=== PATIENT | female | born 1970 | race Caucasian/White ===

== ENCOUNTER 2018-05-30 11:51 | Day surgery (SDC) | payer MEDICARE, MEDICAID, SELFPAY ==
[2018-05-30] VITALS (10 sets, daily range): BP systolic 133–196; BP diastolic 76–101; PULSE 61–88; RESP 16–20; TEMP 36.6–37.6; O2SAT 93–100; BMI 38.8
--- NOTE | 2018-05-30 12:21 | EKG12_ITS ---
Test Reason : PRE-OP Blood Pressure : / mmHG Vent. Rate : 062 BPM Atrial Rate : 062 BPM P-R Int : 160 ms QRS Dur : 080 ms QT Int : 428 ms P-R-T Axes : 018 052 051 degrees QTc Int : 434 ms Normal sinus rhythm Normal ECG When compared with ECG of 16-APR-2015 19:19, No significant change was found Confirmed by OTIS ISLAS, ROHIT ([id number]), editor greeting card RUBEN DUPONT ([id number]) on 06/03/2018 2:27:43 PM Referred By: Rosina Quinn Confirmed By:ROHIT BERG MD
[2018-05-30 12:37] LABS: Hematocrit 36.6 % (37-47); Mean Corp Hgb Conc 32.8 g/gl (32-36); Mean Corpuscular Hgb 28.9 pg (27.0-32.0); Mean Corpuscular Volume 88.2 fL (81-99); Mean Platelet Vol. 9.8 fl (6.2-12.0); Platelet Count 238 K/mm3 (150-450); RBC Distribution Width CV 12.9 % (11.6-14.6); RBC Distribution Width SD 41.7 fl (35.1-43.9); Red Blood Count 4.15 M/mm3 (4.2-5.4); White Blood Count 6.2 K/mm3 (4.4-11.0)
[2018-05-30 12:39] LABS: Scan Indicated on CBC? Y/N NO
--- NOTE | 2018-05-30 12:39 | PCM.HP.BLA ---
History and Physical Date of Admission: 05/30/18 Lucita Baumann a 47 year old female presents with chronic right upper quadrant abdominal pain and epigastric abdominal pain, occasionally sharp, sometimes a severe ache. She states that it sometimes radiates to the back. Also complains of abdominal bloating. Complains of diaphoresis with above. RUQ US 03/23/18: Impression: hepatic steatosis HIDA scan done at [place] 03/31/18: HIDA scan was normal. No evidence of gallbladder filling problem or ejection problem. EF 99.7% Mother and sister had gallbladder disease. EGD 05/03/18 - mild chronic gastritis, h pylori negative, reflux with esophagitis She wishes to undergo laparoscopic cholecystectomy, possible cholangiograms ? ? PAST?MEDICAL?HISTORY ? Benign heart murmur 09/01/2012 ? Benign neoplasm of pituitary gland and craniopharyngeal duct (pouch) (HCC) Dr. Duke following ? Degeneration of intervertebral disc, site unspecified ?Drs. Wilburn ? Depressive disorder, not elsewhere classified ? ? DM (diabetes mellitus) (HCC) ?Dr. Duke ? H/O blood clots all superficial ? Heartburn ? ? High blood pressure ? ? Hypothyroidism ? ? GAGANDEEP (obstructive sleep apnea) ? ? Other and unspecified hyperlipidemia Dr. Duke following ? Schizoaffective disorder ? ? Seizures (HCC) 2013 medication related ? Spinal stenosis, unspecified region other than cervical Dr.s Wilburn ? Unspecified epilepsy without mention of intractable epilepsy ? ? Viral warts, unspecified ? ? ? PAST?SURGICAL?HISTORY ? ANKLE LEFT OP SURGERY ? 06/19/2011 8 screws and metal plate removed left ankle ? ARTHRO SHLDR DST CLAVICLECTMY ? 04/10/2014 Right shoulder arthroscopic rotator cuff repair with debridement ? COLONOSCOP W/ OR W/O BRSH SPEC ? 09/05/13 ? EGD W/O OR W/BRUSH/WASH ? 09/05/13 ? EMBOLIZATION UTERINE FIBROID ? [id number] 1 removed each time ? LEG DVT LEONEL UNL J3-5 ? 1982 5 superficial blot clots in left leg ? PAST SURGICAL HISTORY OF ? -05-25 bilateral breast reduction ? SHLDR ARTHROSCOP,PART ACROMIOPLAS ? 01/31/2013 Right shoulder ? TONSILLECTOMY HX ? 1992 ? VAGINAL HYSTERECTOMY ? 01/05/2013 Hysterectomy, vaginal for dysmenorrhea ? ? FAMILY?HISTORY ? Arthritis Mother ? ? Arthritis Maternal Grandfather ? ? Arthritis Sister ? ? Arthritis Sister ? ? Hypertension Sister ? ? Diabetes Sister ? ? Heart Sister ? mothers family history ? ? CURRENT?MEDICATIONS ondansetron orally disintegrating (ZOFRAN ODT) 4 mg disintegrating tablet Take 1 tablet by mouth every 6 hours as needed for Nausea/Vomiting. Disp: 20 tablet Rfl: 0 carBAMazepine XR (TEGRETOL XR) 200 mg 12 hr tablet Take 400mg in am, and 600mg in pm Disp: Rfl: Cholecalciferol, Vitamin D3, 2,000 unit cap Take 1 capsule by mouth once daily. Disp: Rfl: sucralfate (CARAFATE) 1 gram tablet Take 1 tablet by mouth before meals and at bedtime. As directed--may dissolve in 1 to 2 teaspoons of water and take 30 minutes before meals and bedtime Disp: 56 tablet Rfl: 1 tiZANidine (ZANAFLEX) 4 mg tablet Take 1 tablet by mouth every 8 hours as needed. Disp: 90 tablet Rfl: 1 traMADol (ULTRAM) 50 mg tablet Take 1 tablet by mouth every 6 hours as needed for Pain for up to 7 days. Disp: 28 tablet Rfl: 0 baclofen (LIORESAL) 10 mg tablet Take 1 tablet by mouth twice daily. Disp: 60 tablet Rfl: 2 omeprazole (PRILOSEC) 20 mg capsule TAKE 1 CAPSULE BY MOUTH TWICE A DAY Disp: 56 capsule Rfl: 5 lisinopril (ZESTRIL,PRINIVIL) 30 mg tablet TAKE 1 TABLET BY MOUTH DAILY Disp: 28 tablet Rfl: 5 ibuprofen (MOTRIN) 800 mg tablet Take 1 tablet by mouth every 8 hours as needed for Pain. FOR PAIN. Disp: 90 tablet Rfl: 1 amLODIPine (NORVASC) 5 mg tablet Take 1 tablet by mouth once daily. Disp: 30 tablet Rfl: 5 QUEtiapine (SEROQUEL) 400 mg tablet Take 1 tablet by mouth daily at bedtime. with 100 mg pill Disp: Rfl: QUEtiapine (SEROQUEL) 100 mg tablet Take 1 tablet by mouth daily at bedtime. with 400 mg dose Disp: Rfl: pravastatin (PRAVACHOL) 20 mg tablet Take 1 tablet by mouth daily at bedtime. Disp: 90 tablet Rfl: 3 clotrimazole-betamethasone (LOTRISONE) cream Apply 1 application to affected area twice daily. apply for 1-2 weeks, then discontinue Disp: 15 g Rfl: 2 busPIRone HCl 30 mg tablet Take 1 tablet by mouth twice daily. Disp: Rfl: DULoxetine (CYMBALTA) 60 mg capsule Take 2 capsules by mouth once daily. In AM Disp: Rfl: temazepam (RESTORIL) 30 mg cap Take 1 capsule by mouth daily at bedtime. Disp: Rfl: ? ? SOCIAL HISTORY: Patient is single. She quit smoking 4 years ago and reports her alcohol use as very rarely. ? ROS GI: The patient states that her appetite has been good. She does get hungry. There has been nausea, some vomiting (dry heaves). She denies dysphagia and denies odynophagia. There has been indigestion with heartburn. There has partially been regurgitation. Bowel habits have been irregular. There has been diarrhea. There has not been constipation. The patient denies rectal bleeding. There has not been melena. Daily abdominal pain that is located in the right upper quadrant. SOFTWARE TEST DEVELOPER: Negative for abnormal vaginal bleeding, abnormal vaginal discharge. LMP: Hyst. MUSCULOSKELETAL: Positive for joint pain, back pain or muscle pain. Sees pain management as needed. PSYCH: Positive for depression: sleep disturbance, anxiety, severe psychosocial stressors and hallucinations. Sees psychiatrist bi-monthly. All other reviewed and negative other than HPI. ? ? PHYSICAL EXAMINATION: General Appearance: Well appearing, alert, in no acute distress, well-hydrated, well nourished. Skin: Skin color, texture, turgor normal, no suspicious rashes or lesions. Head: Normocephalic, no masses, lesions or abnormalities. Eyes: Anicteric sclera. Wearing glasses Oropharynx: Lips, mucosa, and tongue normal, teeth and gums normal, oropharynx normal. Neck: Supple, no adenopathy; thyroid symmetric, normal size. Lungs: lungs clear to auscultation. No wheezing, rhonchi, rales. Heart: regular Abdomen: Abdomen soft, non-tender. Bowel sounds normal. No masses, organomegaly. Extremities: No deformities, edema, skin discoloration, clubbing or cyanosis. ? ? Impression: RUQ and epigastric pain with normal US and HIDA ? ? Plan: I have discussed above with the patient. Despite all the negative studies, I have offered gallbladder surgery. I have explained to her that this also may not alleviate her symptoms. I have explained the procedure to the patient. I have counseled the patient as to the risks of the surgery, including but not limited to: infection, bleeding, injury to any bowel/bladder, injury to any intraabdominal organs, intraabdominal bleeding/abscess, incisional trocar hernias, wound infections, injury to the common bile duct, injury to the biliary tree, bile leak, complications of anesthesia, etc. - she understands. She wishes to proceed. I have answered all her questions and she has no further questions.
[2018-05-30 12:58] LABS: Thyroid Stim Hormone (TSH) 0.89 uIU/mL (0.358-3.74)
--- NOTE | 2018-05-30 13:30 | GALL_PTH ---
PATIENT: VIKKI LESLIE [place] [facility] [id number] AGE/SX: 47/F ROOM: RE05/30/[address]: Dr. Rosina Quinn MD : 1970 BED: DIS: 05/30/2018 SPEC #: [id number] RECD: 05/30/18 15:33 STATUS: DAINA RELeo #: [id number] GABRIELA: 05/30/18 13:[address]: Rosina Quinn DEPT: SURGICAL PATHOLOGY RECD BY: Costa Vázquez ENTERED: 05/31/18 11:51 SP TYPE: RAGHU PERALES DR: Dr. Jenny Son MD Tissues: Gallbladder, NOS Procedures: Surgery Specimen Level III HEADER OPERATION: Laparoscopic cholecystectomy with intraoperative cholangiogram PRE-OP DIAGNOSIS: Right upper quadrant abdominal pain TISSUE SUBMITTED: Gallbladder and contents MICROSCOPIC DIAGNOSIS Gallbladder: Chronic cholecystitis. No stones are identified in the container or in the gallbladder. SJ:melissa 06/01/18 MICROSCOPIC DESCRIPTION Slides are reviewed. GROSS DESCRIPTION Received is one container labeled with the patient's name and designated gallbladder and contents. The specimen consists of a gallbladder measuring 8 cm in length and up to 3 cm in diameter. The external surface is pink-moreno, smooth and glistening for the most part. Focally it is granular, hemorrhagic and contains cautery artifact. The gallbladder contains green-yellow mucoid bile and a small amount of sludge material. No stones are identified in the gallbladder or in the container. The mucosa is bile-stained and without any mass lesions. The gallbladder wall measures up to 0.3 cm in thickness. Head Of Measurement & Insights sections from the gallbladder and the cystic duct are submitted in one cassette. / SPIKE:melissa 05/31/18 TC:3 CPT: 45034
--- NOTE | 2018-05-30 13:43 | PCM.IMDPSTOP ---
Immediate Post-Op Note Date of Procedure: 05/30/18 Primary Surgeon/Physician: Rosina Quinn guest experience captain: Madai Hansen Pre-Operative Diagnosis: right upper quadrant abdominal pain Post-Operative Diagnosis: same as above Surgery/Procedure Performed:: laparoscopic cholecystectomy with cholangiograms Description of Surgical Findings:: chronic cholecystitis, adherent omental to free surface of gallbladder, edematous around triagnle of calot Estimated Blood Loss: < 5 ml Specimen's removed: gallbladder and contents Type of Anesthesia:: General ASA Class: ASA2 Mod Systematic Disease - Admit VTE Documentation VTE Present on Admission: Yes VTE Mechan Device Prophylaxis: SCD's
[2018-05-30] MEDS: Cefazolin 2 GM in 0.9% Normal Saline 100 ML IV (13:47)
--- NOTE | 2018-05-30 14:03 | RAD_ITS ---
CLINICAL HISTORY: Female, 47 years old. Pain PROCEDURE: CHOLANGIOGRAM - intraoperative FLUOROSCOPY TIME (if supplied): (0/3.8) minutes/seconds TECHNIQUE: (Single spot view) FINDINGS: Spot view demonstrates surgical instrumentation. There is contrasts in the common bile duct and entering into the duodenum. RAD/Cholangiogram/ O R,Initial IMPRESSION: Intraoperative fluoroscopy. Electronically Signed: Chung Robert MD at 17:07 EST , Service support ,
[2018-05-30] MEDS: Bupiv/Epi 0.5% Mpf 30 ML Vial (14:36)
--- NOTE | 2018-05-30 14:38 | PCM.OPRPT ---
Report of Operation Date of Procedure: 05/30/18 Pre-Operative Diagnosis: right upper quadrant abdominal pain Post-Operative Diagnosis: same as above Surgery/Procedure Performed:: laparoscopic cholecystectomy with cholangiograms Description of Surgical Findings:: chronic cholecystitis, adherent omental to free surface of gallbladder, edematous around triangle of Calot room designer: Madai Hansen Type of Anesthesia:: General Anesthesiologist: Med Hernández Specimen's removed: gallbladder and contents Estimated Blood Loss (mL): < 5 ml Fluids Replaced: 900 ml RL Description of Procedure: After informed consent was given, the patient was brought to the Operating Room and placed in the supine position. Appropriate time out protocol was followed. The patient was then placed under general endotracheal anesthesia. The abdomen was then prepped with a sterile surgical skin preparation and sterile surgical drapes were placed. An area above the umbilicus was grasped with penetrating clamps and the skin and subcutaneous tissues were infiltrated with 0.25% marcaine. A skin incision was then made with a 15 blade scalpel. The anterior abdominal wall was elevated and a Veress needle was carefully inserted into the intraabdominal cavity. It was checked to be in the proper position with a normal saline drop test. A CO2 pneumoperitoneum was then created. Once this was achieved, then the Veress needle was removed and an 11mm trocar was placed in its stead. A 10mm laparoscope was then inserted into the trocar and careful attention was directed to the intraabdominal contents. There was no evidence of injury to any intraabdominal organs from insertion of the Veress needle or the trocar. Under direct visualization, a 5mm subxiphoid trocar and two lateral 5mm right subcostal trocars were placed. The skin and subcutaneous tissues at these sites were infiltrated with 0.5% marcaine prior to placement of these trocars. Attention was then directed to the right upper quadrant of the abdomen. There were omental adhesions to the free surface of the gallbladder. These were taken down by blunt dissection. Any hemorrhage was controlled with electrocautery. Graspers were placed in the lateral trocars to grasp the distal aspect of the gallbladder and direct it cephalad and to grasp the gallbladder at Olmedo?s pouch and direct it laterally. Dissection then began on the proximal gallbladder continuing down to the area of the triangle of Calot to bluntly dissect out the cystic duct. Of note, there was tissue edema noted in this area. The distal trocar caused a rent in the gallbladder with some spillage of bile. This was then aspirated out with the suction/table cut off saw operator device and the area lavaged with normal saline and all fluid suctioned out. The neck of the gallbladder was identified and blunt dissection continued to dissect out a segment of the cystic duct. A clip was then placed on the neck of the gallbladder. A small ductotomy was then made. A Ranfac catheter was brought in through a separate skin incision and placed into the cystic duct. An intraoperative cholangiogram was performed under fluoroscopy. The xray revealed no lesions in the common bile duct and good flow into the duodenum. The Ranfac catheter was then removed and two clips were placed proximal to the ductotomy and the cystic duct was then transected. The cystic artery was visualized and bluntly isolated and then two clips were placed proximally and one clip distally and then it was transected between the proximal and distal clips. The gallbladder was then from the liver bed using electrocautery and thus able to be brought out of the umbilical port after being placed in an Endobag. It was then forwarded to pathology for analysis. The liver bed was carefully examined. There was no evidence of bile leakage or bleeding. Randy was applied for added hemostasis. The cystic duct stump and cystic artery stump had their clips intact and there was no evidence of bile leakage or bleeding. The remainder of the abdomen was grossly normal. The CO2 was released and all trocars removed intact. The periumbilical fascia was approximated with a uadoeb-or-gicas 0 vicryl suture. All skin incision were closed with 4-0 monocryl in a subdermal fashion. Cavilol and Steristrips were used to reinforce the skin closure. Sterile dressings were applied to all wounds. The patient was extubated and brought to the Recovery Room in stable condition. - Complications none noted - Admit VTE Documentation VTE Present on Admission: Yes VTE Mechan Device Prophylaxis: SCD's
--- NOTE | 2018-05-30 14:42 | DCINST_ITS ---
Discharge Diet: No Restrictions - avoid carbonated beverages for a few days, drink plenty of fluids Discharge Activity: Return to Normal Activity, May not drive while taking narcotic pain medications. Lifting Restrictions: no lifting greater than 20 pounds for 2 weeks Call your doctor if your incision/area has: Continuous Slow Oozing, Foul Smelling Discharge Call your doctor if you observe: Fever of 101 or Higher Additional Dressing/Incision Instructions:: Leave dressings in place. May get wet in shower. Do not soak - no tub baths/swimming Allergies/Adverse Reactions: Allergies hydrocodone bitartrate [From Vicodin] Allergy (Mild, Verified 05/30/18 12:20) Itching codeine Adverse Reaction (Intermediate, Verified 05/30/18 12:20) VOMITS prochlorperazine edisylate [From Compazine] Adverse Reaction (Intermediate, Verified 05/30/18 12:20) ANXIETY prochlorperazine maleate [From Compazine] Adverse Reaction (Intermediate, Verified 05/30/18 12:20) ANXIETY benzonatate [From Tessalon Perles] Adverse Reaction (Verified 05/30/18 12:20) Other Medications to take at Discharge Buspirone HCl [Buspar] 30 mg PO BID 08/29/13 Duloxetine Hcl [Cymbalta] 60 mg PO BID 08/29/13 Lisinopril [Zestril] 10 mg PO DAILY 08/29/13 Omeprazole [Prilosec] 40 mg PO BID 08/29/13 Pravastatin [Pravachol] 20 mg PO QHS 08/29/13 Quetiapine Fumarate [Seroquel] 500 mg PO QHS 08/29/13 Temazepam [Restoril] 30 mg PO QHS PRN 08/29/13 Carbamazepine [Tegretol] 400 mg PO DAILY 05/26/18 Carbamazepine [Tegretol] 600 mg PO QHS 05/26/18 Tizanidine HCl [Zanaflex] 4 mg PO TID PRN 05/26/18 Orders to be completed after discharge: 12 Lead EKG [[facility]] Time Frame: 05/30/18, Location: None Selected Primary Care Physician: Jenny Son MD [Primary Care Provider] - Test Results: Test results from this visit will be discussed in further detail at your follow- up appointment, if applicable. Please Follow Up With: Rosina Quinn MD - call When: to be seen in 7-10 days, please call for date and time, thank you
[2018-05-30] MEDS: oxyCODONE 5 MG Tablet PO (16:40)
--- OUTSIDE RECORDS SUMMARY | 2018-09-01 02:02 | XMS RPT_ITS | Summary of Care ---
:1970 Author Organization [facility] Address [address] [place] [address] Care Team Providers Name Role Phone Unavailable Primary Care Provider Unavailable Encounter Details Date Type Department Care Team Description 03/31/2018 Hospital Encounter [facility] [address] [place] [id number] Social History Tobacco Use Types Packs/Day Years Used Date Never Assessed Sex Assigned at Date Recorded Not on file as of this encounter Plan of Treatment Not on fileas of this encounter
--- OUTSIDE RECORDS SUMMARY | 2018-09-01 02:03 | XMS RPT_ITS ---
:1970 Author Organization OHIP Care Team Providers Name Role Phone Dr. Melania Roach Admitting Unavailable Dr. Melania Roach Attending Unavailable Liz Nascimento MD Admitting Unavailable Liz Nascimento MD Attending Unavailable BOGDAN POE Attending Unavailable BOGDAN POE Referring Unavailable Rosina Quinn Attending Unavailable Rosina Quinn Referring Unavailable Liz Nascimento Primary Care Unavailable Benji Boone Attending Unavailable Rosina Quinn Referring Unavailable CAMDEN BOYCE Admitting Unavailable CAMDEN BOYCE Attending Unavailable CAMDEN BOYCE Admitting Unavailable CAMDEN BOYCE Attending Unavailable CAMDEN BOYCE Admitting Unavailable CAMDEN BOYCE Attending Unavailable CAMDEN BOYCE Admitting Unavailable CAMDEN BOYCE Attending Unavailable ROSINA QUINN Admitting Unavailable ROSINA QUINN Attending Unavailable MIMA COTTO ([facility]) Referring Unavailable RAYNE LUDWIG ([facility]) Attending Unavailable LIZ NASCIMENTO Referring Unavailable RAYNE LUDWIG (FLOOR SUPERVISOR) Referring Unavailable RAYNE LUDWIG (FLOOR SUPERVISOR) Referring Unavailable RAYNE LUDWIG ([facility]) Referring Unavailable IDRIS DOTSON ([facility]) Referring Unavailable TALAMPAS, LIZ D Attending Unavailable TALAMPAS, LIZ D Referring Unavailable CAMDEN BOYCE Attending Unavailable CAMDEN BOYCE Referring Unavailable TALAMPAS, LIZ D Referring Unavailable RAYNE LUDWIG (FLOOR SUPERVISOR) Attending Unavailable HORTENCIA DIALOL (FLOOR SUPERVISOR) Attending Unavailable MIMA COTTO (FLOOR SUPERVISOR) Attending Unavailable TALAMPAS, LIZ D Referring Unavailable TALAMPAS, LIZ D Referring Unavailable COTTOMIMA SALVADOR (FLOOR SUPERVISOR) Attending Unavailable TALAMPAS, LIZ D Attending Unavailable TALAMPAS, LIZ D Referring Unavailable THORPEBHAVIN (PRIVACY ATTORNEY) Attending Unavailable TALAMPAS, LIZ D Referring Unavailable THORPEBHAVIN (PRIVACY ATTORNEY) Referring Unavailable QUINN, ROSINA DUKEE Attending Unavailable QUINN, ROSINA KATERYNA Referring Unavailable QUINN, ROSINA KATERYNA Attending Unavailable TALAMPAS, LIZ D Referring Unavailable PROBLEMS PROBLEMS DATE TYPE CONDITION / CODE ATTENDING STATUS SOURCE 05/30/2018 Unknown Z09 - Encounter for Rosina Quinn Active [place] follow-up Community examination after Hospital completed treatment Repository for conditions other than malignant neoplasm / Z09(ICD-10) 06/22/2018 Unknown I10 - Essential [place], [place] Active [place] (primary) Community hypertension / Hospital I10(ICD-10) Repository 04/22/2018 Active Right upper quadrant ROSINA QUINN Active [facility] pain / [facility] Other R10.11(ICD-10) [place] Repository 04/22/2018 Active Change in bowel ROSINA QUINN Active [facility] habit / [facility] Other R19.4(ICD-10) [place] Repository 04/22/2018 Active Epigastric pain / QUINNROSINA Active [facility] R10.13(ICD-10) [facility] Other [place] Repository 04/22/2018 Active Nausea / ROSINA QUINN Active [facility] R11.0(ICD-10) [facility] Other [place] Repository 04/26/2018 Active Spondylosis without CAMDEN BOYCE Active [facility] myelopathy or Clinic Other radiculopathy, [place] cervical region / Repository M47.812(ICD-10) 12/28/2017 Active Other cervical disc MIMA COTTO Active [place] displacement, (FLOOR SUPERVISOR) Clinic Main unspecified cervical [place] region / Repository M50.20(ICD-10) 12/28/2017 Active Radiculopathy, MIMA COTTO Active [facility] cervical region / (FLOOR SUPERVISOR) Clinic Main M54.12(ICD-10) [place] Repository 12/28/2017 Active Other cervical disc MIMA COTTO Active [facility] degeneration, (FLOOR SUPERVISOR) Clinic Main unspecified cervical [place] region / Repository M50.30(ICD-10) 06/15/2017 Active Sacrococcygeal MIMA COTTO Active [facility] disorders, not (FLOOR SUPERVISOR) Clinic Main elsewhere classified [place] / M53.3(ICD-10) Repository 06/15/2017 Active Other chronic pain / COTTOBELKYSN Ch[place] Active [facility] G89.29(ICD-10) (FLOOR SUPERVISOR) Clinic Main [place] Repository 10/17/2013 Active Myalgia, other site BELKYS COTTON [place] Active [facility] / M79.18(ICD-10) (FLOOR SUPERVISOR) Clinic Main [place] Repository 07/08/2010 Active Metabolic syndrome / NA Active [facility] E88.81(ICD-10) Clinic Main [place] Repository 01/06/2018 Active Unspecified BOYCECAMDEN Active [facility] inflammatory [facility] Other spondylopathy, [place] cervical region / Repository M46.92(ICD-10) 11/02/2017 Working Contusion of lower NA Active [facility] Diagnosis back and pelvis, [place] initial encounter / Repository S30.0XXA(ICD-10) 11/01/2017 Admitting Strain of muscle, NA Active [facility] Diagnosis fascia and tendon of [place] lower back, initial Repository encounter / S39.012A(ICD-10) 11/01/2017 Admitting Contusion of lower NA Active [facility] Diagnosis back and pelvis, [place] initial encounter / Repository S30.0XXA(ICD-10) 11/01/2017 Admitting Unspecified fall, NA Active [facility] Diagnosis initial encounter / [place] W19.XXXA(ICD-10) Repository 09/14/2017 Active Vitamin D NA Active [facility] deficiency, Clinic Main unspecified / [place] E55.9(ICD-10) Repository 10/08/2017 Active Other specified NA Active [facility] abnormal findings of Clinic Main blood chemistry / [place] R79.89(ICD-10) Repository 09/07/2017 Active Other abnormal NA Active [facility] glucose / Clinic Main R73.09(ICD-10) [place] Repository 09/07/2017 Active Other watermaster NA Active [facility] (current) drug Clinic Main therapy / [place] Z79.899(ICD-10) Repository 08/19/2017 Active Unknown / NA Active [facility] UNK(Unknown) Clinic Main [place] Repository 08/19/2017 Active Encounter for NA Active [facility] screening mammogram Clinic Main for malignant [place] neoplasm of breast / Repository Z12.31(ICD-10) 08/10/2017 Active Other fatigue / NA Active [facility] R53.83(ICD-10) Clinic Main [place] Repository 08/10/2017 Active Diarrhea, NA Active [facility] unspecified / Clinic Main R19.7(ICD-10) [place] Repository 08/10/2017 Active Hypothyroidism, NA Active [facility] unspecified / Clinic Main E03.9(ICD-10) [place] Repository 08/10/2017 Active Generalized NA Active [facility] hyperhidrosis / Clinic Main R61(ICD-10) [place] Repository 07/28/2017 Admitting Low back pain / [place], Active [facility] [employer] [facility] Diagnosis M54.5(ICD-10) [place] E [place] Repository 07/16/2017 Chronic Essential (primary) NA [facility] hypertension / [place] I10(ICD-10) Repository 10/17/2013 Active Cervicalgia / NA Active [facility] M54.2(ICD-10) [facility] Main [place] Repository PROCEDURES PROCEDURES No Procedure Records FoundRESULTS RESULTS PROGRESS Observed: 06/13/2018 Status: COMPLETED Source: [place] 9:34 AM [facility] REPOSITORY HNO ID: [id number] Author: Rosina Quinn Service: (none) Author Type: Physician Type: Progress Notes Filed: 06/15/2018 7:06 PM Note Text: Vikki is s/p laparoscopic cholecystectomy 04/30/18 for right upper quadrant abdominal pain. She still notes right lower quadrant abdominal pain and fecal urgency with loose stools. I have recommended fiber supplementation. Pathology reveals chronic cholecystitis Examination: abdomen is soft and benign Wounds are well healed, no evidence of infection Impression: s/p laparoscopic cholecystectomy Plan: follow up as per needed. Patient to return to her primary physician for medical care. CNOV Observed: 06/13/2018 Status: COMPLETED Source: [place] 9:20 AM [facility] REPOSITORY Office Visit (GENSWS) PASTORVIKKI ([id number]) 1970 F [facility] Date Time Provider Department 06/13/18 9:20 AM ROSINA QUINN During your visit today, we recorded the following information about you: Temperature 97.4 degrees Rosina Quinn MD 06/15/2018 7:06 PM Signed Vikki is s/p laparoscopic cholecystectomy 04/30/18 for right upper quadrant abdominal pain. She still notes right lower quadrant abdominal pain and fecal urgency with loose stools. I have recommended fiber supplementation. Pathology reveals chronic cholecystitis Examination: abdomen is soft and benign Wounds are well healed, no evidence of infection Impression: s/p laparoscopic cholecystectomy Plan: follow up as per needed. Patient to return to her primary physician for medical care. Referring Provider: LIZ NASCIMENTO [[id number]] Allergies As of Date: 06/13/2018 Noted Allergy Reaction CODEINE 03/07/2010 8 - GI Upset COMPAZINE (PROCHLORPERAZINE EDISY*03/07/2010 DARVOCET A500 (PROPOXYPHENE N-SHERRY*03/07/2010 8 - GI Upset TESSALON (BENZONATATE) 04/16/2015 14 - Other: See Comments Comments: Heart palpitations VICODIN (HYDROCODONE-ACETAMINOPHE*03/07/2010 4 - Hives Comments: Also LORTAB Date Reviewed: 06/13/2018 Reviewed by: Christine Sanchez Ma - Fully Assessed Reason for Visit: Post Op [174] Primary Visit Diagnosis:Status post laparoscopic cholecystectomy [Z90.49] Prescriptions as of 06/13/2018 Sig: BUSPIRONE 30 MG TABLET Take 1 tablet by mouth twice * CARBAMAZEPINE ER 200 MG TABLE* Take 400mg in am, and 600mg i* CHOLECALCIFEROL (VITAMIN D3) * Take 1 capsule by mouth once * CLOTRIMAZOLE-BETAMETHASONE 1 * Apply 1 application to affect* DULOXETINE 60 MG CAPSULE,EARL* Take 2 capsules by mouth once* IBUPROFEN 800 MG TABLET Take 1 tablet by mouth every * LISINOPRIL 30 MG TABLET TAKE 1 TABLET BY MOUTH DAILY OMEPRAZOLE 20 MG CAPSULE,EARL* TAKE 1 CAPSULE BY MOUTH TWICE* PRAVASTATIN 20 MG TABLET Take 1 tablet by mouth daily * QUETIAPINE 100 MG TABLET Take 1 tablet by mouth daily * QUETIAPINE 400 MG TABLET Take 1 tablet by mouth daily * SUCRALFATE 1 GRAM TABLET Take 1 tablet by mouth before* TEMAZEPAM 30 MG CAPSULE Take 1 capsule by mouth daily* TIZANIDINE 4 MG TABLET Take 1 tablet by mouth every * AMLODIPINE 5 MG TABLET Take 1 tablet by mouth once d* BACLOFEN 10 MG TABLET Take 1 tablet by mouth twice * TRAMADOL 50 MG TABLET Take 1 tablet by mouth every * Problem List As Of Date 06/13/2018 Noted Resolved 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, 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] INVALID FOR* Dysmetabolic syndrome [E88.81] INVALID FOR* Depression [F32.9] INVALID FOR* Hypertrophy of breast [N62] INVALID FOR* Benign heart murmur INVALID FOR* Abnormal uterine bleeding [N93.9] INVALID FOR* Chronic RLQ pain [R10.31, G89.29] INVALID FOR* Dysmenorrhea [N94.6] INVALID FOR* Other affections of shoulder region, not elsewh*INVALID FOR* Rotator cuff tear [M75.100] INVALID FOR*02/28/2013 SHEFALI (iron deficiency anemia) [D50.9] INVALID FOR* Myofascial pain [M79.18] INVALID FOR* Neck pain [M54.2] INVALID FOR* Cervical disc displacement [M50.20] INVALID FOR* Pain in joint, shoulder region [M25.519] INVALID FOR* Cervical radiculitis [M54.12] INVALID FOR* Sacroiliac joint pain [M53.3] INVALID FOR* Buttock pain [M79.18] INVALID FOR*01/15/2015 Right buttock pain [M79.18] INVALID FOR* Headache [R51] INVALID FOR* Lower back pain [M54.5] INVALID FOR*09/10/2015 Chronic pain [G89.29] INVALID FOR*11/14/2015 Right-sided low back pain without sciatica [M54*INVALID FOR*11/14/2015 Hypothyroidism [E03.9] Non morbid obesity due to excess calories [E66.*INVALID FOR* Cervical arthritis (HCC) [M47.812] INVALID FOR* Chronic bilateral low back pain without sciatic*INVALID FOR* DDD (degenerative disc disease), cervical [M50.*INVALID FOR* SI (sacroiliac) joint dysfunction [M53.3] INVALID FOR* Schizoaffective disorder (HCC) [F25.9] INVALID FOR* Chronic SI joint pain [M53.3, G89.29] INVALID FOR* Vitamin D deficiency [E55.9] INVALID FOR* RUQ pain [R10.11] INVALID FOR* More... Altered bowel habits [R19.4] INVALID FOR* More... Epigastric pain [R10.13] INVALID FOR* More... Nausea [R11.0] INVALID FOR* More... Encounter Status:Closed by MD ROSINA QUINN on 06/15/18 FAT, FECAL QUAL Collected: 06/11/2018 Status: F Source: [place] 6:00 [facility] REPOSITORY TYPE CODE TESTS RESULT OUT OF REFERENCE UNITS RANGE LAB FFATNE Normal FAT, FECAL Normal NEUTRAL LAB FFATSP Normal FAT, FECAL Normal SPLIT Result Comment: (NOTE) INTERPRETIVE INFORMATION: Fecal Fat Qualitative Neutral fats include the monoglycerides, diglycerides, and triglycerides while split fats are the free fatty acids that are liberated from them. Impaired synthesis or secretion of pancreatic enzymes or bile may cause an increase in neutral fats while an increase in split fats suggests impaired absorption of nutrients. Performed by [facility], [address] [place] [address] [id number] [email or web address], Lang Herrera MD, Lab. Director Performed By: #### FFATQL #### [facility] [address] [place] [address] [phone] PANC ELASTASE, FECAL Collected: 06/11/2018 Status: F Source: [place] 6:00 PM [facility] REPOSITORY TYPE CODE TESTS RESULT OUT OF RANGE REFERENCE UNITS LAB PANCF1 >=201 ug/g Panc >500 Elastase, Fecal Result Comment: (NOTE) REFERENCE INTERVAL: Pancreatic Elastase, Fecal by MARIA ESTHER Greater than 200 ug/g ........ Normal 100-200 ug/g ................. Moderate to mild pancreatic insufficiency Less than 100 ug/g ........... Severe exocrine pancreatic insufficiency Reference range does not apply for infants less than one month old. Performed by [facility], [address] [place] [address] [email or web address], Lang Herrera MD, Lab. Director Performed By: #### PANCEF #### [facility] [address] [place] [address] [phone] LEAD ELECTROCARDIOGRAM Observed: 06/03/2018 Status: F Source: [place] 2:28 PM [facility] REPOSITORY [facility] Cardiovascular Services [address] [place] [address] 12 Lead EKG 05/30/18 1222 MR#: [id number] Acct: [id number] Name: VIKKI BAUMANN Rep #: [id number] : 1970 47 From: Benji Boone MD Attending Dr: Rosina Quinn MD Status: DEP SDC Ordering Dr: Ritesh Monroe MD Date: 05/30/18 Location: [facility] Sex: F C Admitted: Test Reason : PRE-OP Blood Pressure : / mmHG Vent. Rate : 062 BPM Atrial Rate : 062 BPM P-R Int : 160 ms QRS Dur : 080 ms QT Int : 428 ms P-R-T Axes : 018 052 051 degrees QTc Int : 434 ms Normal sinus rhythm Normal ECG When compared with ECG of 16-APR-2015 19:19, No significant change was found Confirmed by BENJI BOONE MD ([id number]), graphics editor RUBEN FRASER ([id number]) on 06/03/2018 2:27:43 PM Referred By: Rosina Quinn Confirmed By:BENJI BOONE MD 06/03/18 1427 Date Benji Boone MD CC: Ritesh Monroe MD; Rosina Quinn MD; Liz Nascimento MD Signed DISCHARGE INSTRUCTION Observed: 06/01/2018 Status: F Source: [place] 7:26 AM [facility] REPOSITORY [facility] Medical Records Department [address] [place] [address] Instructions for Home/Discharge Instructions 05/30/18 1440 MR#: [id number] Acct: [id number] Name: VIKKI BAUMANN Rep #: [id number] : 1970 47 From: Rosina Quinn MD PCP: Liz Nascimento MD Status: DEP [facility] Discharge Diet: No Restrictions - avoid carbonated beverages for a few days, drink plenty of fluids Discharge Activity: Return to Normal Activity, May not drive while taking narcotic pain medications. Lifting Restrictions: no lifting greater than 20 pounds for 2 weeks Call your doctor if your incision/area has: Continuous Slow Oozing, Foul Smelling Discharge Call your doctor if you observe: Fever of 101 or Higher Additional Dressing/Incision Instructions:: Leave dressings in place. May get wet in shower. Do not soak - no tub baths/swimming Allergies/Adverse Reactions: Allergies hydrocodone bitartrate [From Vicodin] Allergy (Mild, Verified 05/30/18 12:20) Itching codeine Adverse Reaction (Intermediate, Verified 05/30/18 12:20) VOMITS prochlorperazine edisylate [From Compazine] Adverse Reaction (Intermediate, Verified 05/30/18 12:20) ANXIETY prochlorperazine maleate [From Compazine] Adverse Reaction (Intermediate, Verified 05/30/18 12:20) ANXIETY benzonatate [From Tessalon Perles] Adverse Reaction (Verified 05/30/18 12:20) Other Medications to take at Discharge Buspirone HCl [Buspar] 30 mg PO BID 08/29/13 Duloxetine Hcl [Cymbalta] 60 mg PO BID 08/29/13 Lisinopril [Zestril] 10 mg PO DAILY 08/29/13 Omeprazole [Prilosec] 40 mg PO BID 08/29/13 Pravastatin [Pravachol] 20 mg PO QHS 08/29/13 Quetiapine Fumarate [Seroquel] 500 mg PO QHS 08/29/13 Temazepam [Restoril] 30 mg PO QHS PRN 08/29/13 Carbamazepine [Tegretol] 400 mg PO DAILY 05/26/18 Carbamazepine [Tegretol] 600 mg PO QHS 05/26/18 Tizanidine HCl [Zanaflex] 4 mg PO TID PRN 05/26/18 Orders to be completed after discharge: 12 Lead EKG [[facility]] Time Frame: 05/30/18, Location: None Selected Primary Care Physician: Liz Nascimento MD [Primary Care Provider] - Test Results: Test results from this visit will be discussed in further detail at your follow-up appointment, if applicable. Please Follow Up With: Rosina Quinn MD - call When: to be seen in 7-10 days, please call for date and time, thank you 06/01/18 0726 <Electronically signed by Rosina Quinn MD> Date Rosina Quinn MD CC: Liz Nascimento MD OPERATIVE REPORT Observed: 06/01/2018 Status: F Source: [place] 7:24 AM [facility] REPOSITORY [facility] Medical Records Department [address] [place] [address] Operative Report 05/30/18 1438 MR#: [id number] Acct: [id number] Name: VIKKI BAUMANN Rep #: [id number] : 1970 47 From: Rosina Quinn MD PCP: Liz Nascimento MD Status: [facility] Location: [facility] Report of Operation Date of Procedure: 05/30/18 Pre-Operative Diagnosis: right upper quadrant abdominal pain Post-Operative Diagnosis: same as above Surgery/Procedure Performed:: laparoscopic cholecystectomy with cholangiograms Description of Surgical Findings:: chronic cholecystitis, adherent omental to free surface of gallbladder, edematous around triangle of Calot body presser: Madai Hansen Type of Anesthesia:: General Anesthesiologist: Med Hernández Specimen's removed: gallbladder and contents Estimated Blood Loss (mL): < 5 ml Fluids Replaced: 900 ml RL Description of Procedure: After informed consent was given, the patient was brought to the Operating Room and placed in the supine position. Appropriate time out protocol was followed. The patient was then placed under general endotracheal anesthesia. The abdomen was then prepped with a sterile surgical skin preparation and sterile surgical drapes were placed. An area above the umbilicus was grasped with penetrating clamps and the skin and subcutaneous tissues were infiltrated with 0.25% marcaine. A skin incision was then made with a 15 blade scalpel. The anterior abdominal wall was elevated and a Veress needle was carefully inserted into the intraabdominal cavity. It was checked to be in the proper position with a normal saline drop test. A CO2 pneumoperitoneum was then created. Once this was achieved, then the Veress needle was removed and an 11mm trocar was placed in its stead. A 10mm laparoscope was then inserted into the trocar and careful attention was directed to the intraabdominal contents. There was no evidence of injury to any intraabdominal organs from insertion of the Veress needle or the trocar. Under direct visualization, a 5mm subxiphoid trocar and two lateral 5mm right subcostal trocars were placed. The skin and subcutaneous tissues at these sites were infiltrated with 0.5% marcaine prior to placement of these trocars. Attention was then directed to the right upper quadrant of the abdomen. There were omental adhesions to the free surface of the gallbladder. These were taken down by blunt dissection. Any hemorrhage was controlled with electrocautery. Graspers were placed in the lateral trocars to grasp the distal aspect of the gallbladder and direct it cephalad and to grasp the gallbladder at Olmedo s pouch and direct it laterally. Dissection then began on the proximal gallbladder continuing down to the area of the triangle of Calot to bluntly dissect out the cystic duct. Of note, there was tissue edema noted in this area. The distal trocar caused a rent in the gallbladder with some spillage of bile. This was then aspirated out with the suction/new car get ready mechanic device and the area lavaged with normal saline and all fluid suctioned out. The neck of the gallbladder was identified and blunt dissection continued to dissect out a segment of the cystic duct. A clip was then placed on the neck of the gallbladder. A small ductotomy was then made. A Ranfac catheter was brought in through a separate skin incision and placed into the cystic duct. An intraoperative cholangiogram was performed under fluoroscopy. The xray revealed no lesions in the common bile duct and good flow into the duodenum. The Ranfac catheter was then removed and two clips were placed proximal to the ductotomy and the cystic duct was then transected. The cystic artery was visualized and bluntly isolated and then two clips were placed proximally and one clip distally and then it was transected between the proximal and distal clips. The gallbladder was then from the liver bed using electrocautery and thus able to be brought out of the umbilical port after being placed in an Endobag. It was then forwarded to pathology for analysis. The liver bed was carefully examined. There was no evidence of bile leakage or bleeding. Randy was applied for added hemostasis. The cystic duct stump and cystic artery stump had their clips intact and there was no evidence of bile leakage or bleeding. The remainder of the abdomen was grossly normal. The CO2 was released and all trocars removed intact. The periumbilical fascia was approximated with a [id number]-et-[id number] 0 vicryl suture. All skin incision were closed with 4-0 monocryl in a subdermal fashion. Cavilol and Steristrips were used to reinforce the skin closure. Sterile dressings were applied to all wounds. The patient was extubated and brought to the Recovery Room in stable condition. - Complications none noted - Admit VTE Documentation VTE Present on Admission: Yes VTE Mechan Device Prophylaxis: SCD's 06/01/18 0724 <Electronically signed by Rosina Quinn MD> Date Rosina Quinn MD CC: Rosina Quinn MD; Liz Nascimento MD Signed HISTORY AND PHYSICAL Observed: 05/30/2018 Status: F Source: [place] EXAM 1:38 PM [facility] REPOSITORY [facility] Medical Records Department [address] [place] [address] History and Physical 05/30/18 1239 MR#: [id number] Acct: [id number] Name: VIKKI BAUMANN Rep #: [id number] : 1970 47 From: Rosina Quinn MD PCP: Liz Nascimento MD Status: REG [facility] Y Location: [place] [address] History and Physical Date of Admission: 05/30/18 Vikki Baumann a 47 year old female presents with chronic right upper quadrant abdominal pain and epigastric abdominal pain, occasionally sharp, sometimes a severe ache. She states that it sometimes radiates to the back. Also complains of abdominal bloating. Complains of diaphoresis with above. RUQ US 03/23/18: Impression: hepatic steatosis HIDA scan done at [facility] 03/31/18: HIDA scan was normal. No evidence of gallbladder filling problem or ejection problem. EF 99.7% Mother and sister had gallbladder disease. EGD 05/03/18 - mild chronic gastritis, h pylori negative, reflux with esophagitis She wishes to undergo laparoscopic cholecystectomy, possible cholangiograms PAST MEDICAL HISTORY Benign heart murmur 09/01/2012 Benign neoplasm of pituitary gland and craniopharyngeal duct (pouch) ([facility]) Dr. Duke following Degeneration of intervertebral disc, site unspecified Drs. Wilburn Depressive disorder, not elsewhere classified DM (diabetes mellitus) ([facility]) Dr. Duke H/O blood clots all superficial Heartburn High blood pressure Hypothyroidism GAGANDEEP (obstructive sleep apnea) Other and unspecified hyperlipidemia Dr. Duke following Schizoaffective disorder Seizures ([facility]) 2012 medication related Spinal stenosis, unspecified region other than cervical Dr.s Wilburn Unspecified epilepsy without mention of intractable epilepsy Viral warts, unspecified PAST SURGICAL HISTORY ANKLE LEFT OP SURGERY 06/19/2011 8 screws and metal plate removed left ankle ARTHRO SHLDR DST CLAVICLECTMY 04/10/2014 Right shoulder arthroscopic rotator cuff repair with debridement COLONOSCOP W/ OR W/O BRSH SPEC 09/05/13 EGD W/O OR W/BRUSH/WASH 09/05/13 EMBOLIZATION UTERINE FIBROID 1986- 1988 1 removed each time LEG DVT LEONEL UNL J3-5 1982 5 superficial blot clots in left leg PAST SURGICAL HISTORY OF 7--12 bilateral breast reduction SHLDR ARTHROSCOP,PART ACROMIOPLAS 01/31/2013 Right shoulder TONSILLECTOMY HX 1993 VAGINAL HYSTERECTOMY 01/05/2013 Hysterectomy, vaginal for dysmenorrhea FAMILY HISTORY Arthritis Mother Arthritis Maternal Grandfather Arthritis Sister Arthritis Sister Hypertension Sister Diabetes Sister Heart Sister mothers family history CURRENT MEDICATIONS ondansetron orally disintegrating (ZOFRAN ODT) 4 mg disintegrating tablet Take 1 tablet by mouth every 6 hours as needed for Nausea/Vomiting. Disp: 20 tablet Rfl: 0 carBAMazepine XR (TEGRETOL XR) 200 mg 12 hr tablet Take 400mg in am, and 600mg in pm Disp: Rfl: Cholecalciferol, Vitamin D3, 2,000 unit cap Take 1 capsule by mouth once daily. Disp: Rfl: sucralfate (CARAFATE) 1 gram tablet Take 1 tablet by mouth before meals and at bedtime. As directed--may dissolve in 1 to 2 teaspoons of water and take 30 minutes before meals and bedtime Disp: 56 tablet Rfl: 1 tiZANidine (ZANAFLEX) 4 mg tablet Take 1 tablet by mouth every 8 hours as needed. Disp: 90 tablet Rfl: 1 traMADol (ULTRAM) 50 mg tablet Take 1 tablet by mouth every 6 hours as needed for Pain for up to 7 days. Disp: 28 tablet Rfl: 0 baclofen (LIORESAL) 10 mg tablet Take 1 tablet by mouth twice daily. Disp: 60 tablet Rfl: 2 omeprazole (PRILOSEC) 20 mg capsule TAKE 1 CAPSULE BY MOUTH TWICE A DAY Disp: 56 capsule Rfl: 5 lisinopril (ZESTRIL,PRINIVIL) 30 mg tablet TAKE 1 TABLET BY MOUTH DAILY Disp: 28 tablet Rfl: 5 ibuprofen (MOTRIN) 800 mg tablet Take 1 tablet by mouth every 8 hours as needed for Pain. FOR PAIN. Disp: 90 tablet Rfl: 1 amLODIPine (NORVASC) 5 mg tablet Take 1 tablet by mouth once daily. Disp: 30 tablet Rfl: 5 QUEtiapine (SEROQUEL) 400 mg tablet Take 1 tablet by mouth daily at bedtime. with 100 mg pill Disp: Rfl: QUEtiapine (SEROQUEL) 100 mg tablet Take 1 tablet by mouth daily at bedtime. with 400 mg dose Disp: Rfl: pravastatin (PRAVACHOL) 20 mg tablet Take 1 tablet by mouth daily at bedtime. Disp: 90 tablet Rfl: 3 clotrimazole-betamethasone (LOTRISONE) cream Apply 1 application to affected area twice daily. apply for 1-2 weeks, then discontinue Disp: 15 g Rfl: 2 busPIRone HCl 30 mg tablet Take 1 tablet by mouth twice daily. Disp: Rfl: DULoxetine (CYMBALTA) 60 mg capsule Take 2 capsules by mouth once daily. In AM Disp: Rfl: temazepam (RESTORIL) 30 mg cap Take 1 capsule by mouth daily at bedtime. Disp: Rfl: SOCIAL HISTORY: Patient is single. She quit smoking 4 years ago and reports her alcohol use as very rarely. ROS GI: The patient states that her appetite has been good. She does get hungry. There has been nausea, some vomiting (dry heaves). She denies dysphagia and denies odynophagia. There has been indigestion with heartburn. There has partially been regurgitation. Bowel habits have been irregular. There has been diarrhea. There has not been constipation. The patient denies rectal bleeding. There has not been melena. Daily abdominal pain that is located in the right upper quadrant. 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 LMP: Hyst. MUSCULOSKELETAL: Positive for joint pain, back pain or muscle pain. Sees pain management as needed. PSYCH: Positive for depression: sleep disturbance, anxiety, severe psychosocial stressors and hallucinations. Sees psychiatrist bi-monthly. All other reviewed and negative other than HPI. PHYSICAL EXAMINATION: General Appearance: Well appearing, alert, in no acute distress, well-hydrated, well nourished. Skin: Skin color, texture, turgor normal, no suspicious rashes or lesions. Head: Normocephalic, no masses, lesions or abnormalities. Eyes: Anicteric sclera. Wearing glasses Oropharynx: Lips, mucosa, and tongue normal, teeth and gums normal, oropharynx normal. Neck: Supple, no adenopathy; thyroid symmetric, normal size. Lungs: lungs clear to auscultation. No wheezing, rhonchi, rales. Heart: regular Abdomen: Abdomen soft, non-tender. Bowel sounds normal. No masses, organomegaly. Extremities: No deformities, edema, skin discoloration, clubbing or cyanosis. Impression: RUQ and epigastric pain with normal US and HIDA Plan: I have discussed above with the patient. Despite all the negative studies, I have offered gallbladder surgery. I have explained to her that this also may not alleviate her symptoms. I have explained the procedure to the patient. I have counseled the patient as to the risks of the surgery, including but not limited to: infection, bleeding, injury to any bowel/bladder, injury to any intraabdominal organs, intraabdominal bleeding/abscess, incisional trocar hernias, wound infections, injury to the common bile duct, injury to the biliary tree, bile leak, complications of anesthesia, etc. - she understands. She wishes to proceed. I have answered all her questions and she has no further questions. 05/30/18 [id number] <Electronically signed by Rosina Quinn MD> Date Rosina Quinn MD [facility] Signature: Date (if applicable) CC: Rosina Quinn MD; Liz Nascimento MD Signed GALLBLADDER Observed: 05/30/2018 Status: F Source: [place] 1:30 PM [facility] REPOSITORY Patient: VIKKI BAUMANN : 1970 (47/F) Acct Num: [id number] Phys: Kai ISLAS,Rosina Unit Num: [id number] Loc: [facility] [place] Specimen: [id number] Received: 05/30/181532 Spec Type: GALLBLADDE TISSUES 1 TISSUES: Gallbladder, NOS GROSS DESCRIPTION Received is one container labeled with the patient's name and designated gallbladder and contents. The specimen consists of a gallbladder measuring 8 cm in length and up to 3 cm in diameter. The external surface is pink-moreno, smooth and glistening for the most part. Focally it is granular, hemorrhagic and contains cautery artifact. The gallbladder contains green- yellow mucoid bile and a small amount of sludge material. No stones are identified in the gallbladder or in the container. The mucosa is bile-stained and without any mass lesions. The gallbladder wall measures up to 0.3 cm in thickness. Signals Collector/Analyst sections from the gallbladder and the cystic duct are submitted in one cassette. / SPIKE:melissa 05/31/18 TC:3 CPT: 15782 HEADER OPERATION: Laparoscopic cholecystectomy with intraoperative cholangiogram PRE-OP DIAGNOSIS: Right upper quadrant abdominal pain TISSUE SUBMITTED: Gallbladder and contents MICROSCOPIC DESCRIPTION Slides are reviewed. MICROSCOPIC DIAGNOSIS Gallbladder: Chronic cholecystitis. No stones are identified in the container or in the gallbladder. SPIKE:melissa 06/01/18 Signed Corbin Cerrato MD 06/01/18 <signature on file> Performed By: #### PGALL #### [facility] [address] [place], [address] CBC-COMPLETE BLOOD CNT Collected: 05/30/2018 Status: F Source: [place] NO DIFF 12:25 PM [facility] REPOSITORY Order Comment: Reason for Laboratory Test PREOP TYPE CODE TESTS RESULT OUT OF RANGE REFERENCE UNITS LAB L100.1000 4.4-11.0 K/mm3 Normal WBC 6.2 LAB L100.1200 4.2-5.4 M/mm3 Low RBC 4.15 LAB L100.1300 12.0-15.0 g/dl Normal HGB 12.0 LAB L100.1400 37-47 % Low HCT 36.6 LAB L100.1500 81-99 fL Normal MCV 88.2 LAB L100.1600 27.0-32.0 pg Normal MCH 28.9 LAB L100.1700 32-36 g/gl Normal MCHC 32.8 LAB L100.1810 11.6-14.6 % Normal RDW CV 12.9 LAB L100.1820 35.1-43.9 fl Normal RDW SD 41.7 LAB L100.1900 150-450 K/mm3 Normal PLT 238 LAB L100.2000 6.2-12.0 fl Normal MPV 9.8 Performed By: #### L100.0500 #### [facility] [address] [place], [place], [address] THYROID STIM HORMONE Collected: 05/30/2018 Status: F Source: [place] (TSH) 12:25 PM [facility] REPOSITORY Order Comment: Reason for Laboratory Test PREOP TYPE CODE TESTS RESULT OUT OF RANGE REFERENCE UNITS LAB L501.9520 0.358-3.74 uIU/mL Normal TSH 0.89 Performed By: #### L501.9520 #### [facility] [address] [place], [place], [address] CHOLANGIOGRAM/ O Observed: 05/30/2018 Status: F Source: [place] R,INITIAL 3:50 AM [facility] REPOSITORY [facility] Imaging Services [address] [place] [address] Cholangiogram/ O R,Initial MR#: [id number] Acct: [id number] Name: VIKKI BAUMANN Rep #: [id number] : 1970 F 47 From: Chung Robert MD PCP: Liz Nascimento MD Status: [facility] Study: Cholangiogram/ O R,Initial Date of Exam: 05/30/18 Exam# [id number] Ordering Dr: Rosina Quinn MD CLINICAL HISTORY: Female, 47 years old. Pain PROCEDURE: CHOLANGIOGRAM - intraoperative FLUOROSCOPY TIME (if supplied): (0/3.8) minutes/seconds TECHNIQUE: (Single spot view) FINDINGS: Spot view demonstrates surgical instrumentation. There is contrasts in the common bile duct and entering into the duodenum. RAD/Cholangiogram/ O R,Initial IMPRESSION: Intraoperative fluoroscopy. Electronically Signed: Chung Robert MD at 17:07 EST , Service support , CC: Rosina Quinn MD; Liz Nascimento MD Director Check: Signed PROGRESS Observed: 05/12/2018 Status: COMPLETED Source: [place] 5:04 PM [facility] [place] REPOSITORY O ID: [id number] Author: Rosina Quinn Service: (none) Author Type: Physician Type: Progress Notes Filed: 05/14/2018 3:35 PM Note Text: Vikki Baumann a 47 year old female presents with chronic right upper quadrant abdominal pain and epigastric abdominal pain, occasionally sharp, sometimes a severe ache. She states that it sometimes radiates to the back. Also complains of abdominal bloating. Complains of diaphoresis with above. RUQ US 03/23/18: Impression: hepatic steatosis HIDA scan done at [facility] 03/31/18: HIDA scan was normal. No evidence of gallbladder filling problem or ejection problem. EF 99.7% Mother and sister had gallbladder disease. EGD 05/03/18 - mild chronic gastritis, h pylori negative, reflux with esophagitis PAST MEDICAL HISTORY - Benign heart murmur 09/01/2012 - Benign neoplasm of pituitary gland and craniopharyngeal duct (pouch) (HCC) Dr. Leilani following - Degeneration of intervertebral disc, site unspecified Drs. Wilburn - Depressive disorder, not elsewhere classified - DM (diabetes mellitus) ([facility]) Dr. Duke - H/O blood clots all superficial - Heartburn - High blood pressure - Hypothyroidism - GAGANDEEP (obstructive sleep apnea) - Other and unspecified hyperlipidemia Dr. Duke following - Schizoaffective disorder - Seizures ([facility]) 2012 medication related - Spinal stenosis, unspecified region other than cervical Dr.s Wilburn - Unspecified epilepsy without mention of intractable epilepsy - Viral warts, unspecified PAST SURGICAL HISTORY - ANKLE LEFT OP SURGERY 06/19/2011 8 screws and metal plate removed left ankle - ARTHRO SHLDR DST CLAVICLECTMY 04/10/2014 Right shoulder arthroscopic rotator cuff repair with debridement - COLONOSCOP W/ OR W/O BRSH SPEC 09/05/13 - EGD W/O OR W/BRUSH/WASH 09/05/13 - EMBOLIZATION UTERINE FIBROID [id number] 1 removed each time - LEG DVT LEONEL UNL J3-5 1982 5 superficial blot clots in left leg - PAST SURGICAL HISTORY OF -- bilateral breast reduction - SHLDR ARTHROSCOP,PART ACROMIOPLAS 01/31/2013 Right shoulder - TONSILLECTOMY HX 1992 - VAGINAL HYSTERECTOMY 01/05/2013 Hysterectomy, vaginal for dysmenorrhea FAMILY HISTORY - Arthritis Mother - Arthritis Maternal Grandfather - Arthritis Sister - Arthritis Sister - Hypertension Sister - Diabetes Sister - Heart Sister mothers family history CURRENT MEDICATIONS ondansetron orally disintegrating (ZOFRAN ODT) 4 mg disintegrating tablet Take 1 tablet by mouth every 6 hours as needed for Nausea/Vomiting. Disp: 20 tablet Rfl: 0 carBAMazepine XR (TEGRETOL XR) 200 mg 12 hr tablet Take 400mg in am, and 600mg in pm Disp: Rfl: Cholecalciferol, Vitamin D3, 2,000 unit cap Take 1 capsule by mouth once daily. Disp: Rfl: sucralfate (CARAFATE) 1 gram tablet Take 1 tablet by mouth before meals and at bedtime. As directed--may dissolve in 1 to 2 teaspoons of water and take 30 minutes before meals and bedtime Disp: 56 tablet Rfl: 1 tiZANidine (ZANAFLEX) 4 mg tablet Take 1 tablet by mouth every 8 hours as needed. Disp: 90 tablet Rfl: 1 traMADol (ULTRAM) 50 mg tablet Take 1 tablet by mouth every 6 hours as needed for Pain for up to 7 days. Disp: 28 tablet Rfl: 0 baclofen (LIORESAL) 10 mg tablet Take 1 tablet by mouth twice daily. Disp: 60 tablet Rfl: 2 omeprazole (PRILOSEC) 20 mg capsule TAKE 1 CAPSULE BY MOUTH TWICE A DAY Disp: 56 capsule Rfl: 5 lisinopril (ZESTRIL,PRINIVIL) 30 mg tablet TAKE 1 TABLET BY MOUTH DAILY Disp: 28 tablet Rfl: 5 ibuprofen (MOTRIN) 800 mg tablet Take 1 tablet by mouth every 8 hours as needed for Pain. FOR PAIN. Disp: 90 tablet Rfl: 1 amLODIPine (NORVASC) 5 mg tablet Take 1 tablet by mouth once daily. Disp: 30 tablet Rfl: 5 QUEtiapine (SEROQUEL) 400 mg tablet Take 1 tablet by mouth daily at bedtime. with 100 mg pill Disp: Rfl: QUEtiapine (SEROQUEL) 100 mg tablet Take 1 tablet by mouth daily at bedtime. with 400 mg dose Disp: Rfl: pravastatin (PRAVACHOL) 20 mg tablet Take 1 tablet by mouth daily at bedtime. Disp: 90 tablet Rfl: 3 clotrimazole-betamethasone (LOTRISONE) cream Apply 1 application to affected area twice daily. apply for 1-2 weeks, then discontinue Disp: 15 g Rfl: 2 busPIRone HCl 30 mg tablet Take 1 tablet by mouth twice daily. Disp: Rfl: DULoxetine (CYMBALTA) 60 mg capsule Take 2 capsules by mouth once daily. In AM Disp: Rfl: temazepam (RESTORIL) 30 mg cap Take 1 capsule by mouth daily at bedtime. Disp: Rfl: SOCIAL HISTORY: Patient is single. She quit smoking 4 years ago and reports her alcohol use as very rarely. ROS GI: The patient states that her appetite has been good. She does get hungry. There has been nausea, some vomiting (dry heaves). She denies dysphagia and denies odynophagia. There has been indigestion with heartburn. There has partially been regurgitation. Bowel habits have been irregular. There has been diarrhea. There has not been constipation. The patient denies rectal bleeding. There has not been melena. Daily abdominal pain that is located in the right upper quadrant. 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 LMP: Hyst. MUSCULOSKELETAL: Positive for joint pain, back pain or muscle pain. Sees pain management as needed. PSYCH: Positive for depression: sleep disturbance, anxiety, severe psychosocial stressors and hallucinations. Sees psychiatrist bi-monthly. All other reviewed and negative other than HPI. PHYSICAL EXAMINATION: General Appearance: Well appearing, alert, in no acute distress, well-hydrated, well nourished. Skin: Skin color, texture, turgor normal, no suspicious rashes or lesions. Head: Normocephalic, no masses, lesions or abnormalities. Eyes: Anicteric sclera. Wearing glasses Oropharynx: Lips, mucosa, and tongue normal, teeth and gums normal, oropharynx normal. Neck: Supple, no adenopathy; thyroid symmetric, normal size. Lungs: lungs clear to auscultation. No wheezing, rhonchi, rales. Heart: regular Abdomen: Abdomen soft, non-tender. Bowel sounds normal. No masses, organomegaly. Extremities: No deformities, edema, skin discoloration, clubbing or cyanosis. Impression: RUQ and epigastric pain with normal US and HIDA Plan: I have discussed above with the patient. Despite all the negative studies, I have offered gallbladder surgery. I have explained to her that this also may not alleviate her symptoms. I have explained the procedure to the patient. I have counseled the patient as to the risks of the surgery, including but not limited to: infection, bleeding, injury to any bowel/bladder, injury to any intraabdominal organs, intraabdominal bleeding/abscess, incisional trocar hernias, wound infections, injury to the common bile duct, injury to the biliary tree, bile leak, complications of anesthesia, etc. - she understands. She will think about her options. Follow up as per needed. Patient to return to her PCP for medical care. CNOV Observed: 05/12/2018 Status: COMPLETED Source: [place] 1:30 PM [facility] REPOSITORY Office Visit (GENSWS) VIKKI BAUMANN ([id number]) 1970 F CHT Date Time Provider Department 05/12/18 1:30 PM ROSINA QUINN During your visit today, we recorded the following information about you: Rosina Quinn MD 05/14/2018 3:35 PM Signed Vikki Baumann a 47 year old female presents with chronic right upper quadrant abdominal pain and epigastric abdominal pain, occasionally sharp, sometimes a severe ache. She states that it sometimes radiates to the back. Also complains of abdominal bloating. Complains of diaphoresis with above. RUQ US 03/23/18: Impression: hepatic steatosis HIDA scan done at [facility] 03/31/18: HIDA scan was normal. No evidence of gallbladder filling problem or ejection problem. EF 99.7% Mother and sister had gallbladder disease. EGD 05/03/18 - mild chronic gastritis, h pylori negative, reflux with esophagitis PAST MEDICAL HISTORY - Benign heart murmur 09/01/2012 - Benign neoplasm of pituitary gland and craniopharyngeal duct (pouch) ([facility]) Dr. Leilani ventura - Degeneration of intervertebral disc, site unspecified Drs. Wilburn - Depressive disorder, not elsewhere classified - DM (diabetes mellitus) ([facility]) Dr. Duke - H/O blood clots all superficial - Heartburn - High blood pressure - Hypothyroidism - GAGANDEEP (obstructive sleep apnea) - Other and unspecified hyperlipidemia Dr. Leilani ventura - Schizoaffective disorder - Seizures ([facility]) 2012 medication related - Spinal stenosis, unspecified region other than cervical Dr.s Wilburn - Unspecified epilepsy without mention of intractable epilepsy - Viral warts, unspecified PAST SURGICAL HISTORY - ANKLE LEFT OP SURGERY 06/19/2011 8 screws and metal plate removed left ankle - ARTHRO SHLDR DST CLAVICLECTMY 04/10/2014 Right shoulder arthroscopic rotator cuff repair with debridement - COLONOSCOP W/ OR W/O BRSH SPEC 09/05/13 - EGD W/O OR W/BRUSH/WASH 09/05/13 - EMBOLIZATION UTERINE FIBROID [id number] 1 removed each time - LEG DVT LEONEL UNL J3-5 1982 5 superficial blot clots in left leg - PAST SURGICAL HISTORY OF 7-05-25 bilateral breast reduction - SHLDR ARTHROSCOP,PART ACROMIOPLAS 01/31/2013 Right shoulder - TONSILLECTOMY HX 1992 - VAGINAL HYSTERECTOMY 01/05/2013 Hysterectomy, vaginal for dysmenorrhea FAMILY HISTORY - Arthritis Mother - Arthritis Maternal Grandfather - Arthritis Sister - Arthritis Sister - Hypertension Sister - Diabetes Sister - Heart Sister mothers family history CURRENT MEDICATIONS ondansetron orally disintegrating (ZOFRAN ODT) 4 mg disintegrating tablet Take 1 tablet by mouth every 6 hours as needed for Nausea/Vomiting. Disp: 20 tablet Rfl: 0 carBAMazepine XR (TEGRETOL XR) 200 mg 12 hr tablet Take 400mg in am, and 600mg in pm Disp: Rfl: Cholecalciferol, Vitamin D3, 2,000 unit cap Take 1 capsule by mouth once daily. Disp: Rfl: sucralfate (CARAFATE) 1 gram tablet Take 1 tablet by mouth before meals and at bedtime. As directed--may dissolve in 1 to 2 teaspoons of water and take 30 minutes before meals and bedtime Disp: 56 tablet Rfl: 1 tiZANidine (ZANAFLEX) 4 mg tablet Take 1 tablet by mouth every 8 hours as needed. Disp: 90 tablet Rfl: 1 traMADol (ULTRAM) 50 mg tablet Take 1 tablet by mouth every 6 hours as needed for Pain for up to 7 days. Disp: 28 tablet Rfl: 0 baclofen (LIORESAL) 10 mg tablet Take 1 tablet by mouth twice daily. Disp: 60 tablet Rfl: 2 omeprazole (PRILOSEC) 20 mg capsule TAKE 1 CAPSULE BY MOUTH TWICE A DAY Disp: 56 capsule Rfl: 5 lisinopril (ZESTRIL,PRINIVIL) 30 mg tablet TAKE 1 TABLET BY MOUTH DAILY Disp: 28 tablet Rfl: 5 ibuprofen (MOTRIN) 800 mg tablet Take 1 tablet by mouth every 8 hours as needed for Pain. FOR PAIN. Disp: 90 tablet Rfl: 1 amLODIPine (NORVASC) 5 mg tablet Take 1 tablet by mouth once daily. Disp: 30 tablet Rfl: 5 QUEtiapine (SEROQUEL) 400 mg tablet Take 1 tablet by mouth daily at bedtime. with 100 mg pill Disp: Rfl: QUEtiapine (SEROQUEL) 100 mg tablet Take 1 tablet by mouth daily at bedtime. with 400 mg dose Disp: Rfl: pravastatin (PRAVACHOL) 20 mg tablet Take 1 tablet by mouth daily at bedtime. Disp: 90 tablet Rfl: 3 clotrimazole-betamethasone (LOTRISONE) cream Apply 1 application to affected area twice daily. apply for 1-2 weeks, then discontinue Disp: 15 g Rfl: 2 busPIRone HCl 30 mg tablet Take 1 tablet by mouth twice daily. Disp: Rfl: DULoxetine (CYMBALTA) 60 mg capsule Take 2 capsules by mouth once daily. In AM Disp: Rfl: temazepam (RESTORIL) 30 mg cap Take 1 capsule by mouth daily at bedtime. Disp: Rfl: SOCIAL HISTORY: Patient is single. She quit smoking 4 years ago and reports her alcohol use as very rarely. ROS GI: The patient states that her appetite has been good. She does get hungry. There has been nausea, some vomiting (dry heaves). She denies dysphagia and denies odynophagia. There has been indigestion with heartburn. There has partially been regurgitation. Bowel habits have been irregular. There has been diarrhea. There has not been constipation. The patient denies rectal bleeding. There has not been melena. Daily abdominal pain that is located in the right upper quadrant. 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 LMP: Hyst. MUSCULOSKELETAL: Positive for joint pain, back pain or muscle pain. Sees pain management as needed. PSYCH: Positive for depression: sleep disturbance, anxiety, severe psychosocial stressors and hallucinations. Sees psychiatrist bi-monthly. All other reviewed and negative other than HPI. PHYSICAL EXAMINATION: General Appearance: Well appearing, alert, in no acute distress, well-hydrated, well nourished. Skin: Skin color, texture, turgor normal, no suspicious rashes or lesions. Head: Normocephalic, no masses, lesions or abnormalities. Eyes: Anicteric sclera. Wearing glasses Oropharynx: Lips, mucosa, and tongue normal, teeth and gums normal, oropharynx normal. Neck: Supple, no adenopathy; thyroid symmetric, normal size. Lungs: lungs clear to auscultation. No wheezing, rhonchi, rales. Heart: regular Abdomen: Abdomen soft, non-tender. Bowel sounds normal. No masses, organomegaly. Extremities: No deformities, edema, skin discoloration, clubbing or cyanosis. Impression: RUQ and epigastric pain with normal US and HIDA Plan: I have discussed above with the patient. Despite all the negative studies, I have offered gallbladder surgery. I have explained to her that this also may not alleviate her symptoms. I have explained the procedure to the patient. I have counseled the patient as to the risks of the surgery, including but not limited to: infection, bleeding, injury to any bowel/bladder, injury to any intraabdominal organs, intraabdominal bleeding/abscess, incisional trocar hernias, wound infections, injury to the common bile duct, injury to the biliary tree, bile leak, complications of anesthesia, etc. - she understands. She will think about her options. Follow up as per needed. Patient to return to her PCP for medical care. Referring Provider: ROSINA QUINN [[id number]] Allergies As of Date: 05/12/2018 Noted Allergy Reaction CODEINE 03/07/2010 8 - GI Upset COMPAZINE (PROCHLORPERAZINE EDISY*03/07/2010 DARVOCET A500 (PROPOXYPHENE N-SHERRY*03/07/2010 8 - GI Upset TESSALON (BENZONATATE) 04/16/2015 14 - Other: See Comments Comments: Heart palpitations VICODIN (HYDROCODONE-ACETAMINOPHE*03/07/2010 4 - Hives Comments: Also LORTAB Date Reviewed: 05/12/2018 Reviewed by: Hazel You RN - Fully Assessed Reason for Visit: Post Op [174] Cmt: endoscopy Primary Visit Diagnosis:Epigastric pain [R10.13] Prescriptions as of 05/12/2018 Sig: IBUPROFEN 800 MG TABLET Take 1 tablet by mouth every * TIZANIDINE 4 MG TABLET Take 1 tablet by mouth every * CARBAMAZEPINE ER 200 MG TABLE* Take 400mg in am, and 600mg i* CHOLECALCIFEROL (VITAMIN D3) * Take 1 capsule by mouth once * SUCRALFATE 1 GRAM TABLET Take 1 tablet by mouth before* OMEPRAZOLE 20 MG CAPSULE,EARL* TAKE 1 CAPSULE BY MOUTH TWICE* LISINOPRIL 30 MG TABLET TAKE 1 TABLET BY MOUTH DAILY AMLODIPINE 5 MG TABLET Take 1 tablet by mouth once d* QUETIAPINE 400 MG TABLET Take 1 tablet by mouth daily * QUETIAPINE 100 MG TABLET Take 1 tablet by mouth daily * PRAVASTATIN 20 MG TABLET Take 1 tablet by mouth daily * CLOTRIMAZOLE-BETAMETHASONE 1 * Apply 1 application to affect* BUSPIRONE 30 MG TABLET Take 1 tablet by mouth twice * DULOXETINE 60 MG CAPSULE,EARL* Take 2 capsules by mouth once* TEMAZEPAM 30 MG CAPSULE Take 1 capsule by mouth daily* TRAMADOL 50 MG TABLET Take 1 tablet by mouth every * BACLOFEN 10 MG TABLET Take 1 tablet by mouth twice * Problem List As Of Date 05/12/2018 Noted Resolved 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, 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] INVALID FOR* Dysmetabolic syndrome [E88.81] INVALID FOR* Depression [F32.9] INVALID FOR* Hypertrophy of breast [N62] INVALID FOR* Benign heart murmur INVALID FOR* Abnormal uterine bleeding [N93.9] INVALID FOR* Chronic RLQ pain [R10.31, G89.29] INVALID FOR* Dysmenorrhea [N94.6] INVALID FOR* Other affections of shoulder region, not elsewh*INVALID FOR* Rotator cuff tear [M75.100] INVALID FOR*02/28/2013 SHEFALI (iron deficiency anemia) [D50.9] INVALID FOR* Myofascial pain [M79.18] INVALID FOR* Neck pain [M54.2] INVALID FOR* Cervical disc displacement [M50.20] INVALID FOR* Pain in joint, shoulder region [M25.519] INVALID FOR* Cervical radiculitis [M54.12] INVALID FOR* Sacroiliac joint pain [M53.3] INVALID FOR* Buttock pain [M79.18] INVALID FOR*01/15/2015 Right buttock pain [M79.18] INVALID FOR* Headache [R51] INVALID FOR* Lower back pain [M54.5] INVALID FOR*09/10/2015 Chronic pain [G89.29] INVALID FOR*11/14/2015 Right-sided low back pain without sciatica [M54*INVALID FOR*11/14/2015 Hypothyroidism [E03.9] Non morbid obesity due to excess calories [E66.*INVALID FOR* Cervical arthritis (HCC) [M47.812] INVALID FOR* Chronic bilateral low back pain without sciatic*INVALID FOR* DDD (degenerative disc disease), cervical [M50.*INVALID FOR* SI (sacroiliac) joint dysfunction [M53.3] INVALID FOR* Schizoaffective disorder (HCC) [F25.9] INVALID FOR* Chronic SI joint pain [M53.3, G89.29] INVALID FOR* Vitamin D deficiency [E55.9] INVALID FOR* RUQ pain [R10.11] INVALID FOR* More... Altered bowel habits [R19.4] INVALID FOR* More... Epigastric pain [R10.13] INVALID FOR* More... Nausea [R11.0] INVALID FOR* More... Encounter Status:Closed by MD ROSINA QUINN on 05/14/18 OPERATIVE NO Observed: 05/04/2018 Status: COMPLETED Source: [place] 12:00 AM [facility] REPOSITORY HNO ID: [id number] Author: Rosina Quinn Service: (none) Author Type: Physician Type: Operative Report Filed: 05/06/2018 7:30 AM Note Text: [facility] - Operative Report - VIKKI Ruff : 1970 AGE: 47. SEX: F PATIENT TYPE: A HOSP SVC: [facility] LOCATION: [facility] ATTENDING PHYSICIAN: Rosina Quinn MD CSN NUMBER: [id number] DATE OF SURGERY/PROCEDURE: 05/03/2018 INCISION/PROCEDURE START TIME: 11:41 AM INCISION CLOSE/PROCEDURE END TIME: 11:57 AM PREOPERATIVE DIAGNOSIS: Right upper quadrant abdominal pain, epigastric abdominal pain, and nausea. POSTOPERATIVE DIAGNOSIS: Right upper quadrant abdominal pain, epigastric abdominal pain, nausea, and gastric fundic polyps. SURGEON: Rosina Quinn MD PROMOTIONAL MARKETING AGENT: No Additional Staff SURGERY/PROCEDURE: Esophagogastroduodenoscopy with biopsy. ANESTHESIA: MAC. LOCATION: [facility]. SPECIMEN: Mucosal biopsies of second portion of duodenum, mucosal biopsy of the antrum of stomach for H pylori and histology, mucosal biopsy of GE junction, and gastric fundic polyp. ESTIMATED BLOOD LOSS: Less than 5 mL. INDICATIONS: Vikki Baumann is a 47-year-old white female, who presents with complaints of right upper quadrant abdominal pain, epigastric abdominal pain, and nausea. She therefore presents for evaluation with upper endoscopy. She has been counseled of the risks of procedure including, but not limited to, infection, bleeding, perforation, GI tract requiring emergency surgery, inability to complete the procedure, complications, anesthesia, etc. The patient understands and agrees to proceed. DESCRIPTION OF PROCEDURE: After informed consent was given, the patient was brought to the endoscopy suite. Appropriate time-out protocol was done in the preprocedure area as well as in the endoscopy suite. The patient was then given IV sedation by the anesthesia provider. The posterior pharynx was sprayed with local anesthetic. A bite block was then placed. The patient was then placed in left lateral decubitus position. The endoscope was lubricated, carefully inserted into the patient's mouth and advanced down the esophagus. This was then advanced down the stomach past the pylorus into the duodenal bulb and then into the second portion of the duodenum. No ulcers, masses, or lesions were seen in the duodenum. Mucosal biopsies of the second portion of the duodenum were taken using cold grasper forceps because of complaint of the epigastric abdominal pain and diarrhea. The endoscope was retracted back into the stomach. Retroflex view into the fundus of the body and stomach revealed small hiatal hernia. The patient also was noted to have multiple gastric fundic polyps. The cold grasper forceps were used to take mucosal biopsies of the antrum of the stomach for H pylori and histology. The endoscope was retracted back into the esophagus and the GE junction appeared slightly irregular. Mucosal biopsies were taken on the GE junction. The remainder of the esophagus appeared normal. The endoscope was removed intact. The patient tolerated procedure well. ESTIMATED BLOOD LOSS: Less than 5 mL. COMPLICATIONS: None. DRAINS: None. Rosina Quinn MD [id number] NURSING PROG Observed: 05/03/2018 Status: COMPLETED Source: [place] 12:45 PM [facility] REPOSITORY HNO ID: [id number] Author: Mary PaniaguaRnDale Summers RN Service: (none) Author Type: Registered Nurse Type: Nursing Progress Note Filed: 05/04/2018 9:32 AM Note Text: Pt states she is feeling fine no questions and problems voiced. Pt states she will call for an appt today or Wednesday for a follow-up BRIEF OP NOT Observed: 05/03/2018 Status: COMPLETED Source: [place] 11:58 AM [facility] REPOSITORY HNO ID: [id number] Author: Rosina Quinn Service: (none) Author Type: Physician Type: Brief Op Note Filed: 05/03/2018 12:01 PM Note Text: BRIEF OPERATIVE NOTE SURGERY DATE: 05/03/2018 Incision/Procedure Start Time: 11:41 Incision Close/Procedure End Time: 11:57 Surgeon(s)/Proceduralist(s) and Hydrometer Calibrator(s): Kai Procedures: Esophagogastroduodenoscopy possible biopsies Anesthesia: MAC Findings: gastric fundal polyps, slightly irregular GE junction Estimated Blood Loss: minimal mls Specimens: mucosal biopsy of second portion of duodenum, mucosal biopsy of antrum of stomach, mucosal biopsy of GE junction, biopsy of gastric fundic polyp Complications: None Preop Diagnosis: right upper quadrant abdominal pain, epigastric abdominal pain, nausea Postop Diagnosis: gastroesophageal reflux, gastric fundic polyps SIGNATURE: Rosina Quinn MD PATIENT NAME: Vikki Baumann DATE: May 03, 2018 TIME: 11:58 AM PAGER/CONTACT #: ANES POST Observed: 05/03/2018 Status: COMPLETED Source: [place] 11:36 AM [facility] REPOSITORY HNO ID: [id number] Author: Romeo Gonzalez Service: (none) Author Type: Physician Type: Anesthesia PostOp Filed: 05/03/2018 12:24 PM Note Text: POST ANESTHESIA EVALUATION NOTE SERVICE DATE: 05/03/2018 SERVICE TIME: 1222 : 1970 Vitals: 05/03/18 1040 Temp: 36.1 ?C (97 ?F) 05/03/18 1040 BP: 147/64 05/03/18 1040 Pulse: 63 05/03/18 1040 Resp: 16 05/03/18 1040 SpO2: 97% Validated Vital Signs: Yes POST ANES STATUS: No apparent anesthetic complications. The patient is appropriately hydrated with stable respiratory and cardiovascular status. Patient has safe and adequate airway control. The patient has appropriate pain relief and no significant post operative nausea or vomiting. The patient has achieved baseline mental status. Intra-Operative Events: No Significant Anesthesia Events Further assessment by Anesthesia Service: None Other Remarks: SIGNATURE: Romeo Gonzalez MD PATIENT NAME: Vikki Baumann DATE: May 03, 2018 TIME: 12:23 PM PAGER/CONTACT #:none ANES PREOP Observed: 05/03/2018 Status: COMPLETED Source: [place] 11:28 AM [facility] REPOSITORY HNO ID: [id number] Author: Romeo Gonzalez Service: (none) Author Type: Physician Type: Anesthesia PreOp Filed: 05/03/2018 11:31 AM Note Text: ANESTHESIOLOGY PREOPERATIVE ASSESSMENT SERVICE DATE: 05/03/2018 : 1970 SERVICE TIME: 1120 Surgeon(s): Rosina Quinn Procedure(s) (LRB): EGD (N/A) Estimated body mass index is 39.47 kg/m? as calculated from the following: Height as of 04/26/18: 170.2 cm (5' 7). Weight as of this encounter: 114.3 kg (252 lb). MOST RECENT HEMATOCRIT AND POTASSIUM RESULTS: Hematocrit 37.9 04/20/2018 Potassium 4.3 03/16/2018 ANES DOS/PREOP NOTE: Vitals: 05/03/18 1040 BP: 147/64 Pulse: 63 Resp: 16 Temp: 36.1 ?C (97 ?F) SpO2: 97% Weight: 114.3 kg (252 lb) Active Problem List: Not available in [facility]; refer to paper chart Past Medical/Surgical History: Not availble in [facility]; refer to paper chart Family History: Not availble in [facility]; refer to paper chart Social History: Not availble in [facility]; refer to paper chart H AND P/Review of Systems: Not available in [facility]; refer to paper chart No current facility-administered medications on file prior to encounter. Current Outpatient Prescriptions on File Prior to Encounter: carBAMazepine XR (TEGRETOL XR) 200 mg 12 hr tablet Take 400mg in am, and 600mg in pm Cholecalciferol, Vitamin D3, 2,000 unit cap Take 1 capsule by mouth once daily. sucralfate (CARAFATE) 1 gram tablet Take 1 tablet by mouth before meals and at bedtime. As directed--may dissolve in 1 to 2 teaspoons of water and take 30 minutes before meals and bedtime tiZANidine (ZANAFLEX) 4 mg tablet Take 1 tablet by mouth every 8 hours as needed. traMADol (ULTRAM) 50 mg tablet Take 1 tablet by mouth every 6 hours as needed for Pain for up to 7 days. omeprazole (PRILOSEC) 20 mg capsule TAKE 1 CAPSULE BY MOUTH TWICE A DAY lisinopril (ZESTRIL,PRINIVIL) 30 mg tablet TAKE 1 TABLET BY MOUTH DAILY amLODIPine (NORVASC) 5 mg tablet Take 1 tablet by mouth once daily. QUEtiapine (SEROQUEL) 400 mg tablet Take 1 tablet by mouth daily at bedtime. with 100 mg pill QUEtiapine (SEROQUEL) 100 mg tablet Take 1 tablet by mouth daily at bedtime. with 400 mg dose pravastatin (PRAVACHOL) 20 mg tablet Take 1 tablet by mouth daily at bedtime. clotrimazole-betamethasone (LOTRISONE) cream Apply 1 application to affected area twice daily. apply for 1-2 weeks, then discontinue busPIRone HCl 30 mg tablet Take 1 tablet by mouth twice daily. DULoxetine (CYMBALTA) 60 mg capsule Take 2 capsules by mouth once daily. In AM temazepam (RESTORIL) 30 mg cap Take 1 capsule by mouth daily at bedtime. baclofen (LIORESAL) 10 mg tablet Take 1 tablet by mouth twice daily. ibuprofen (MOTRIN) 800 mg tablet Take 1 tablet by mouth every 8 hours as needed for Pain. FOR PAIN. Current Facility-Administered Medications: lidocaine 10 mg/mL (1 %) 1-2 mg injection (XYLOCAINE) 0.1- 0.2 mL INTRADERMAL PRN Rosina Quinn lactated ringers infusion 75 mL/hr INTRAVENOUS CONTINUOUS Rosina Quinn Last Rate: 75 mL/hr at 05/03/18 1052 75 mL/hr at 05/03/18 1052 ALLERGIES Allergen Reactions - Codeine GI Upset - Compazine [Prochlor* - Darvocet A500 [Prop* GI Upset - Tessalon [Benzonata* Other: See Comments Heart palpitations - Vicodin [Hydrocodon* Hives Also LORTAB REVIEW OF SYSTEMS: REVIEW OF SYSTEMS: As stated in Active Problem List/ Past Medical History ANESTHESIOLOGY REVIEW: Airway Assessment: MP 2; Neck ROM: Full ROM without neurologic symptoms; Airway Evaluation: Short Neck Symptoms of Sleep Apnea: None Intubation History: No previous history of difficult intubation Dentition: Chipped, loose and/or missing ADDITIONAL PHYSICAL EXAM: Lungs: Patient health status unchanged since recent history and physical. See history and physical for exam findings. Cardiac: Patient health status unchanged since recent history and physical. See history and physical for exam findings. Additional Pertinent Findings: N/A ADVERSE ANESTHESIA EVENT: No history of adverse event FAMILY HIISTORY OF ANESTHESIA: No known issues BLOOD PRODUCTS: Not anticipated for this procedure OTHER MEDICAL PROBLEMS: None I have interviewed and examined the patient. I have reviewed the medical record and/or the pre-anesthesia evaluation, pertinent labs, and test results. Significant changes in the patient's condition since the History and Physical, not otherwise documented in primary service progress notes: No Anesthetic risks, benefits, alternatives, personnel and consent discussed: Yes ANES REVIEW: This contains information obtained greater than 48 hours prior to the Surgery/Procedure. See Day of Surgery Note SIGNATURE: Romeo Gonzalez MD PATIENT NAME: Vikki Baumann DATE: May 03, 2018 TIME: 11:28 AM PAGER/CONTACT #none ANES PREOP Observed: 05/03/2018 Status: COMPLETED Source: [place] 11:26 AM [facility] REPOSITORY [facility] ID: [id number] Author: Romeo Gonzalez Service: (none) Author Type: Physician Type: Anesthesia PreOp Filed: 05/03/2018 11:28 AM Note Text: ANESTHESIOLOGY PREOPERATIVE ASSESSMENT SERVICE DATE: 05/03/2018 : 1970 SERVICE TIME: 1120 Surgeon(s): Rosina Quinn Procedure(s) (LRB): EGD (N/A) Estimated body mass index is 39.47 kg/m? as calculated from the following: Height as of 04/26/18: 170.2 cm (5' 7). Weight as of this encounter: 114.3 kg (252 lb). MOST RECENT HEMATOCRIT AND POTASSIUM RESULTS: Hematocrit 37.9 04/20/2018 Potassium 4.3 03/16/2018 ANES DOS/PREOP NOTE: Vitals: 05/03/18 1040 BP: 147/64 Pulse: 63 Resp: 16 Temp: 36.1 ?C (97 ?F) SpO2: 97% Weight: 114.3 kg (252 lb) ACTIVE PROBLEM LIST Benign Neoplasm of Pituitary Gland and Craniopharyngeal Duct (Pouch) (Hcc) Dysmetabolic Syndrome Depression Hypertrophy of Breast Benign Heart Murmur Abnormal Uterine Bleeding Chronic Rlq Pain Dysmenorrhea Other Affections of Shoulder Region, Not Elsewhere Classified Shefali (Iron Deficiency Anemia) Myofascial Pain Neck Pain Cervical Disc Displacement Pain in Joint, Shoulder Region Cervical Radiculitis Sacroiliac Joint Pain Right Buttock Pain Headache Hypothyroidism Non Morbid Obesity Due to Excess Calories Cervical Arthritis Chronic Bilateral Low Back Pain Without Sciatica Ddd (Degenerative Disc Disease), Cervical Si (Sacroiliac) Joint Dysfunction Schizoaffective Disorder ([facility]) Chronic Si Joint Pain Vitamin D Deficiency Ruq Pain Altered Bowel Habits Epigastric Pain Nausea PAST MEDICAL HISTORY Diagnosis Date - Benign heart murmur 09/01/2012 - Benign neoplasm of pituitary gland and craniopharyngeal duct (pouch) ([facility]) Dr. Leilani ventura - Degeneration of intervertebral disc, site unspecified Drs. Wilburn - Depressive disorder, not elsewhere classified - DM (diabetes mellitus) ([facility]) Dr. Duke - H/O blood clots all superficial - Heartburn - High blood pressure - Hypothyroidism - GAGANDEEP (obstructive sleep apnea) - Other and unspecified hyperlipidemia Dr. Leilani ventura - Schizoaffective disorder - Seizures ([facility]) 2012 medication related - Spinal stenosis, unspecified region other than cervical Dr.s Wilburn - Unspecified epilepsy without mention of intractable epilepsy - Viral warts, unspecified PAST SURGICAL HISTORY Procedure Laterality Date - ANKLE LEFT OP SURGERY 06/19/2011 8 screws and metal plate removed left ankle - ARTHRO SHLDR DST CLAVICLECTMY 04/10/2014 Right shoulder arthroscopic rotator cuff repair with debridement - COLONOSCOP W/ OR W/O [facility] SPEC 09/05/13 Colonoscopy [facility] - EGD W/O OR W/BRUSH/WASH 09/05/13 EGD [facility] - EGD W/O OR W/BRUSH/WASH 05/03/2018 EGD - EMBOLIZATION UTERINE FIBROID [id number] 1 removed each time - LEG DVT LEONEL UNL J3-5 1982 5 superficial blot clots in left leg - PAST SURGICAL HISTORY OF 7-- bilateral breast reduction - SHLDR ARTHROSCOP,PART ACROMIOPLAS 01/31/2013 Right shoulder - TONSILLECTOMY HX 1992 - VAGINAL HYSTERECTOMY 01/05/2013 Hysterectomy, vaginal for dysmenorrhea FAMILY HISTORY Problem Relation Age of Onset - Arthritis Mother - Arthritis Maternal Grandfather - Arthritis Sister - Arthritis Sister - Hypertension Sister - Diabetes Sister - Heart Sister mothers family history Social History: Social History Substance Use Topics - Smoking status: Former Smoker Packs/day: 0.50 Years: 20.00 Types: Cigarettes Quit date: 03/15/2014 - Smokeless tobacco: Never Used Comment: 08/17/13 Pt will have an occ cigarette. - Alcohol use Yes Comment: Rarely, 1 drink every few months No current facility-administered medications on file prior to encounter. Current Outpatient Prescriptions on File Prior to Encounter: carBAMazepine XR (TEGRETOL XR) 200 mg 12 hr tablet Take 400mg in am, and 600mg in pm Cholecalciferol, Vitamin D3, 2,000 unit cap Take 1 capsule by mouth once daily. sucralfate (CARAFATE) 1 gram tablet Take 1 tablet by mouth before meals and at bedtime. As directed--may dissolve in 1 to 2 teaspoons of water and take 30 minutes before meals and bedtime tiZANidine (ZANAFLEX) 4 mg tablet Take 1 tablet by mouth every 8 hours as needed. traMADol (ULTRAM) 50 mg tablet Take 1 tablet by mouth every 6 hours as needed for Pain for up to 7 days. omeprazole (PRILOSEC) 20 mg capsule TAKE 1 CAPSULE BY MOUTH TWICE A DAY lisinopril (ZESTRIL,PRINIVIL) 30 mg tablet TAKE 1 TABLET BY MOUTH DAILY amLODIPine (NORVASC) 5 mg tablet Take 1 tablet by mouth once daily. QUEtiapine (SEROQUEL) 400 mg tablet Take 1 tablet by mouth daily at bedtime. with 100 mg pill QUEtiapine (SEROQUEL) 100 mg tablet Take 1 tablet by mouth daily at bedtime. with 400 mg dose pravastatin (PRAVACHOL) 20 mg tablet Take 1 tablet by mouth daily at bedtime. clotrimazole-betamethasone (LOTRISONE) cream Apply 1 application to affected area twice daily. apply for 1-2 weeks, then discontinue busPIRone HCl 30 mg tablet Take 1 tablet by mouth twice daily. DULoxetine (CYMBALTA) 60 mg capsule Take 2 capsules by mouth once daily. In AM temazepam (RESTORIL) 30 mg cap Take 1 capsule by mouth daily at bedtime. baclofen (LIORESAL) 10 mg tablet Take 1 tablet by mouth twice daily. ibuprofen (MOTRIN) 800 mg tablet Take 1 tablet by mouth every 8 hours as needed for Pain. FOR PAIN. Current Facility-Administered Medications: lidocaine 10 mg/mL (1 %) 1-2 mg injection (XYLOCAINE) 0.1- 0.2 mL INTRADERMAL PRN Rosina Quinn lactated ringers infusion 75 mL/hr INTRAVENOUS CONTINUOUS Rosina Quinn Last Rate: 75 mL/hr at 05/03/18 1052 75 mL/hr at 05/03/18 1052 Allergies: ALLERGIES Allergen Reactions - Codeine GI Upset - Compazine [Prochlor* - Darvocet A500 [Prop* GI Upset - Tessalon [Benzonata* Other: See Comments Heart palpitations - Vicodin [Hydrocodon* Hives Also LORTAB REVIEW OF SYSTEMS: REVIEW OF SYSTEMS: As stated in Active Problem List/ Past Medical History ANESTHESIOLOGY REVIEW: Airway Assessment: MP 2; Neck ROM: Full ROM without neurologic symptoms; Airway Evaluation: Short Neck Symptoms of Sleep Apnea: None Intubation History: No previous history of difficult intubation Dentition: Teeth intact ADDITIONAL PHYSICAL EXAM: Lungs: Patient health status unchanged since recent history and physical. See history and physical for exam findings. Cardiac: Patient health status unchanged since recent history and physical. See history and physical for exam findings. Additional Pertinent Findings: N/A ADVERSE ANESTHESIA EVENT: No history of adverse event FAMILY HIISTORY OF ANESTHESIA: No known issues BLOOD PRODUCTS: Not anticipated for this procedure OTHER MEDICAL PROBLEMS: None I have interviewed and examined the patient. I have reviewed the medical record and/or the pre-anesthesia evaluation, pertinent labs, and test results. Significant changes in the patient's condition since the History and Physical, not otherwise documented in primary service progress notes: No Anesthetic risks, benefits, alternatives, personnel and consent discussed: Yes ANES REVIEW: This contains information obtained greater than 48 hours prior to the Surgery/Procedure. See Day of Surgery Note SIGNATURE: Romeo Gonzalez MD PATIENT NAME: Vikki Baumann DATE: May 03, 2018 TIME: 11:26 AM PAGER/CONTACT #: none PT ED Observed: 05/03/2018 Status: COMPLETED Source: [place] 10:47 AM [facility] REPOSITORY HNO ID: [id number] Author: Heaven (Rn) TOMY Butts Service: Nursing Author Type: Registered Nurse Type: Patient Education Filed: 05/03/2018 10:48 AM Note Text: preop teaching one, understands EGD routine, CALM, FRIEND WAITING. SURGICAL TISSUE EXAM Observed: 05/03/2018 Status: F Source: [facility] 12:00 AM [facility] REPOSITORY Test performed at [place] [id number] NAME: VIKKI BAUMANN REQUESTING: ROSINA QUINN MD FINAL DIAGNOSIS: A) DUODENUM, SECOND PORTION, BIOPSIES - BENIGN DUODENAL MUCOSA WITH ARCHITECTURALLY NORMAL VILLI. B) GASTRIC ANTRUM, BIOPSIES - MILD CHRONIC GASTRITIS. NEGATIVE FOR ACTIVE INFLAMMATION. HELICOBACTER ORGANISMS ARE NOT IDENTIFIED. C) GASTRIC FUNDUS, BIOPSIES - FUNDIC GLAND POLYP. D) GASTROESOPHAGEAL JUNCTION, BIOPSIES - CHRONIC ACTIVE ESOPHAGITIS. GASTRIC TYPE GLANDULAR MUCOSA, NON-DIAGNOSTIC OF FRANKLIN'S EPITHELIUM. NEGATIVE FOR DYSPLASIA OR CARCINOMA. OPERATIVE PROCEDURE: Duodenum, biopsy, EGD with biopsies CLINICAL INFORMATION: RUQ pain [R10.11], altered bowel habits [R19.4], epigastric pain [R10.13], nausea [R11.0] GROSS DESCRIPTION: A) Second portion of duodenum Received in formalin labeled second portion of duodenum is an irregular moreno soft segment of tissue measuring 0.3 x 0.2 x 0.2 cm. The specimen is totally submitted in formalin in one cassette. B) Antrum Received in formalin labeled antrum of stomach are multiple moreno soft segments of tissue aggregating to 0.5 x 0.3 x 0.1 cm. The specimens are totally submitted in formalin in one cassette. C) Gastric fundus polyps Received in formalin labeled gastric fundus polyps is a moreno polyp-like structure measuring 1.2 x 0.9 x 0.8 cm. The specimen is sectioned and totally submitted in formalin in one cassette. D) GE junction biopsy Received in formalin labeled GE junction biopsy are multiple moreno-white soft segments of tissue aggregating to 0.8 x 0.3 x 0.2 cm. The specimens are totally submitted in formalin in one cassette. KVB:isha RUSSO M.D., PATHOLOGIST (Electronic signature on file) Signed out: 05/06/2018 17:08 PRINTED: 05/06/2018 Page 1 of 1 Performed By: #### SURG #### [place] [id number] NURSING PROG Observed: 05/02/2018 Status: COMPLETED Source: [place] 10:35 AM [facility] REPOSITORY HNO ID: [id number] Author: Ann PaniaguaRn) TOMY Dean Service: Nursing Author Type: Registered Nurse Type: Nursing Progress Note Filed: 05/02/2018 10:36 AM Note Text: Pre call completed, arrival time given PT ED Observed: 04/26/2018 Status: COMPLETED Source: [place] 11:36 AM [facility] REPOSITORY HNO ID: [id number] Author: Costa (Rn) TOMY Mosqueda Service: Nursing Author Type: Registered Nurse Type: Patient Education Filed: 04/26/2018 11:36 AM Note Text: POST OP LEARNING RESPONSE INSTRUCTION PROVIDED TO: Patient METHOD OF INSTRUCTION: Teach Back . Written instruction - handouts Verbal instruction PATIENT / FAMILY RESPONSE: Verbalizes understanding of: POST-PROCEDURE INSTRUCTIONS-Correct actions to take to reduce post procedure complications FOLLOW-UP PLAN: Complete - No need for follow-up Patient instructed to call with any further issues SUPPLEMENTAL MATERIAL: None REFERRAL (RECOMMENDATION): None Electronically Signed By: Costa Mosqueda RN In Department: [facility] SURGERY XR FLUOROSCOPY Observed: 04/26/2018 Status: F Source: [place] 11:21 AM [facility] REPOSITORY * * *Final Report* * * DATE OF EXAM: Apr 26 2018 11:21AM MDR [id number] - XR FLUOROSCOPY / PROCEDURE REASON: PAIN * * * * Physician Interpretation * * * * INDICATION: PAIN TECHNIQUE: Fluoroscopy with 5 views of the cervical spine Fluoroscopic Radiation Summary: Plane A, Air Kerma: 7.4 mGy Dose Area Product (DAP): 986.6 mGy*cmS2 Fluoro time: 0:25 min:sec FINDINGS/ IMPRESSION: [place] project adjacent to 2 consecutive facet joints in the upper left cervical region. Please refer to the performing LIP's report. Director Check: PSCB Transcribe Date/Time: Apr 26 2018 11:30A Dictated by : ROCHELLE MOSQUERA MD This examination was interpreted and the report reviewed and electronically signed by: ROCHELLE MOSQUERA MD on Apr 26 2018 11:30AM EST [id number] OPERATIVE NO Observed: 04/26/2018 Status: COMPLETED Source: [place] 11:18 AM [facility] REPOSITORY HNO ID: [id number] Author: Camden Boyce Service: Pain Management Author Type: Physician Type: Operative Report Filed: 04/26/2018 11:19 AM Note Text: PATIENT NAME: Vikki Baumann SERVICE DATE: 04/26/2018 PROCEDURE NOTE PREOPERATIVE DIAGNOSIS(ES) Cervical spondylosis Cervical DDD POSTOPERATIVE DIAGNOSIS(ES): Same OPERATION: Left C2,3 Facet Medial Branch Nerve Blockunder fluoroscopy. ANESTHESIA: versed 4mg, fentanyl 50mcg IV INDICATIONS: The patient presents with persistent pain. The plan is to proceed with cervical facet medial branch nerve block as a diagnostic and therapeutic approach. The risks and benefits of the procedure were discussed. Specifically, the risks of bleeding, infection, inadvertent dural puncture, spinal heaches, vasovagal reaction, epidural hematoma, partial or permanent nerve injury were covered. The potential side effects of medications used in procedures including increase in lumbar pain, headaches, facial redness or warmth (flushing), anxiety or mood swings, sleeplessness, fever, high blood sugar, brief reduction in immunity were discussed. The patient expressed understanding of potential risks and wishes to proceed with the procedure. OPERATIVE PROCEDURE: The patient was brought to the OR. The patient was positioned prone on the fluoroscopy table. Continuous hemodynamic monitoring was initiated including blood pressure, EKG, and pulse oximetry. IV sedation was administered incrementally to allow the patient to remain comfortable and conversant throughout the procedure. The area of the posterior cervical spine was prepped povidone-iodine three times and draped into a sterile field. Fluoroscopy was used to identify the location of the Left C2,3 medial branch nerves at the lateral grooves of the each vertebral levels bilaterally. Skin anesthesia was achieved using 10 cc of bupivacaine 0.25% over the injection sites. A 22 gauge, 3 1/2 spinal needle was slowly inserted at each level using AP, lateral and oblique fluoroscopic imaging. Negative aspiration for blood or CSF was confirmed. A combination of 2ml and 0.25% Bupivacaine and 10 mg of kenalog was injected. A total of 2 sites were injected in equal and divided doses. The needles were removed and bleeding was nil. A sterile dressing was applied. The patient tolerated the procedure well. The patient was taken to the recovery room in stable condition. EBL: nil Start time: 11:09 AM End time: 11:16 AM I was present the entire time and personally performed the procedure. SIGNATURE: Camden Boyce MD DATE: April 26, 2018 TIME: 11:18 AM HISTORY PHYSICAL Observed: 04/26/2018 Status: COMPLETED Source: [place] 10:55 AM [facility] OTHER CAMPUS REPOSITORY HNO ID: [id number] Author: Camden Boyce Service: Pain Management Author Type: Physician Type: HANDP Filed: 04/26/2018 10:55 AM Note Text: HISTORY AND PHYSICAL EXAMINATION PATIENT NAME: Vikki Baumann DATE of SERVICE: 04/26/2018 Vikki Baumann is here for the pain mangement procedure. The patient presents with persistent pain complaints. Vikki Baumann denies any interval changes or new pain complaints or focal neurologic deficits. PAST MEDICAL HISTORY Diagnosis Date - Benign heart murmur 09/01/2012 - Benign neoplasm of pituitary gland and craniopharyngeal duct (pouch) ([facility]) Dr. Leilani ventura - Degeneration of intervertebral disc, site unspecified Drs. Wilburn - Depressive disorder, not elsewhere classified - DM (diabetes mellitus) ([facility]) Dr. Duke - H/O blood clots all superficial - Heartburn - High blood pressure - Hypothyroidism - GAGANDEEP (obstructive sleep apnea) - Other and unspecified hyperlipidemia Dr. Leilani ventura - Schizoaffective disorder - Seizures ([facility]) 2012 medication related - Spinal stenosis, unspecified region other than cervical Dr.s Wilburn - Unspecified epilepsy without mention of intractable epilepsy - Viral warts, unspecified PAST SURGICAL HISTORY Procedure Laterality Date - ANKLE LEFT OP SURGERY 06/19/2011 8 screws and metal plate removed left ankle - ARTHRO SHLDR DST CLAVICLECTMY 04/10/2014 Right shoulder arthroscopic rotator cuff repair with debridement - COLONOSCOP W/ OR W/O [facility] SPEC 09/05/13 [facility]oscopy [facility] - EGD W/O OR W/BRUSH/WASH 09/05/13 EGD [facility] - EMBOLIZATION UTERINE FIBROID [id number] 1 removed each time - LEG DVT LEONEL UNL J3-5 1982 5 superficial blot clots in left leg - PAST SURGICAL HISTORY OF 12-24-11 bilateral breast reduction - SHLDR ARTHROSCOP,PART ACROMIOPLAS 01/31/2013 Right shoulder - TONSILLECTOMY HX 1992 - VAGINAL HYSTERECTOMY 01/05/2013 Hysterectomy, vaginal for dysmenorrhea Social History Marital status: Single Spouse name: Years of education: Number of children: 0 Occupational History Occupation Employer Comment DISABLED Social History Main Topics Smoking status: Former Smoker Packs/day: 0.50 Years: 20.00 Types: Cigarettes Quit date: 03/15/2014 Smokeless tobacco: Never Used Comment: 08/17/13 Pt will have an occ cigarette. Alcohol use: Yes Comment: Rarely, 1 drink every few months Drug use: Yes Types: Marijuana Sexual activity: Yes Partners with: Female FAMILY HISTORY Problem Relation Age of Onset - Arthritis Mother - Arthritis Maternal Grandfather - Arthritis Sister - Arthritis Sister - Hypertension Sister - Diabetes Sister - Heart Sister mothers family history ALLERGIES Allergen Reactions - Codeine GI Upset - Compazine [Prochlor* - Darvocet A500 [Prop* GI Upset - Tessalon [Benzonata* Other: See Comments Heart palpitations - Vicodin [Hydrocodon* Hives Also LORTAB Current Facility-Administered Medications: NaCl 0.9% iv infusion 30 mL/hr INTRAVENOUS CONTINUOUS Physical Exam: Performed in conjunction with observation. The patient is alert and oriented x3. The patient is in no acute distress. Neck: Supple. The range of motion is intact. Lungs: clear CVR: RRR. Extremities: no reported edema or erythema. Examination indicates no changes Impression: Cervicalgia Cervical spondylosis Plan: The informed consent has been obtained. The plan is to proceed with the procedure as planned. SIGNATURE: Camden Boyce MD DATE: April 26, 2018 TIME: 10:55 AM PT ED Observed: 04/26/2018 Status: COMPLETED Source: [place] 9:52 AM [facility] OTHER [place] REPOSITORY HNO ID: [id number] Author: Tammy (Rn) TOMY Mendoza Service: Nursing Author Type: Registered Nurse Type: Patient Education Filed: 04/26/2018 9:52 AM Note Text: PRE OP LEARNING ASSESSMENT PROCEDURE/SURGERY: cervical injection READINESS TO LEARN COGNITIVE ABILITY: Alert and oriented MOTIVATION TO LEARN: Interested FAMILY SUPPORT: Unable to assess - Family not present PATIENT LEARNS BEST BY: Verbal Instruction FACTORS AFFECTING LEARNING: None PHYSICAL LIMITATIONS AFFECTING LEARNING: None Electronically Signed By: Tammy Mendoza RN In Department: [facility] Observed: 04/22/2018 Status: COMPLETED Source: [place] 12:00 AM [facility] REPOSITORY Patient:Vikki Baumann MRN: <[id number]> Height:5' 7(1.702 m) Weight:252 lb (114.306 kg) Outpatient Medications as of 05/03/18: carBAMazepine XR (TEGRETOL XR) 200 mg 12 hr tablet Cholecalciferol, Vitamin D3, 2,000 unit cap sucralfate (CARAFATE) 1 gram tablet tiZANidine (ZANAFLEX) 4 mg tablet traMADol (ULTRAM) 50 mg tablet baclofen (LIORESAL) 10 mg tablet omeprazole (PRILOSEC) 20 mg capsule lisinopril (ZESTRIL,PRINIVIL) 30 mg tablet ibuprofen (MOTRIN) 800 mg tablet amLODIPine (NORVASC) 5 mg tablet QUEtiapine (SEROQUEL) 400 mg tablet QUEtiapine (SEROQUEL) 100 mg tablet pravastatin (PRAVACHOL) 20 mg tablet clotrimazole-betamethasone (LOTRISONE) cream busPIRone HCl 30 mg tablet DULoxetine (CYMBALTA) 60 mg capsule temazepam (RESTORIL) 30 mg cap Admission/Clinic Administered Medications as of 05/03/18: lidocaine 10 mg/mL (1 %) 1-2 mg injection (XYLOCAINE) lactated ringers infusion benzocaine 20 % Problem List: 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, D35.3] Dysmetabolic syndrome [E88.81] Depression [F32.9] Hypertrophy of breast [N62] Benign heart murmur [] Abnormal uterine bleeding [N93.9] Chronic RLQ pain [R10.31, G89.29] Dysmenorrhea [N94.6] Other affections of shoulder region, not elsewhere classified [M75.80] SHEFALI (iron deficiency anemia) [D50.9] Myofascial pain [M79.18] Neck pain [M54.2] Cervical disc displacement [M50.20] Pain in joint, shoulder region [M25.519] Cervical radiculitis [M54.12] Sacroiliac joint pain [M53.3] Right buttock pain [M79.18] Headache [R51] Hypothyroidism [E03.9] Non morbid obesity due to excess calories [E66.09] Cervical arthritis [M47.812] Chronic bilateral low back pain without sciatica [M54.5, G89.29] DDD (degenerative disc disease), cervical [M50.30] SI (sacroiliac) joint dysfunction [M53.3] Schizoaffective disorder (HCC) [F25.9] Chronic SI joint pain [M53.3, G89.29] Vitamin D deficiency [E55.9] RUQ pain [R10.11] Altered bowel habits [R19.4] Epigastric pain [R10.13] Nausea [R11.0] Allergies: Codeine Compazine [Prochlorperazine Edisylate] Darvocet A500 [Propoxyphene N-Acetaminophen] Tessalon [Benzonatate] Vicodin [Hydrocodone-Acetaminophen] Date Verified: 05/03/18 Lab Values Lab Value Units Date High Low ZANA* 37.9 % 04/20/2018 46.0 36.0 Progress Notes ([facility]): Aranza Meza Ma 04/20/2018 1:15 PM Signed Patient needs to be scheduled for an EGD MAC in [place] with Dr. Quinn. The patient needs called to have this set up and this needs routed back to me. Dx- RUQ Pain, altered bowel function, Epigastric pain, nausea. Aranza Fraser 04/22/2018 11:14 AM Signed 05-03-2018 EGD Rayne Fraser CBC Collected: 04/20/2018 Status: F Source: [place] 10:46 AM [facility] REPOSITORY TYPE CODE TESTS RESULT OUT OF REFERENCE UNITS RANGE LAB WBC 3.70-11.00 k/uL WBC 8.10 LAB RBC 3.90-5.20 m/uL RBC 4.17 LAB HGB 11.5-15.5 g/dL Hemoglobin 12.2 LAB HCT 36.0-46.0 % Hematocrit 37.9 LAB MCV 80.0-100.0 fL MCV 90.9 LAB MCH 26.0-34.0 pG MCH 29.3 LAB MCHC 30.5-36.0 g/dL MCHC 32.2 LAB RDWCV 11.5-15.0 % RDW-CV 13.7 LAB PLTCT 150-400 k/uL Platelet Count 300 LAB MPV 9.0-12.7 fL MPV 10.9 LAB ABSNUC <0.01 k/uL Absolute nRBC <0.01 Performed By: #### CBC, AMYL, HFP, LIPA #### [facility] [address], [place] [address] AMYLASE Collected: 04/20/2018 Status: F Source: [place] 10:46 AM [facility] REPOSITORY TYPE CODE TESTS RESULT OUT OF REFERENCE UNITS RANGE LAB AMYL 30-104 U/L Amylase 37 Performed By: #### CBC, AMYL, HFP, LIPA #### [facility] [address] [address] HEPATIC FUNCTN PANEL Collected: 04/20/2018 Status: F Source: [place] 10:46 AM [facility] REPOSITORY TYPE CODE TESTS RESULT OUT OF REFERENCE UNITS RANGE LAB ALB 3.9-4.9 g/dL Albumin 4.6 LAB TBIL 0.2-1.3 mg/dL Bilirubin, Total 0.2 LAB CBIL <0.2 mg/dL Bilirubin,Conjuga <0.2 naima LAB ALKP 34-123 U/L Alkaline Phosphatase 116 LAB AST 13-35 U/L AST 23 LAB ALT 7-38 U/L ALT 25 LAB TP 6.3-8.0 g/dL Protein, Total 7.3 Performed By: #### CBC, AMYL, HFP, LIPA #### [place] [id number] [address] LIPASE Collected: 04/20/2018 Status: F Source: [place] 10:46 AM [facility] REPOSITORY TYPE CODE TESTS RESULT OUT OF REFERENCE UNITS RANGE LAB LIPA 16-61 U/L Lipase 26 Performed By: #### CBC, AMYL, HFP, LIPA #### [facility] [address] [address] CNOV Observed: 04/20/2018 Status: COMPLETED Source: [place] 9:40 AM [facility] REPOSITORY Office Visit ([facility]) VIKKI BAUMANN ([id number]) 1970 F CHT Date Time Provider Department 04/20/18 9:40 AM [facility]AVIN [facility] During your visit today, we recorded the following information about you: Pulse Blood pressure Weight Height 80/minute 134/84 112.5 kg 1.702 m Bhavin Love RN RIB KNITTER.FLOOR SUPERVISOR 04/22/2018 12:25 PM Signed Vikki Chayito Baumann a 47 year old female who is a consultation requested by Dr. Nascimento for an opinion regarding RUQ pain. My final recommendations will be communicated back to the requesting physician by way of shared Medical record. The patient has not been seen previously. The patient denies a family history of colon cancer. The patient was seen by Dr. Nascimento on 03/22/18, leading to this consultation. That note has been reviewed and part as follows: Pain RUQ and epigastric area. Pain after eating. Diarrhea after eating almost every day. Worse with fatty foods but can be anything she eats. Sweats and chills but not just with bowel issues. Not with meds that has been on for years--worse in the past few months though sweats ongoing for a couple years. Gas and bloating too. Wonders about gallbladder. ? No melena. No BRBPR. Stool can be yellow. More heartburn issues lately--had not had for years since PPI was controlling symptoms. ? October 2017 CT abdomen and pelvis with normal liver; no mention of GB Component Latest Ref Rng AND Units 03/16/2018 Protein, Total 6.3 - 8.0 g/dL 6.7 Albumin 3.9 - 4.9 g/dL 4.3 Calcium 8.5 - 10.2 mg/dL 9.1 Bilirubin, Total 0.2 - 1.3 mg/dL 0.2 Alkaline Phosphatase 34 - 123 U/L 129 (H) AST 13 - 35 U/L 31 Glucose 74 - 99 mg/dL 150 (H) BUN 7 - 21 mg/dL 14 Creatinine 0.58 - 0.96 mg/dL 0.52 (L) Sodium 136 - 144 mmol/L 139 Potassium 3.7 - 5.1 mmol/L 4.3 Chloride 97 - 105 mmol/L 101 CO2 22 - 30 mmol/L 20 (L) Anion Gap 9 - 18 mmol/L 18 ALT 7 - 38 U/L 40 (H) eGFR- >60 eGFR-All Other Races . >60 Component Latest Ref Rng AND Units 03/16/2018 WBC 3.70 - 11.00 k/uL 8.47 RBC 3.90 - 5.20 m/uL 4.60 Hemoglobin 11.5 - 15.5 g/dL 13.0 Hematocrit 36.0 - 46.0 % 40.1 MCV 80.0 - 100.0 fL 87.2 MCH 26.0 - 34.0 pG 28.3 MCHC 30.5 - 36.0 g/dL 32.4 RDW-CV 11.5 - 15.0 % 15.6 (H) Platelet Count 150 - 400 k/uL 288 MPV 9.0 - 12.7 fL 11.0 Absolute nRBC <0.01 k/uL <0.01 Component Latest Ref Rng AND Units 03/16/2018 TSH 0.400 - 5.500 uU/mL 2.210 Free T4 0.9 - 1.7 ng/dL 0.7 (L) Component Latest Ref Rng AND Units 03/16/2018 Vitamin D 25 Hydroxy 31.0 - 80.0 ng/mL 20.8 (L) RUQ US 03/23/18: IMPRESSION: HEPATIC STEATOSIS. HIDA scan done at OSH: HIDA scan was normal. No evidence of gallbladder filling problem or ejection problem. EF 99.7% The patient was seen by Dr. Ramirez for upper endoscopy and colonoscopy 09/05/13. The procedure report has been reviewed and findings as follows: EGD FINDINGS: Esophagus proximal negative, mid negative, distal negative. Ileus at 40 cm. Stomach, cardia negative. Fundus, body negative. Antrum negative. Biopsy for histology and H. pylori. Pylorus was negative. Duodenal bulb negative. Second portion unremarkable. IMPRESSION: Normal upper gastrointestinal endoscopy, biopsy for histology and H. pylori. PROCEDURE #2: Colonoscopy. IMPRESSION: Colonoscopy in a fairly prepped colon to the cecum reveal proximal ascending polyp and 3 small polyps at 20 cm removed. Pathology revealed Gastritis and hyperplastic polyps. Presenting complaint: The patient presents today reporting bright yellow diarrhea as well as RUQ pain. She tells me that the pain is constant in the RUQ. Describes it as sharp. Also reporting epigastric pain - pointing mid line below the xiphoid process- It becomes more intense after eating or drinking coffee. She tells me the only thing that helps is drinking coke. Immediate relief. She tells me that she is afraid to eat because of the effect. So, she has lost weight. The patient reports that she gets nausea and experiences urgency related to eating. States sometimes even while I am eating. The coke will help with the nausea as well. The patient reports that she is experiencing heartburn in spite of the omeprazole. Taking 20mg twice a day for years. On average, having a bowel movement 4-5 times, depending on if she is eating. She tells me that her stools are usually bright yellow. The patient denies lower abdominal discomfort. We have discussed REVIEW OF SYSTEMS: GENERAL: Weight loss Last 6 Encounter Wt Readings: Date: Wt: 04/20/2018 112.5 kg (248 lb) 03/22/2018 115.9 kg (255 lb 9.6 oz) 03/21/2018 117 kg (258 lb) 12/28/2017 117.5 kg (259 lb) 11/29/2017 117.5 kg (259 lb) 11/16/2017 116.1 kg (256 lb) GI: The patient states that her appetite has been good. She does get hungry. There has been nausea, some vomiting (dry heaves). She denies dysphagia and denies odynophagia. There has been indigestion with heartburn. There has partially been regurgitation. Bowel habits have been irregular. There has been diarrhea. There has not been constipation. The patient denies rectal bleeding. There has not been melena. Daily abdominal pain that is located in the right upper quadrant. 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 LMP: Hyst. MUSCULOSKELETAL: Positive for joint pain, back pain or muscle pain. Sees pain management as needed. PSYCH: Positive for depression: sleep disturbance, anxiety, severe psychosocial stressors and hallucinations. Sees psychiatrist bi-monthly. All other reviewed and negative other than HPI. PAST MEDICAL HISTORY Diagnosis Date - Benign heart murmur 09/01/2012 - Benign neoplasm of pituitary gland and craniopharyngeal duct (pouch) ([facility]) Dr. Duke following - Degeneration of intervertebral disc, site unspecified Drs. Boyce and Abhilash - Depressive disorder, not elsewhere classified - DM (diabetes mellitus) ([facility]) Dr. Duke - H/O blood clots all superficial - Heartburn - High blood pressure - Hypothyroidism - GAGANDEEP (obstructive sleep apnea) - Other and unspecified hyperlipidemia Dr. Duke following - Schizoaffective disorder - Seizures ([facility]) 2012 medication related - Spinal stenosis, unspecified region other than cervical Dr.s Wilburn - Unspecified epilepsy without mention of intractable epilepsy - Viral warts, unspecified PAST SURGICAL HISTORY Procedure Laterality Date - ANKLE LEFT OP SURGERY 06/19/2011 8 screws and metal plate removed left ankle - ARTHRO SHLDR DST CLAVICLECTMY 04/10/2014 Right shoulder arthroscopic rotator cuff repair with debridement - COLONOSCOP W/ OR W/O [facility] SPEC 09/05/13 [facility] - EGD W/O OR W/BRUSH/WASH 09/05/13 EGD [facility] - EMBOLIZATION UTERINE FIBROID [id number] 1 removed each time - LEG DVT LEONEL UNL J3-5 1982 5 superficial blot clots in left leg - PAST SURGICAL HISTORY OF 12-24-11 bilateral breast reduction - SHLDR ARTHROSCOP,PART ACROMIOPLAS 01/31/2013 Right shoulder - TONSILLECTOMY HX 1992 - VAGINAL HYSTERECTOMY 01/05/2013 Hysterectomy, vaginal for dysmenorrhea FAMILY HISTORY Problem Relation Age of Onset - Arthritis Mother - Arthritis Maternal Grandfather - Arthritis Sister - Arthritis Sister - Hypertension Sister - Diabetes Sister - Heart Sister mothers family history Current Outpatient Prescriptions: ondansetron orally disintegrating (ZOFRAN ODT) 4 mg disintegrating tablet Take 1 tablet by mouth every 6 hours as needed for Nausea/Vomiting. Disp: 20 tablet Rfl: 0 carBAMazepine XR (TEGRETOL XR) 200 mg 12 hr tablet Take 400mg in am, and 600mg in pm Disp: Rfl: Cholecalciferol, Vitamin D3, 2,000 unit cap Take 1 capsule by mouth once daily. Disp: Rfl: sucralfate (CARAFATE) 1 gram tablet Take 1 tablet by mouth before meals and at bedtime. As directed--may dissolve in 1 to 2 teaspoons of water and take 30 minutes before meals and bedtime Disp: 56 tablet Rfl: 1 tiZANidine (ZANAFLEX) 4 mg tablet Take 1 tablet by mouth every 8 hours as needed. Disp: 90 tablet Rfl: 1 traMADol (ULTRAM) 50 mg tablet Take 1 tablet by mouth every 6 hours as needed for Pain for up to 7 days. Disp: 28 tablet Rfl: 0 baclofen (LIORESAL) 10 mg tablet Take 1 tablet by mouth twice daily. Disp: 60 tablet Rfl: 2 omeprazole (PRILOSEC) 20 mg capsule TAKE 1 CAPSULE BY MOUTH TWICE A DAY Disp: 56 capsule Rfl: 5 lisinopril (ZESTRIL,PRINIVIL) 30 mg tablet TAKE 1 TABLET BY MOUTH DAILY Disp: 28 tablet Rfl: 5 ibuprofen (MOTRIN) 800 mg tablet Take 1 tablet by mouth every 8 hours as needed for Pain. FOR PAIN. Disp: 90 tablet Rfl: 1 amLODIPine (NORVASC) 5 mg tablet Take 1 tablet by mouth once daily. Disp: 30 tablet Rfl: 5 QUEtiapine (SEROQUEL) 400 mg tablet Take 1 tablet by mouth daily at bedtime. with 100 mg pill Disp: Rfl: QUEtiapine (SEROQUEL) 100 mg tablet Take 1 tablet by mouth daily at bedtime. with 400 mg dose Disp: Rfl: pravastatin (PRAVACHOL) 20 mg tablet Take 1 tablet by mouth daily at bedtime. Disp: 90 tablet Rfl: 3 clotrimazole-betamethasone (LOTRISONE) cream Apply 1 application to affected area twice daily. apply for 1-2 weeks, then discontinue Disp: 15 g Rfl: 2 busPIRone HCl 30 mg tablet Take 1 tablet by mouth twice daily. Disp: Rfl: DULoxetine (CYMBALTA) 60 mg capsule Take 2 capsules by mouth once daily. In AM Disp: Rfl: temazepam (RESTORIL) 30 mg cap Take 1 capsule by mouth daily at bedtime. Disp: Rfl: No current facility-administered medications for this visit. SOCIAL HISTORY: Patient is single. She quit smoking 4 years ago and reports her alcohol use as very rarely. PHYSICAL EXAMINATION: General Appearance: Well appearing, alert, in no acute distress, well-hydrated, well nourished. Skin: Skin color, texture, turgor normal, no suspicious rashes or lesions. Head: Normocephalic, no masses, lesions or abnormalities. Eyes: Anicteric sclera. Oropharynx: Lips, mucosa, and tongue normal, teeth and gums normal, oropharynx normal. Neck: Supple, no adenopathy; thyroid symmetric, normal size. Lungs: lungs clear to auscultation. No wheezing, rhonchi, rales. Heart: RRR without murmur. Abdomen: Abdomen soft, non-tender. Bowel sounds normal. No masses, organomegaly. Extremities: No deformities, edema, skin discoloration, clubbing or cyanosis. Impression: RUQ and epigastric pain with normal US and HIDA 2)nausea Plan: Labs including stool study. The patient is scheduled for upper endoscopy, using MAC. Preparation for the procedure and the procedure itself have been explained in detail. The risks, benefits, anticipated outcomes and possible complications were mentioned. I also explained the procedure in understandable terms and the patient was given printed material concerning the planned procedure. The patient had the opportunity to ask questions concerning the planned procedure. The patient freely consents to the planned procedure. The patient is asked to call with any questions or concerns, or if there is a change in health status between now and the scheduled procedure. I have personally interviewed and examined this patient. I have read the information that the MA documented in this encounter. I spent 30 minutes in the visit, with more than 50% of the total tfuo-xa-trei time of the visit in counseling / coordination of care. Bhavin Love RN APRN.SHARONDA Love RN APRN.SHARONDA 04/20/2018 10:21 AM Addendum We will contact you with the results of the blood and stool samples. Please follow the instructions for upper endoscopy. This will be in [place], with Dr. Quinn. The child psychometrist to schedule your procedure. The endoscopy staff will call you the day before the procedure, to give you specifics on time. (Wednesday for a Wednesday procedure) Follow up with either myself or Dr. Quinn. Referring Provider: LIZ NASCIMENTO [[id number]] Allergies As of Date: 04/20/2018 Noted Allergy Reaction CODEINE 03/07/2010 8 - GI Upset COMPAZINE (PROCHLORPERAZINE EDISY*03/07/2010 DARVOCET A500 (PROPOXYPHENE N-SHERRY*03/07/2010 8 - GI Upset TESSALON (BENZONATATE) 04/16/2015 14 - Other: See Comments Comments: Heart palpitations VICODIN (HYDROCODONE-ACETAMINOPHE*03/07/2010 4 - Hives Comments: Also LORTAB Date Reviewed: 04/20/2018 Reviewed by: Aranza Meza Ma - Fully Assessed Reason for Visit: Abdominal Pain [1] Primary Visit Diagnosis:RUQ pain [R10.11] Other Visit Diagnoses:Altered bowel function [R19.4] Epigastric pain [R10.13] Nausea [R11.0] Order(s):AMYLASE BLD [SQAMYL] Order #: [id number] FUTURE LIPASE BLD [SQLIPA] Order #: [id number] FUTURE CBC [SQCBC] Order #: [id number] FUTURE HEPATIC FUNCTION PNL [SQHFP] Order #: [id number] FUTURE PANC ELASTASE, FECAL [SQPANCEF] Order #: [id number] FUTURE FAT, FECAL QUAL [SQFFATQL] Order #: [id number] FUTURE EGD GEN ANES [3513885] Order #: [id number] FUTURE SED RATE WESTERGREN [SQWSR] Order #: [id number] FUTURE C-REACTIVE PROTEIN (CRP) [SQCRP] Order #: [id number] FUTURE Prescriptions as of 04/20/2018 Sig: BACLOFEN 10 MG TABLET Take 10 mg by mouth once each* CARBAMAZEPINE ER 200 MG TABLE* Take 400mg in am, and 600mg i* CHOLECALCIFEROL (VITAMIN D3) * Take 1 capsule by mouth once * SUCRALFATE 1 GRAM TABLET Take 1 tablet by mouth before* TIZANIDINE 4 MG TABLET Take 1 tablet by mouth every * TRAMADOL 50 MG TABLET Take 1 tablet by mouth every * BACLOFEN 10 MG TABLET Take 1 tablet by mouth twice * OMEPRAZOLE 20 MG CAPSULE,EARL* TAKE 1 CAPSULE BY MOUTH TWICE* LISINOPRIL 30 MG TABLET TAKE 1 TABLET BY MOUTH DAILY IBUPROFEN 800 MG TABLET Take 1 tablet by mouth every * AMLODIPINE 5 MG TABLET Take 1 tablet by mouth once d* QUETIAPINE 400 MG TABLET Take 1 tablet by mouth daily * QUETIAPINE 100 MG TABLET Take 1 tablet by mouth daily * PRAVASTATIN 20 MG TABLET Take 1 tablet by mouth daily * CLOTRIMAZOLE-BETAMETHASONE 1 * Apply 1 application to affect* BUSPIRONE 30 MG TABLET Take 1 tablet by mouth twice * DULOXETINE 60 MG CAPSULE,EARL* Take 2 capsules by mouth once* TEMAZEPAM 30 MG CAPSULE Take 1 capsule by mouth daily* Problem List As Of Date 04/20/2018 Noted Resolved 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, D35.3] INVALID FOR* Dysmetabolic syndrome [E88.81] INVALID FOR* Depression [F32.9] INVALID FOR* Hypertrophy of breast [N62] INVALID FOR* Benign heart murmur INVALID FOR* Abnormal uterine bleeding [N93.9] INVALID FOR* Chronic RLQ pain [R10.31, G89.29] INVALID FOR* Dysmenorrhea [N94.6] INVALID FOR* Other affections of shoulder region, not elsewh*INVALID FOR* Rotator cuff tear [M75.100] INVALID FOR*02/28/2013 SHEFALI (iron deficiency anemia) [D50.9] INVALID FOR* Myofascial pain [M79.18] INVALID FOR* Neck pain [M54.2] INVALID FOR* Cervical disc displacement [M50.20] INVALID FOR* Pain in joint, shoulder region [M25.519] INVALID FOR* Cervical radiculitis [M54.12] INVALID FOR* Sacroiliac joint pain [M53.3] INVALID FOR* Buttock pain [M79.18] INVALID FOR*01/15/2015 Right buttock pain [M79.18] INVALID FOR* Headache [R51] INVALID FOR* Lower back pain [M54.5] INVALID FOR*09/10/2015 Chronic pain [G89.29] INVALID FOR*11/14/2015 Right-sided low back pain without sciatica [M54*INVALID FOR*11/14/2015 Hypothyroidism [E03.9] Non morbid obesity due to excess calories [E66.*INVALID FOR* Cervical arthritis (HCC) [M47.812] INVALID FOR* Chronic bilateral low back pain without sciatic*INVALID FOR* DDD (degenerative disc disease), cervical [M50.*INVALID FOR* SI (sacroiliac) joint dysfunction [M53.3] INVALID FOR* Schizoaffective disorder (HCC) [F25.9] INVALID FOR* Chronic SI joint pain [M53.3, G89.29] INVALID FOR* Vitamin D deficiency [E55.9] INVALID FOR* Other instructions from your clinician: We will contact you with the results of the blood and stool samples. Please follow the instructions for upper endoscopy. This will be in [place], with Dr. Quinn. The child psychometrist to schedule your procedure. The endoscopy staff will call you the day before the procedure, to give you specifics on time. (Wednesday for a Wednesday procedure) Follow up with either myself or Dr. Quinn. Medications Discontinued During This Encounter ondansetron orally disintegrating (Z* 20 t* 0 03/31/2018 04/20/2018 Route: ORAL Sig: Take 1 tablet by mouth every 6 hours as needed for Nausea/Vomiting. Disc: Reason for discontinue is not on file. Encounter Status:Closed by BHAVIN LOVE CNP on 04/22/18 HISTORY PHYSICAL Observed: 04/19/2018 Status: COMPLETED Source: [place] 6:34 PM [facility] REPOSITORY HNO ID: [id number] Author: Bhavin (Bev) Kate Service: (none) Author Type: Nurse Practitioner Type: HANDP Filed: 04/22/2018 12:25 PM Note Text: Vikki Baumann a 47 year old female who is a consultation requested by Dr. Nascimento for an opinion regarding RUQ pain. My final recommendations will be communicated back to the requesting physician by way of shared Medical record. The patient has not been seen previously. The patient denies a family history of colon cancer. The patient was seen by Dr. Nascimento on 03/22/18, leading to this consultation. That note has been reviewed and part as follows: Pain RUQ and epigastric area. Pain after eating. Diarrhea after eating almost every day. Worse with fatty foods but can be anything she eats. Sweats and chills but not just with bowel issues. Not with meds that has been on for years--worse in the past few months though sweats ongoing for a couple years. Gas and bloating too. Wonders about gallbladder. ? No melena. No BRBPR. Stool can be yellow. More heartburn issues lately--had not had for years since PPI was controlling symptoms. ? October 2017 CT abdomen and pelvis with normal liver; no mention of GB Component Latest Ref Rng AND Units 03/16/2018 Protein, Total 6.3 - 8.0 g/dL 6.7 Albumin 3.9 - 4.9 g/dL 4.3 Calcium 8.5 - 10.2 mg/dL 9.1 Bilirubin, Total 0.2 - 1.3 mg/dL 0.2 Alkaline Phosphatase 34 - 123 U/L 129 (H) AST 13 - 35 U/L 31 Glucose 74 - 99 mg/dL 150 (H) BUN 7 - 21 mg/dL 14 Creatinine 0.58 - 0.96 mg/dL 0.52 (L) Sodium 136 - 144 mmol/L 139 Potassium 3.7 - 5.1 mmol/L 4.3 Chloride 97 - 105 mmol/L 101 CO2 22 - 30 mmol/L 20 (L) Anion Gap 9 - 18 mmol/L 18 ALT 7 - 38 U/L 40 (H) eGFR- >60 eGFR-All Other Races . >60 Component Latest Ref Rng AND Units 03/16/2018 WBC 3.70 - 11.00 k/uL 8.47 RBC 3.90 - 5.20 m/uL 4.60 Hemoglobin 11.5 - 15.5 g/dL 13.0 Hematocrit 36.0 - 46.0 % 40.1 MCV 80.0 - 100.0 fL 87.2 MCH 26.0 - 34.0 pG 28.3 MCHC 30.5 - 36.0 g/dL 32.4 RDW-CV 11.5 - 15.0 % 15.6 (H) Platelet Count 150 - 400 k/uL 288 MPV 9.0 - 12.7 fL 11.0 Absolute nRBC <0.01 k/uL <0.01 Component Latest Ref Rng AND Units 03/16/2018 TSH 0.400 - 5.500 uU/mL 2.210 Free T4 0.9 - 1.7 ng/dL 0.7 (L) Component Latest Ref Rng AND Units 03/16/2018 Vitamin D 25 Hydroxy 31.0 - 80.0 ng/mL 20.8 (L) RUQ US 03/23/18: IMPRESSION: HEPATIC STEATOSIS. HIDA scan done at OSH: HIDA scan was normal. No evidence of gallbladder filling problem or ejection problem. EF 99.7% The patient was seen by Dr. Ramirez for upper endoscopy and colonoscopy 09/05/13. The procedure report has been reviewed and findings as follows: EGD FINDINGS: Esophagus proximal negative, mid negative, distal negative. Ileus at 40 cm. Stomach, cardia negative. Fundus, body negative. Antrum negative. Biopsy for histology and H. pylori. Pylorus was negative. Duodenal bulb negative. Second portion unremarkable. IMPRESSION: Normal upper gastrointestinal endoscopy, biopsy for histology and H. pylori. PROCEDURE #2: Colonoscopy. IMPRESSION: Colonoscopy in a fairly prepped colon to the cecum reveal proximal ascending polyp and 3 small polyps at 20 cm removed. Pathology revealed Gastritis and hyperplastic polyps. Presenting complaint: The patient presents today reporting bright yellow diarrhea as well as RUQ pain. She tells me that the pain is constant in the RUQ. Describes it as sharp. Also reporting epigastric pain - pointing mid line below the xiphoid process- It becomes more intense after eating or drinking coffee. She tells me the only thing that helps is drinking coke. Immediate relief. She tells me that she is afraid to eat because of the effect. So, she has lost weight. The patient reports that she gets nausea and experiences urgency related to eating. States sometimes even while I am eating. The coke will help with the nausea as well. The patient reports that she is experiencing heartburn in spite of the omeprazole. Taking 20mg twice a day for years. On average, having a bowel movement 4-5 times, depending on if she is eating. She tells me that her stools are usually bright yellow. The patient denies lower abdominal discomfort. We have discussed REVIEW OF SYSTEMS: GENERAL: Weight loss Last 6 Encounter Wt Readings: Date: Wt: 04/20/2018 112.5 kg (248 lb) 03/22/2018 115.9 kg (255 lb 9.6 oz) 03/21/2018 117 kg (258 lb) 12/28/2017 117.5 kg (259 lb) 11/29/2017 117.5 kg (259 lb) 11/16/2017 116.1 kg (256 lb) GI: The patient states that her appetite has been good. She does get hungry. There has been nausea, some vomiting (dry heaves). She denies dysphagia and denies odynophagia. There has been indigestion with heartburn. There has partially been regurgitation. Bowel habits have been irregular. There has been diarrhea. There has not been constipation. The patient denies rectal bleeding. There has not been melena. Daily abdominal pain that is located in the right upper quadrant. 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 LMP: Hyst. MUSCULOSKELETAL: Positive for joint pain, back pain or muscle pain. Sees pain management as needed. PSYCH: Positive for depression: sleep disturbance, anxiety, severe psychosocial stressors and hallucinations. Sees psychiatrist bi-monthly. All other reviewed and negative other than HPI. PAST MEDICAL HISTORY Diagnosis Date - Benign heart murmur 09/01/2012 - Benign neoplasm of pituitary gland and craniopharyngeal duct (pouch) ([facility]) Dr. Leilani ventura - Degeneration of intervertebral disc, site unspecified Drs. Wilburn - Depressive disorder, not elsewhere classified - DM (diabetes mellitus) ([facility]) Dr. Duke - H/O blood clots all superficial - Heartburn - High blood pressure - Hypothyroidism - GAGANDEEP (obstructive sleep apnea) - Other and unspecified hyperlipidemia Dr. Duke [facility] - Schizoaffective disorder - Seizures ([facility]) 2012 medication related - Spinal stenosis, unspecified region other than cervical Dr.s Wilburn - Unspecified epilepsy without mention of intractable epilepsy - Viral warts, unspecified PAST SURGICAL HISTORY Procedure Laterality Date - ANKLE LEFT OP SURGERY 06/19/2011 8 screws and metal plate removed left ankle - ARTHRO SHLDR DST CLAVICLECTMY 04/10/2014 Right shoulder arthroscopic rotator cuff repair with debridement - COLONOSCOP W/ OR W/O [facility] SPEC 09/05/13 Colonoscopy [facility] - EGD W/O OR W/BRUSH/WASH 09/05/13 EGD [facility] - EMBOLIZATION UTERINE FIBROID [id number] 1 removed each time - LEG DVT LEONEL UNL J3-5 1982 5 superficial blot clots in left leg - PAST SURGICAL HISTORY OF 7-- bilateral breast reduction - SHLDR ARTHROSCOP,PART ACROMIOPLAS 01/31/2013 Right shoulder - TONSILLECTOMY HX 1992 - VAGINAL HYSTERECTOMY 01/05/2013 Hysterectomy, vaginal for dysmenorrhea FAMILY HISTORY Problem Relation Age of Onset - Arthritis Mother - Arthritis Maternal Grandfather - Arthritis Sister - Arthritis Sister - Hypertension Sister - Diabetes Sister - Heart Sister mothers family history Current Outpatient Prescriptions: ondansetron orally disintegrating (ZOFRAN ODT) 4 mg disintegrating tablet Take 1 tablet by mouth every 6 hours as needed for Nausea/Vomiting. Disp: 20 tablet Rfl: 0 carBAMazepine XR (TEGRETOL XR) 200 mg 12 hr tablet Take 400mg in am, and 600mg in pm Disp: Rfl: Cholecalciferol, Vitamin D3, 2,000 unit cap Take 1 capsule by mouth once daily. Disp: Rfl: sucralfate (CARAFATE) 1 gram tablet Take 1 tablet by mouth before meals and at bedtime. As directed--may dissolve in 1 to 2 teaspoons of water and take 30 minutes before meals and bedtime Disp: 56 tablet Rfl: 1 tiZANidine (ZANAFLEX) 4 mg tablet Take 1 tablet by mouth every 8 hours as needed. Disp: 90 tablet Rfl: 1 traMADol (ULTRAM) 50 mg tablet Take 1 tablet by mouth every 6 hours as needed for Pain for up to 7 days. Disp: 28 tablet Rfl: 0 baclofen (LIORESAL) 10 mg tablet Take 1 tablet by mouth twice daily. Disp: 60 tablet Rfl: 2 omeprazole (PRILOSEC) 20 mg capsule TAKE 1 CAPSULE BY MOUTH TWICE A DAY Disp: 56 capsule Rfl: 5 lisinopril (ZESTRIL,PRINIVIL) 30 mg tablet TAKE 1 TABLET BY MOUTH DAILY Disp: 28 tablet Rfl: 5 ibuprofen (MOTRIN) 800 mg tablet Take 1 tablet by mouth every 8 hours as needed for Pain. FOR PAIN. Disp: 90 tablet Rfl: 1 amLODIPine (NORVASC) 5 mg tablet Take 1 tablet by mouth once daily. Disp: 30 tablet Rfl: 5 QUEtiapine (SEROQUEL) 400 mg tablet Take 1 tablet by mouth daily at bedtime. with 100 mg pill Disp: Rfl: QUEtiapine (SEROQUEL) 100 mg tablet Take 1 tablet by mouth daily at bedtime. with 400 mg dose Disp: Rfl: pravastatin (PRAVACHOL) 20 mg tablet Take 1 tablet by mouth daily at bedtime. Disp: 90 tablet Rfl: 3 clotrimazole-betamethasone (LOTRISONE) cream Apply 1 application to affected area twice daily. apply for 1-2 weeks, then discontinue Disp: 15 g Rfl: 2 busPIRone HCl 30 mg tablet Take 1 tablet by mouth twice daily. Disp: Rfl: DULoxetine (CYMBALTA) 60 mg capsule Take 2 capsules by mouth once daily. In AM Disp: Rfl: temazepam (RESTORIL) 30 mg cap Take 1 capsule by mouth daily at bedtime. Disp: Rfl: No current facility-administered medications for this visit. SOCIAL HISTORY: Patient is single. She quit smoking 4 years ago and reports her alcohol use as very rarely. PHYSICAL EXAMINATION: General Appearance: Well appearing, alert, in no acute distress, well-hydrated, well nourished. Skin: Skin color, texture, turgor normal, no suspicious rashes or lesions. Head: Normocephalic, no masses, lesions or abnormalities. Eyes: Anicteric sclera. Oropharynx: Lips, mucosa, and tongue normal, teeth and gums normal, oropharynx normal. Neck: Supple, no adenopathy; thyroid symmetric, normal size. Lungs: lungs clear to auscultation. No wheezing, rhonchi, rales. Heart: RRR without murmur. Abdomen: Abdomen soft, non-tender. Bowel sounds normal. No masses, organomegaly. Extremities: No deformities, edema, skin discoloration, clubbing or cyanosis. Impression: RUQ and epigastric pain with normal US and HIDA 2)nausea Plan: Labs including stool study. The patient is scheduled for upper endoscopy, using MAC. Preparation for the procedure and the procedure itself have been explained in detail. The risks, benefits, anticipated outcomes and possible complications were mentioned. I also explained the procedure in understandable terms and the patient was given printed material concerning the planned procedure. The patient had the opportunity to ask questions concerning the planned procedure. The patient freely consents to the planned procedure. The patient is asked to call with any questions or concerns, or if there is a change in health status between now and the scheduled procedure. I have personally interviewed and examined this patient. I have read the information that the MA documented in this encounter. I spent 30 minutes in the visit, with more than 50% of the total [id number] time of the visit in counseling / coordination of care. Bhavin Love RN RIB KNITTER.FLOOR SUPERVISOR HEPATOBILIARY SCAN Observed: 03/31/2018 Status: F Source: [facility] EJECTION [facility] 10:25 AM [facility] REPOSITORY Final Report Accession No: [id number] Performed: Mar 31 2018 10:25AM Examination: HEPATOBILIARY SCAN EJECTION FRAC EXAMINATION: HEPATOBILIARY SCINTIGRAPHY WITH GALLBLADDER EJECTION FRACTION HISTORY: Right upper quadrant abdominal pain (R10.11). TECHNIQUE: Following the intravenous administration of 4.9 mCi of technetium-99m mebrofenin, sequential abdominal images were obtained. In order to evaluate the contractile response of the gallbladder, 2.3 micrograms of sincalide was administered by slow intravenous infusion over 45 minutes starting approximately 65 minutes after the administration of the radiopharmaceutical. Sequential imaging was continued for 60 minutes after the start of sincalide infusion. COMPARISON: Correlation with CT of the abdomen and pelvis dated 03/28/2018. FINDINGS: There is prompt, uniform accumulation of the tracer by the liver. There is normal filling of the intrahepatic ducts, common bile duct and gallbladder, and normal excretion of the tracer into the duodenum. There is good contraction of the gallbladder. The calculated gallbladder ejection fraction is 99.7% (normal > 40%). There is no enterogastric reflux. IMPRESSION: 1. Normal contractile response of the gallbladder to sincalide infusion. 2. Normal biliary imaging study. Interpreting Physician: ANNETTE RENTERIA M.D. Trans: n/a : cc: HOSP Observed: 03/31/2018 Status: COMPLETED Source: [place] 12:00 AM CLINIC OTHER CAMPUS REPOSITORY Patient:Vikki Baumann MRN: <[id number]> Height:5' 7(1.702 m) Weight:248 lb (112.492 kg) Outpatient Medications as of 04/26/18: carBAMazepine XR (TEGRETOL XR) 200 mg 12 hr tablet Cholecalciferol, Vitamin D3, 2,000 unit cap sucralfate (CARAFATE) 1 gram tablet tiZANidine (ZANAFLEX) 4 mg tablet traMADol (ULTRAM) 50 mg tablet baclofen (LIORESAL) 10 mg tablet omeprazole (PRILOSEC) 20 mg capsule lisinopril (ZESTRIL,PRINIVIL) 30 mg tablet ibuprofen (MOTRIN) 800 mg tablet amLODIPine (NORVASC) 5 mg tablet QUEtiapine (SEROQUEL) 400 mg tablet QUEtiapine (SEROQUEL) 100 mg tablet pravastatin (PRAVACHOL) 20 mg tablet clotrimazole-betamethasone (LOTRISONE) cream busPIRone HCl 30 mg tablet DULoxetine (CYMBALTA) 60 mg capsule temazepam (RESTORIL) 30 mg cap Admission/Clinic Administered Medications as of 04/26/18: NaCl 0.9% iv infusion Problem List: 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, D35.3] Dysmetabolic syndrome [E88.81] Depression [F32.9] Hypertrophy of breast [N62] Benign heart murmur [] Abnormal uterine bleeding [N93.9] Chronic RLQ pain [R10.31, G89.29] Dysmenorrhea [N94.6] Other affections of shoulder region, not elsewhere classified [M75.80] SHEFAIL (iron deficiency anemia) [D50.9] Myofascial pain [M79.18] Neck pain [M54.2] Cervical disc displacement [M50.20] Pain in joint, shoulder region [M25.519] Cervical radiculitis [M54.12] Sacroiliac joint pain [M53.3] Right buttock pain [M79.18] Headache [R51] Hypothyroidism [E03.9] Non morbid obesity due to excess calories [E66.09] Cervical arthritis [M47.812] Chronic bilateral low back pain without sciatica [M54.5, G89.29] DDD (degenerative disc disease), cervical [M50.30] SI (sacroiliac) joint dysfunction [M53.3] Schizoaffective disorder (HCC) [F25.9] Chronic SI joint pain [M53.3, G89.29] Vitamin D deficiency [E55.9] RUQ pain [R10.11] Altered bowel habits [R19.4] Epigastric pain [R10.13] Nausea [R11.0] Allergies: Codeine Compazine [Prochlorperazine Edisylate] Darvocet A500 [Propoxyphene N-Acetaminophen] Tessalon [Benzonatate] Vicodin [Hydrocodone-Acetaminophen] Date Verified: 04/26/18 Lab Values Lab Value Units Date High Low ZANA* 37.9 % 04/20/2018 46.0 36.0 Progress Notes ([facility]): Aranza Meza Ma 04/20/2018 1:15 PM Signed Patient needs to be scheduled for an EGD MAC in [place] with Dr. Quinn. The patient needs called to have this set up and this needs routed back to me. Dx- RUQ Pain, altered bowel function, Epigastric pain, nausea. Aranza Fraser 04/22/2018 11:14 AM Signed 05-03-2018 EGD Rayne Fraser Progress Notes ([facility]): Kimber Rice RN 03/31/2018 10:48 AM Signed Patient calling to say she had HIDA scan done at [facility] in [place] and is hoping to hear results from PCP as soon as possible. She does not know how long it will take to be read by Radiologist nor if they're faxing results to PCP office. Kimber Caicedo LPN 04/01/2018 2:47 PM Signed rec'd and in POD to review. Liz Nascimento MD 04/01/2018 4:10 PM Signed HIDA scan was normal. No evidence of gallbladder filling problem or ejection problem. Option to see GI for further evaluation of causes for her persistent pain and nausea. See if symptoms still severe and wants referral and if has preference to whom I should refer (GI [facility] or [facility]) Julienne Caicedo LPN 04/01/2018 4:24 PM Signed Message left for pt to return call to a nurse. Veronica Chayito Jackson LPN 04/01/2018 4:44 PM Signed Patient notified of the same and verbalizes understanding. She continues to have pain and would like to proceed with referral. No preference on provider. Idris Dotson APRN.[employer] 04/01/2018 5:02 PM Signed Consult placed, please schedule with [facility] gastroenterology provider. Julienne Caicedo LPN 04/04/2018 2:15 PM Signed Please call pt to arrange consult. CT ABDO,PELVIS IV Observed: 03/28/2018 Status: F Source: [facility] CONTRAST ONLY 5:44 PM [facility] REPOSITORY Final Report Accession No: [id number] Performed: Mar 28 2018 5:44PM Examination: CT ABDO,PELVIS IV CONTRAST ONLY CT abdomen and pelvis IV CONTRAST ONLY CLINICAL STATEMENT: Right upper quadrant pain and diarrhea. Abdominal pain. COMPARISON: 11/02/2017. TECHNIQUE: CT examination of the abdomen and pelvis following the administration of 75 mL Isovue-370 intravenous contrast. Coronal and sagittal reformations were performed. Dose reduction techniques were achieved by using automated exposure control and/or adjustment of mA and/or kV according to patient size and/or use of iterative reconstruction technique. FINDINGS: The imaged heart is normal in size. The lung bases demonstrate very minimal atelectasis. There is diffuse hepatic steatosis and the liver notably measures 24 cm at midclavicular dimension. The spleen and pancreas are unremarkable. There are no calcified gallstones. There is no adrenal mass. There is no suspicious renal mass or obstructive uropathy. The urinary bladder is within normal limits. The uterus is absent. Cystic ovarian lesions are present bilaterally, the largest measuring 3.8 cm on the left. There is a mild to moderate colonic stool burden. There is no abnormal bowel dilatation and there is no bowel obstruction. The appendix is notably normal. There is no pneumoperitoneum or ascites. There is no abdominal aortic aneurysm. No lymphadenopathy is seen. There is no acute osseous abnormality. IMPRESSION: 1. Hepatomegaly with hepatic steatosis. 2. No bowel obstruction. Normal caliber appendix. 3. Cystic ovarian lesions, larger on the left. As indicated, pelvic ultrasound would provide better detail. Interpreting Physician: DEBBI STARKS M.D. Trans: n/a : cc: TEST,URINE Collected: 03/28/2018 Status: F Source: [facility] QUAL 4:48 PM [facility] REPOSITORY TYPE CODE TESTS RESULT OUT OF REFERENCE UNITS RANGE LAB PREGUR Negative Normal Negative Test,Urine Qual Result Comment: Rapid test procedural control acceptable. If a negative result is obtained but is suspected, hCG levels may be too low or urine may be too dilute for detection. Another specimen should be collected after 48-72 hours and tested. If waiting 48 hours is not medically advisable, the test result should be confirmed with a more sensitive quantitative serum hCG test. Performed By: #### UA, PREGUR #### Unless otherwise noted, all testing performed by [facility] [address] [place], [place] [address] CLIA: [id number] Corporate Strategy Associate: Hailey Enriquez M.D. URINALYSIS, ROUTINE Collected: 03/28/2018 Status: F Source: [facility] 4:48 PM [facility] REPOSITORY TYPE CODE TESTS RESULT OUT OF REFERENCE UNITS RANGE LAB COLOR Normal Color, Urine Yellow LAB CHAUR Normal Character Clear LAB SPGRUR 1.003-1.029 Normal Specific 1.018 [place],Urine LAB PHUR 4.5-8.0 Normal pH,Urine 6.0 LAB GLUCUR NEG;NEGATIVE mg/dL Normal Glucose,Urine Negative LAB KETUR NEG;NEGATIVE mg/dL Normal Ketone,Urine Negative LAB PROTUR < 30 mg/dL High Protein,Urine 30 LAB BLDUR NEG;NEGATIVE Normal Blood,Urine Negative LAB NITUR NEG;NEGATIVE Normal Nitrite,Urine Negative LAB BILIUR NEG;NEGATIVE Normal Bilirubin,Urine Negative LAB UROUR <2 mg/dL Normal Urobilinogen,Ur < 2.0 ine LAB LEUESTUR Negative Normal Leuk.Esterase,U Negative rine LAB WBCUR 0-5 /HPF Normal WBC,Urine 1 LAB RBCUR 0-5 /HPF Normal RBC,Urine 1 LAB SQEPI 0-40 /HPF Normal Squamous 3 Epithelial LAB BACTUR NS;RARE /HPF Normal Bacteria,Urine Rare Performed By: #### UA, PREGUR #### Unless otherwise noted, all testing performed by [facility] [address] [place], [place] [address] CLIA: [id number] Corporate Strategy Associate: Hailey Enriquez M.D. CBC WITH DIFF Collected: 03/28/2018 Status: F Source: [facility] 4:03 PM [facility] REPOSITORY TYPE CODE TESTS RESULT OUT OF RANGE REFERENCE UNITS LAB WBC 3.4-10.6 K/mcL WBC Normal 10.2 LAB RBC 3.7-5.0 M/mcL RBC Normal 4.75 LAB HGB 11.6-15.4 g/dL Normal Hemoglobin 13.6 LAB HCT 34.4-44.8 % Normal Hematocrit 40.4 LAB MCV 82.6-98.9 FL MCV Normal 85.0 LAB MCH 27.9-33.9 pg MCH Normal 28.7 LAB MCHC 33.1-35.1 g/dL MCHC Normal 33.8 LAB RDW 10.0-14.4 % High RDW 16.2 LAB PLT 162-402 K/mcL Platelet Normal Count 335 LAB MPV 7.0-10.6 FL MPV Normal 7.9 LAB NEUT# 1.2-6.9 K/mcL Normal Neutrophil # 6.2 LAB LYMPH# 1.0-3.7 K/mcL Normal Lymphocyte # 3.2 LAB MONO# 0.1-0.6 K/mcL High Monocyte # 0.7 LAB EOS# 0-0.5 K/mcL Normal Eosinophil # 0.0 LAB BASO# 0-0.2 K/mcL Basophil Normal # 0.1 LAB SEGNEU% % Normal Segmented Neut % 60.6 LAB LYMP% % Normal Lymphocyte% 31.6 LAB MO% % Monocyte Normal % 6.5 LAB EO% % Normal Eosinophil % 0.1 LAB BA% % Basophil Normal % 1.2 Performed By: #### CBCDIF, EDCTNI, LIPASE, CMET #### Unless otherwise noted, all testing performed by [place] [id number] CLIA: [id number] Corporate Strategy Associate: Hailey Enriquez M.D. ED CARDIAC TROPONIN-I Collected: 03/28/2018 Status: F Source: [facility] 4:03 PM [facility] REPOSITORY TYPE CODE TESTS RESULT OUT OF RANGE REFERENCE UNITS LAB EDCTNI < 45 ng/L Normal ED Cardiac < 15 Troponin-I Result Comment: Elevation of troponin indicates some degree of myocardial necrosis but unless there is a significant rise and/or fall (if elevated) identified, it unlikely that an acute event has taken place Samples from patients routinely receiving high dose biotin therapy (100-300 mg/day) may show falsely decreased results. Please correlate clinically. Performed By: #### CBCDIF, EDCTNI, LIPASE, CMET #### Unless otherwise noted, all testing performed by [place] [id number] CLIA: [id number] Corporate Strategy Associate: Hailey Enriquez M.D. COMPREHENSIVE METABOLIC Collected: 03/28/2018 Status: F Source: [facility] PANEL 4:03 PM [facility] REPOSITORY TYPE CODE TESTS RESULT OUT OF RANGE REFERENCE UNITS LAB GLU 70-99 mg/dL Normal Glucose 87 Result Comment: This test result might be falsely depressed or falsely elevated on samples drawn from patients taking Sulfasalazine and Sulfapyridine. Venipuncture should occur prior to taking either of these drugs. LAB BUN 8-25 mg/dL Normal BUN 11 LAB CREA 0.40-1.10 mg/dL Normal Creatinine 0.66 LAB eGFR ml/min/1.73s Normal q.m eGFR,NonAfrican-A merican >=60 Result Comment: Non- GFR Calc eGFR is an estimated Glomerular Filtration Rate based on the value of the patient's serum creatinine. In outpatients, eGFR should be used as a helpful tool in screening for CKD. In inpatients or patients with acute renal failure, eGFR represents the GFR at the moment of the draw and should be used with caution. LAB eGFRB ml/min/1.73sq.m eGFR, Normal -Peruvian >=60 Result Comment: GFR Calc LAB CALCM 8.4-10.2 mg/dL Calcium Normal 8.8 LAB NA 135-145 mmol/L Sodium Normal 137 LAB K 3.5-5.1 mmol/L Normal Potassium 4.4 Result Comment: moderate hemolysis, result may be falsely increased. LAB CL 98-108 mmol/L Normal Chloride 103 LAB CO2 21-32 mmol/L Normal CO2 23 LAB AST 0-45 U/L Normal AST (SGOT) 32 Result Comment: moderate hemolysis, result may be falsely increased. This test result might be falsely depressed or falsely elevated on samples drawn from patients taking Sulfasalazine and Sulfapyridine. Venipuncture should occur prior to taking either of these drugs. LAB ALT 14-65 U/L Normal ALT (SGPT) 36 Result Comment: This test result might be falsely depressed or falsely elevated on samples drawn from patients taking Sulfasalazine and Sulfapyridine. Venipuncture should occur prior to taking either of these drugs. LAB ALKP 40-150 U/L High Alkaline Phosphatase 155 LAB BILIT 0.3-1.2 mg/dL Normal Bilirubin,Total 0.3 LAB PROT 6.0-8.0 g/dL High Protein, Total 8.2 LAB ALB 3.2-5.2 g/dL Normal Albumin 4.0 Performed By: #### CBCDIF, EDCTNI, LIPASE, CMET #### Unless otherwise noted, all testing performed by [place] [id number] CLIA: [id number] Corporate Strategy Associate: Hailey Enriquez M.D. LIPASE Collected: 03/28/2018 Status: F Source: [facility] 4:03 PM [facility] REPOSITORY TYPE CODE TESTS RESULT OUT OF RANGE REFERENCE UNITS LAB LIPASE 73-393 U/L Normal Lipase 138 Performed By: #### CBCDIF, EDCTNI, LIPASE, CMET #### Unless otherwise noted, all testing performed by [place] [id number] CLIA: [id number] Corporate Strategy Associate: Hailey Enriquez M.D. US ABD RIGHT UPPER Observed: 03/23/2018 Status: F Source: [facility] 8:20 AM [facility] REPOSITORY * * *Final Report* * * DATE OF EXAM: Mar 23 2018 8:20AM WRU 1032 - US ABD RIGHT UPPER QUADRANT / PROCEDURE REASON: multiple diagnoses * * * * Physician Interpretation * * * * EXAMINATION: RIGHT UPPER QUADRANT ULTRASOUND CLINICAL HISTORY: Postprandial right upper quadrant pain. Diarrhea TECHNIQUE: Sonography of the right upper quadrant was performed. Images were obtained and stored in a permanent archive. MQ: [id number]_1 COMPARISON: CT 07/28/2017 RESULT: Pancreas: Normal sonographic appearance. Portions obscured: tail Liver: Echotexture: Normal, homogeneous. Echogenicity: Increased with a small area of focal sparing adjacent to the gallbladder Surface contour: Smooth Lesions: None. Biliary: No intrahepatic biliary duct dilation. CBD: 0.5 cm at the hilum. Gallbladder: Normal caliber -Contents: No cholelithiasis -Wall: Normal -Other: No pericholecystic fluid. Right Kidney: No hydronephrosis. Ascites: None. IMPRESSION: HEPATIC STEATOSIS. Director Check: PSCB Transcribe Date/Time: Mar 23 2018 5:04P Dictated by : ROCHELLE MOSQUERA MD This examination was interpreted and the report reviewed and electronically signed by: ROCHELLE MOSQUERA MD on Mar 23 2018 5:06PM EST [id number] PROGRESS Observed: 03/23/2018 Status: COMPLETED Source: [place] 8:15 AM [facility] REPOSITORY HNO ID: [id number] Author: Andreina Baker Rdms Service: (none) Author Type: (none) Type: Progress Notes Filed: 03/23/2018 8:15 AM Note Text: Radiology Service Progress Note PATIENT NAME: Vikki Baumann DATE OF SERVICE: March 23, 2018 TIME: 8:15 AM PATIENT IDENTITY VERIFICATION COMPLETED USING TWO (2) METHODS: Patient confirmed name verbally and Date of . PATIENT GENDER DATA: Female. status: : No status: NO. PATIENT RELEVANT IMPLANT DATA REVIEWED: Not Applicable RADIOLOGY DEPARTMENT: Ultrasound PERIPHERAL IV DATA: Not applicable SIGNED BY: Andreina Baker Rdms March 23, 2018 8:15 AM PROGRESS Observed: 03/22/2018 Status: COMPLETED Source: [place] 10:27 AM [facility] REPOSITORY O ID: [id number] Author: Liz Nascimento Service: (none) Author Type: Physician Type: Progress Notes Filed: 04/01/2018 4:08 PM Note Text: Patient presents with: Recheck: Follow up Imm/Inj: Flu Vaccine SUBJECTIVE: Vikki Baumann is a 47 year old year old lady here today for 6 month follow up appointment for review of medical conditions. Pain RUQ and epigastric area. Pain after eating. Diarrhea after eating almost every day. Worse with fatty foods but can be anything she eats. Sweats and chills but not just with bowel issues. Not with meds that has been on for years--worse in the past few months though sweats ongoing for a couple years. Gas and bloating too. Wonders about gallbladder. No melena. No BRBPR. Stool can be yellow. More heartburn issues lately--had not had for years since PPI was controlling symptoms. October 2017 CT abdomen and pelvis with normal liver; no mention of GB Chronic problems with sleep. Been a while since last sleep study. Trouble falling asleep. Had increased melatonin. If gets enough sleep (7 to 8 hours ideally), feels fine. Snores if lays flat on her back. Sleeps on side mostly. No witnessed apnea. Not taking amlodipine unless BP high and has headaches. Has not had for a while. Usually 120 to 130's over 70's. BP cuff was validated at nurse visit. PAST MEDICAL HISTORY Diagnosis Date - Benign heart murmur 09/01/2012 - Benign neoplasm of pituitary gland and craniopharyngeal duct (pouch) ([facility]) Dr. Leilani ventura - Degeneration of intervertebral disc, site unspecified Drs. Wilburn - Depressive disorder, not elsewhere classified - DM (diabetes mellitus) ([facility]) Dr. Duke - H/O blood clots all superficial - Heartburn - High blood pressure - Hypothyroidism - GAGANDEEP (obstructive sleep apnea) - Other and unspecified hyperlipidemia Dr. Duke following - Schizoaffective disorder - Seizures ([facility]) 2012 medication related - Spinal stenosis, unspecified region other than cervical Dr.s Wilburn - Unspecified epilepsy without mention of intractable epilepsy - Viral warts, unspecified Current Outpatient Prescriptions: carBAMazepine XR (TEGRETOL XR) 200 mg 12 hr tablet Take 200 mg by mouth. Take 400mg in am, and 600mg in pm tiZANidine (ZANAFLEX) 4 mg tablet Take 1 tablet by mouth every 8 hours as needed. traMADol (ULTRAM) 50 mg tablet Take 1 tablet by mouth every 6 hours as needed for Pain for up to 7 days. baclofen (LIORESAL) 10 mg tablet Take 1 tablet by mouth twice daily. omeprazole (PRILOSEC) 20 mg capsule TAKE 1 CAPSULE BY MOUTH TWICE A DAY lisinopril (ZESTRIL,PRINIVIL) 30 mg tablet TAKE 1 TABLET BY MOUTH DAILY cholecalciferol (VITAMIN D) 1,000 unit tab tablet Take 1 tablet by mouth once daily. amLODIPine (NORVASC) 5 mg tablet Take 1 tablet by mouth once daily. OXcarbazepine (TRILEPTAL) 300 mg tablet Takes (1) 600 mg tab in AM and (2) 600 mg tabs at bedtime QUEtiapine (SEROQUEL) 400 mg tablet Take 1 tablet by mouth daily at bedtime. with 100 mg pill QUEtiapine (SEROQUEL) 100 mg tablet Take 1 tablet by mouth daily at bedtime. with 400 mg dose pravastatin (PRAVACHOL) 20 mg tablet Take 1 tablet by mouth daily at bedtime. clotrimazole-betamethasone (LOTRISONE) cream Apply 1 application to affected area twice daily. apply for 1-2 weeks, then discontinue busPIRone HCl 30 mg tablet Take 1 tablet by mouth twice daily. DULoxetine (CYMBALTA) 60 mg capsule Take 2 capsules by mouth once daily. In AM temazepam (RESTORIL) 30 mg cap Take 1 capsule by mouth daily at bedtime. ibuprofen (MOTRIN) 800 mg tablet Take 1 tablet by mouth every 8 hours as needed for Pain. FOR PAIN. No current facility-administered medications for this visit. OBJECTIVE: BP 158/86 Pulse 76 Resp 24 Wt 115.9 kg (255 lb 9.6 oz) LMP 11/30/2012 BMI 40.03 kg/m? Patient is alert, oriented times 3, no apparent distress, affect is bright, reactive. Last 5 Encounter BP Readings: Date: BP: 03/22/2018 158/86 12/28/2017 150/72 11/16/2017 130/89 11/10/2017 136/78 09/29/2017 120/66 Last 5 Encounter Wt Readings: Date: Wt: 03/22/2018 115.9 kg (255 lb 9.6 oz) 03/21/2018 117 kg (258 lb) 12/28/2017 117.5 kg (259 lb) 11/29/2017 117.5 kg (259 lb) 11/16/2017 116.1 kg (256 lb) 03/22/18 1003 03/22/18 1056 BP: 158/86 126/78 Pulse: 76 Resp: 24 Weight: 115.9 kg (255 lb 9.6 oz) Heart: Regular rate, rhythm, no murmurs, gallops, rubs. Lungs: Clear to auscultation, bilaterally, breathing non labored. Abdomen: no RUQ tenderness at this time Ext: No cyanosis, clubbing, or edema. Component Latest Ref Rng AND Units 02/22/2017 03/11/2017 08/10/2017 09/07/2017 10/08/2017 03/16/2018 WBC 3.70 - 11.00 k/uL 11.02 (H) 8.37 8.47 RBC 3.90 - 5.20 m/uL 4.77 4.16 4.60 Hemoglobin 11.5 - 15.5 g/dL 13.6 12.0 13.0 Hematocrit 36.0 - 46.0 % 44.6 37.7 40.1 MCV 80.0 - 100.0 fL 93.5 90.6 87.2 MCH 26.0 - 34.0 pG 28.5 28.8 28.3 MCHC 30.5 - 36.0 g/dL 30.5 31.8 32.4 RDW-CV 11.5 - 15.0 % 12.8 13.2 15.6 (H) Platelet Count 150 - 400 k/uL 348 312 288 MPV 9.0 - 12.7 fL 10.5 10.3 11.0 Neut% % 59.2 59.4 Abs Neut (ANC) 1.45 - 7.50 k/uL 6.52 4.98 Lymph% % 31.6 30.6 Abs Lymph 1.00 - 4.00 k/uL 3.48 2.56 [place]% % 6.0 6.5 Abs [place] <0.87 k/uL 0.66 0.54 Eosin% % 2.7 3.1 Abs Eosin <0.46 k/uL 0.30 0.26 Baso% % 0.5 0.4 Abs Baso <0.11 k/uL 0.06 0.03 Nucleated Reds 0 /100 WBC 0.1 (H) 0.0 Absolute nRBC <0.01 k/uL 0.01 (H) <0.01 <0.01 Diff Type Auto Diff Auto Diff Protein, Total 6.3 - 8.0 g/dL 7.3 7.5 6.7 Albumin 3.9 - 4.9 g/dL 4.3 4.5 4.3 Calcium 8.5 - 10.2 mg/dL 9.0 9.7 9.1 Bilirubin, Total 0.2 - 1.3 mg/dL 0.2 0.2 0.2 Alkaline Phosphatase 34 - 123 U/L 104 108 129 (H) AST 13 - 35 U/L 27 26 31 Glucose 74 - 99 mg/dL 135 (H) 79 150 (H) BUN 7 - 21 mg/dL 15 12 14 Creatinine 0.58 - 0.96 mg/dL 0.61 0.65 0.52 (L) Sodium 136 - 144 mmol/L 140 138 139 Potassium 3.7 - 5.1 mmol/L 4.9 4.4 4.3 Chloride 97 - 105 mmol/L 100 96 (L) 101 CO2 22 - 30 mmol/L 27 26 20 (L) Anion Gap 9 - 18 mmol/L 13 16 18 ALT 7 - 38 U/L 25 32 40 (H) eGFR- >60 >60 >60 eGFR-All Other Races . >60 >60 >60 Cholesterol, Total <200 mg/dL 197 Triglyceride <150 mg/dL 300 (H) HDL Cholesterol >39 mg/dL 33 (L) LDL Cholesterol <100 mg/dL 104 (H) Non HDL Cholesterol <130 mg/dL 164 (H) Fasting Time hrs 10 VLDL Cholesterol <30 mg/dL 60 (H) TC:HDL Ratio <5.10 5.97 (H) LDL:HDL Ratio <2.54 3.15 (H) Hemoglobin A1C 4.3 - 5.6 % 6.0 (H) 6.3 (H) 7.0 (H) Estimated Average Glucose mg/dL 126 134 154 TSH 0.400 - 5.500 uU/mL 0.812 1.170 1.290 2.210 Vitamin D 25 Hydroxy 31.0 - 80.0 ng/mL 13.8 (L) 20.8 (L) Free T4 0.9 - 1.7 ng/dL 0.7 (L) ASSESSMENT AND PLAN: Encounter Diagnosis ICD-10-CM 1. Postprandial RUQ pain R10.11 US ABD RT UPPER QUADRANT 2. Vitamin D deficiency E55.9 Cholecalciferol, Vitamin D3, 2,000 unit cap VITAMIN D 25 HYDROXY 3. IFG (impaired fasting glucose) R73.01 HGB A1C COMP METABOLIC PANEL 4. Hot flashes R23.2 5. Excessive sweating R61 generalized 6. Diarrhea, unspecified type R19.7 US ABD RT UPPER QUADRANT 7. Need for vaccination Z23 INFLUENZA VACCINE QUADRIVALENT AGE 3 YRS PLUS + IM 8. Low serum T4 level R79.89 TSH BLD T4 FREE/FREE THYROX 9. Encounter for long-term current use of medication Z79.899 COMP METABOLIC PANEL CBC MAGNESIUM BLD 10. Essential hypertension I10 COMP METABOLIC PANEL CBC 11. Non morbid obesity due to excess calories E66.09 TSH BLD T4 FREE/FREE THYROX 12. Depression, unspecified depression type F32.9 TSH BLD T4 FREE/FREE THYROX Will rule out gallbladder dysfunction given typical symptoms of gallbladder issues with RUQ pain, with age over 40, obesity, etc. Referral to general surgeon or GI as indicated. Rest of labs updated as noted above. Further evaluation and treatment as indicated. BP better on recheck. Continue present management. Vitamin D better but still low. Continue present management. Above issues addressed with patient. Patient involved in shared decision making for management of medical issues. History and medications reviewed. Epic updated as needed Refills taken care of and meds adjusted as indicated after reviewed history, exam and labs. Health Maintenance reviewed. Updated record and/or ordered tests as recorded. Encouraged on efforts at healthy diet and regular exercise and adequate sleep. The majority of the visit was spent counseling and/or coordinating care for the patient. Kvjw-tl-yway time was at least 20 minutes. Liz Nascimento MD CNOV Observed: 03/22/2018 Status: COMPLETED Source: [place] 10:20 AM [facility] [place] REPOSITORY Office Visit (INTMWS) PASTORVIKKI ([id number]) 1970 F CHT Date Time Provider Department 03/22/18 10:20 AM LIZ NASCIMENTO During your visit today, we recorded the following information about you: Pulse Respiration Blood pressure Weight 76/minute 24/minute 126/78 115.9 kg Elizabeth Herzog EMERTIA 04/01/2018 4:08 PM Signed 47 year old female here for INACTIVATED INFLUENZA VACCINE. 2159-4709 Season Patient is identified by name and date of : Yes [] CONTRAINDICATIONS color enhanced section Age less than 6 months? No Allergy to eggs, chicken, chicken feathers, or chicken dander? No Allergy to thimerosal (a preservative) or formaldehyde, gelatin? No History of severe reaction to any vaccine component or a previous dose of influenza vaccination? No History of Guillain-Hammond Syndrome within 6 weeks after a previous influenza vaccine? No Patient is not moderately or severely ill? No Current temperature greater or equal to 100.4F? No History of Bone Marrow Transplant prior 6 months or solid organ transplant in the past 3 months ? No History of fainting after a prior injection or medical procedure? No- ? If patient has fainted in the past, the CDC recommends sitting or lying down for 15 minutes after the vaccination. [] VERIFICATION color enhanced section Was the answer Yes for any of the above contraindications? No contraindications present. Acceptable to proceed with vaccine. Patient/guardian agrees the above answers are true to the best of their knowledge? Yes Flu vaccine information sheet given? Yes See immunization activity in [facility] for details of immunizations adminstered today. Patient age: [age] year old For The 2115-2839 Flu Season 6-35 months old: Fluzone 0.25 ml - IM (Preservative Free) 3 years of age: Fluzone 0.5 ml - IM (Preservative Free) 3 years and older: Fluzone 0.5 ml- IM-(with Preservatives) 65+ years old: 2-49 years old Fluzone High-Dose 0.5 ml - IM (Preservative Free) FLUMIST- intranasal REMEMBER: If patient is less than 9 years of age and this is the first vaccine of Influenza to be received in any flu season, they should receive a second dose in one months time. Liz Nascimento MD 04/01/2018 4:08 PM Signed Patient presents with: Recheck: Follow up Imm/Inj: Flu Vaccine SUBJECTIVE: Vikki Baumann is a 47 year old year old lady here today for 6 month follow up appointment for review of medical conditions. Pain RUQ and epigastric area. Pain after eating. Diarrhea after eating almost every day. Worse with fatty foods but can be anything she eats. Sweats and chills but not just with bowel issues. Not with meds that has been on for years--worse in the past few months though sweats ongoing for a couple years. Gas and bloating too. Wonders about gallbladder. No melena. No BRBPR. Stool can be yellow. More heartburn issues lately--had not had for years since PPI was controlling symptoms. October 2017 CT abdomen and pelvis with normal liver; no mention of GB Chronic problems with sleep. Been a while since last sleep study. Trouble falling asleep. Had increased melatonin. If gets enough sleep (7 to 8 hours ideally), feels fine. Snores if lays flat on her back. Sleeps on side mostly. No witnessed apnea. Not taking amlodipine unless BP high and has headaches. Has not had for a while. Usually 120 to 130's over 70's. BP cuff was validated at nurse visit. PAST MEDICAL HISTORY Diagnosis Date - Benign heart murmur 09/01/2012 - Benign neoplasm of pituitary gland and craniopharyngeal duct (pouch) ([facility]) Dr. Leilani ventura - Degeneration of intervertebral disc, site unspecified Drs. Wilburn - Depressive disorder, not elsewhere classified - DM (diabetes mellitus) ([facility]) Dr. Duke - H/O blood clots all superficial - Heartburn - High blood pressure - Hypothyroidism - GAGANDEEP (obstructive sleep apnea) - Other and unspecified hyperlipidemia Dr. Leilani ventura - Schizoaffective disorder - Seizures ([facility]) 2012 medication related - Spinal stenosis, unspecified region other than cervical Dr.s Wilburn - Unspecified epilepsy without mention of intractable epilepsy - Viral warts, unspecified Current Outpatient Prescriptions: carBAMazepine XR (TEGRETOL XR) 200 mg 12 hr tablet Take 200 mg by mouth. Take 400mg in am, and 600mg in pm tiZANidine (ZANAFLEX) 4 mg tablet Take 1 tablet by mouth every 8 hours as needed. traMADol (ULTRAM) 50 mg tablet Take 1 tablet by mouth every 6 hours as needed for Pain for up to 7 days. baclofen (LIORESAL) 10 mg tablet Take 1 tablet by mouth twice daily. omeprazole (PRILOSEC) 20 mg capsule TAKE 1 CAPSULE BY MOUTH TWICE A DAY lisinopril (ZESTRIL,PRINIVIL) 30 mg tablet TAKE 1 TABLET BY MOUTH DAILY cholecalciferol (VITAMIN D) 1,000 unit tab tablet Take 1 tablet by mouth once daily. amLODIPine (NORVASC) 5 mg tablet Take 1 tablet by mouth once daily. OXcarbazepine (TRILEPTAL) 300 mg tablet Takes (1) 600 mg tab in AM and (2) 600 mg tabs at bedtime QUEtiapine (SEROQUEL) 400 mg tablet Take 1 tablet by mouth daily at bedtime. with 100 mg pill QUEtiapine (SEROQUEL) 100 mg tablet Take 1 tablet by mouth daily at bedtime. with 400 mg dose pravastatin (PRAVACHOL) 20 mg tablet Take 1 tablet by mouth daily at bedtime. clotrimazole-betamethasone (LOTRISONE) cream Apply 1 application to affected area twice daily. apply for 1-2 weeks, then discontinue busPIRone HCl 30 mg tablet Take 1 tablet by mouth twice daily. DULoxetine (CYMBALTA) 60 mg capsule Take 2 capsules by mouth once daily. In AM temazepam (RESTORIL) 30 mg cap Take 1 capsule by mouth daily at bedtime. ibuprofen (MOTRIN) 800 mg tablet Take 1 tablet by mouth every 8 hours as needed for Pain. FOR PAIN. No current facility-administered medications for this visit. OBJECTIVE: BP 158/86 Pulse 76 Resp 24 Wt 115.9 kg (255 lb 9.6 oz) LMP 11/30/2012 BMI 40.03 kg/m? Patient is alert, oriented times 3, no apparent distress, affect is bright, reactive. Last 5 Encounter BP Readings: Date: BP: 03/22/2018 158/86 12/28/2017 150/72 11/16/2017 130/89 11/10/2017 136/78 09/29/2017 120/66 Last 5 Encounter Wt Readings: Date: Wt: 03/22/2018 115.9 kg (255 lb 9.6 oz) 03/21/2018 117 kg (258 lb) 12/28/2017 117.5 kg (259 lb) 11/29/2017 117.5 kg (259 lb) 11/16/2017 116.1 kg (256 lb) 03/22/18 1003 03/22/18 1056 BP: 158/86 126/78 Pulse: 76 Resp: 24 Weight: 115.9 kg (255 lb 9.6 oz) Heart: Regular rate, rhythm, no murmurs, gallops, rubs. Lungs: Clear to auscultation, bilaterally, breathing non labored. Abdomen: no RUQ tenderness at this time Ext: No cyanosis, clubbing, or edema. Component Latest Ref Rng AND Units 02/22/2017 03/11/2017 08/10/2017 09/07/2017 10/08/2017 03/16/2018 WBC 3.70 - 11.00 k/uL 11.02 (H) 8.37 8.47 RBC 3.90 - 5.20 m/uL 4.77 4.16 4.60 Hemoglobin 11.5 - 15.5 g/dL 13.6 12.0 13.0 Hematocrit 36.0 - 46.0 % 44.6 37.7 40.1 MCV 80.0 - 100.0 fL 93.5 90.6 87.2 MCH 26.0 - 34.0 pG 28.5 28.8 28.3 MCHC 30.5 - 36.0 g/dL 30.5 31.8 32.4 RDW-CV 11.5 - 15.0 % 12.8 13.2 15.6 (H) Platelet Count 150 - 400 k/uL 348 312 288 MPV 9.0 - 12.7 fL 10.5 10.3 11.0 Neut% % 59.2 59.4 Abs Neut (ANC) 1.45 - 7.50 k/uL 6.52 4.98 Lymph% % 31.6 30.6 Abs Lymph 1.00 - 4.00 k/uL 3.48 2.56 [place]% % 6.0 6.5 Abs [place] <0.87 k/uL 0.66 0.54 Eosin% % 2.7 3.1 Abs Eosin <0.46 k/uL 0.30 0.26 Baso% % 0.5 0.4 Abs Baso <0.11 k/uL 0.06 0.03 Nucleated Reds 0 /100 WBC 0.1 (H) 0.0 Absolute nRBC <0.01 k/uL 0.01 (H) <0.01 <0.01 Diff Type Auto Diff Auto Diff Protein, Total 6.3 - 8.0 g/dL 7.3 7.5 6.7 Albumin 3.9 - 4.9 g/dL 4.3 4.5 4.3 Calcium 8.5 - 10.2 mg/dL 9.0 9.7 9.1 Bilirubin, Total 0.2 - 1.3 mg/dL 0.2 0.2 0.2 Alkaline Phosphatase 34 - 123 U/L 104 108 129 (H) AST 13 - 35 U/L 27 26 31 Glucose 74 - 99 mg/dL 135 (H) 79 150 (H) BUN 7 - 21 mg/dL 15 12 14 Creatinine 0.58 - 0.96 mg/dL 0.61 0.65 0.52 (L) Sodium 136 - 144 mmol/L 140 138 139 Potassium 3.7 - 5.1 mmol/L 4.9 4.4 4.3 Chloride 97 - 105 mmol/L 100 96 (L) 101 CO2 22 - 30 mmol/L 27 26 20 (L) Anion Gap 9 - 18 mmol/L 13 16 18 ALT 7 - 38 U/L 25 32 40 (H) eGFR- >60 >60 >60 eGFR-All Other Races . >60 >60 >60 Cholesterol, Total <200 mg/dL 197 Triglyceride <150 mg/dL 300 (H) HDL Cholesterol >39 mg/dL 33 (L) LDL Cholesterol <100 mg/dL 104 (H) Non HDL Cholesterol <130 mg/dL 164 (H) Fasting Time hrs 10 VLDL Cholesterol <30 mg/dL 60 (H) TC:HDL Ratio <5.10 5.97 (H) LDL:HDL Ratio <2.54 3.15 (H) Hemoglobin A1C 4.3 - 5.6 % 6.0 (H) 6.3 (H) 7.0 (H) Estimated Average Glucose mg/dL 126 134 154 TSH 0.400 - 5.500 uU/mL 0.812 1.170 1.290 2.210 Vitamin D 25 Hydroxy 31.0 - 80.0 ng/mL 13.8 (L) 20.8 (L) Free T4 0.9 - 1.7 ng/dL 0.7 (L) ASSESSMENT AND PLAN: Encounter Diagnosis ICD-10-CM 1. Postprandial RUQ pain R10.11 US ABD RT UPPER QUADRANT 2. Vitamin D deficiency E55.9 Cholecalciferol, Vitamin D3, 2,000 unit cap VITAMIN D 25 HYDROXY 3. IFG (impaired fasting glucose) R73.01 HGB A1C COMP METABOLIC PANEL 4. Hot flashes R23.2 5. Excessive sweating R61 generalized 6. Diarrhea, unspecified type R19.7 US ABD RT UPPER QUADRANT 7. Need for vaccination Z23 INFLUENZA VACCINE QUADRIVALENT AGE 3 YRS PLUS + IM 8. Low serum T4 level R79.89 TSH BLD T4 FREE/FREE THYROX 9. Encounter for long-term current use of medication Z79.899 COMP METABOLIC PANEL CBC MAGNESIUM BLD 10. Essential hypertension I10 COMP METABOLIC PANEL CBC 11. Non morbid obesity due to excess calories E66.09 TSH BLD T4 FREE/FREE THYROX 12. Depression, unspecified depression type F32.9 TSH BLD T4 FREE/FREE THYROX Will rule out gallbladder dysfunction given typical symptoms of gallbladder issues with RUQ pain, with age over 40, obesity, etc. Referral to general surgeon or GI as indicated. Rest of labs updated as noted above. Further evaluation and treatment as indicated. BP better on recheck. Continue present management. Vitamin D better but still low. Continue present management. Above issues addressed with patient. Patient involved in shared decision making for management of medical issues. History and medications reviewed. Epic updated as needed Refills taken care of and meds adjusted as indicated after reviewed history, exam and labs. Health Maintenance reviewed. Updated record and/or ordered tests as recorded. Encouraged on efforts at healthy diet and regular exercise and adequate sleep. The majority of the visit was spent counseling and/or coordinating care for the patient. Fwgd-mp-tohh time was at least 20 minutes. Liz Nascimento MD Referring Provider: SELF [200] Allergies As of Date: 03/22/2018 Noted Allergy Reaction CODEINE 03/07/2010 8 - GI Upset COMPAZINE (PROCHLORPERAZINE EDISY*03/07/2010 DARVOCET A500 (PROPOXYPHENE N-SHERRY*03/07/2010 8 - GI Upset TESSALON (BENZONATATE) 04/16/2015 14 - Other: See Comments Comments: Heart palpitations VICODIN (HYDROCODONE-ACETAMINOPHE*03/07/2010 4 - Hives Comments: Also LORTAB Date Reviewed: 03/22/2018 Reviewed by: Elizabeth Herzog LPN - Fully Assessed Reason for Visit: Recheck [92] Cmt: Follow up Imm/Inj [58] Cmt: Flu Vaccine Reason For Visit History Recorded Primary Visit Diagnosis:Postprandial RUQ pain [R10.11] Other Visit Diagnoses:Vitamin D deficiency [E55.9] IFG (impaired fasting glucose) [R73.01] Hot flashes [R23.2] Excessive sweating [R61] Comment:generalized Diarrhea, unspecified type [R19.7] Need for vaccination [Z23] Low serum T4 level [R79.89] Encounter for long-term current use of medication [Z79.899] Essential hypertension [I10] Non morbid obesity due to excess calories [E66.09] Depression, unspecified depression type [F32.9] Order(s):INFLUENZA VACCINE QUADRIVALENT AGE 3 YRS PLUS + IM [[id number]] Order #: [id number] carBAMazepine XR (TEGRETOL XR) 200 mg 12 hr tabletTake 400mg in am, and 600mg in pmDisp: Rfl: US ABD RT UPPER QUADRANT [[id number]] Order #: [id number] FUTURE Cholecalciferol, Vitamin D3, 2,000 unit capTake 1 capsule by mouth once daily.Disp: Rfl: HGB A1C [HSLPO3A] Order #: [id number] FUTURE COMP METABOLIC PANEL [SQCMP] Order #: [id number] FUTURE CBC [SQCBC] Order #: [id number] FUTURE MAGNESIUM BLD [SQMG1] Order #: [id number] FUTURE VITAMIN D 25 HYDROXY [SQVITD] Order #: [id number] FUTURE TSH BLD [SQTSH] Order #: [id number] FUTURE T4 FREE/FREE THYROX [SQFT4] Order #: [id number] FUTURE sucralfate (CARAFATE) 1 gram tabletTake 1 tablet by mouth before meals and at bedtime. As directed--may dissolve in 1 to 2 teaspoons of water and take 30 minutes before meals and bedtimeDisp: 56 tabletRfl: 1 Prescriptions as of 03/22/2018 Sig: CARBAMAZEPINE ER 200 MG TABLE* Take 400mg in am, and 600mg i* TIZANIDINE 4 MG TABLET Take 1 tablet by mouth every * TRAMADOL 50 MG TABLET Take 1 tablet by mouth every * BACLOFEN 10 MG TABLET Take 1 tablet by mouth twice * OMEPRAZOLE 20 MG CAPSULE,EARL* TAKE 1 CAPSULE BY MOUTH TWICE* LISINOPRIL 30 MG TABLET TAKE 1 TABLET BY MOUTH DAILY AMLODIPINE 5 MG TABLET Take 1 tablet by mouth once d* QUETIAPINE 400 MG TABLET Take 1 tablet by mouth daily * QUETIAPINE 100 MG TABLET Take 1 tablet by mouth daily * PRAVASTATIN 20 MG TABLET Take 1 tablet by mouth daily * CLOTRIMAZOLE-BETAMETHASONE 1 * Apply 1 application to affect* BUSPIRONE 30 MG TABLET Take 1 tablet by mouth twice * DULOXETINE 60 MG CAPSULE,EARL* Take 2 capsules by mouth once* TEMAZEPAM 30 MG CAPSULE Take 1 capsule by mouth daily* CHOLECALCIFEROL (VITAMIN D3) * Take 1 capsule by mouth once * SUCRALFATE 1 GRAM TABLET Take 1 tablet by mouth before* IBUPROFEN 800 MG TABLET Take 1 tablet by mouth every * Medication notes this encounter AMLODIPINE 5 MG TABLET >> Liz Nascimento MD 03/22/2018 10:51 AM >> LIZ NASCIMENTO MD WedMar 22, 2018 10:51 AM Not taking routinely. 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] INVALID FOR* Dysmetabolic syndrome [E88.81] INVALID FOR* Depression [F32.9] INVALID FOR* Hypertrophy of breast [N62] INVALID FOR* Benign heart murmur INVALID FOR* Abnormal uterine bleeding [N93.9] INVALID FOR* Chronic RLQ pain [R10.31, G89.29] INVALID FOR* Dysmenorrhea [N94.6] INVALID FOR* Other affections of shoulder region, not elsewh*INVALID FOR* Rotator cuff tear [M75.100] INVALID FOR*02/28/2013 SHEFALI (iron deficiency anemia) [D50.9] INVALID FOR* Myofascial pain [M79.18] INVALID FOR* Neck pain [M54.2] INVALID FOR* Cervical disc displacement [M50.20] INVALID FOR* Pain in joint, shoulder region [M25.519] INVALID FOR* Cervical radiculitis [M54.12] INVALID FOR* Sacroiliac joint pain [M53.3] INVALID FOR* Buttock pain [M79.18] INVALID FOR*01/15/2015 Right buttock pain [M79.18] INVALID FOR* Headache [R51] INVALID FOR* Lower back pain [M54.5] INVALID FOR*09/10/2015 Chronic pain [G89.29] INVALID FOR*11/14/2015 Right-sided low back pain without sciatica [M54*INVALID FOR*11/14/2015 Hypothyroidism [E03.9] Non morbid obesity due to excess calories [E66.*INVALID FOR* Cervical arthritis (HCC) [M47.812] INVALID FOR* Chronic bilateral low back pain without sciatic*INVALID FOR* DDD (degenerative disc disease), cervical [M50.*INVALID FOR* SI (sacroiliac) joint dysfunction [M53.3] INVALID FOR* Schizoaffective disorder (HCC) [F25.9] INVALID FOR* Chronic SI joint pain [M53.3, G89.29] INVALID FOR* Vitamin D deficiency [E55.9] INVALID FOR* Prescriptions ordered this encounter Disp Refills Start End CARBAMAZEPINE ER 200 MG TABLET,EXTEN* 03/22/2018 Class: Med Update Sig: Take 400mg in am, and 600mg in pm CHOLECALCIFEROL (VITAMIN D3) 2,000 U* 03/22/2018 Class: OTC Route: ORAL Sig: Take 1 capsule by mouth once daily. SUCRALFATE 1 GRAM TABLET 56 t* 1 03/22/2018 Class: Print RX Route: ORAL Sig: Take 1 tablet by mouth before meals and at bedtime. As directed--may dissolve in 1 to 2 teaspoons of water and take 30 minutes before meals and bedtime Medications Discontinued During This Encounter OXcarbazepine (TRILEPTAL) 300 mg tab* 09/14/2017 03/22/2018 Class: Historical Med Sig: Takes (1) 600 mg tab in AM and (2) 600 mg tabs at bedtime Disc: Discontinued by another Health Care Provider carBAMazepine XR (TEGRETOL XR) 200 m* 03/22/2018 Class: Historical Med Route: ORAL Sig: Take 200 mg by mouth. Take 400mg in am, and 600mg in pm Disc: Reason for discontinue is not on file. cholecalciferol (VITAMIN D) 1,000 un* 30 t* 11 10/19/2017 03/22/2018 Route: ORAL Sig: Take 1 tablet by mouth once daily. Disc: Reason for discontinue is not on file. Disposition: Return in about 4 months (around 07/23/2018) for 4 months follow up, With labs prior. Follow-up and Disposition History Recorded Encounter Status:Closed by LIZ NASCIMENTO MD on 04/01/18 PROGRESS Observed: 03/22/2018 Status: COMPLETED Source: [place] 10:03 AM [facility] REPOSITORY O ID: [id number] Author: Elizabeth Herzog LPN Service: (none) Author Type: (none) Type: Progress Notes Filed: 04/01/2018 4:08 PM Note Text: 47 year old female here for INACTIVATED INFLUENZA VACCINE. [id number] Season Patient is identified by name and date of : Yes [] CONTRAINDICATIONS color enhanced section Age less than 6 months? No Allergy to eggs, chicken, chicken feathers, or chicken dander? No Allergy to thimerosal (a preservative) or formaldehyde, gelatin? No History of severe reaction to any vaccine component or a previous dose of influenza vaccination? No History of Guillain-Hammond Syndrome within 6 weeks after a previous influenza vaccine? No Patient is not moderately or severely ill? No Current temperature greater or equal to 100.4F? No History of Bone Marrow Transplant prior 6 months or solid organ transplant in the past 3 months ? No History of fainting after a prior injection or medical procedure? No- ? If patient has fainted in the past, the CDC recommends sitting or lying down for 15 minutes after the vaccination. [] VERIFICATION color enhanced section Was the answer Yes for any of the above contraindications? No contraindications present. Acceptable to proceed with vaccine. Patient/guardian agrees the above answers are true to the best of their knowledge? Yes Flu vaccine information sheet given? Yes See immunization activity in [facility] for details of immunizations adminstered today. Patient age: [age] year old For The 9944-1570 Flu Season 6-35 months old: Fluzone 0.25 ml - IM (Preservative Free) 3 years of age: Fluzone 0.5 ml - IM (Preservative Free) 3 years and older: Fluzone 0.5 ml- IM-(with Preservatives) 65+ years old: 2-49 years old Fluzone High-Dose 0.5 ml - IM (Preservative Free) FLUMIST- intranasal REMEMBER: If patient is less than 9 years of age and this is the first vaccine of Influenza to be received in any flu season, they should receive a second dose in one months time. CNOV Observed: 03/21/2018 Status: COMPLETED Source: [place] 11:00 AM [facility] REPOSITORY Office Visit (PNMDNA) VIKKI BAUMANN ([id number]) 1970 F [facility] Date Time Provider Department 03/21/18 11:00 AM YADIEL MIMA Stratton (FLOOR SUPERVISOR) PNMDNA During your visit today, we recorded the following information about you: Pulse Weight Height 89/minute 117 kg 1.702 m Camden Boyce MD 03/24/2018 11:42 AM Signed SUBJECTIVE: Vikki Baumann presents to The [facility] Pain Management Department for a followup appointment for back and cervical. Since the last visit, Vikki Baumann states the pain has been worsening in cervical area. Current pain intensity is 5 on a scale of 0-10. Pain located in Back and Neck area and radiates down the anterior arm. Pain described as aching and radiating The patient Reports numbness and tingling. Symptoms interfere with physical activity. Pain is exacerbated by doing to much activity, lifting and bending. Pain is mitigated by heat, ice, weather and chiro. The patient is overall improved with the injections by 50%. The medications are partially effective. The patient states the last dose of Prescription NSAIDs Ultram/tramadol was taken x 6 weeks ago. REVIEW OF SYSTEMS: Constitutional: (-) Fever (+) Night Sweats (-) Weight Gain (-) Weight Loss (+) Fatigue Cardiovascular: (-) Chest Pain (+) Palpitations (-) Lightheadedness (+) Swelling of Ankles (-) Hx Heart Surgery Respiratory: (-) Shortness of Breath (-) Cough (-) Wheezing (-) Snoring Gastrointestinal: (-) Incontinence (+) Abdominal Pain (+) Diarrhea (-) Constipation (+) Nausea/Vomiting (+) Heart Burn Endocrine: (+) Thyroid Disorder (-) Diabetes Hematologic: (-) Prolonged Bleeding (-) Easy Bruising Genitourinary: (-) Incontinence (+) Frequency (+) Urinary Urgency Skin: (-) Rashes (+) Itching (-) Other Lesions Neurologic: (+) Headache (-) Double Vision (-) Confusion (-) Paralysis Psychiatric: (+) Depression (+) Anxiety (-) Delusions (+) Hallucinations (-) Personal History of Alcohol or Substance Abuse (+) Family History of Alcohol or Substance Abuse OBJECTIVE: Pulse 89 Ht 5' 7 (1.70m) Wt 258 lb (117.0kg) SpO2 96% LMP 11/30/2012 BMI 40.40 kg/(m2). PHYSICAL EXAMINATION: General appearance: Well appearing, in no acute distress, alert Skin: Skin color, texture, turgor normal, no rashes or lesions Neck: Tenderness to palpation over the left cervical paraspinous and left occipital muscles. Tenderness with neck flexion, extension, and rotation Cardiovascular: Regular rate Lungs: Normal respiratory rate and rhythm Abdomen: Abdomen soft and non-tender. Back: Intact range of motion with pain reproduction. Spine: Reports Tenderness on palpation: right SI Extremities: No deformities, edema, or skin discoloration. Good capillary refill. Musculoskeletal: Joint pain denies Neuro: No loss of sensation is noted. Station and Gait: Normal stance, normal gait. Motor: Exhibits full strength in all four extremities. Trigger points: left paravertebral cervical muscles, periscapular muscles and trapezius muscles. ASSESSMENT: Assessment : Patient reports that she is experiencing pain in the left side of her neck, left occipital region and left periscapular area. She reports that she is has is having headaches all the time. She is seeing her chiropractor 3 times in the past couple weeks. She reports he is made adjustments but has not offered any stretches or exercises to the occipital. He had also suggested trying dry needling or have any trigger point injection by Dr. Boyce in the occipital area She had a C6-7 cervical epidural on and reports 60% improvement Patient has right SI tenderness. She had a cold right SI RFA on 10/14/17 Patient has tried Robaxin, baclofen, and Flexeril with minimal improvements. Will trial tizanidine She take tramadol prn Encounter Diagnosis ICD-10-CM 1. Myofascial pain M79.18 2. Neck pain M54.2 3. Cervical disc displacement M50.20 4. Sacroiliac joint pain M53.3 5. Cervical radiculitis M54.12 6. DDD (degenerative disc disease), cervical M50.30 7. Chronic SI joint pain M53.3 G89.29 PDMP website checked and validated. All prescriptions have been APPROPRIATELY filled. No suspicious activity was identified. 03/21/2018 by Sandie Marquez Ma Narcotic Agreement reviewed and signed?: N/A on March 21, 2018 The pain panel was N/A PLAN: Injection history was reviewed. Medication use and compliance were reviewed. 1. TPI to left occipital today 2. Signed Prescriptions Disp Refills tiZANidine (ZANAFLEX) 4 mg tablet 90 tablet 1 Sig: Take 1 tablet by mouth every 8 hours as needed. traMADol (ULTRAM) 50 mg tablet 28 tablet 0 Sig: Take 1 tablet by mouth every 6 hours as needed for Pain for up to 7 days. JR Class: C-IV BELKYS: No 3. Interventional procedure options discussed. Consider left C2-3 Facet injection 4. Encouraged regular home exercising and stretching. She does see a chiropractor prn 5. Order placed for dry needling, PT for neck/occiptal pain 6) F/U in 3 months This note was partially generated using [employer] voice recognition system. PROCEDURE: Left GONB The potential risks and benefits were discussed in detail. The patient understands and wishes to proceed. . The patient was brought to the procedure suite. She was placed in a sitting position. tender points were identified over the left nuchal junction and lateral to GO artery. The injection sites maked and the skin was prepped using Duraprep solution. The left GONB was performed with 25G 1.5 inch needle. A total of 4 cc of 0.25% Bupivacaine with 20 mg of Kenalog was injected in equal and divided doses. The patient tolerated the procedure well. The above plan and management options were discussed at length with patient. Patient is in agreement with the above and verbalized understanding. Mima Cotto APRN, FLOOR SUPERVISOR March 21, 2018 Referring Provider: SELF [200] Allergies As of Date: 03/21/2018 Noted Allergy Reaction CODEINE 03/07/2010 8 - GI Upset COMPAZINE (PROCHLORPERAZINE EDISY*03/07/2010 DARVOCET A500 (PROPOXYPHENE N-SHERRY*03/07/2010 8 - GI Upset TESSALON (BENZONATATE) 04/16/2015 14 - Other: See Comments Comments: Heart palpitations VICODIN (HYDROCODONE-ACETAMINOPHE*03/07/2010 4 - Hives Comments: Also LORTAB Date Reviewed: 03/21/2018 Reviewed by: Sandie Marquez Ma - Fully Assessed Reason for Visit: Follow Up [171] Primary Visit Diagnosis:Myofascial pain [M79.18] Other Visit Diagnoses:Neck pain [M54.2] Cervical disc displacement [M50.20] Sacroiliac joint pain [M53.3] Cervical radiculitis [M54.12] DDD (degenerative disc disease), cervical [M50.30] Chronic SI joint pain [M53.3, G89.29] Occipital neuralgia of left side [M54.81] Cervical arthritis [M47.812] Order(s):CONSULT TO PHYSICAL THERAPY [9030] Order #: [id number]: 1 tiZANidine (ZANAFLEX) 4 mg tabletTake 1 tablet by mouth every 8 hours as needed.Disp: 90 tabletRfl: 1 traMADol (ULTRAM) 50 mg tabletTake 1 tablet by mouth every 6 hours as needed for Pain for up to 7 days.Disp: 28 tabletRfl: 0 Prescriptions as of 03/21/2018 Sig: TRAMADOL 50 MG TABLET Take 1 tablet by mouth every * X CARBAMAZEPINE ER 200 MG TABLE* Take 200 mg by mouth. Take 40* BACLOFEN 10 MG TABLET Take 1 tablet by mouth twice * OMEPRAZOLE 20 MG CAPSULE,EARL* TAKE 1 CAPSULE BY MOUTH TWICE* LISINOPRIL 30 MG TABLET TAKE 1 TABLET BY MOUTH DAILY IBUPROFEN 800 MG TABLET Take 1 tablet by mouth every * X CHOLECALCIFEROL (VITAMIN D3) * Take 1 tablet by mouth once d* AMLODIPINE 5 MG TABLET Take 1 tablet by mouth once d* QUETIAPINE 400 MG TABLET Take 1 tablet by mouth daily * QUETIAPINE 100 MG TABLET Take 1 tablet by mouth daily * PRAVASTATIN 20 MG TABLET Take 1 tablet by mouth daily * BUSPIRONE 30 MG TABLET Take 1 tablet by mouth twice * DULOXETINE 60 MG CAPSULE,EARL* Take 2 capsules by mouth once* TEMAZEPAM 30 MG CAPSULE Take 1 capsule by mouth daily* TIZANIDINE 4 MG TABLET Take 1 tablet by mouth every * X OXCARBAZEPINE 300 MG TABLET Takes (1) 600 mg tab in AM an* CLOTRIMAZOLE-BETAMETHASONE 1 * Apply 1 application to affect* Problem List As Of Date 03/21/2018 Noted Resolved 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, 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] INVALID FOR* Dysmetabolic syndrome [E88.81] INVALID FOR* Depression [F32.9] INVALID FOR* Hypertrophy of breast [N62] INVALID FOR* Benign heart murmur INVALID FOR* Abnormal uterine bleeding [N93.9] INVALID FOR* Chronic RLQ pain [R10.31, G89.29] INVALID FOR* Dysmenorrhea [N94.6] INVALID FOR* Other affections of shoulder region, not elsewh*INVALID FOR* Rotator cuff tear [M75.100] INVALID FOR*02/28/2013 SHEFALI (iron deficiency anemia) [D50.9] INVALID FOR* Myofascial pain [M79.18] INVALID FOR* Neck pain [M54.2] INVALID FOR* Cervical disc displacement [M50.20] INVALID FOR* Pain in joint, shoulder region [M25.519] INVALID FOR* Cervical radiculitis [M54.12] INVALID FOR* Sacroiliac joint pain [M53.3] INVALID FOR* Buttock pain [M79.18] INVALID FOR*01/15/2015 Right buttock pain [M79.18] INVALID FOR* Headache [R51] INVALID FOR* Lower back pain [M54.5] INVALID FOR*09/10/2015 Chronic pain [G89.29] INVALID FOR*11/14/2015 Right-sided low back pain without sciatica [M54*INVALID FOR*11/14/2015 Hypothyroidism [E03.9] Non morbid obesity due to excess calories [E66.*INVALID FOR* Cervical arthritis (HCC) [M47.812] INVALID FOR* Chronic bilateral low back pain without sciatic*INVALID FOR* DDD (degenerative disc disease), cervical [M50.*INVALID FOR* SI (sacroiliac) joint dysfunction [M53.3] INVALID FOR* Schizoaffective disorder (HCC) [F25.9] INVALID FOR* Chronic SI joint pain [M53.3, G89.29] INVALID FOR* Vitamin D deficiency [E55.9] INVALID FOR* Prescriptions ordered this encounter Disp Refills Start End TIZANIDINE 4 MG TABLET 90 t* 1 03/21/2018 04/20/2018 Route: ORAL Sig: Take 1 tablet by mouth every 8 hours as needed. TRAMADOL 50 MG TABLET 28 t* 0 03/21/2018 03/28/2018 Class: Print RX Route: ORAL Sig: Take 1 tablet by mouth every 6 hours as needed for Pain for up to 7 days. Medications Discontinued During This Encounter traMADol (ULTRAM) 50 mg tablet 28 t* 0 01/06/2018 03/21/2018 Class: Print RX Route: ORAL Sig: Take 1 tablet by mouth every 6 hours as needed for Pain for up to 7 days. Disc: Reason for discontinue is not on file. Encounter Status:Closed by MIMA COTTO on 03/24/18 PROGRESS Observed: 03/21/2018 Status: COMPLETED Source: [place] 10:44 AM [facility] [place] REPOSITORY HNO ID: [id number] Author: Camden Boyce Service: (none) Author Type: Physician Type: Progress Notes Filed: 03/24/2018 11:42 AM Note Text: SUBJECTIVE: Vikki Baumann presents to The [facility] Pain Management Department for a followup appointment for back and cervical. Since the last visit, Vikki Baumann states the pain has been worsening in cervical area. Current pain intensity is 5 on a scale of 0-10. Pain located in Back and Neck area and radiates down the anterior arm. Pain described as aching and radiating The patient Reports numbness and tingling. Symptoms interfere with physical activity. Pain is exacerbated by doing to much activity, lifting and bending. Pain is mitigated by heat, ice, weather and chiro. The patient is overall improved with the injections by 50%. The medications are partially effective. The patient states the last dose of Prescription NSAIDs Ultram/tramadol was taken x 6 weeks ago. REVIEW OF SYSTEMS: Constitutional: (-) Fever (+) Night Sweats (-) Weight Gain (-) Weight Loss (+) Fatigue Cardiovascular: (-) Chest Pain (+) Palpitations (-) Lightheadedness (+) Swelling of Ankles (-) Hx Heart Surgery Respiratory: (-) Shortness of Breath (-) Cough (-) Wheezing (-) Snoring Gastrointestinal: (-) Incontinence (+) Abdominal Pain (+) Diarrhea (-) Constipation (+) Nausea/Vomiting (+) Heart Burn Endocrine: (+) Thyroid Disorder (-) Diabetes Hematologic: (-) Prolonged Bleeding (-) Easy Bruising Genitourinary: (-) Incontinence (+) Frequency (+) Urinary Urgency Skin: (-) Rashes (+) Itching (-) Other Lesions Neurologic: (+) Headache (-) Double Vision (-) Confusion (-) Paralysis Psychiatric: (+) Depression (+) Anxiety (-) Delusions (+) Hallucinations (-) Personal History of Alcohol or Substance Abuse (+) Family History of Alcohol or Substance Abuse OBJECTIVE: Pulse 89 Ht 5' 7 (1.70m) Wt 258 lb (117.0kg) SpO2 96% LMP 11/30/2012 BMI 40.40 kg/(m2). PHYSICAL EXAMINATION: General appearance: Well appearing, in no acute distress, alert Skin: Skin color, texture, turgor normal, no rashes or lesions Neck: Tenderness to palpation over the left cervical paraspinous and left occipital muscles. Tenderness with neck flexion, extension, and rotation Cardiovascular: Regular rate Lungs: Normal respiratory rate and rhythm Abdomen: Abdomen soft and non-tender. Back: Intact range of motion with pain reproduction. Spine: Reports Tenderness on palpation: right SI Extremities: No deformities, edema, or skin discoloration. Good capillary refill. Musculoskeletal: Joint pain denies Neuro: No loss of sensation is noted. Station and Gait: Normal stance, normal gait. Motor: Exhibits full strength in all four extremities. Trigger points: left paravertebral cervical muscles, periscapular muscles and trapezius muscles. ASSESSMENT: Assessment : Patient reports that she is experiencing pain in the left side of her neck, left occipital region and left periscapular area. She reports that she is has is having headaches all the time. She is seeing her chiropractor 3 times in the past couple weeks. She reports he is made adjustments but has not offered any stretches or exercises to the occipital. He had also suggested trying dry needling or have any trigger point injection by Dr. Boyce in the occipital area She had a C6-7 cervical epidural on and reports 60% improvement Patient has right SI tenderness. She had a cold right SI RFA on 10/14/17 Patient has tried Robaxin, baclofen, and Flexeril with minimal improvements. Will trial tizanidine She take tramadol prn Encounter Diagnosis ICD-10-CM 1. Myofascial pain M79.18 2. Neck pain M54.2 3. Cervical disc displacement M50.20 4. Sacroiliac joint pain M53.3 5. Cervical radiculitis M54.12 6. DDD (degenerative disc disease), cervical M50.30 7. Chronic SI joint pain M53.3 G89.29 PDMP website checked and validated. All prescriptions have been APPROPRIATELY filled. No suspicious activity was identified. 03/21/2018 by Sandie Marquez Ma Narcotic Agreement reviewed and signed?: N/A on March 21, 2018 The pain panel was N/A PLAN: Injection history was reviewed. Medication use and compliance were reviewed. 1. TPI to left occipital today 2. Signed Prescriptions Disp Refills tiZANidine (ZANAFLEX) 4 mg tablet 90 tablet 1 Sig: Take 1 tablet by mouth every 8 hours as needed. traMADol (ULTRAM) 50 mg tablet 28 tablet 0 Sig: Take 1 tablet by mouth every 6 hours as needed for Pain for up to 7 days. JR Class: C-IV BELKYS: No 3. Interventional procedure options discussed. Consider left C2-3 Facet injection 4. Encouraged regular home exercising and stretching. She does see a chiropractor prn 5. Order placed for dry needling, PT for neck/occiptal pain 6) F/U in 3 months This note was partially generated using Yotpo voice recognition system. PROCEDURE: Left GONB The potential risks and benefits were discussed in detail. The patient understands and wishes to proceed. . The patient was brought to the procedure suite. She was placed in a sitting position. tender points were identified over the left nuchal junction and lateral to GO artery. The injection sites maked and the skin was prepped using Duraprep solution. The left GONB was performed with 25G 1.5 inch needle. A total of 4 cc of 0.25% Bupivacaine with 20 mg of Kenalog was injected in equal and divided doses. The patient tolerated the procedure well. The above plan and management options were discussed at length with patient. Patient is in agreement with the above and verbalized understanding. Mima Cotto APRN, SHARONDA March 21, 2018 CBC Collected: 03/16/2018 Status: F Source: [place] 8:40 AM [facility] [place] REPOSITORY TYPE CODE TESTS RESULT OUT OF REFERENCE UNITS RANGE LAB WBC 3.70-11.00 k/uL WBC 8.47 LAB RBC 3.90-5.20 m/uL RBC 4.60 LAB HGB 11.5-15.5 g/dL Hemoglobin 13.0 LAB HCT 36.0-46.0 % Hematocrit 40.1 LAB MCV 80.0-100.0 fL MCV 87.2 LAB MCH 26.0-34.0 pG MCH 28.3 LAB MCHC 30.5-36.0 g/dL MCHC 32.4 LAB RDWCV 11.5-15.0 % RDW-CV High 15.6 LAB PLTCT 150-400 k/uL Platelet Count 288 LAB MPV 9.0-12.7 fL MPV 11.0 LAB ABSNUC <0.01 k/uL Absolute nRBC <0.01 Performed By: #### CBC, CMP, TSH, FT4, HBA1C, VITD #### [facility] [address] [place], [place] [address] COMP METABOLIC PANEL Collected: 03/16/2018 Status: F Source: [place] 8:40 AM [facility] REPOSITORY TYPE CODE TESTS RESULT OUT OF REFERENCE UNITS RANGE LAB TP 6.3-8.0 g/dL Protein, Total 6.7 LAB ALB 3.9-4.9 g/dL Albumin 4.3 LAB CA 8.5-10.2 mg/dL Calcium, Total 9.1 LAB TBIL 0.2-1.3 mg/dL Bilirubin, Total 0.2 LAB ALKP 34-123 U/L Alkaline High Phosphatase 129 LAB AST 13-35 U/L AST 31 LAB GLU 74-99 mg/dL Glucose High 150 Result Comment: The [place] Diabetes Association (ADA) provides guidance for cutoff values for fasting glucose and random glucose. The ADA defines fasting as no caloric intake for at least 8 hours. Fas ting plasma glucose results between 100 to 125 mg/dL indicate increased risk for diabetes (prediabetes). Fasting plasma glucose results greater than or equal to 126 mg/dL meet the criteria for diagnosis of diabetes. In the absence of unequivocal hyperglycemia, results should be confirmed by repeat testing. In a patient with classic symptoms of hyperglycemia or hyperglycemic crisis, random plasma glucose results greater than or equal to 200 mg/dL meet the criteria for diagnosis of diabetes. Reference: Standards of Medical Care in Diabetes 2016, [place] Diabetes Association. Diabetes Care. 2016.39(Suppl 1). LAB BUN 7-21 mg/dL BUN 14 LAB CRET 0.58-0.96 mg/dL Low Creatinine 0.52 LAB NA 136-144 mmol/L Sodium 139 LAB K 3.7-5.1 mmol/L Potassium 4.3 LAB CL 97-105 mmol/L Chloride 101 LAB CO2 22-30 mmol/L Low CO2 20 LAB AGAP 9-18 mmol/L Anion Gap 18 LAB ALT 7-38 U/L ALT High 40 LAB GFRAA eGFR- Amer. >60 LAB GFRNAA . eGFR-All Other Races >60 Result Comment: eGFR (Estimated GFR) Units of measure: mL/min/1.73 meters squared eGFR is derived from the reexpressed MDRD Study equation using the following parameters: serum creatinine, age, gender and race. The creatinine assay has been calibrated to be traceable to IDMS. An eGFR <60 mL/min/1.73m2 for >3 months is consistent with chronic kidney disease. Refer to KDOQI guidelines for clinical interpretation. In patients with unstable renal function, e.g. those with acute kidney injury, the eGFR may not accurately reflect actual GFR. Performed By: #### CBC, CMP, TSH, FT4, HBA1C, VITD #### [facility] [address] [place], [place] [address] TSH Collected: 03/16/2018 Status: F Source: [place] 8:40 AM [facility] REPOSITORY TYPE CODE TESTS RESULT OUT OF RANGE REFERENCE UNITS LAB TSH 0.400-5.500 uU/mL TSH 2.210 Result Comment: If the patient is , TSH reference range varies by gestational period: First Trimester 0.100-2.500 uU/mL Second Trimester 0.200-3.000 uU/mL Third Trimester 0.300-3.000 uU/mL References: 1. Posey L, Sary M, Reynold EK, et al. Management of Thyroid Dysfunction during and : An Endocrine Society Clinical Practice Guideline. J Clin Endocrinol Metab, 2012:97:1334-6928. 2. Tray ARDON. Overview of thyroid disease in . UpToDate. 2016. Accessed on November 29, 2015. Performed By: #### CBC, CMP, TSH, FT4, HBA1C, VITD #### [facility] [address] [place], [place] [id number] FREE T4 Collected: 03/16/2018 Status: F Source: [place] 8:40 AM [facility] REPOSITORY TYPE CODE TESTS RESULT OUT OF RANGE REFERENCE UNITS LAB FT4 0.9-1.7 ng/dL Low Free T4 0.7 Performed By: #### CBC, CMP, TSH, FT4, HBA1C, VITD #### [facility] [address], [place] [address] HEMOGLOBIN A1C Collected: 03/16/2018 Status: F Source: [place] 8:40 AM [facility] REPOSITORY TYPE CODE TESTS RESULT OUT OF REFERENCE UNITS RANGE LAB HGBA1C 4.3-5.6 % High Hemoglobin A1c 7.0 LAB HBA0 mg/dL Est. Average Glucose 154 Result Comment: eAG: (Estimated average glucose) is a calculated value from HgbA1c and is customer response representative of the average blood glucose level in the last 2-3 month period. Performed By: #### CBC, CMP, TSH, FT4, HBA1C, VITD #### [facility] [address] [place] [address] VITAMIN D 25 HYDROXY Collected: 03/16/2018 Status: F Source: [place] 8:40 [facility] REPOSITORY TYPE CODE TESTS RESULT OUT OF REFERENCE UNITS RANGE LAB VITD 31.0-80.0 ng/mL Low Vitamin D 25 20.8 Hydroxy Result Comment: Classification of 25 [place] Vitamin D status: Insufficiency/Moderate Deficiency: < or = 30 ng/mL Sufficiency/Optimal Levels: 31 to 80 ng/mL Toxicity: > 100 ng/mL Test performed by chemiluminescent immunoassay. Performed By: #### CBC, CMP, TSH, FT4, HBA1C, VITD #### [facility] [place], [place] [address] PT ED Observed: 01/06/2018 Status: COMPLETED Source: [place] 11:50 AM [facility] REPOSITORY HNO ID: [id number] Author: Lucien (Rn) TOMY Martel Service: (none) Author Type: Registered Nurse Type: Patient Education Filed: 01/06/2018 11:50 AM Note Text: POST OP LEARNING RESPONSE INSTRUCTION PROVIDED TO: Patient METHOD OF INSTRUCTION: Teach Back . PATIENT / FAMILY RESPONSE: Verbalizes understanding of: POST-OPERATIVE INSTRUCTIONS-Correct actions to take to reduce postoperative complications FOLLOW-UP PLAN: Patient instructed to call with any further issues SUPPLEMENTAL MATERIAL: None REFERRAL (RECOMMENDATION): None Electronically Signed By: Lucien Martel RN In Department: [facility] SURGERY XR FLUOROSCOPY Observed: 01/06/2018 Status: F Source: [place] 11:45 AM [facility] REPOSITORY * * *Final Report* * * DATE OF EXAM: Jan 06 2018 11:45AM [facility] [id number] - XR FLUOROSCOPY / PROCEDURE REASON: C6-C7 JOSE ANTONIO FOR PAIN * * * * Physician Interpretation * * * * Study: Pain management. XR FLUOROSCOPY HISTORY: Indication: C6-C7 JOSE ANTONIO FOR PAIN PAIN TECHNIQUE: Fluoroscopic Radiation Summary: Plane A, Air Kerma: 0.4 mGy Dose Area Product (DAP): 54.8 mGy*cmS2 Fluoro time: 0:11 min:sec Images obtained: 1 Spot film images under fluoroscopic guidance. Images were stored in a permanent archive. Comparison: NONE. RESULT: Findings: Films underpenetrated at the level the needle appears to be present at the C6-C7 level projecting over the posterior aspect of the spinal canal. See procedural note in Epic for further discussion. IMPRESSION: As discussed above Director Check: ALYSON Transcribe Date/Time: Jan 06 2018 4:55P Dictated by : KERRY YOUNG DO This examination was interpreted and the report reviewed and electronically signed by: KERRY YOUNG DO on Jan 06 2018 4:56PM EST [id number] OPERATIVE NO Observed: 01/06/2018 Status: COMPLETED Source: [place] 11:41 AM [facility] REPOSITORY HNO ID: [id number] Author: Camden Boyce Service: Pain Management Author Type: Physician Type: Operative Report Filed: 01/06/2018 11:42 AM Note Text: PATIENT NAME: Vikki Baumann SERVICE DATE: 01/06/2018 PROCEDURE NOTE PREOPERATIVE DIAGNOSIS(ES) Cervical DDD Cervical spondylosis Cervical disc displacement Cervical radiculopathy POSTOPERATIVE DIAGNOSIS(ES): SAME OPERATION: C6-7 interlaminar cervical epidural steroid injection under fluoroscopy. ANESTHESIA: Versed 4 mg IV INDICATIONS: The patient presents for cervical epidural steroid injection. Since the last visit, the patient denies any new pain complaints and denies any focal neurologic deficits. The plan is to proceed with cervical intralaminar epidural steroid injection. The risks and benefits of the procedure were discussed. Specifically, the risks of bleeding, infection, inadvertent dural puncture, spinal heaches, vasovagal reaction, epidural hematoma, partial or permanent nerve injury were covered. The potential side effects of medications used in procedures including increase in pain, headaches, facial redness or warmth (flushing), anxiety or mood swings, sleeplessness, fever, high blood sugar, brief reduction in immunity were discussed. The patient expressed understanding of potential risks and wishes to proceed with the procedure. OPERATIVE PROCEDURE: The patient was brought to the operating room. The patient was placed in a sitting position with routine noninvasive hemodynamic monitors were placed. The patient was started on nasal canula oxygen. The posterior cervical area was prepped in sterile fashion. Upon Lateral projection under fluoroscopy, C6-7 level was identified. Entry point was marked and anesthetized with 0.5% Lidocaine. This was followed by insertion of an 18-gauge epidural Tuohy needle, which was inserted and advanced using a loss of resistance technique. Once the epidural space was encountered, aspiration was performed which was negative for blood or CSF. This was followed by injection of Omnipaque 300, a total of 0.25 cc, which revealed a spread along the posterior epidural space. There was no evidence of intravascular or intrathecal flow. This was then followed by a total injection of 3 mL of 0.5% Xylocaine with 40 mg of Depomerol. The patient tolerated the procedure well. The needle was removed intact. Dry dressing was placed over the injection site. The patient was taken to the recovery room in stable condition. EBL: nil Start time: 11:35 AM End time: 11:41 AM I was present the entire time and personally performed the procedure. SIGNATURE: Camden Boyce MD DATE: January 06, 2018 TIME: 11:41 AM HISTORY PHYSICAL Observed: 01/06/2018 Status: COMPLETED Source: [place] 11:26 AM [facility] OTHER CAMPUS REPOSITORY [facility] ID: [id number] Author: Camden Boyce Service: Pain Management Author Type: Physician Type: HANDP Filed: 01/06/2018 11:28 AM Note Text: HISTORY AND PHYSICAL EXAMINATION PATIENT NAME: Vikki Baumann DATE of SERVICE: 01/06/2018 Vikki Baumann is here for the pain mangement procedure. The patient presents with persistent pain complaints. Vikki Baumann denies any interval changes or new pain complaints or focal neurologic deficits. PAST MEDICAL HISTORY Diagnosis Date - Benign heart murmur 09/01/2012 - Benign neoplasm of pituitary gland and craniopharyngeal duct (pouch) ([facility]) Dr. Leilani ventura - Degeneration of intervertebral disc, site unspecified Drs. Wilburn - Depressive disorder, not elsewhere classified - DM (diabetes mellitus) ([facility]) Dr. Duke - H/O blood clots all superficial - Heartburn - High blood pressure - Hypothyroidism - GAGANDEEP (obstructive sleep apnea) - Other and unspecified hyperlipidemia Dr. Leilani ventura - Schizoaffective disorder - Seizures ([facility]) 2012 medication related - Spinal stenosis, unspecified region other than cervical Dr.s Wilburn - Unspecified epilepsy without mention of intractable epilepsy - Viral warts, unspecified PAST SURGICAL HISTORY Procedure Laterality Date - ANKLE LEFT OP SURGERY 06/19/2011 8 screws and metal plate removed left ankle - ARTHRO SHLDR DST CLAVICLECTMY 04/10/2014 Right shoulder arthroscopic rotator cuff repair with debridement [facility] - EGD W/O OR W/BRUSH/WASH 09/05/13 EGD [facility] - EMBOLIZATION UTERINE FIBROID [id number] 1 removed each time - LEG DVT LEONEL UNL J3-5 1982 5 superficial blot clots in left leg - PAST SURGICAL HISTORY OF 12-24-11 bilateral breast reduction - SHLDR ARTHROSCOP,PART ACROMIOPLAS 01/31/2013 Right shoulder - TONSILLECTOMY HX 1992 - VAGINAL HYSTERECTOMY 01/05/2013 Hysterectomy, vaginal for dysmenorrhea Social History Marital status: Single Spouse name: Years of education: Number of children: 0 Occupational History Occupation Employer Comment DISABLED Social History Main Topics Smoking status: Former Smoker Packs/day: 0.50 Years: 20.00 Types: Cigarettes Quit date: 03/15/2014 Smokeless tobacco: Never Used Comment: 08/17/13 Pt will have an occ cigarette. Alcohol use: Yes Comment: Rarely, 1 drink every few months Drug use: No Sexual activity: Yes Partners with: Female FAMILY HISTORY Problem Relation Age of Onset - Arthritis Mother - Arthritis Maternal Grandfather - Arthritis Sister - Arthritis Sister - Hypertension Sister - Diabetes Sister - Heart Sister mothers family history ALLERGIES Allergen Reactions - Codeine GI Upset - Compazine [Prochlor* - Darvocet A500 [Prop* GI Upset - Tessalon [Benzonata* Other: See Comments Heart palpitations - Vicodin [Hydrocodon* Hives Also LORTAB Current Facility-Administered Medications: NaCl 0.9% iv infusion 30 mL/hr INTRAVENOUS CONTINUOUS Physical Exam: Performed in conjunction with observation. The patient is alert and oriented x3. The patient is in no acute distress. Neck: Supple. The range of motion is intact. Lungs: clear CVR: RRR. Extremities: no reported edema or erythema. Examination indicates no changes Impression: Cervical DDD Cervicalgia Plan: The informed consent has been obtained. The plan is to proceed with the procedure as planned. SIGNATURE: Camden Boyce MD DATE: January 06, 2018 TIME: 11:28 AM PT ED Observed: 01/06/2018 Status: COMPLETED Source: [place] 10:55 AM [facility] REPOSITORY HNO ID: [id number] Author: Arabella Guillaume) TOMY Lozano Service: (none) Author Type: Registered Nurse Type: Patient Education Filed: 01/06/2018 10:56 AM Note Text: PROCEDURE/SURGERY: cervical pain block READINESS TO LEARN COGNITIVE ABILITY: Alert and oriented MOTIVATION TO LEARN: Interested FAMILY SUPPORT: Unable to assess - Family not present PATIENT LEARNS BEST BY: Verbal Instruction FACTORS AFFECTING LEARNING: None PHYSICAL LIMITATIONS AFFECTING LEARNING: None Electronically Signed By: Arabella Lozano RN In Department: [facility] SURGERY NURSING PROG Observed: 01/06/2018 Status: COMPLETED Source: [place] 10:54 AM [facility] REPOSITORY HNO ID: [id number] Author: Arabella Guillaume) TOMY Lozano Service: (none) Author Type: Registered Nurse Type: Nursing Progress Note Filed: 01/06/2018 10:55 AM Note Text: @ 1012 Pt received to ASCU, ambulatory AND steady. Pt pleasant AND cooperative with care. @ 1050 Ready for procedure - friend @ bedside. HOSP Observed: 12/28/2017 Status: COMPLETED Source: [place] 12:00 AM [facility] REPOSITORY Patient:Vikki Baumann MRN: <[id number]> Height:5' 7(1.702 m) Weight:259 lb (117.482 kg) Outpatient Medications as of 01/06/18: traMADol (ULTRAM) 50 mg tablet cholecalciferol (VITAMIN D) 1,000 unit tab tablet amLODIPine (NORVASC) 5 mg tablet methocarbamol (ROBAXIN-750) 750 mg tablet OXcarbazepine (TRILEPTAL) 300 mg tablet QUEtiapine (SEROQUEL) 400 mg tablet QUEtiapine (SEROQUEL) 100 mg tablet pravastatin (PRAVACHOL) 20 mg tablet Lisinopril 30 mg tablet omeprazole (PRILOSEC) 20 mg capsule clotrimazole-betamethasone (LOTRISONE) cream busPIRone HCl 30 mg tablet DULoxetine (CYMBALTA) 60 mg capsule temazepam (RESTORIL) 30 mg cap Admission/Clinic Administered Medications as of 01/06/18: NaCl 0.9% iv infusion Problem List: 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, D35.3] Dysmetabolic syndrome [E88.81] Depression [F32.9] Hypertrophy of breast [N62] Benign heart murmur [] Abnormal uterine bleeding [N93.9] Chronic RLQ pain [R10.31, G89.29] Dysmenorrhea [N94.6] Other affections of shoulder region, not elsewhere classified [M75.80] SHEFALI (iron deficiency anemia) [D50.9] Myofascial pain [M79.1] Neck pain [M54.2] Cervical disc displacement [M50.20] Pain in joint, shoulder region [M25.519] Cervical radiculitis [M54.12] Sacroiliac joint pain [M53.3] Right buttock pain [M79.1] Headache [R51] Hypothyroidism [E03.9] Non morbid obesity due to excess calories [E66.09] Cervical arthritis (HCC) [M46.92] Chronic bilateral low back pain without sciatica [M54.5, G89.29] DDD (degenerative disc disease), cervical [M50.30] SI (sacroiliac) joint dysfunction [M53.3] Schizoaffective disorder (HCC) [F25.9] Chronic SI joint pain [M53.3, G89.29] Vitamin D deficiency [E55.9] Allergies: Codeine Compazine [Prochlorperazine Edisylate] Darvocet A500 [Propoxyphene N-Acetaminophen] Tessalon [Benzonatate] Vicodin [Hydrocodone-Acetaminophen] Date Verified: 01/06/18 Lab Values No results within the last 30 days for the following basenames: K,HCT Progress Notes ([facility]): Rajni Chowdary RN 12/27/2017 11:29 AM Signed Patient would like to schedule an appointment for a neck injection Please advise. Patient is requesting a return call from our office. Rajni Davalos 12/27/2017 4:17 PM Signed Patient scheduled for 01/06/18 Progress Notes ([facility]): Liz Nascimento MD 12/10/2017 12:07 AM Signed See my reply PROGRESS Observed: 11/29/2017 Status: COMPLETED Source: [place] 1:25 PM [facility] [place] REPOSITORY HNO ID: [id number] Author: Mima Cotto Service: (none) Author Type: Nurse Practitioner Type: Progress Notes Filed: 11/29/2017 2:36 PM Note Text: SUBJECTIVE: Vikki Baumann presents to [facility] Pain Management Department for a followup appointment for medication refills. Since the last visit, Vikki Baumann states the pain has been getting worse. Current pain intensity is 8 on a scale of 0-10. Pain located in Back, Right leg and Neck area and radiates down the posterior leg. Pain described as aching and sharp The patient Reports weakness, tingling, morning stiffness, leg pain and leg weakness. Symptoms interfere with physical activity. Pain is exacerbated by sitting, standing, forward flexion, lifting, getting up from sitting and walking. Pain is mitigated by medications. REVIEW OF SYSTEMS: Constitutional: (-) Fever (-) Night Sweats (-) Weight Gain (-) Weight Loss (-) Fatigue Cardiovascular: (-) Chest Pain (-) Palpitations (-) Lightheadedness (-) Swelling of Ankles (-) Hx Heart Surgery Respiratory: (-) Shortness of Breath (-) Cough (-) Wheezing (-) Snoring Gastrointestinal: (-) Incontinence (-) Abdominal Pain (-) Diarrhea (-) Constipation (-) Nausea/Vomiting (+) Heart Burn Endocrine: (-) Thyroid Disorder (-) Diabetes Hematologic: (-) Prolonged Bleeding (-) Easy Bruising Genitourinary: (-) Incontinence (-) Frequency (-) Urinary Urgency Skin: (-) Rashes (-) Itching (-) Other Lesions Neurologic: (+) Headache (-) Double Vision (-) Confusion (-) Paralysis Psychiatric: (+) Depression (+) Anxiety (-) Delusions (-) Hallucinations (-) Personal History of Alcohol or Substance Abuse (-) Family History of Alcohol or Substance Abuse OBJECTIVE: Pulse 93 Wt 259 lb (117.5kg) SpO2 98% LMP 11/30/2012 PHYSICAL EXAMINATION: General appearance: Well appearing, in no acute distress, alert Skin: Skin color, texture, turgor normal, no rashes or lesions Neck: Tenderness to palpation over the cervical paraspinous muscles. No pain with neck flexion, extension, or lateral flexion Cardiovascular: Regular rate Lungs: Normal respiratory rate and rhythm Abdomen: Abdomen soft and non-tender. Back: Intact range of motion with pain reproduction. Spine: Reports Tenderness on palpation: Lumbar/Pelvic Extremities: No deformities or edema, large right gluteal hematoma with skin discoloration. Good capillary refill. Musculoskeletal: Bilateral upper and lower extremity strength is normal and symmetric. No atrophy or tone abnormalities are noted. Neuro: No loss of sensation is noted. Station and Gait: Normal stance, normal gait. Motor: Exhibits full strength in all four extremities. Trigger points: none. ASSESSMENT: Assessment : Pt had a fall 11/02. She was changing a light and standing on a stool. When she fell her right buttocks hit the concert porch. She developed a large hematoma. She went to the ED and had xray and CT scan to confirm. She was given a rx for tramadol 50 mg #24 pills. Pain has continued, her PCP office provided another rx for tramadol #24 pills. Today she present with chronic lower back and neck pain and slow healing hematoma on the right buttocks. She has pain that radiates down the right LE. She is experiencing loss of sensation on the surface of her buttock and feels pressure. She did get a donut to use when sitting. Her PCP declined any further rx for tramadol and recommends she discuss with pain management. Discussed with Dr. Boyce and will provide a rx for tramadol 50 mg #28 pills for the continuation of acute pain. Due to the fall she cancelled her appt for cervical injection. Will hold off for another few weeks. Pt will call when she is ready to schedule Encounter Diagnosis ICD-10-CM 1. Cervical arthritis (HCC) M46.92 2. Cervical disc displacement M50.20 3. Cervical radiculitis M54.12 4. DDD (degenerative disc disease), cervical M50.30 5. Myofascial pain M79.1 6. Chronic SI joint pain M53.3 G89.29 OARRS website checked and validated. All prescriptions have been APPROPRIATELY filled. No suspicious activity was identified.- 11/29/2017 by Nesha Sanchez MA Narcotic Agreement reviewed and signed?: N/A on November 29, 2017 The pain panel was N/A PLAN: 1) Refill Tramadol 50 mg #28 pills for acute gluteal pain from hematoma 2) Continue robaxin 750 mg TID. No refills needed 3) Pt will call when ready to schedule cervical epidural injection 4) Continue to do exercises and stretches. 5) RTC 2 months The above plan and management options were discussed at length with patient. Patient is in agreement with the above and verbalized understanding. Mima Cotto APRN, CNP November 29, 2017 CNOV Observed: 11/29/2017 Status: COMPLETED Source: [place] 1:00 PM [facility] REPOSITORY Office Visit (PNMDNA) VIKKI BAUMANN ([id number]) 1970 F [facility] Date Time Provider Department 11/29/17 1:00 PM MIMA COTTO (FLOOR SUPERVISOR) PNMDNA During your visit today, we recorded the following information about you: Pulse Weight 93/minute 117.5 kg Mima Cotto APRN.SHARONDA 11/29/2017 2:36 PM Signed SUBJECTIVE: Vikki Baumann presents to [facility] Pain Management Department for a followup appointment for medication refills. Since the last visit, Vikki Baumann states the pain has been getting worse. Current pain intensity is 8 on a scale of 0-10. Pain located in Back, Right leg and Neck area and radiates down the posterior leg. Pain described as aching and sharp The patient Reports weakness, tingling, morning stiffness, leg pain and leg weakness. Symptoms interfere with physical activity. Pain is exacerbated by sitting, standing, forward flexion, lifting, getting up from sitting and walking. Pain is mitigated by medications. REVIEW OF SYSTEMS: Constitutional: (-) Fever (-) Night Sweats (-) Weight Gain (-) Weight Loss (-) Fatigue Cardiovascular: (-) Chest Pain (-) Palpitations (-) Lightheadedness (-) Swelling of Ankles (-) Hx Heart Surgery Respiratory: (-) Shortness of Breath (-) Cough (-) Wheezing (-) Snoring Gastrointestinal: (-) Incontinence (-) Abdominal Pain (-) Diarrhea (-) Constipation (-) Nausea/Vomiting (+) Heart Burn Endocrine: (-) Thyroid Disorder (-) Diabetes Hematologic: (-) Prolonged Bleeding (-) Easy Bruising Genitourinary: (-) Incontinence (-) Frequency (-) Urinary Urgency Skin: (-) Rashes (-) Itching (-) Other Lesions Neurologic: (+) Headache (-) Double Vision (-) Confusion (-) Paralysis Psychiatric: (+) Depression (+) Anxiety (-) Delusions (-) Hallucinations (-) Personal History of Alcohol or Substance Abuse (-) Family History of Alcohol or Substance Abuse OBJECTIVE: Pulse 93 Wt 259 lb (117.5kg) SpO2 98% LMP 11/30/2012 PHYSICAL EXAMINATION: General appearance: Well appearing, in no acute distress, alert Skin: Skin color, texture, turgor normal, no rashes or lesions Neck: Tenderness to palpation over the cervical paraspinous muscles. No pain with neck flexion, extension, or lateral flexion Cardiovascular: Regular rate Lungs: Normal respiratory rate and rhythm Abdomen: Abdomen soft and non-tender. Back: Intact range of motion with pain reproduction. Spine: Reports Tenderness on palpation: Lumbar/Pelvic Extremities: No deformities or edema, large right gluteal hematoma with skin discoloration. Good capillary refill. Musculoskeletal: Bilateral upper and lower extremity strength is normal and symmetric. No atrophy or tone abnormalities are noted. Neuro: No loss of sensation is noted. Station and Gait: Normal stance, normal gait. Motor: Exhibits full strength in all four extremities. Trigger points: none. ASSESSMENT: Assessment : Pt had a fall 11/02. She was changing a light and standing on a stool. When she fell her right buttocks hit the concert porch. She developed a large hematoma. She went to the ED and had xray and CT scan to confirm. She was given a rx for tramadol 50 mg #24 pills. Pain has continued, her PCP office provided another rx for tramadol #24 pills. Today she present with chronic lower back and neck pain and slow healing hematoma on the right buttocks. She has pain that radiates down the right LE. She is experiencing loss of sensation on the surface of her buttock and feels pressure. She did get a donut to use when sitting. Her PCP declined any further rx for tramadol and recommends she discuss with pain management. Discussed with Dr. Boyce and will provide a rx for tramadol 50 mg #28 pills for the continuation of acute pain. Due to the fall she cancelled her appt for cervical injection. Will hold off for another few weeks. Pt will call when she is ready to schedule Encounter Diagnosis ICD-10-CM 1. Cervical arthritis (HCC) M46.92 2. Cervical disc displacement M50.20 3. Cervical radiculitis M54.12 4. DDD (degenerative disc disease), cervical M50.30 5. Myofascial pain M79.1 6. Chronic SI joint pain M53.3 G89.29 OARRS website checked and validated. All prescriptions have been APPROPRIATELY filled. No suspicious activity was identified.- 11/29/2017 by Nesha Sanchez MA Narcotic Agreement reviewed and signed?: N/A on November 29, 2017 The pain panel was N/A PLAN: 1) Refill Tramadol 50 mg #28 pills for acute gluteal pain from hematoma 2) Continue robaxin 750 mg TID. No refills needed 3) Pt will call when ready to schedule cervical epidural injection 4) Continue to do exercises and stretches. 5) RTC 2 months The above plan and management options were discussed at length with patient. Patient is in agreement with the above and verbalized understanding. Mima Cotto APRN, FLOOR SUPERVISOR November 29, 2017 Referring Provider: LIZ NASCIMENTO [[id number]] Allergies As of Date: 11/29/2017 Noted Allergy Reaction CODEINE 03/07/2010 8 - GI Upset COMPAZINE (PROCHLORPERAZINE EDISY*03/07/2010 DARVOCET A500 (PROPOXYPHENE N-SHERRY*03/07/2010 8 - GI Upset TESSALON (BENZONATATE) 04/16/2015 14 - Other: See Comments Comments: Heart palpitations VICODIN (HYDROCODONE-ACETAMINOPHE*03/07/2010 4 - Hives Comments: Also LORTAB Date Reviewed: 11/29/2017 Reviewed by: Nesha Sanchez MA - Fully Assessed Reason for Visit: Established Patient [175] Follow Up [171] Primary Visit Diagnosis:Cervical arthritis (HCC) [M46.92] Other Visit Diagnoses:Cervical disc displacement [M50.20] Cervical radiculitis [M54.12] DDD (degenerative disc disease), cervical [M50.30] Myofascial pain [M79.1] Chronic SI joint pain [M53.3, G89.29] Order(s):traMADol (ULTRAM) 50 mg tabletTake 1 tablet by mouth every 6 hours as needed for Pain for up to 7 days.Disp: 28 tabletRfl: 0 Prescriptions as of 11/29/2017 Sig: CHOLECALCIFEROL (VITAMIN D3) * Take 1 tablet by mouth once d* AMLODIPINE 5 MG TABLET Take 1 tablet by mouth once d* METHOCARBAMOL 750 MG TABLET Take 1 tablet by mouth three * OXCARBAZEPINE 300 MG TABLET Takes (1) 600 mg tab in AM an* QUETIAPINE 400 MG TABLET Take 1 tablet by mouth daily * QUETIAPINE 100 MG TABLET Take 1 tablet by mouth daily * PRAVASTATIN 20 MG TABLET Take 1 tablet by mouth daily * LISINOPRIL 30 MG TABLET Take 1 tablet by mouth once d* OMEPRAZOLE 20 MG CAPSULE,EARL* Take 1 capsule by mouth twice* CLOTRIMAZOLE-BETAMETHASONE 1 * Apply 1 application to affect* BUSPIRONE 30 MG TABLET Take 1 tablet by mouth twice * DULOXETINE 60 MG CAPSULE,EARL* Take 2 capsules by mouth once* TEMAZEPAM 30 MG CAPSULE Take 1 capsule by mouth daily* TRAMADOL 50 MG TABLET Take 1 tablet by mouth every * Problem List As Of Date 11/29/2017 Noted Resolved 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, 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] INVALID FOR* Dysmetabolic syndrome [E88.81] INVALID FOR* Depression [F32.9] INVALID FOR* Hypertrophy of breast [N62] INVALID FOR* Benign heart murmur INVALID FOR* Abnormal uterine bleeding [N93.9] INVALID FOR* Chronic RLQ pain [R10.31, G89.29] INVALID FOR* Dysmenorrhea [N94.6] INVALID FOR* Other affections of shoulder region, not elsewh*INVALID FOR* Rotator cuff tear [M75.100] INVALID FOR*02/28/2013 SHEFALI (iron deficiency anemia) [D50.9] INVALID FOR* Myofascial pain [M79.1] INVALID FOR* Neck pain [M54.2] INVALID FOR* Cervical disc displacement [M50.20] INVALID FOR* Pain in joint, shoulder region [M25.519] INVALID FOR* Cervical radiculitis [M54.12] INVALID FOR* Sacroiliac joint pain [M53.3] INVALID FOR* Buttock pain [M79.1] INVALID FOR*01/15/2015 Right buttock pain [M79.1] INVALID FOR* Headache [R51] INVALID FOR* Lower back pain [M54.5] INVALID FOR*09/10/2015 Chronic pain [G89.29] INVALID FOR*11/14/2015 Right-sided low back pain without sciatica [M54*INVALID FOR*11/14/2015 Hypothyroidism [E03.9] Non morbid obesity due to excess calories [E66.*INVALID FOR* Cervical arthritis (HCC) [M46.92] INVALID FOR* Chronic bilateral low back pain without sciatic*INVALID FOR* DDD (degenerative disc disease), cervical [M50.*INVALID FOR* SI (sacroiliac) joint dysfunction [M53.3] INVALID FOR* Schizoaffective disorder (HCC) [F25.9] INVALID FOR* Chronic SI joint pain [M53.3, G89.29] INVALID FOR* Vitamin D deficiency [E55.9] INVALID FOR* Prescriptions ordered this encounter Disp Refills Start End TRAMADOL 50 MG TABLET 28 t* 0 11/29/2017 12/06/2017 Class: Print RX Route: ORAL Sig: Take 1 tablet by mouth every 6 hours as needed for Pain for up to 7 days. Medications Discontinued During This Encounter traMADol (ULTRAM) 50 mg tablet 24 t* 0 11/17/2017 11/29/2017 Class: Print RX Route: ORAL Sig: Take 1 tablet by mouth every 6 hours as needed for Pain for up to 7 days. Disc: Reason for discontinue is not on file. Encounter Status:Closed by MIMA COTTO on 11/29/17 PROGRESS Observed: 11/16/2017 Status: COMPLETED Source: [place] 3:43 PM [facility] [place] REPOSITORY HNO ID: [id number] Author: Hortencia Ruiz) Older Service: (none) Author Type: Nurse Practitioner Type: Progress Notes Filed: 11/17/2017 8:43 AM Note Text: CC: Patient presents with: Hematoma follow up: pain is getting worse-edema and hematoma haven't gone down HPI Vikki Baumann is a 47 year old female who presents today for hematoma pain that is not improving. Patient fell 11/01 and sustained hematoma to buttock. CT in ER showed it had not gone into the muscle. She then had follow-up with PRIVACY ATTORNEY on 11/10 due to continued pain and swelling. She was advised that hematoma is self limiting and to follow-up in 2-3 weeks if no improvement. Today patient states bruising and swelling around area improving but hematoma itself is staying the same. Rating pain 8.5/10 and complains of tightness like her skin is tearing in her right buttocks. Numbness is getting worse in her 2nd and 3rd toes. Patient states it is painful when she walks and she is having difficulty with bowel movements and sitting on the toilet. Bowel movements regular just uncomfortable to sit. Denies any swelling, warmth or redness in the right leg. Patient taking 2-3 Ibuprofen per day, Tramadol and using ice with little relief. REVIEW OF SYSTEMS General: no fevers, no chills and no recurrent infections Respiratory: no shortness of breath Cardiovascular: no chest pain and no chest pressure PAST MEDICAL HISTORY Diagnosis Date - Benign heart murmur 09/01/2012 - Benign neoplasm of pituitary gland and craniopharyngeal duct (pouch) ([facility]) Dr. Duke following - Degeneration of intervertebral disc, site unspecified Drs. Boyce and Abhilash - Depressive disorder, not elsewhere classified - DM (diabetes mellitus) ([facility]) Dr. Duke - H/O blood clots all superficial - Heartburn - High blood pressure - Hypothyroidism - GAGANDEEP (obstructive sleep apnea) - Other and unspecified hyperlipidemia Dr. Duke following - Schizoaffective disorder - Seizures (HCC) 2012 medication related - Spinal stenosis, unspecified region other than cervical Dr.s Wilburn - Unspecified epilepsy without mention of intractable epilepsy - Viral warts, unspecified PAST SURGICAL HISTORY Procedure Laterality Date - ANKLE LEFT OP SURGERY 06/19/2011 8 screws and metal plate removed left ankle - ARTHRO SHLDR DST CLAVICLECTMY 04/10/2014 Right shoulder arthroscopic rotator cuff repair with debridement - COLONOSCOP W/ OR W/O [facility] SPEC 09/05/13 Colonoscopy [facility] - EGD W/O OR W/BRUSH/WASH 09/05/13 EGD [facility] - EMBOLIZATION UTERINE FIBROID [id number] 1 removed each time - LEG DVT LEONEL UNL J3-5 1982 5 superficial blot clots in left leg - PAST SURGICAL HISTORY OF 12-24-11 bilateral breast reduction - SHLDR ARTHROSCOP,PART ACROMIOPLAS 01/31/2013 Right shoulder - TONSILLECTOMY HX 1992 - VAGINAL HYSTERECTOMY 01/05/2013 Hysterectomy, vaginal for dysmenorrhea ALLERGIES Codeine; Compazine [Prochlorperazine Edisylate]; Darvocet A500 [Propoxyphene N-Acetaminophen]; Tessalon [Benzonatate]; Vicodin [Hydrocodone-Acetaminophen] MEDICATIONS traMADol (ULTRAM) 50 mg tablet Take 1 tablet by mouth every 6 hours as needed for Pain for up to 7 days. cholecalciferol (VITAMIN D) 1,000 unit tab tablet Take 1 tablet by mouth once daily. amLODIPine (NORVASC) 5 mg tablet Take 1 tablet by mouth once daily. methocarbamol (ROBAXIN-750) 750 mg tablet Take 1 tablet by mouth three times daily. OXcarbazepine (TRILEPTAL) 300 mg tablet Takes (1) 600 mg tab in AM and (2) 600 mg tabs at bedtime QUEtiapine (SEROQUEL) 400 mg tablet Take 1 tablet by mouth daily at bedtime. with 100 mg pill QUEtiapine (SEROQUEL) 100 mg tablet Take 1 tablet by mouth daily at bedtime. with 400 mg dose pravastatin (PRAVACHOL) 20 mg tablet Take 1 tablet by mouth daily at bedtime. Lisinopril 30 mg tablet Take 1 tablet by mouth once daily. omeprazole (PRILOSEC) 20 mg capsule Take 1 capsule by mouth twice daily. clotrimazole-betamethasone (LOTRISONE) cream Apply 1 application to affected area twice daily. apply for 1-2 weeks, then discontinue busPIRone HCl 30 mg tablet Take 1 tablet by mouth twice daily. DULoxetine (CYMBALTA) 60 mg capsule Take 2 capsules by mouth once daily. In AM temazepam (RESTORIL) 30 mg cap Take 1 capsule by mouth daily at bedtime. FAMILY HISTORY Problem Relation Age of Onset - Arthritis Mother - Arthritis Maternal Grandfather - Arthritis Sister - Arthritis Sister - Hypertension Sister - Diabetes Sister - Heart Sister mothers family history Social History Substance Use Topics - Smoking status: Former Smoker Packs/day: 0.50 Years: 20.00 Types: Cigarettes Quit date: 03/15/2014 - Smokeless tobacco: Never Used Comment: 08/17/13 Pt will have an occ cigarette. - Alcohol use Yes Comment: Rarely, 1 drink every few months PHYSICAL EXAM BP 130/89 Pulse 89 Temp 36.1 ?C (96.9 ?F) (Temporal Artery) Resp 16 Wt 116.1 kg (256 lb) LMP 11/30/2012 SpO2 98% BMI 39.21 kg/m? General Appearance: well appearing, in no acute distress, alert Skin: Skin color, texture, turgor normal for age. Light pink bruising noted that radiates from sacrum down to right hip. Right buttocks firm, raised hematoma without discoloration or texture changes. Skin warm and with normal color. Lungs: Lungs clear to auscultation. No wheezing, rhonchi, rales Heart: RRR without murmur, gallop, or rubs. No ectopy Right Lower Extremity: No deformities, edema, skin discoloration. Musculoskeletal: Right leg: Strength 5/5, Pedal pulses +2. No Swelling. Sensation intact. ASSESSMENT/PLAN: 1. Traumatic hematoma of buttock, subsequent encounter - ICD9: V58.89, 922.32, ICD10: S30.0XXD -Bruising and swelling around hematoma improving, hematoma remains the same size per patient. No alarm symptoms or exam findings. - Reassurance given and advised patient that hematoma can take a long time to heal, especially one this size. Patient feels that this needs further evaluation and upset that it has not improved. - CONSULT TO GENERAL SURGERY per patient request, appointment scheduled - For pain: Alternate heat and ice to site, Ibuprofen 800 mg three times a day consistently, TRAMADOL 50 MG TABLET refilled for one more week - Follow up as needed if pain worsens. Prescription instructions reviewed with patient as applicable. Potential red flag symptoms discussed with the patient. Reviewed appropriate action plan to take if red flag symptoms occur. Patient agreeable to treatment plan. Hortencia Diallo APRN.CNP CNOV Observed: 11/16/2017 Status: COMPLETED Source: [place] 3:00 PM [facility] REPOSITORY Office Visit (INTMWS) VIKKI BAUMANN ([id number]) 1970 F T Date Time Provider Department 11/16/17 3:00 PM HORTENCIA DIALLO (SHARONDA) INTMWS During your visit today, we recorded the following information about you: Temperature Pulse Respiration Blood pressure 96.9 degrees 89/minute 16/minute 130/89 Weight 116.1 kg Hortencia Diallo APRN.CNP 11/17/2017 8:43 AM Signed CC: Patient presents with: Hematoma follow up: pain is getting worse-edema and hematoma haven't gone down HPI Vikki Chayito Pastor is a 47 year old female who presents today for hematoma pain that is not improving. Patient fell 11/01 and sustained hematoma to buttock. CT in ER showed it had not gone into the muscle. She then had follow- up with PRIVACY ATTORNEY on 11/10 due to continued pain and swelling. She was advised that hematoma is self limiting and to follow-up in 2-3 weeks if no improvement. Today patient states bruising and swelling around area improving but hematoma itself is staying the same. Rating pain 8.5/10 and complains of tightness like her skin is tearing in her right buttocks. Numbness is getting worse in her 2nd and 3rd toes. Patient states it is painful when she walks and she is having difficulty with bowel movements and sitting on the toilet. Bowel movements regular just uncomfortable to sit. Denies any swelling, warmth or redness in the right leg. Patient taking 2-3 Ibuprofen per day, Tramadol and using ice with little relief. REVIEW OF SYSTEMS General: no fevers, no chills and no recurrent infections Respiratory: no shortness of breath Cardiovascular: no chest pain and no chest pressure PAST MEDICAL HISTORY Diagnosis Date - Benign heart murmur 09/01/2012 - Benign neoplasm of pituitary gland and craniopharyngeal duct (pouch) ([facility]) Dr. Leilani ventura - Degeneration of intervertebral disc, site unspecified Drs. Wilburn - Depressive disorder, not elsewhere classified - DM (diabetes mellitus) ([facility]) Dr. Duke - H/O blood clots all superficial - Heartburn - High blood pressure - Hypothyroidism - GAGANDEEP (obstructive sleep apnea) - Other and unspecified hyperlipidemia Dr. Leilani ventura - Schizoaffective disorder - Seizures ([facility]) 2012 medication related - Spinal stenosis, unspecified region other than cervical Dr.s Wilburn - Unspecified epilepsy without mention of intractable epilepsy - Viral warts, unspecified PAST SURGICAL HISTORY Procedure Laterality Date - ANKLE LEFT OP SURGERY 06/19/2011 8 screws and metal plate removed left ankle - ARTHRO SHLDR DST CLAVICLECTMY 04/10/2014 Right shoulder arthroscopic rotator cuff repair with debridement - COLONOSCOP W/ OR W/O [facility] SPEC 09/05/13 [facility] - EGD W/O OR W/BRUSH/WASH 09/05/13 EGD [facility] - EMBOLIZATION UTERINE FIBROID [id number] 1 removed each time - LEG DVT LEONEL UNL J3-5 1982 5 superficial blot clots in left leg - PAST SURGICAL HISTORY OF 7-12-12 bilateral breast reduction - SHLDR ARTHROSCOP,PART ACROMIOPLAS 01/31/2013 Right shoulder - TONSILLECTOMY HX 1992 - VAGINAL HYSTERECTOMY 01/05/2013 Hysterectomy, vaginal for dysmenorrhea ALLERGIES Codeine; Compazine [Prochlorperazine Edisylate]; Darvocet A500 [Propoxyphene N-Acetaminophen]; Tessalon [Benzonatate]; Vicodin [Hydrocodone-Acetaminophen] MEDICATIONS traMADol (ULTRAM) 50 mg tablet Take 1 tablet by mouth every 6 hours as needed for Pain for up to 7 days. cholecalciferol (VITAMIN D) 1,000 unit tab tablet Take 1 tablet by mouth once daily. amLODIPine (NORVASC) 5 mg tablet Take 1 tablet by mouth once daily. methocarbamol (ROBAXIN-750) 750 mg tablet Take 1 tablet by mouth three times daily. OXcarbazepine (TRILEPTAL) 300 mg tablet Takes (1) 600 mg tab in AM and (2) 600 mg tabs at bedtime QUEtiapine (SEROQUEL) 400 mg tablet Take 1 tablet by mouth daily at bedtime. with 100 mg pill QUEtiapine (SEROQUEL) 100 mg tablet Take 1 tablet by mouth daily at bedtime. with 400 mg dose pravastatin (PRAVACHOL) 20 mg tablet Take 1 tablet by mouth daily at bedtime. Lisinopril 30 mg tablet Take 1 tablet by mouth once daily. omeprazole (PRILOSEC) 20 mg capsule Take 1 capsule by mouth twice daily. clotrimazole-betamethasone (LOTRISONE) cream Apply 1 application to affected area twice daily. apply for 1-2 weeks, then discontinue busPIRone HCl 30 mg tablet Take 1 tablet by mouth twice daily. DULoxetine (CYMBALTA) 60 mg capsule Take 2 capsules by mouth once daily. In AM temazepam (RESTORIL) 30 mg cap Take 1 capsule by mouth daily at bedtime. FAMILY HISTORY Problem Relation Age of Onset - Arthritis Mother - Arthritis Maternal Grandfather - Arthritis Sister - Arthritis Sister - Hypertension Sister - Diabetes Sister - Heart Sister mothers family history Social History Substance Use Topics - Smoking status: Former Smoker Packs/day: 0.50 Years: 20.00 Types: Cigarettes Quit date: 03/15/2014 - Smokeless tobacco: Never Used Comment: 08/17/13 Pt will have an occ cigarette. - Alcohol use Yes Comment: Rarely, 1 drink every few months PHYSICAL EXAM BP 130/89 Pulse 89 Temp 36.1 ?C (96.9 ?F) (Temporal Artery) Resp 16 Wt 116.1 kg (256 lb) LMP 11/30/2012 SpO2 98% BMI 39.21 kg/m? General Appearance: well appearing, in no acute distress, alert Skin: Skin color, texture, turgor normal for age. Light pink bruising noted that radiates from sacrum down to right hip. Right buttocks firm, raised hematoma without discoloration or texture changes. Skin warm and with normal color. Lungs: Lungs clear to auscultation. No wheezing, rhonchi, rales Heart: RRR without murmur, gallop, or rubs. No ectopy Right Lower Extremity: No deformities, edema, skin discoloration. Musculoskeletal: Right leg: Strength 5/5, Pedal pulses +2. No Swelling. Sensation intact. ASSESSMENT/PLAN: 1. Traumatic hematoma of buttock, subsequent encounter - ICD9: V58.89, 922.32, ICD10: S30.0XXD -Bruising and swelling around hematoma improving, hematoma remains the same size per patient. No alarm symptoms or exam findings. - Reassurance given and advised patient that hematoma can take a long time to heal, especially one this size. Patient feels that this needs further evaluation and upset that it has not improved. - CONSULT TO GENERAL SURGERY per patient request, appointment scheduled - For pain: Alternate heat and ice to site, Ibuprofen 800 mg three times a day consistently, TRAMADOL 50 MG TABLET refilled for one more week - Follow up as needed if pain worsens. Prescription instructions reviewed with patient as applicable. Potential red flag symptoms discussed with the patient. Reviewed appropriate action plan to take if red flag symptoms occur. Patient agreeable to treatment plan. Hortencia Diallo, ABI.FLOOR SUPERVISOR Referring Provider: SELF [[id number]] Allergies As of Date: 11/16/2017 Noted Allergy Reaction CODEINE 03/07/2010 8 - GI Upset COMPAZINE (PROCHLORPERAZINE EDISY*03/07/2010 DARVOCET A500 (PROPOXYPHENE N-SHERRY*03/07/2010 8 - GI Upset TESSALON (BENZONATATE) 04/16/2015 14 - Other: See Comments Comments: Heart palpitations VICODIN (HYDROCODONE-ACETAMINOPHE*03/07/2010 4 - Hives Comments: Also LORTAB Date Reviewed: 11/16/2017 Reviewed by: Edith Mary Washcoat Wiper - Fully Assessed Reason for Visit: Hematoma follow up [Other] Cmt: pain is getting worse-edema and hematoma haven't gone down Primary Visit Diagnosis:Traumatic hematoma of buttock, subsequent encounter [S30.0XXD] Order(s):CONSULT TO GENERAL SURGERY [9011] Order #: [id number]: 1 traMADol (ULTRAM) 50 mg tabletTake 1 tablet by mouth every 6 hours as needed for Pain for up to 7 days.Disp: 24 tabletRfl: 0 Prescriptions as of 11/16/2017 Sig: TRAMADOL 50 MG TABLET Take 1 tablet by mouth every * CHOLECALCIFEROL (VITAMIN D3) * Take 1 tablet by mouth once d* AMLODIPINE 5 MG TABLET Take 1 tablet by mouth once d* METHOCARBAMOL 750 MG TABLET Take 1 tablet by mouth three * OXCARBAZEPINE 300 MG TABLET Takes (1) 600 mg tab in AM an* QUETIAPINE 400 MG TABLET Take 1 tablet by mouth daily * QUETIAPINE 100 MG TABLET Take 1 tablet by mouth daily * PRAVASTATIN 20 MG TABLET Take 1 tablet by mouth daily * LISINOPRIL 30 MG TABLET Take 1 tablet by mouth once d* OMEPRAZOLE 20 MG CAPSULE,EARL* Take 1 capsule by mouth twice* CLOTRIMAZOLE-BETAMETHASONE 1 * Apply 1 application to affect* BUSPIRONE 30 MG TABLET Take 1 tablet by mouth twice * DULOXETINE 60 MG CAPSULE,EARL* Take 2 capsules by mouth once* TEMAZEPAM 30 MG CAPSULE Take 1 capsule by mouth daily* Problem List As Of Date 11/16/2017 Noted Resolved 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, 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] INVALID FOR* Dysmetabolic syndrome [E88.81] INVALID FOR* Depression [F32.9] INVALID FOR* Hypertrophy of breast [N62] INVALID FOR* Benign heart murmur INVALID FOR* Abnormal uterine bleeding [N93.9] INVALID FOR* Chronic RLQ pain [R10.31, G89.29] INVALID FOR* Dysmenorrhea [N94.6] INVALID FOR* Other affections of shoulder region, not elsewh*INVALID FOR* Rotator cuff tear [M75.100] INVALID FOR*02/28/2013 SHEFALI (iron deficiency anemia) [D50.9] INVALID FOR* Myofascial pain [M79.1] INVALID FOR* Neck pain [M54.2] INVALID FOR* Cervical disc displacement [M50.20] INVALID FOR* Pain in joint, shoulder region [M25.519] INVALID FOR* Cervical radiculitis [M54.12] INVALID FOR* Sacroiliac joint pain [M53.3] INVALID FOR* Buttock pain [M79.1] INVALID FOR*01/15/2015 Right buttock pain [M79.1] INVALID FOR* Headache [R51] INVALID FOR* Lower back pain [M54.5] INVALID FOR*09/10/2015 Chronic pain [G89.29] INVALID FOR*11/14/2015 Right-sided low back pain without sciatica [M54*INVALID FOR*11/14/2015 Hypothyroidism [E03.9] Non morbid obesity due to excess calories [E66.*INVALID FOR* Cervical arthritis (HCC) [M46.92] INVALID FOR* Chronic bilateral low back pain without sciatic*INVALID FOR* DDD (degenerative disc disease), cervical [M50.*INVALID FOR* SI (sacroiliac) joint dysfunction [M53.3] INVALID FOR* Schizoaffective disorder (HCC) [F25.9] INVALID FOR* Chronic SI joint pain [M53.3, G89.29] INVALID FOR* Vitamin D deficiency [E55.9] INVALID FOR* Prescriptions ordered this encounter Disp Refills Start End TRAMADOL 50 MG TABLET 24 t* 0 11/17/2017 11/24/2017 Class: Print RX Route: ORAL Sig: Take 1 tablet by mouth every 6 hours as needed for Pain for up to 7 days. Medications Discontinued During This Encounter traMADol (ULTRAM) 50 mg tablet 24 t* 0 11/10/2017 11/16/2017 Class: Print RX Route: ORAL Sig: Take 1 tablet by mouth every 6 hours as needed for Pain for up to 7 days. Disc: Reason for discontinue is not on file. Encounter Status:Closed by HORTENCIA DIALLO CNP on 11/17/17 PROGRESS Observed: 11/10/2017 Status: COMPLETED Source: [place] 3:48 PM [facility] [place] REPOSITORY O ID: [id number] Author: Rayne Ludwig Service: (none) Author Type: Nurse Practitioner Type: Progress Notes Filed: 11/10/2017 4:06 PM Note Text: CC: Patient presents with: Recheck: R buttocks swollen and painful from fall HPI Vikki Baumann is a 47 year old female who presents today for follow up of right buttock pain and swelling after a fall. Patient reports having fallen ~ 1 week ago off a stepstool onto the edge of her concrete porch then landed on the ground. Patient was evaluated at [facility] on 11/02/17. CT was completed showing no fracture of the lumbar spin or pelvic bone, large hematoma of the subcutaneous soft tissue overlying the right gluteus felice muscle without extension into the muscle itself. Patient was discharged home and received prescription for Ultram from pain management doctor. Patient presents today with continued pain rated 7/10 up to 10/10 at times. Ambulation and climbing stairs aggravates pain. She notes some moderate swelling to the right buttock and is unable to sit upright, she favors the left side. Associated symptoms include tingling sensation to the right buttock with limited awareness to light touch. She is concerned today because as a child she injured her left knee where she developed a hematoma and 5 small clots that had to be surgically removed. REVIEW OF SYSTEMS General: no fevers, no chills, no night sweats, no recurrent infections, no change in appetite, no change in energy and no significant changes in weight Musculoskeletal: see HPI Skin: Positive for bruising and swelling as above Neurologic: No headache, weakness, numbness, neck stiffness, tremor, vertigo, dizziness, memory loss, syncope. PAST MEDICAL HISTORY Diagnosis Date - Benign heart murmur 09/01/2012 - Benign neoplasm of pituitary gland and craniopharyngeal duct (pouch) ([facility]) Dr. Duke following - Degeneration of intervertebral disc, site unspecified Drs. Wilburn - Depressive disorder, not elsewhere classified - DM (diabetes mellitus) ([facility]) Dr. Duke - H/O blood clots all superficial - Heartburn - High blood pressure - Hypothyroidism - GAGANDEEP (obstructive sleep apnea) - Other and unspecified hyperlipidemia Dr. Leilani ventura - Schizoaffective disorder - Seizures ([facility]) 2012 medication related - Spinal stenosis, unspecified region other than cervical Dr.s Wilburn - Unspecified epilepsy without mention of intractable epilepsy - Viral warts, unspecified PAST SURGICAL HISTORY Procedure Laterality Date - ANKLE LEFT OP SURGERY 06/19/2011 8 screws and metal plate removed left ankle - ARTHRO SHLDR DST CLAVICLECTMY 04/10/2014 Right shoulder arthroscopic rotator cuff repair with debridement - COLONOSCOP W/ OR W/O [facility] SPEC 09/05/13 [facility] - EGD W/O OR W/BRUSH/WASH 09/05/13 EGD [facility] - EMBOLIZATION UTERINE FIBROID [id number] 1 removed each time - LEG DVT LEONEL UNL J3-5 1982 5 superficial blot clots in left leg - PAST SURGICAL HISTORY OF 12-24-11 bilateral breast reduction - SHLDR ARTHROSCOP,PART ACROMIOPLAS 01/31/2013 Right shoulder - TONSILLECTOMY HX 1993 - VAGINAL HYSTERECTOMY 01/05/2013 Hysterectomy, vaginal for dysmenorrhea ALLERGIES Codeine; Compazine [Prochlorperazine Edisylate]; Darvocet A500 [Propoxyphene N-Acetaminophen]; Tessalon [Benzonatate]; Vicodin [Hydrocodone-Acetaminophen] MEDICATIONS traMADol (ULTRAM) 50 mg tablet Take 1 tablet by mouth every 6 hours as needed for Pain for up to 7 days. cholecalciferol (VITAMIN D) 1,000 unit tab tablet Take 1 tablet by mouth once daily. amLODIPine (NORVASC) 5 mg tablet Take 1 tablet by mouth once daily. methocarbamol (ROBAXIN-750) 750 mg tablet Take 1 tablet by mouth three times daily. OXcarbazepine (TRILEPTAL) 300 mg tablet Takes (1) 600 mg tab in AM and (2) 600 mg tabs at bedtime QUEtiapine (SEROQUEL) 400 mg tablet Take 1 tablet by mouth daily at bedtime. with 100 mg pill QUEtiapine (SEROQUEL) 100 mg tablet Take 1 tablet by mouth daily at bedtime. with 400 mg dose pravastatin (PRAVACHOL) 20 mg tablet Take 1 tablet by mouth daily at bedtime. Lisinopril 30 mg tablet Take 1 tablet by mouth once daily. omeprazole (PRILOSEC) 20 mg capsule Take 1 capsule by mouth twice daily. clotrimazole-betamethasone (LOTRISONE) cream Apply 1 application to affected area twice daily. apply for 1-2 weeks, then discontinue busPIRone HCl 30 mg tablet Take 1 tablet by mouth twice daily. DULoxetine (CYMBALTA) 60 mg capsule Take 2 capsules by mouth once daily. In AM temazepam (RESTORIL) 30 mg cap Take 1 capsule by mouth daily at bedtime. FAMILY HISTORY Problem Relation Age of Onset - Arthritis Mother - Arthritis Maternal Grandfather - Arthritis Sister - Arthritis Sister - Hypertension Sister - Diabetes Sister - Heart Sister mothers family history Social History Substance Use Topics - Smoking status: Former Smoker Packs/day: 0.50 Years: 20.00 Types: Cigarettes Quit date: 03/15/2014 - Smokeless tobacco: Never Used Comment: 08/17/13 Pt will have an occ cigarette. - Alcohol use Yes Comment: Rarely, 1 drink every few months PHYSICAL EXAM BP 136/78 Pulse 90 Temp 37 ?C (98.6 ?F) (Temporal Artery) Resp 16 Wt 117.5 kg (259 lb) LMP 11/30/2012 SpO2 98% BMI 39.67 kg/m? General Appearance: well appearing, in no acute distress, alert Skin: Large amount of ecchymosis extending across the right ilium down the lateral aspect of the right hip extending down to the posterior lateral thigh. Centralized swelling noted over the right gluteus, area is soft with mild to moderate tenderness Right lower Extremity: No deformities, edema, skin discoloration except as noted above, clubbing or cyanosis. Good capillary refill. DTAP,TDAP,TD(1 - Tdap) due on 1989 MAMMOGRAM due on 08/19/2018 DIABETES SCREEN due on 09/07/2020 LIPID SCREEN due on 09/07/2022 INFLUENZA Completed ASSESSMENT/PLAN: 1. Hematoma - ICD9: 924.9, ICD10: T14.8XXA (primary diagnosis) - No acute or concerning exam findings - Discussed typical self-limiting nature of a hematoma and when to seek medical attention - SEAT CUSHION - Recommend rest, ice and anti-inflammatories - Follow up in 2-3 weeks if no improvement, sooner if new or worsening symptoms- would consider surgical consult for possible hematoma evacuation 2. Coccyalgia - ICD9: 724.79, ICD10: M53.3 - TRAMADOL 50 MG TABLET - SEAT CUSHION Rayne Ludwig APRN.FLOOR SUPERVISOR Prescription instructions reviewed with patient as applicable. Potential red flag symptoms discussed with the patient. Reviewed appropriate action plan to take if red flag symptoms occur. Patient agreeable to treatment plan. CNOV Observed: 11/10/2017 Status: COMPLETED Source: [place] 3:00 PM [facility] REPOSITORY Office Visit (INTMWS) VIKKI BAUMANN ([id number]) 1970 F CHT Date Time Provider Department 11/10/17 3:00 PM RAYNE LUDWIG (FLOOR SUPERVISOR) INTMWS During your visit today, we recorded the following information about you: Temperature Pulse Respiration Blood pressure 98.6 degrees 90/minute 16/minute 136/78 Weight 117.5 kg Rayne Ludwig APRN.CNP 11/10/2017 4:06 PM Signed CC: Patient presents with: Recheck: R buttocks swollen and painful from fall HPI Vikki Baumann is a 47 year old female who presents today for follow up of right buttock pain and swelling after a fall. Patient reports having fallen ~ 1 week ago off a stepstool onto the edge of her concrete porch then landed on the ground. Patient was evaluated at [facility] on 11/02/17. CT was completed showing no fracture of the lumbar spin or pelvic bone, large hematoma of the subcutaneous soft tissue overlying the right gluteus felice muscle without extension into the muscle itself. Patient was discharged home and received prescription for Ultram from pain management doctor. Patient presents today with continued pain rated 7/10 up to 10/10 at times. Ambulation and climbing stairs aggravates pain. She notes some moderate swelling to the right buttock and is unable to sit upright, she favors the left side. Associated symptoms include tingling sensation to the right buttock with limited awareness to light touch. She is concerned today because as a child she injured her left knee where she developed a hematoma and 5 small clots that had to be surgically removed. REVIEW OF SYSTEMS General: no fevers, no chills, no night sweats, no recurrent infections, no change in appetite, no change in energy and no significant changes in weight Musculoskeletal: see HPI Skin: Positive for bruising and swelling as above Neurologic: No headache, weakness, numbness, neck stiffness, tremor, vertigo, dizziness, memory loss, syncope. PAST MEDICAL HISTORY Diagnosis Date - Benign heart murmur 09/01/2012 - Benign neoplasm of pituitary gland and craniopharyngeal duct (pouch) ([facility]) Dr. Duke following - Degeneration of intervertebral disc, site unspecified Drs. Boyce and Abhilash - Depressive disorder, not elsewhere classified - DM (diabetes mellitus) ([facility]) Dr. Duke - H/O blood clots all superficial - Heartburn - High blood pressure - Hypothyroidism - GAGANDEEP (obstructive sleep apnea) - Other and unspecified hyperlipidemia Dr. Leilani ventura - Schizoaffective disorder - Seizures (HCC) 2012 medication related - Spinal stenosis, unspecified region other than cervical Dr.s Wilburn - Unspecified epilepsy without mention of intractable epilepsy - Viral warts, unspecified PAST SURGICAL HISTORY Procedure Laterality Date - ANKLE LEFT OP SURGERY 06/19/2011 8 screws and metal plate removed left ankle - ARTHRO SHLDR DST CLAVICLECTMY 04/10/2014 Right shoulder arthroscopic rotator cuff repair with debridement - [facility] - EGD W/O OR W/BRUSH/WASH 09/05/13 EGD [facility] - EMBOLIZATION UTERINE FIBROID [id number] 1 removed each time - LEG DVT LEONEL UNL J3-5 1982 5 superficial blot clots in left leg - PAST SURGICAL HISTORY OF 12-24-11 bilateral breast reduction - SHLDR ARTHROSCOP,PART ACROMIOPLAS 01/31/2013 Right shoulder - TONSILLECTOMY HX 1992 - VAGINAL HYSTERECTOMY 01/05/2013 Hysterectomy, vaginal for dysmenorrhea ALLERGIES Codeine; Compazine [Prochlorperazine Edisylate]; Darvocet A500 [Propoxyphene N-Acetaminophen]; Tessalon [Benzonatate]; Vicodin [Hydrocodone-Acetaminophen] MEDICATIONS traMADol (ULTRAM) 50 mg tablet Take 1 tablet by mouth every 6 hours as needed for Pain for up to 7 days. cholecalciferol (VITAMIN D) 1,000 unit tab tablet Take 1 tablet by mouth once daily. amLODIPine (NORVASC) 5 mg tablet Take 1 tablet by mouth once daily. methocarbamol (ROBAXIN-750) 750 mg tablet Take 1 tablet by mouth three times daily. OXcarbazepine (TRILEPTAL) 300 mg tablet Takes (1) 600 mg tab in AM and (2) 600 mg tabs at bedtime QUEtiapine (SEROQUEL) 400 mg tablet Take 1 tablet by mouth daily at bedtime. with 100 mg pill QUEtiapine (SEROQUEL) 100 mg tablet Take 1 tablet by mouth daily at bedtime. with 400 mg dose pravastatin (PRAVACHOL) 20 mg tablet Take 1 tablet by mouth daily at bedtime. Lisinopril 30 mg tablet Take 1 tablet by mouth once daily. omeprazole (PRILOSEC) 20 mg capsule Take 1 capsule by mouth twice daily. clotrimazole-betamethasone (LOTRISONE) cream Apply 1 application to affected area twice daily. apply for 1-2 weeks, then discontinue busPIRone HCl 30 mg tablet Take 1 tablet by mouth twice daily. DULoxetine (CYMBALTA) 60 mg capsule Take 2 capsules by mouth once daily. In AM temazepam (RESTORIL) 30 mg cap Take 1 capsule by mouth daily at bedtime. FAMILY HISTORY Problem Relation Age of Onset - Arthritis Mother - Arthritis Maternal Grandfather - Arthritis Sister - Arthritis Sister - Hypertension Sister - Diabetes Sister - Heart Sister mothers family history Social History Substance Use Topics - Smoking status: Former Smoker Packs/day: 0.50 Years: 20.00 Types: Cigarettes Quit date: 03/15/2014 - Smokeless tobacco: Never Used Comment: 08/17/13 Pt will have an occ cigarette. - Alcohol use Yes Comment: Rarely, 1 drink every few months PHYSICAL EXAM BP 136/78 Pulse 90 Temp 37 ?C (98.6 ?F) (Temporal Artery) Resp 16 Wt 117.5 kg (259 lb) LMP 11/30/2012 SpO2 98% BMI 39.67 kg/m? General Appearance: well appearing, in no acute distress, alert Skin: Large amount of ecchymosis extending across the right ilium down the lateral aspect of the right hip extending down to the posterior lateral thigh. Centralized swelling noted over the right gluteus, area is soft with mild to moderate tenderness Right lower Extremity: No deformities, edema, skin discoloration except as noted above, clubbing or cyanosis. Good capillary refill. DTAP,TDAP,TD(1 - Tdap) due on 1989 MAMMOGRAM due on 08/19/2018 DIABETES SCREEN due on 09/07/2020 LIPID SCREEN due on 09/07/2022 INFLUENZA Completed ASSESSMENT/PLAN: 1. Hematoma - ICD9: 924.9, ICD10: T14.8XXA (primary diagnosis) - No acute or concerning exam findings - Discussed typical self-limiting nature of a hematoma and when to seek medical attention - SEAT CUSHION - Recommend rest, ice and anti-inflammatories - Follow up in 2-3 weeks if no improvement, sooner if new or worsening symptoms- would consider surgical consult for possible hematoma evacuation 2. Coccyalgia - ICD9: 724.79, ICD10: M53.3 - TRAMADOL 50 MG TABLET - SEAT CUSHION Rayne Ludwig APRN.CNP Prescription instructions reviewed with patient as applicable. Potential red flag symptoms discussed with the patient. Reviewed appropriate action plan to take if red flag symptoms occur. Patient agreeable to treatment plan. Referring Provider: SELF [[id number]] Allergies As of Date: 11/10/2017 Noted Allergy Reaction CODEINE 03/07/2010 8 - GI Upset COMPAZINE (PROCHLORPERAZINE EDISY*03/07/2010 DARVOCET A500 (PROPOXYPHENE N-SHERRY*03/07/2010 8 - GI Upset TESSALON (BENZONATATE) 04/16/2015 14 - Other: See Comments Comments: Heart palpitations VICODIN (HYDROCODONE-ACETAMINOPHE*03/07/2010 4 - Hives Comments: Also LORTAB Date Reviewed: 11/10/2017 Reviewed by: Kailee Weiss Ma - Fully Assessed Reason for Visit: Recheck [92] Cmt: R buttocks swollen and painful from fall Primary Visit Diagnosis:Hematoma [T14.8XXA] Comment:right gluteal Other Visit Diagnosis:Coccyalgia [M53.3] Order(s):traMADol (ULTRAM) 50 mg tabletTake 1 tablet by mouth every 6 hours as needed for Pain for up to 7 days.Disp: 24 tabletRfl: 0 SEAT CUSHION [[id number]] Order #: [id number] Prescriptions as of 11/10/2017 Sig: TRAMADOL 50 MG TABLET Take 1 tablet by mouth every * CHOLECALCIFEROL (VITAMIN D3) * Take 1 tablet by mouth once d* AMLODIPINE 5 MG TABLET Take 1 tablet by mouth once d* METHOCARBAMOL 750 MG TABLET Take 1 tablet by mouth three * OXCARBAZEPINE 300 MG TABLET Takes (1) 600 mg tab in AM an* QUETIAPINE 400 MG TABLET Take 1 tablet by mouth daily * QUETIAPINE 100 MG TABLET Take 1 tablet by mouth daily * PRAVASTATIN 20 MG TABLET Take 1 tablet by mouth daily * LISINOPRIL 30 MG TABLET Take 1 tablet by mouth once d* OMEPRAZOLE 20 MG CAPSULE,EARL* Take 1 capsule by mouth twice* CLOTRIMAZOLE-BETAMETHASONE 1 * Apply 1 application to affect* BUSPIRONE 30 MG TABLET Take 1 tablet by mouth twice * DULOXETINE 60 MG CAPSULE,EARL* Take 2 capsules by mouth once* TEMAZEPAM 30 MG CAPSULE Take 1 capsule by mouth daily* Problem List As Of Date 11/10/2017 Noted Resolved 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, 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] INVALID FOR* Dysmetabolic syndrome [E88.81] INVALID FOR* Depression [F32.9] INVALID FOR* Hypertrophy of breast [N62] INVALID FOR* Benign heart murmur INVALID FOR* Abnormal uterine bleeding [N93.9] INVALID FOR* Chronic RLQ pain [R10.31, G89.29] INVALID FOR* Dysmenorrhea [N94.6] INVALID FOR* Other affections of shoulder region, not elsewh*INVALID FOR* Rotator cuff tear [M75.100] INVALID FOR*02/28/2013 SHEFALI (iron deficiency anemia) [D50.9] INVALID FOR* Myofascial pain [M79.1] INVALID FOR* Neck pain [M54.2] INVALID FOR* Cervical disc displacement [M50.20] INVALID FOR* Pain in joint, shoulder region [M25.519] INVALID FOR* Cervical radiculitis [M54.12] INVALID FOR* Sacroiliac joint pain [M53.3] INVALID FOR* Buttock pain [M79.1] INVALID FOR*01/15/2015 Right buttock pain [M79.1] INVALID FOR* Headache [R51] INVALID FOR* Lower back pain [M54.5] INVALID FOR*09/10/2015 Chronic pain [G89.29] INVALID FOR*11/14/2015 Right-sided low back pain without sciatica [M54*INVALID FOR*11/14/2015 Hypothyroidism [E03.9] Non morbid obesity due to excess calories [E66.*INVALID FOR* Cervical arthritis (HCC) [M46.92] INVALID FOR* Chronic bilateral low back pain without sciatic*INVALID FOR* DDD (degenerative disc disease), cervical [M50.*INVALID FOR* SI (sacroiliac) joint dysfunction [M53.3] INVALID FOR* Schizoaffective disorder (HCC) [F25.9] INVALID FOR* Chronic SI joint pain [M53.3, G89.29] INVALID FOR* Vitamin D deficiency [E55.9] INVALID FOR* Prescriptions ordered this encounter Disp Refills Start End TRAMADOL 50 MG TABLET 24 t* 0 11/10/2017 11/17/2017 Class: Print RX Route: ORAL Sig: Take 1 tablet by mouth every 6 hours as needed for Pain for up to 7 days. Medications Discontinued During This Encounter traMADol (ULTRAM) 50 mg tablet 24 t* 0 11/03/2017 11/10/2017 Class: Call Rx Route: ORAL Sig: Take 1 tablet by mouth every 6 hours as needed for Pain for up to 7 days. Disc: Reason for discontinue is not on file. Encounter Status:Closed by RAYNE LUDWIG CNP on 11/10/17 CT PELVIS WITHOUT Observed: 11/02/2017 Status: F Source: [employer] CONTR[facility] 3:54 PM [facility] ([place]) REPOSITORY CLINICAL HISTORY: Fell on 11/01/2017, hit backside on concrete step; pain, swelling to the right buttock. EXAMINATION: Unenhanced CT scan of the pelvis: 11/02/2017. COMPARISON: CT abdomen and pelvis 07/28/2017 from [facility]. TECHNIQUE: 5 mm axial images from midportion of L3 through proximal femora without intravenous contrast were obtained. Sagittal, coronal reconstructions were performed. Dose reduction techniques were achieved by using automated exposure control and/or adjustment of mA and/or kV according to patient size and/or use of iterative reconstruction technique. FINDINGS: Images on bone windows demonstrate there are no fractures of the visualized L4, L5, sacrum, or the pelvic bones. The hip joints are normally seated. Soft tissue window images demonstrate the visualized portion of the liver are normal. The small and large bowel loops are normal. The bladder seems normal. The uterus is not seen. The ovaries appear normal. There is no pelvic adenopathy. There is a large hematoma overlying the right gluteus felice muscle which in its widest dimension measures approximately 4.7 cm in AP, 14.5 cm in transverse dimension, and approximately 14.3 cm in craniocaudal dimension with average Hounsfield units of approximately 41. There is some induration of surrounding fat. This extends to the underlying muscles but not into the muscle. There is some mass effect on the right gluteus felice muscle. The remaining soft tissues are normal. IMPRESSION: 1. No fractures of the visualized lower lumbar spine or the pelvic bones. 2. Large hematoma in the subcutaneous soft tissues overlying the right gluteus felice muscle without extension into the muscle itself however there is some mass effect on the right gluteus felice muscle. There is some induration of surrounding fat. SR-CT PELVIS WITHOUT Observed: 11/02/2017 Status: F Source: [employer] [facility] [place] 12:00 AM [facility] REPOSITORY Images were obtained outside of [facility] [id number] XR PELVIS AP ONLY Observed: 11/01/2017 Status: F Source: [employer] 4:33 PM [facility] ([place] REPOSITORY PELVIS COMPARISON: None. CLINICAL HISTORY: Fall. FINDINGS: Single AP view of the pelvis was obtained. There is no evidence of fracture or dislocation. Joint spaces are maintained. No pathologic calcifications. No radiopaque foreign bodies. IMPRESSION: No acute abnormality in the pelvis. XR SPINE LUMBOSACRAL 5 Observed: 11/01/2017 Status: F Source: [employer] 4:33 PM [facility] [place] REPOSITORY EXAMINATION: XR SPINE LUMBOSACRAL 5 VIEWS [id number] CLINICAL HISTORY: 47-year-old female with history of pain. FINDINGS/IMPRESSION: COMPARISON: None available. No fracture or listhesis of the lumbar spine. Facet arthrosis seen most pronounced at L5-S1. No definite spondylolysis. Symmetric appearance of the SI joints. SR-XR SPINE LUMBOSACRAL Observed: 11/01/2017 Status: F Source: [employer] 5 VIEWS IMPORT 12:00 AM [facility] REPOSITORY Images were obtained outside of [facility] [id number] SR-XR PELVIS AP Observed: 11/01/2017 Status: F Source: [place] ONLY IMPORT 12:00 AM [facility] REPOSITORY Images were obtained outside of [facility] [id number] PT ED Observed: 10/14/2017 Status: COMPLETED Source: [place] 11:36 AM [facility] OTHER CAMPUS REPOSITORY HNO ID: [id number] Author: Laureen Strickland (Rn), RN Service: (none) Author Type: Registered Nurse Type: Patient Education Filed: 10/14/2017 11:37 AM Note Text: POST OP LEARNING RESPONSE INSTRUCTION PROVIDED TO: Patient METHOD OF INSTRUCTION: Written instruction - handouts Verbal instruction PATIENT / FAMILY RESPONSE: Verbalizes understanding of: POST-PROCEDURE INSTRUCTIONS-Correct actions to take to reduce post procedure complications FOLLOW-UP PLAN: Complete - No need for follow-up Patient instructed to call with any further issues SUPPLEMENTAL MATERIAL: None REFERRAL (RECOMMENDATION): None Electronically Signed By: Laureen Strickland RN In Department: [facility] SURGERY XR FLUOROSCOPY Observed: 10/14/2017 Status: F Source: [place] 11:30 AM [facility] REPOSITORY * * *Final Report* * * DATE OF EXAM: Oct 14 2017 11:30AM MDR [id number] - XR FLUOROSCOPY / PROCEDURE REASON: RIGHT SACROILIAC NERVE COOLED RFA FOR PAIN * * * * Physician Interpretation * * * * INDICATION: Pain management TECHNIQUE: 4 fluoroscopic spot images were submitted. FLUOROSCOPY TIME: 0:35 FINDINGS/ IMPRESSION: Multiple needles overlie the right sacrum. Refer to the procedure note for details regarding this procedure. Director Check: ALYSON Transcribe Date/Time: Oct 14 2017 3:51P Dictated by : DENNIS CHAIDEZ MD This examination was interpreted and the report reviewed and electronically signed by: DENNIS CHAIDEZ MD on Oct 14 2017 3:51PM EST [id number] OPERATIVE NO Observed: 10/14/2017 Status: COMPLETED Source: [place] 11:29 AM [facility] [place] [facility] REPOSITORY HNO ID: [id number] Author: Camden Boyce Service: Pain Management Author Type: Physician Type: Operative Report Filed: 10/14/2017 11:31 AM Note Text: PATIENT NAME: Vikki Baumann SERVICE DATE: 10/14/2017 PREOPERATIVE DIAGNOSIS(ES) SI joint dysfunction SI joint pain History of positive diagnostic SI joint injections POSTOPERATIVE DIAGNOSIS(ES): same OPERATION: Cooled RFA of right SI joint under fluoroscopy. ANESTHESIA: Versed 4mg, Fentanyl 100mcg IV INDICATIONS: The patient had positive diagnostic SI joint injections. The pain overall has improved by greater than 60% and the patient reports an increase in physical activity. Recommend cooled radiofrequency ablation (RFA) of right SI joint. The lesion will be made at L5-S1(inferior brach), and along the S1, and S2 levels. The risks and benefits of the procedure were discussed. Specifically, the risks of bleeding, infection, inadvertent dural puncture, spinal heaches, vasovagal reaction, epidural hematoma, partial or permanent nerve injury were covered. The potential side effects of medications used in procedures including increase in lumbar pain, headaches, facial redness or warmth (flushing), anxiety or mood swings, sleeplessness, fever, high blood sugar, brief reduction in immunity were discussed. The patient expressed understanding of potential risks and wishes to proceed with the procedure. PROCEDURE: Cooled Radiofrequency Ablation of right SI joint. DESCRIPTION OF PROCEDURE: The patient was brought to the fluoroscopy suite. IV access was obtained prior to the procedure. The patient was positioned prone on the fluoroscopy table. Continuous hemodynamic monitoring was initiated including blood pressure and pulse oximetry. IV sedation was administered incrementally to allow the patient to remain comfortable and conversant throughout the procedure. The area of the right SI joint was prepped with povidone-iodine solution and draped into a sterile field. Fluoroscopy was used to identify the location of the L5-S1 (inferior branch over the Sacral ala), S1, and S2 foramen. Skin anesthesia was achieved using 3 cc of Marcaine 0.25% over the injection sites just under the skin. A 20 gauge, 50mm (5mm active tip) RF needle was slowly inserted at each level using AP, lateral and oblique fluoroscopic imaging. The needles were placed over the (L5- S1) sacral ala, S1, and S2 foramen. At each of the foramen, 2 needles were placed over the 2' o clock, 4' o clock Positions at S1 foramen and subsequently at 3'o clock position at S2, and S3 foramen. A total of 6 needles were placed and positioned. Negative aspiration for blood or CSF was confirmed. Motor stimulation at 2Hz up to 1.5V did not cause any radicular symptoms at any level. Each level was anesthetized with 1.5 cc of lidocaine 1%. Radiofrequency lesioning was performed for 2min 30 seconds at 60 degrees at each needles. At each level, 1ml of 0.25% of marcaine with 5 mg of Kenalog was injected. The needles were removed and bleeding was nil. A sterile dressing was applied. Vikki Baumann was taken to the Post-block Recovery Area for further observation. EBL: nil Start time: 10:58 AM End time: 11:26 AM I was present the entire time and personally performed the procedure. SIGNATURE: Camden Boyce MD DATE: October 14, 2017 TIME: 11:30 AM HISTORY PHYSICAL Observed: 10/14/2017 Status: COMPLETED Source: [place] 10:49 AM [facility] OTHER CAMPUS REPOSITORY O ID: [id number] Author: Camden Boyce Service: Pain Management Author Type: Physician Type: HANDP Filed: 10/14/2017 10:49 AM Note Text: HISTORY AND PHYSICAL EXAMINATION PATIENT NAME: Vikki Baumann DATE of SERVICE: 10/14/2017 Vikki Baumann is here for the pain mangement procedure. The patient presents with persistent pain complaints. Vikki Baumann denies any interval changes or new pain complaints or focal neurologic deficits. PAST MEDICAL HISTORY Diagnosis Date - Benign heart murmur 09/01/2012 - Benign neoplasm of pituitary gland and craniopharyngeal duct (pouch) ([facility]) Dr. Leilani ventura - Degeneration of intervertebral disc, site unspecified Drs. Wilburn - Depressive disorder, not elsewhere classified - DM (diabetes mellitus) ([facility]) Dr. Duke - H/O blood clots all superficial - Heartburn - High blood pressure - Hypothyroidism - GAGANDEEP (obstructive sleep apnea) - Other and unspecified hyperlipidemia Dr. Leilani ventura - Schizoaffective disorder - Seizures ([facility]) 2012 medication related - Spinal stenosis, unspecified region other than cervical Dr.s Wilburn - Unspecified epilepsy without mention of intractable epilepsy - Viral warts, unspecified PAST SURGICAL HISTORY Procedure Laterality Date - ANKLE LEFT OP SURGERY 06/19/2011 8 screws and metal plate removed left ankle - ARTHRO SHLDR DST CLAVICLECTMY 04/10/2014 Right shoulder arthroscopic rotator cuff repair with debridement [facility] - EGD W/O OR W/BRUSH/WASH 09/05/13 EGD [facility] - EMBOLIZATION UTERINE FIBROID [id number] 1 removed each time - LEG DVT LEONEL UNL J3-5 1982 5 superficial blot clots in left leg - PAST SURGICAL HISTORY OF 12-24-11 bilateral breast reduction - SHLDR ARTHROSCOP,PART ACROMIOPLAS 01/31/2013 Right shoulder - TONSILLECTOMY HX 1992 - VAGINAL HYSTERECTOMY 01/05/2013 Hysterectomy, vaginal for dysmenorrhea Social History Marital status: Single Spouse name: Years of education: Number of children: 0 Occupational History Occupation Employer Comment DISABLED Social History Main Topics Smoking status: Former Smoker Packs/day: 0.50 Years: 20.00 Types: Cigarettes Quit date: 03/15/2014 Smokeless tobacco: Never Used Comment: 08/17/13 Pt will have an occ cigarette. Alcohol use: Yes Comment: Rarely, 1 drink every few months Drug use: No Sexual activity: Yes Partners with: Female FAMILY HISTORY Problem Relation Age of Onset - Arthritis Mother - Arthritis Maternal Grandfather - Arthritis Sister - Arthritis Sister - Hypertension Sister - Diabetes Sister - Heart Sister mothers family history ALLERGIES Allergen Reactions - Codeine GI Upset - Compazine [Prochlor* - Darvocet A500 [Prop* GI Upset - Tessalon [Benzonata* Other: See Comments Heart palpitations - Vicodin [Hydrocodon* Hives Also LORTAB Current Facility-Administered Medications: NaCl 0.9% iv infusion 30 mL/hr INTRAVENOUS CONTINUOUS Physical Exam: Performed in conjunction with observation. The patient is alert and oriented x3. The patient is in no acute distress. Neck: Supple. The range of motion is intact. Lungs: clear CVR: RRR. Extremities: no reported edema or erythema. Examination indicates no changes Impression: Chronic SI joint pain Plan: The informed consent has been obtained. The plan is to proceed with the procedure as planned. SIGNATURE: Camden Boyce MD DATE: October 14, 2017 TIME: 10:49 AM PT ED Observed: 10/14/2017 Status: COMPLETED Source: [place] 8:32 AM [facility] OTHER CAMPUS REPOSITORY HNO ID: [id number] Author: Tammy (Rn) TOMY Mendoza Service: Nursing Author Type: Registered Nurse Type: Patient Education Filed: 10/14/2017 8:32 AM Note Text: PRE OP LEARNING ASSESSMENT PROCEDURE/SURGERY: epidural radiofrequency ablation READINESS TO LEARN COGNITIVE ABILITY: Alert and oriented MOTIVATION TO LEARN: Interested FAMILY SUPPORT: Unable to assess - Family not present PATIENT LEARNS BEST BY: Verbal Instruction FACTORS AFFECTING LEARNING: None PHYSICAL LIMITATIONS AFFECTING LEARNING: None Electronically Signed By: Tammy Mendoza RN In Department: [facility] SURGERY CBC AND DIFFERENTIAL Collected: 10/08/2017 Status: F Source: [place] 11:56 AM [facility] REPOSITORY TYPE CODE TESTS RESULT OUT OF REFERENCE UNITS RANGE LAB WBC 3.70-11.00 k/uL WBC 8.37 LAB RBC 3.90-5.20 m/uL RBC 4.16 LAB HGB 11.5-15.5 g/dL Hemoglobin 12.0 LAB HCT 36.0-46.0 % Hematocrit 37.7 LAB MCV 80.0-100.0 fL MCV 90.6 LAB MCH 26.0-34.0 pG MCH 28.8 LAB MCHC 30.5-36.0 g/dL MCHC 31.8 LAB RDWCV 11.5-15.0 % RDW-CV 13.2 LAB PLTCT 150-400 k/uL Platelet Count 312 LAB MPV 9.0-12.7 fL MPV 10.3 LAB ANEUT % Neut% 59.4 LAB AANEUT 1.45-7.50 k/uL Abs Neut 4.98 LAB ALYMP % Lymph% 30.6 LAB AALYMP 1.00-4.00 k/uL Abs Lymph 2.56 LAB AMONO % [place]% 6.5 LAB AAMONO <0.87 k/uL Abs [place] 0.54 LAB AEOS % Eosin% 3.1 LAB AAEOS <0.46 k/uL Abs Eosin 0.26 LAB ABASO % Baso% 0.4 LAB AABASO <0.11 k/uL Abs Baso 0.03 LAB AUNRBC 0 /100 WBC NRBCs 0.0 LAB ABNRBC <0.01 k/uL Absolute nRBC <0.01 LAB DTYP DTYPE Auto Diff Performed By: #### CBCDIF, VITD #### [facility] [employer] [place] [id number] VITAMIN D 25 HYDROXY Collected: 10/08/2017 Status: F Source: [place] 11:56 AM [facility] REPOSITORY TYPE CODE TESTS RESULT OUT OF REFERENCE UNITS RANGE LAB VITD 31.0-80.0 ng/mL Low Vitamin D 25 13.8 Hydroxy Result Comment: Classification of 25 OH Vitamin D status: Insufficiency/Moderate Deficiency: < or = 30 ng/mL Sufficiency/Optimal Levels: 31 to 80 ng/mL Toxicity: > 100 ng/mL Test performed by chemiluminescent immunoassay. Performed By: #### CBCDIF, VITD #### [facility] [employer] [id number] CNOV Observed: 09/29/2017 Status: COMPLETED Source: [place] 9:10 AM [facility] REPOSITORY Office Visit (PNMDNA) VIKKI BAUMANN ([id number]) 1970 F CHT Date Time Provider Department 09/29/17 9:10 AM CAMDEN BOYCE During your visit today, we recorded the following information about you: Pulse Weight Height 91/minute 117.4 kg 1.721 m Mima Cotto APRN.FLOOR SUPERVISOR 09/29/2017 3:51 PM Signed [facility] NOTE DATE: September 29, 2017 Chief Complaint: chronic lower back SUBJECTIVE: Ms. Baumann presents [facility] the [facility] office for a follow up appointment regarding chronic lower back pain. She states that since the last visit symptoms have been worsening. The pain is located in the low back lumbar region and radiates down the posterior leg and down the posterior arm. The pain is described as burning, excruciating, radiating, severe and sharp and is rated as 4 on a scale of 0-10. The patient Reports tingling, morning stiffness and leg pain. Symptoms interfere with physical activity, sitting and lifting. The pain is exacerbated by sitting, standing, forward flexion, lifting and getting up from sitting. The pain is mitigated by medications, ice, Chiropractor and injections. The patient is overall improved with the injections by 60%. She is currently receiving medications through the [facility]. She is not having difficulty with her [facility] medications. The medications are partially effective. The patient states the last dose of . OTC NSAIDs was taken at September 28, 2017. REVIEW OF SYSTEMS: Constitutional: (-) Fever (-) Night Sweats (-) Weight Gain (-) Weight Loss (-) Fatigue Cardiovascular: (-) Chest Pain (-) Palpitations (-) Lightheadedness (-) Swelling of Ankles (-) Hx Heart Surgery Respiratory: (-) Shortness of Breath (-) Cough (-) Wheezing (-) Snoring Gastrointestinal: (-) Incontinence (-) Abdominal Pain (-) Diarrhea (-) Constipation (-) Nausea/Vomiting (-) Heart Burn Endocrine: (-) Thyroid Disorder (-) Diabetes Hematologic: (-) Prolonged Bleeding (-) Easy Bruising Genitourinary: (-) Incontinence (-) Frequency (-) Urinary Urgency Skin: (-) Rashes (-) Itching (-) Other Lesions Neurologic: (+) Headache (-) Double Vision (-) Confusion (-) Paralysis Psychiatric: (+) Depression (+) Anxiety (-) Delusions (+) Hallucinations (-) Personal History of Alcohol or Substance Abuse (-) Family History of Alcohol or Substance Abuse (+) Suicidal Thoughts PAST MEDICAL HISTORY Diagnosis Date - Benign heart murmur 09/01/2012 - Benign neoplasm of pituitary gland and craniopharyngeal duct (pouch) ([facility]) Dr. Leilani ventura - Degeneration of intervertebral disc, site unspecified Drs. Wilburn - Depressive disorder, not elsewhere classified - DM (diabetes mellitus) ([facility]) Dr. Duke - H/O blood clots all superficial - Heartburn - High blood pressure - Hypothyroidism - GAGANDEEP (obstructive sleep apnea) - Other and unspecified hyperlipidemia Dr. Leilani ventura - Schizoaffective disorder - Seizures ([facility]) 2012 medication related - Spinal stenosis, unspecified region other than cervical Dr.s Wilburn - Unspecified epilepsy without mention of intractable epilepsy - Viral warts, unspecified PAST SURGICAL HISTORY Procedure Laterality Date - ANKLE LEFT OP SURGERY 06/19/2011 8 screws and metal plate removed left ankle - ARTHRO SHLDR DST CLAVICLECTMY 04/10/2014 Right shoulder arthroscopic rotator cuff repair with debridement - COLONOSCOP W/ OR W/O [facility] SPEC 09/05/13 Colonoscopy [facility] - EGD W/O OR W/BRUSH/WASH 09/05/13 EGD [facility] - EMBOLIZATION UTERINE FIBROID [id number] 1 removed each time - LEG DVT LEONEL UNL J3-5 1981 5 superficial blot clots in left leg - PAST SURGICAL HISTORY OF 7--12 bilateral breast reduction - SHLDR ARTHROSCOP,PART ACROMIOPLAS 01/31/2013 Right shoulder - TONSILLECTOMY HX 1992 - VAGINAL HYSTERECTOMY 01/05/2013 Hysterectomy, vaginal for dysmenorrhea ALLERGIES Allergen Reactions - Codeine GI Upset - Compazine [Prochlor* - Darvocet A500 [Prop* GI Upset - Tessalon [Benzonata* Other: See Comments Heart palpitations - Vicodin [Hydrocodon* Hives Also LORTAB Current Outpatient Prescriptions: OXcarbazepine (TRILEPTAL) 300 mg tablet Takes (1) 600 mg tab in AM and (2) 600 mg tabs at bedtime QUEtiapine (SEROQUEL) 400 mg tablet Take 1 tablet by mouth daily at bedtime. with 100 mg pill QUEtiapine (SEROQUEL) 100 mg tablet Take 1 tablet by mouth daily at bedtime. with 400 mg dose pravastatin (PRAVACHOL) 20 mg tablet Take 1 tablet by mouth daily at bedtime. Lisinopril 30 mg tablet Take 1 tablet by mouth once daily. omeprazole (PRILOSEC) 20 mg capsule Take 1 capsule by mouth twice daily. fluocinolone (SYNALAR) 0.025 % ointment Apply 1 application to affected area as directed. BID x 4 weeks then QDAY x 4 weeks then QOD x2 weeks then prn clotrimazole-betamethasone (LOTRISONE) cream Apply 1 application to affected area twice daily. apply for 1-2 weeks, then discontinue busPIRone HCl 30 mg tablet Take 1 tablet by mouth twice daily. DULoxetine (CYMBALTA) 60 mg capsule Take 2 capsules by mouth once daily. In AM temazepam (RESTORIL) 30 mg cap Take 1 capsule by mouth daily at bedtime. methocarbamol (ROBAXIN-750) 750 mg tablet Take 1 tablet by mouth three times daily. oxyCODONE-acetaminophen (PERCOCET) 5-325 mg tablet Take 1 tablet by mouth every 4 hours as needed for Pain for up to 7 days. No current facility-administered medications for this visit. I have reviewed the nurses notes and I am aware of the family/social history. Since the last evaluation the medical history has not changed. PHYSICAL EXAMINATION: Vitals: Pulse 91 Ht 5' 7.75ANDquot; (1.72m) Wt 258 lb 14.4 oz (117.4kg) SpO2 98% LMP 11/30/2012 BMI 39.65 kg/(m2). Performed in conjunction with observation. The patient is alert and oriented x3. The patient is in no acute distress. Station and Gait: Normal stance, normal gait. Lungs: normal respiratory rate and rhythm. Cardiovascular: regular rate. Neck: Supple. The range of motion is intact. Tenderness at cervical paraspinals Back: Range of motion of the trunk was generally intact. Spine: Right SI tenderness, positive right Ivett, positive pelvic thrust, positive [place] Extremities: no reported edema or erythema. Motor: Exhibits full strength in all four extremities. ASSESSMENT: Pt reports neck pain that radiates down the left UE. She experiences tingling that intermittently travels into the finger tips, denies weakness. He experiences HAs several times a week that are at the base of the skull and occipital region She had a C6-7 ASHANTI and reports 60% improvement for ANDgt;3 weeks. She would like to repeat. Pt reports right SI tenderness that radiates posterior to the calf. She has pins and needles and tingling in the toes. Her last right SI RFA was 08-10-16 and lasted for 14 months. Pain has now returned and she would like to repeat. She has been on baclofen and would like to switch back to Robaxin 750 mg She takes percocet 5/325 mg prn to help manage her pain Encounter Diagnosis ICD-10-CM 1. Cervical disc displacement M50.20 methocarbamol (ROBAXIN- 750) 750 mg tablet EPI CERV OR THORC W/IMAGING oxyCODONE-acetaminophen (PERCOCET) 5-325 mg tablet 2. Cervical radiculitis M54.12 EPI CERV OR THORC W/IMAGING oxyCODONE-acetaminophen (PERCOCET) 5-325 mg tablet 3. Cervical arthritis (HCC) M46.92 EPI CERV OR THORC W/IMAGING 4. DDD (degenerative disc disease), cervical M50.30 EPI CERV OR THORC W/IMAGING 5. Myofascial pain M79.1 methocarbamol (ROBAXIN-750) 750 mg tablet 6. Neck pain M54.2 methocarbamol (ROBAXIN-750) 750 mg tablet 7. Sacroiliac joint pain M53.3 NRV DESTR RFA, CHEM OTHER 8. Chronic SI joint pain M53.3 NRV DESTR RFA, CHEM OTHER G89.29 OARRS website checked and validated. All prescriptions have been APPROPRIATELY filled. No suspicious activity was identified.- 09/29/2017 by Becky Elias Ma Narcotic Agreement reviewed and signed?: N/A on September 29, 2017 The pain panel was N/A PLAN: Prior available imaging studies were reviewed. Findings were discussed. Injection history was reviewed. Medication use and compliance were reviewed. 1. Continue medication management through the [facility] 2. Stop baclofen and restart Robaxin Signed Prescriptions Disp Refills methocarbamol (ROBAXIN-750) 750 mg tablet 90 tablet 2 Sig: Take 1 tablet by mouth three times daily. BELKYS: No oxyCODONE-acetaminophen (PERCOCET) 5-325 mg tablet 28 tablet 0 Sig: Take 1 tablet by mouth every 4 hours as needed for Pain for up to 7 days. JR Class: C-II BELKYS: No 3. Interventional procedure options discussed. Ordered COOL right SI RFA. Ordered repeat C6-7 interlaminar ASHANTI 4. Encouraged daily cervical and SI stretching 5) F/U in 3 months The treatment plan was discussed with the patient during the office visit and they verbalized an understanding of it. Camden Boyce MD cc: Dr. Liz Nascimento MD cc: Camden Boyce MD [address] [facility] [facility] [id number] Results of consultation to be transmitted via electronic medical record for those providers who practice within [facility] or with access to [employer] via MD Connect, or via letter. Referring Provider: CAMDEN BOYCE [[id number]] Allergies As of Date: 09/29/2017 Noted Allergy Reaction CODEINE 03/07/2010 8 - GI Upset COMPAZINE (PROCHLORPERAZINE EDISY*03/07/2010 DARVOCET A500 (PROPOXYPHENE N-SHERRY*03/07/2010 8 - GI Upset TESSALON (BENZONATATE) 04/16/2015 14 - Other: See Comments Comments: Heart palpitations VICODIN (HYDROCODONE-ACETAMINOPHE*03/07/2010 4 - Hives Comments: Also LORTAB Date Reviewed: 09/29/2017 Reviewed by: Becky Elias Ma - Fully Assessed Reason for Visit: Established Patient [175] Cmt: Follow up after procedure Primary Visit Diagnosis:Cervical disc displacement [M50.20] Other Visit Diagnoses:Cervical radiculitis [M54.12] Cervical arthritis (HCC) [M46.92] DDD (degenerative disc disease), cervical [M50.30] Myofascial pain [M79.1] Neck pain [M54.2] Sacroiliac joint pain [M53.3] Chronic SI joint pain [M53.3, G89.29] Order(s):methocarbamol (ROBAXIN-750) 750 mg tabletTake 1 tablet by mouth three times daily.Disp: 90 tabletRfl: 2 NRV DESTR RFA, CHEM OTHER [[id number]] Order #: [id number] EPI CERV OR THORC W/IMAGING [[id number]] Order #: [id number] oxyCODONE-acetaminophen (PERCOCET) 5-325 mg tabletTake 1 tablet by mouth every 4 hours as needed for Pain for up to 7 days.Disp: 28 tabletRfl: 0 Prescriptions as of 09/29/2017 Sig: OXCARBAZEPINE 300 MG TABLET Takes (1) 600 mg tab in AM an* QUETIAPINE 400 MG TABLET Take 1 tablet by mouth daily * QUETIAPINE 100 MG TABLET Take 1 tablet by mouth daily * PRAVASTATIN 20 MG TABLET Take 1 tablet by mouth daily * LISINOPRIL 30 MG TABLET Take 1 tablet by mouth once d* OMEPRAZOLE 20 MG CAPSULE,EARL* Take 1 capsule by mouth twice* FLUOCINOLONE 0.025 % TOPICAL * Apply 1 application to affect* CLOTRIMAZOLE-BETAMETHASONE 1 * Apply 1 application to affect* BUSPIRONE 30 MG TABLET Take 1 tablet by mouth twice * DULOXETINE 60 MG CAPSULE,EARL* Take 2 capsules by mouth once* TEMAZEPAM 30 MG CAPSULE Take 1 capsule by mouth daily* METHOCARBAMOL 750 MG TABLET Take 1 tablet by mouth three * OXYCODONE-ACETAMINOPHEN 5 MG-* Take 1 tablet by mouth every * Problem List As Of Date 09/29/2017 Noted Resolved 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, 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] INVALID FOR* Dysmetabolic syndrome [E88.81] INVALID FOR* Depression [F32.9] INVALID FOR* Hypertrophy of breast [N62] INVALID FOR* Benign heart murmur INVALID FOR* Abnormal uterine bleeding [N93.9] INVALID FOR* Chronic RLQ pain [R10.31, G89.29] INVALID FOR* Dysmenorrhea [N94.6] INVALID FOR* Other affections of shoulder region, not elsewh*INVALID FOR* Rotator cuff tear [M75.100] INVALID FOR*02/28/2013 SHEFALI (iron deficiency anemia) [D50.9] INVALID FOR* Myofascial pain [M79.1] INVALID FOR* Neck pain [M54.2] INVALID FOR* Cervical disc displacement [M50.20] INVALID FOR* Pain in joint, shoulder region [M25.519] INVALID FOR* Cervical radiculitis [M54.12] INVALID FOR* Sacroiliac joint pain [M53.3] INVALID FOR* Buttock pain [M79.1] INVALID FOR*01/15/2015 Right buttock pain [M79.1] INVALID FOR* Headache [R51] INVALID FOR* Lower back pain [M54.5] INVALID FOR*09/10/2015 Chronic pain [G89.29] INVALID FOR*11/14/2015 Right-sided low back pain without sciatica [M54*INVALID FOR*11/14/2015 Hypothyroidism [E03.9] Non morbid obesity due to excess calories [E66.*INVALID FOR* Cervical arthritis (HCC) [M46.92] INVALID FOR* Chronic bilateral low back pain without sciatic*INVALID FOR* DDD (degenerative disc disease), cervical [M50.*INVALID FOR* SI (sacroiliac) joint dysfunction [M53.3] INVALID FOR* Schizoaffective disorder (HCC) [F25.9] INVALID FOR* Chronic SI joint pain [M53.3, G89.29] INVALID FOR* Vitamin D deficiency [E55.9] INVALID FOR* Prescriptions ordered this encounter Disp Refills Start End METHOCARBAMOL 750 MG TABLET 90 t* 2 09/29/2017 Route: ORAL Sig: Take 1 tablet by mouth three times daily. OXYCODONE-ACETAMINOPHEN 5 MG-325 MG * 28 t* 0 09/29/2017 10/06/2017 Class: Print RX Route: ORAL Sig: Take 1 tablet by mouth every 4 hours as needed for Pain for up to 7 days. Medications Discontinued During This Encounter oxyCODONE-acetaminophen (PERCOCET) 5* 28 t* 0 08/03/2017 09/29/2017 Class: Print RX Route: ORAL Sig: Take 1 tablet by mouth every 4 hours as needed for Pain for up to 7 days. Disc: Reason for discontinue is not on file. Encounter Status:Closed by CAMDEN BOYCE MD on 09/29/17 PROGRESS Observed: 09/29/2017 Status: COMPLETED Source: [place] 8:31 AM [facility] [place] REPOSITORY HNO ID: [id number] Author: Mima Stratton (Chief Orthoptist) Yadiel Service: (none) Author Type: Nurse Practitioner Type: Progress Notes Filed: 09/29/2017 3:51 PM Note Text: [facility] NOTE DATE: September 29, 2017 Chief Complaint: chronic lower back SUBJECTIVE: Ms. Baumann presents to the [facility] office for a follow up appointment regarding chronic lower back pain. She states that since the last visit symptoms have been worsening. The pain is located in the low back lumbar region and radiates down the posterior leg and down the posterior arm. The pain is described as burning, excruciating, radiating, severe and sharp and is rated as 4 on a scale of 0-10. The patient Reports tingling, morning stiffness and leg pain. Symptoms interfere with physical activity, sitting and lifting. The pain is exacerbated by sitting, standing, forward flexion, lifting and getting up from sitting. The pain is mitigated by medications, ice, Chiropractor and injections. The patient is overall improved with the injections by 60%. She is currently receiving medications through the [facility]. She is not having difficulty with her [facility] medications. The medications are partially effective. The patient states the last dose of . OTC NSAIDs was taken at September 28, 2017. REVIEW OF SYSTEMS: Constitutional: (-) Fever (-) Night Sweats (-) Weight Gain (-) Weight Loss (-) Fatigue Cardiovascular: (-) Chest Pain (-) Palpitations (-) Lightheadedness (-) Swelling of Ankles (-) Hx Heart Surgery Respiratory: (-) Shortness of Breath (-) Cough (-) Wheezing (-) Snoring Gastrointestinal: (-) Incontinence (-) Abdominal Pain (-) Diarrhea (-) Constipation (-) Nausea/Vomiting (-) Heart Burn Endocrine: (-) Thyroid Disorder (-) Diabetes Hematologic: (-) Prolonged Bleeding (-) Easy Bruising Genitourinary: (-) Incontinence (-) Frequency (-) Urinary Urgency Skin: (-) Rashes (-) Itching (-) Other Lesions Neurologic: (+) Headache (-) Double Vision (-) Confusion (-) Paralysis Psychiatric: (+) Depression (+) Anxiety (-) Delusions (+) Hallucinations (-) Personal History of Alcohol or Substance Abuse (-) Family History of Alcohol or Substance Abuse (+) Suicidal Thoughts PAST MEDICAL HISTORY Diagnosis Date - Benign heart murmur 09/01/2012 - Benign neoplasm of pituitary gland and craniopharyngeal duct (pouch) ([facility]) Dr. Leilani ventura - Degeneration of intervertebral disc, site unspecified Drs. Wilburn - Depressive disorder, not elsewhere classified - DM (diabetes mellitus) ([facility]) Dr. Duke - H/O blood clots all superficial - Heartburn - High blood pressure - Hypothyroidism - GAGANDEEP (obstructive sleep apnea) - Other and unspecified hyperlipidemia Dr. Leilani ventura - Schizoaffective disorder - Seizures ([facility]) 2012 medication related - Spinal stenosis, unspecified region other than cervical Dr.s Wilburn - Unspecified epilepsy without mention of intractable epilepsy - Viral warts, unspecified PAST SURGICAL HISTORY Procedure Laterality Date - ANKLE LEFT OP SURGERY 06/19/2011 8 screws and metal plate removed left ankle - ARTHRO SHLDR DST CLAVICLECTMY 04/10/2014 Right shoulder arthroscopic rotator cuff repair with debridement - COLONOSCOP W/ OR W/O BRSH SPEC 09/05/13 [facility]oscopy [facility] - EGD W/O OR W/BRUSH/WASH 09/05/13 EGD [facility] - EMBOLIZATION UTERINE FIBROID [id number] 1 removed each time - LEG DVT LEONEL UNL J3-5 1981 5 superficial blot clots in left leg - PAST SURGICAL HISTORY OF 7-05-25 bilateral breast reduction - SHLDR ARTHROSCOP,PART ACROMIOPLAS 01/31/2013 Right shoulder - TONSILLECTOMY HX 1992 - VAGINAL HYSTERECTOMY 01/05/2013 Hysterectomy, vaginal for dysmenorrhea ALLERGIES Allergen Reactions - Codeine GI Upset - Compazine [Prochlor* - Darvocet A500 [Prop* GI Upset - Tessalon [Benzonata* Other: See Comments Heart palpitations - Vicodin [Hydrocodon* Hives Also LORTAB Current Outpatient Prescriptions: OXcarbazepine (TRILEPTAL) 300 mg tablet Takes (1) 600 mg tab in AM and (2) 600 mg tabs at bedtime QUEtiapine (SEROQUEL) 400 mg tablet Take 1 tablet by mouth daily at bedtime. with 100 mg pill QUEtiapine (SEROQUEL) 100 mg tablet Take 1 tablet by mouth daily at bedtime. with 400 mg dose pravastatin (PRAVACHOL) 20 mg tablet Take 1 tablet by mouth daily at bedtime. Lisinopril 30 mg tablet Take 1 tablet by mouth once daily. omeprazole (PRILOSEC) 20 mg capsule Take 1 capsule by mouth twice daily. fluocinolone (SYNALAR) 0.025 % ointment Apply 1 application to affected area as directed. BID x 4 weeks then QDAY x 4 weeks then QOD x2 weeks then prn clotrimazole-betamethasone (LOTRISONE) cream Apply 1 application to affected area twice daily. apply for 1-2 weeks, then discontinue busPIRone HCl 30 mg tablet Take 1 tablet by mouth twice daily. DULoxetine (CYMBALTA) 60 mg capsule Take 2 capsules by mouth once daily. In AM temazepam (RESTORIL) 30 mg cap Take 1 capsule by mouth daily at bedtime. methocarbamol (ROBAXIN-750) 750 mg tablet Take 1 tablet by mouth three times daily. oxyCODONE-acetaminophen (PERCOCET) 5-325 mg tablet Take 1 tablet by mouth every 4 hours as needed for Pain for up to 7 days. No current facility-administered medications for this visit. I have reviewed the nurses notes and I am aware of the family/social history. Since the last evaluation the medical history has not changed. PHYSICAL EXAMINATION: Vitals: Pulse 91 Ht 5' 7.75 (1.72m) Wt 258 lb 14.4 oz (117.4kg) SpO2 98% LMP 11/30/2012 BMI 39.65 kg/(m2). Performed in conjunction with observation. The patient is alert and oriented x3. The patient is in no acute distress. Station and Gait: Normal stance, normal gait. Lungs: normal respiratory rate and rhythm. Cardiovascular: regular rate. Neck: Supple. The range of motion is intact. Tenderness at cervical paraspinals Back: Range of motion of the trunk was generally intact. Spine: Right SI tenderness, positive right Ivett, positive pelvic thrust, positive Gaenslan Extremities: no reported edema or erythema. Motor: Exhibits full strength in all four extremities. ASSESSMENT: Pt reports neck pain that radiates down the left UE. She experiences tingling that intermittently travels into the finger tips, denies weakness. He experiences HAs several times a week that are at the base of the skull and occipital region She had a C6-7 ASHANTI and reports 60% improvement for >3 weeks. She would like to repeat. Pt reports right SI tenderness that radiates posterior to the calf. She has pins and needles and tingling in the toes. Her last right SI RFA was 08-10-16 and lasted for 14 months. Pain has now returned and she would like to repeat. She has been on baclofen and would like to switch back to Robaxin 750 mg She takes percocet 5/325 mg prn to help manage her pain Encounter Diagnosis ICD-10-CM 1. Cervical disc displacement M50.20 methocarbamol (ROBAXIN- 750) 750 mg tablet EPI CERV OR THORC W/IMAGING oxyCODONE-acetaminophen (PERCOCET) 5-325 mg tablet 2. Cervical radiculitis M54.12 EPI CERV OR THORC W/IMAGING oxyCODONE-acetaminophen (PERCOCET) 5-325 mg tablet 3. Cervical arthritis (HCC) M46.92 EPI CERV OR THORC W/IMAGING 4. DDD (degenerative disc disease), cervical M50.30 EPI CERV OR THORC W/IMAGING 5. Myofascial pain M79.1 methocarbamol (ROBAXIN-750) 750 mg tablet 6. Neck pain M54.2 methocarbamol (ROBAXIN-750) 750 mg tablet 7. Sacroiliac joint pain M53.3 NRV DESTR RFA, CHEM OTHER 8. Chronic SI joint pain M53.3 NRV DESTR RFA, CHEM OTHER G89.29 OARRS website checked and validated. All prescriptions have been APPROPRIATELY filled. No suspicious activity was identified.- 09/29/2017 by Becky Elias Ma Narcotic Agreement reviewed and signed?: N/A on September 29, 2017 The pain panel was N/A PLAN: Prior available imaging studies were reviewed. Findings were discussed. Injection history was reviewed. Medication use and compliance were reviewed. 1. [facility] 2. Stop baclofen and restart Robaxin Signed Prescriptions Disp Refills methocarbamol (ROBAXIN-750) 750 mg tablet 90 tablet 2 Sig: Take 1 tablet by mouth three times daily. BELKYS: No oxyCODONE-acetaminophen (PERCOCET) 5-325 mg tablet 28 tablet 0 Sig: Take 1 tablet by mouth every 4 hours as needed for Pain for up to 7 days. JR Class: C-II BELKYS: No 3. Interventional procedure options discussed. Ordered COOL right SI RFA. Ordered repeat C6-7 interlaminar ASHANTI 4. Encouraged daily cervical and SI stretching 5) F/U in 3 months The treatment plan was discussed with the patient during the office visit and they verbalized an understanding of it. Camden Boyce MD cc: Dr. Liz Nascimento MD cc: Camden Boyce MD [address] [place] [address]#[id number] [facility] [id number] Results of consultation to be transmitted via electronic medical record for those providers who practice within [facility] or with access to [employer] via MD Connect, or via letter. HOSP Observed: 09/29/2017 Status: COMPLETED Source: [facility] [place] 12:00 AM CLINIC OTHER CAMPUS REPOSITORY Patient:Vikki Baumann MRN: <[id number]> Height:5' 7.75(1.721 m) Weight:258 lb (117.028 kg) Outpatient Medications as of 10/14/17: oxycodone HCl/acetaminophen (PERCOCET ORAL) methocarbamol (ROBAXIN-750) 750 mg tablet OXcarbazepine (TRILEPTAL) 300 mg tablet QUEtiapine (SEROQUEL) 400 mg tablet QUEtiapine (SEROQUEL) 100 mg tablet pravastatin (PRAVACHOL) 20 mg tablet Lisinopril 30 mg tablet omeprazole (PRILOSEC) 20 mg capsule clotrimazole-betamethasone (LOTRISONE) cream busPIRone HCl 30 mg tablet DULoxetine (CYMBALTA) 60 mg capsule temazepam (RESTORIL) 30 mg cap Admission/Clinic Administered Medications as of 10/14/17: NaCl 0.9% iv infusion Problem List: 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, 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] Dysmetabolic syndrome [E88.81] Depression [F32.9] Hypertrophy of breast [N62] Benign heart murmur [] Abnormal uterine bleeding [N93.9] Chronic RLQ pain [R10.31, G89.29] Dysmenorrhea [N94.6] Other affections of shoulder region, not elsewhere classified [M75.80] SHEFALI (iron deficiency anemia) [D50.9] Myofascial pain [M79.1] Neck pain [M54.2] Cervical disc displacement [M50.20] Pain in joint, shoulder region [M25.519] Cervical radiculitis [M54.12] Sacroiliac joint pain [M53.3] Right buttock pain [M79.1] Headache [R51] Hypothyroidism [E03.9] Non morbid obesity due to excess calories [E66.09] Cervical arthritis (HCC) [M46.92] Chronic bilateral low back pain without sciatica [M54.5, G89.29] DDD (degenerative disc disease), cervical [M50.30] SI (sacroiliac) joint dysfunction [M53.3] Schizoaffective disorder (HCC) [F25.9] Chronic SI joint pain [M53.3, G89.29] Vitamin D deficiency [E55.9] Allergies: Codeine Compazine [Prochlorperazine Edisylate] Darvocet A500 [Propoxyphene N-Acetaminophen] Tessalon [Benzonatate] Vicodin [Hydrocodone-Acetaminophen] Date Verified: 10/14/17 Lab Values Lab Value Units Date High Low ZANA* 37.7 % 10/08/2017 46.0 36.0 Progress Notes ([facility]): Mima Cotto APRN.CNP 09/29/2017 3:51 PM Signed [facility] OFF[facility] NOTE DATE: September 29, 2017 Chief Complaint: chronic lower back SUBJECTIVE: Ms. Baumann presents to the [facility] ([facility]) office for a follow up appointment regarding chronic lower back pain. She states that since the last visit symptoms have been worsening. The pain is located in the low back lumbar region and radiates down the posterior leg and down the posterior arm. The pain is described as burning, excruciating, radiating, severe and sharp and is rated as 4 on a scale of 0-10. The patient Reports tingling, morning stiffness and leg pain. Symptoms interfere with physical activity, sitting and lifting. The pain is exacerbated by sitting, standing, forward flexion, lifting and getting up from sitting. The pain is mitigated by medications, ice, Chiropractor and injections. The patient is overall improved with the injections by 60%. She is currently receiving medications through the [facility]. She is not having difficulty with her [facility] medications. The medications are partially effective. The patient states the last dose of . OTC NSAIDs was taken at September 28, 2017. REVIEW OF SYSTEMS: Constitutional: (-) Fever (-) Night Sweats (-) Weight Gain (-) Weight Loss (-) Fatigue Cardiovascular: (-) Chest Pain (-) Palpitations (-) Lightheadedness (-) Swelling of Ankles (-) Hx Heart Surgery Respiratory: (-) Shortness of Breath (-) Cough (-) Wheezing (-) Snoring Gastrointestinal: (-) Incontinence (-) Abdominal Pain (-) Diarrhea (-) Constipation (-) Nausea/Vomiting (-) Heart Burn Endocrine: (-) Thyroid Disorder (-) Diabetes Hematologic: (-) Prolonged Bleeding (-) Easy Bruising Genitourinary: (-) Incontinence (-) Frequency (-) Urinary Urgency Skin: (-) Rashes (-) Itching (-) Other Lesions Neurologic: (+) Headache (-) Double Vision (-) Confusion (-) Paralysis Psychiatric: (+) Depression (+) Anxiety (-) Delusions (+) Hallucinations (-) Personal History of Alcohol or Substance Abuse (-) Family History of Alcohol or Substance Abuse (+) Suicidal Thoughts PAST MEDICAL HISTORY Diagnosis Date - Benign heart murmur 09/01/2012 - Benign neoplasm of pituitary gland and craniopharyngeal duct (pouch) ([facility]) Dr. Leilani ventura - Degeneration of intervertebral disc, site unspecified Drs. Wilburn - Depressive disorder, not elsewhere classified - DM (diabetes mellitus) ([facility]) Dr. Duke - H/O blood clots all superficial - Heartburn - High blood pressure - Hypothyroidism - GAGANDEEP (obstructive sleep apnea) - Other and unspecified hyperlipidemia Dr. Leilani ventura - Schizoaffective disorder - Seizures ([facility]) 2012 medication related - Spinal stenosis, unspecified region other than cervical Dr.s Wilburn - Unspecified epilepsy without mention of intractable epilepsy - Viral warts, unspecified PAST SURGICAL HISTORY Procedure Laterality Date - ANKLE LEFT OP SURGERY 06/19/2011 8 screws and metal plate removed left ankle - ARTHRO SHLDR DST CLAVICLECTMY 04/10/2014 Right shoulder arthroscopic rotator cuff repair with debridement - COLONOSCOP W/ OR W/O BRSH SPEC 09/05/13 [facility]oscopy [facility] - EGD W/O OR W/BRUSH/WASH 09/05/13 EGD [facility] - EMBOLIZATION UTERINE FIBROID [id number] 1 removed each time - LEG DVT LEONEL UNL J3-5 1982 5 superficial blot clots in left leg - PAST SURGICAL HISTORY OF 7--12 bilateral breast reduction - SHLDR ARTHROSCOP,PART ACROMIOPLAS 01/31/2013 Right shoulder - TONSILLECTOMY HX 1992 - VAGINAL HYSTERECTOMY 01/05/2013 Hysterectomy, vaginal for dysmenorrhea ALLERGIES Allergen Reactions - Codeine GI Upset - Compazine [Prochlor* - Darvocet A500 [Prop* GI Upset - Tessalon [Benzonata* Other: See Comments Heart palpitations - Vicodin [Hydrocodon* Hives Also LORTAB Current Outpatient Prescriptions: OXcarbazepine (TRILEPTAL) 300 mg tablet Takes (1) 600 mg tab in AM and (2) 600 mg tabs at bedtime QUEtiapine (SEROQUEL) 400 mg tablet Take 1 tablet by mouth daily at bedtime. with 100 mg pill QUEtiapine (SEROQUEL) 100 mg tablet Take 1 tablet by mouth daily at bedtime. with 400 mg dose pravastatin (PRAVACHOL) 20 mg tablet Take 1 tablet by mouth daily at bedtime. Lisinopril 30 mg tablet Take 1 tablet by mouth once daily. omeprazole (PRILOSEC) 20 mg capsule Take 1 capsule by mouth twice daily. fluocinolone (SYNALAR) 0.025 % ointment Apply 1 application to affected area as directed. BID x 4 weeks then QDAY x 4 weeks then QOD x2 weeks then prn clotrimazole-betamethasone (LOTRISONE) cream Apply 1 application to affected area twice daily. apply for 1-2 weeks, then discontinue busPIRone HCl 30 mg tablet Take 1 tablet by mouth twice daily. DULoxetine (CYMBALTA) 60 mg capsule Take 2 capsules by mouth once daily. In AM temazepam (RESTORIL) 30 mg cap Take 1 capsule by mouth daily at bedtime. methocarbamol (ROBAXIN-750) 750 mg tablet Take 1 tablet by mouth three times daily. oxyCODONE-acetaminophen (PERCOCET) 5-325 mg tablet Take 1 tablet by mouth every 4 hours as needed for Pain for up to 7 days. No current facility-administered medications for this visit. I have reviewed the nurses notes and I am aware of the family/social history. Since the last evaluation the medical history has not changed. PHYSICAL EXAMINATION: Vitals: Pulse 91 Ht 5' 7.75 (1.72m) Wt 258 lb 14.4 oz (117.4kg) SpO2 98% LMP 11/30/2012 BMI 39.65 kg/(m2). Performed in conjunction with observation. The patient is alert and oriented x3. The patient is in no acute distress. Station and Gait: Normal stance, normal gait. Lungs: normal respiratory rate and rhythm. Cardiovascular: regular rate. Neck: Supple. The range of motion is intact. Tenderness at cervical paraspinals Back: Range of motion of the trunk was generally intact. Spine: Right SI tenderness, positive right Ivett, positive pelvic thrust, positive Gaenslan Extremities: no reported edema or erythema. Motor: Exhibits full strength in all four extremities. ASSESSMENT: Pt reports neck pain that radiates down the left UE. She experiences tingling that intermittently travels into the finger tips, denies weakness. He experiences HAs several times a week that are at the base of the skull and occipital region She had a C6-7 ASHANTI and reports 60% improvement for >3 weeks. She would like to repeat. Pt reports right SI tenderness that radiates posterior to the calf. She has pins and needles and tingling in the toes. Her last right SI RFA was 08-10-16 and lasted for 14 months. Pain has now returned and she would like to repeat. She has been on baclofen and would like to switch back to Robaxin 750 mg She takes percocet 5/325 mg prn to help manage her pain Encounter Diagnosis ICD-10-CM 1. Cervical disc displacement M50.20 methocarbamol (ROBAXIN- 750) 750 mg tablet EPI CERV OR THORC W/IMAGING oxyCODONE-acetaminophen (PERCOCET) 5-325 mg tablet 2. Cervical radiculitis M54.12 EPI CERV OR THORC W/IMAGING oxyCODONE-acetaminophen (PERCOCET) 5-325 mg tablet 3. Cervical arthritis (HCC) M46.92 EPI CERV OR THORC W/IMAGING 4. DDD (degenerative disc disease), cervical M50.30 EPI CERV OR THORC W/IMAGING 5. Myofascial pain M79.1 methocarbamol (ROBAXIN-750) 750 mg tablet 6. Neck pain M54.2 methocarbamol (ROBAXIN-750) 750 mg tablet 7. Sacroiliac joint pain M53.3 NRV DESTR RFA, CHEM OTHER 8. Chronic SI joint pain M53.3 NRV DESTR RFA, CHEM OTHER G89.29 OARRS website checked and validated. All prescriptions have been APPROPRIATELY filled. No suspicious activity was identified.- 09/29/2017 by Becky Elias Ma Narcotic Agreement reviewed and signed?: N/A on September 29, 2017 The pain panel was N/A PLAN: Prior available imaging studies were reviewed. Findings were discussed. Injection history was reviewed. Medication use and compliance were reviewed. 1. Continue medication [facility] through the [facility] 2. Stop baclofen and restart Robaxin Signed Prescriptions Disp Refills methocarbamol (ROBAXIN-750) 750 mg tablet 90 tablet 2 Sig: Take 1 tablet by mouth three times daily. BELKYS: No oxyCODONE-acetaminophen (PERCOCET) 5-325 mg tablet 28 tablet 0 Sig: Take 1 tablet by mouth every 4 hours as needed for Pain for up to 7 days. JR Class: C-II BELKYS: No 3. Interventional procedure options discussed. Ordered COOL right SI RFA. Ordered repeat C6-7 interlaminar ASHANTI 4. Encouraged daily cervical and SI stretching 5) F/U in 3 months The treatment plan was discussed with the patient during the office visit and they verbalized an understanding of it. Camden Boyce MD cc: Dr. Liz Nascimento MD cc: Camden Boyce MD [address] [place] [address]#[id number] [facility] [id number] Results of consultation to be transmitted via electronic medical record for those providers who practice within [facility] or with access to [employer] via MD Connect, or via letter. Previous Version Progress Notes ([facility]): Liz Nascimento MD 09/16/2017 11:44 PM Signed Patient presents with: 6 mo f/up SUBJECTIVE: Vikki Baumann is a 47 year old year old lady here today for 6 month follow up appointment for review of medical conditions. Off Norvasc the past month after on for month after was in ER. Noted that SBP has been good without the Norvasc. DBP 80 to 90's. No symptoms of elevated BP. Noted [facility]. Gets 6 hours of takes Restoril with seroquel. PAST MEDICAL HISTORY Diagnosis Date - Benign heart murmur 09/01/2012 - Benign neoplasm of pituitary gland and craniopharyngeal duct (pouch) ([facility]) Dr. Leilani ventura - Degeneration of intervertebral disc, site unspecified Drs. Boyce and Abhilash - Depressive disorder, not elsewhere classified - DM (diabetes mellitus) ([facility]) Dr. Duke - H/O blood clots all superficial - Heartburn - High blood pressure - Hypothyroidism - GAGANDEEP (obstructive sleep apnea) - Other and unspecified hyperlipidemia Dr. Duke [facility] - Schizoaffective disorder - Seizures ([facility]) 2012 medication related - Spinal stenosis, unspecified region other than cervical Dr.s Wilburn - Unspecified epilepsy without mention of intractable epilepsy - Viral warts, unspecified Current Outpatient Prescriptions: OXcarbazepine (TRILEPTAL) 300 mg tablet Takes (1) 600 mg tab in AM and (2) 600 mg tabs at bedtime QUEtiapine (SEROQUEL) 400 mg tablet Take 1 tablet by mouth daily at bedtime. with 100 mg pill QUEtiapine (SEROQUEL) 100 mg tablet Take 1 tablet by mouth daily at bedtime. with 400 mg dose pravastatin (PRAVACHOL) 20 mg tablet Take 1 tablet by mouth daily at bedtime. Lisinopril 30 mg tablet Take 1 tablet by mouth once daily. omeprazole (PRILOSEC) 20 mg capsule Take 1 capsule by mouth twice daily. fluocinolone (SYNALAR) 0.025 % ointment Apply 1 application to affected area as directed. BID x 4 weeks then QDAY x 4 weeks then QOD x2 weeks then prn clotrimazole-betamethasone (LOTRISONE) cream Apply 1 application to affected area twice daily. apply for 1-2 weeks, then discontinue busPIRone HCl 30 mg tablet Take 1 tablet by mouth twice daily. DULoxetine (CYMBALTA) 60 mg capsule Take 2 capsules by mouth once daily. In AM temazepam (RESTORIL) 30 mg cap Take 1 capsule by mouth daily at bedtime. No current facility-administered medications for this visit. OBJECTIVE: BP 120/90 (BP Site: Left Arm, BP Position: Sitting, BP Cuff Size: Large Adult) Pulse 80 Resp 16 Wt 116.1 kg (256 lb) LMP 11/30/2012 BMI 39.21 kg/m2 Patient is alert, oriented times 3, no apparent distress, affect is bright, reactive. Last 5 Encounter BP Readings: Date: BP: 09/14/2017 120/90 08/19/2017 134/88 08/10/2017 128/74 07/15/2017 130/87 03/11/2017 126/80 Last 5 Encounter Wt Readings: Date: Wt: 09/14/2017 116.1 kg (256 lb) 08/10/2017 116.1 kg (256 lb) 06/15/2017 114.3 kg (252 lb) 03/11/2017 112.5 kg (248 lb) 02/24/2017 118.8 kg (262 lb) Heart: Regular rate, rhythm, no murmurs, gallops, rubs. Lungs: Clear to auscultation, bilaterally, breathing non labored. Ext: No cyanosis, clubbing, or edema. Component Latest Ref Rng AND Units 04/22/2016 06/30/2016 11/13/2016 02/22/2017 03/11/2017 08/10/2017 09/07/2017 WBC 3.70 - 11.00 k/uL 9.43 11.02 (H) RBC 3.90 - 5.20 m/uL 4.24 4.77 Hemoglobin 11.5 - 15.5 g/dL 12.4 13.6 Hematocrit 36.0 - 46.0 % 38.5 44.6 MCV 80.0 - 100.0 fL 90.8 93.5 MCH 26.0 - 34.0 pG 29.2 28.5 MCHC 30.5 - 36.0 g/dL 32.2 30.5 RDW-CV 11.5 - 15.0 % 14.1 12.8 Platelet Count 150 - 400 k/uL 348 348 MPV 9.0 - 12.7 fL 9.8 10.5 Neut% % 58.5 59.2 Abs Neut (ANC) 1.45 - 7.50 k/uL 5.52 6.52 Lymph% % 31.8 31.6 Abs Lymph 1.00 - 4.00 k/uL 3.00 3.48 [place]% % 6.4 6.0 Abs [place] <0.87 k/uL 0.60 0.66 Eosin% % 3.0 2.7 Abs Eosin <0.46 k/uL 0.28 0.30 Baso% % 0.3 0.5 Abs Baso <0.11 k/uL 0.03 0.06 Nucleated Reds 0 /100 WBC 0.1 (H) Absolute nRBC <0.01 k/uL 0.01 (H) Diff Type Auto Diff Auto Diff Protein, Total 6.3 - 8.0 g/dL 7.4 7.3 7.5 Albumin 3.9 - 4.9 g/dL 4.8 4.3 4.5 Calcium 8.5 - 10.2 mg/dL 9.1 9.0 9.7 Bilirubin, Total 0.2 - 1.3 mg/dL 0.3 0.2 0.2 Alkaline Phosphatase 32 - 117 U/L 115 104 108 AST 13 - 35 U/L 30 27 26 Glucose 74 - 99 mg/dL 99 135 (H) 79 BUN 7 - 21 mg/dL 11 15 12 Creatinine 0.58 - 0.96 mg/dL 0.63 0.61 0.65 Sodium 136 - 144 mmol/L 136 140 138 Potassium 3.7 - 5.1 mmol/L 4.4 4.9 4.4 Chloride 97 - 105 mmol/L 96 (L) 100 96 (L) CO2 22 - 30 mmol/L 21 (L) 27 26 Anion Gap 9 - 18 mmol/L 19 (H) 13 16 ALT 7 - 38 U/L 45 (H) 25 32 eGFR- >60 >60 >60 eGFR-All Other Races . >60 >60 >60 Triglyceride <150 mg/dL 342 (H) 300 (H) Cholesterol, Total <200 mg/dL 220 (H) 197 HDL Cholesterol >39 mg/dL 35 (L) 33 (L) VLDL Cholesterol <30 mg/dL 68 (H) 60 (H) LDL Cholesterol <100 mg/dL 117 104 (H) Fasting Time hrs 12 10 TC:HDL Ratio <5.10 6.29 (H) 5.97 (H) LDL:HDL Ratio <2.54 3.34 3.15 (H) Non HDL Cholesterol <130 mg/dL 185 (H) 164 (H) Hemoglobin A1C 4.3 - 5.6 % 6.0 (H) 6.3 (H) Estimated Average Glucose mg/dL 126 134 TSH 0.400 - 5.500 uU/mL 0.985 0.700 0.812 1.170 1.290 [facility] Specimen originated from [facility] . . . ASSESSMENT AND PLAN: Encounter Diagnosis ICD-10-CM 1. Acquired hypothyroidism E03.9 TSH BLD T4 FREE/FREE THYROX 2. Dysmetabolic syndrome E88.81 HGB A1C COMP METABOLIC PANEL 3. Chronic bilateral low back pain without sciatica M54.5 G89.29 4. Non morbid obesity due to excess calories E66.09 5. Encounter for long-term current use of medication Z79.899 HGB A1C COMP METABOLIC PANEL CBC TSH BLD T4 FREE/FREE THYROX CBC + DIFF 6. Vitamin D deficiency E55.9 VITAMIN D 25 HYDROXY 7. Abnormal CBC R79.89 CBC + DIFF 8. Depression, unspecified depression type F32.9 OXcarbazepine (TRILEPTAL) 300 mg tablet QUEtiapine (SEROQUEL) 400 mg tablet QUEtiapine (SEROQUEL) 100 mg tablet 9. Schizoaffective disorder, unspecified type (HCC) F25.9 OXcarbazepine (TRILEPTAL) 300 mg tablet QUEtiapine (SEROQUEL) 400 mg tablet QUEtiapine (SEROQUEL) 100 mg tablet Still prediabetic, not diabetic though HgA1C up to 6.3 and Lipids with higher TG still high and HDL<40. [facility] and meds being adjusted for depression and anxiety symptoms and history of shcizoaffective disorder. Tolerating very high doses of seroquel. Needs to help her maintain normal sleep pattern. Above issues addressed with patient. Patient involved in shared decision making for management of her medical issues. History and medications reviewed. Epic updated as needed Refills taken care of and meds adjusted as indicated after reviewed history, exam and labs. Health Maintenance reviewed. Updated record and/or ordered tests as recorded. Encouraged on efforts at healthy diet and regular exercise and adequate sleep. Needs to keep working on diet and exercise with lifestyle changes for effective weight loss. Weight still lower than last February though had gained some weight back. Hoping weight loss will help with chronic low back pain. Further evaluation and treatment as indicated. The majority of the visit was spent counseling and/or coordinating care for the patient. [id number]-vfvv time was at least 25 minutes. MD Liz Elias MD 09/14/2017 12:44 PM Signed If DBP stays over 90, could resume generic Norvasc at 2.5 mg daily. Just let me know. PROGRESS Observed: 09/14/2017 Status: COMPLETED Source: [place] 12:31 PM [facility] REPOSITORY HNO ID: [id number] Author: Liz Nascimento Service: (none) Author Type: Physician Type: Progress Notes Filed: 09/16/2017 11:44 PM Note Text: Patient presents with: 6 mo f/up SUBJECTIVE: Vikki Baumann is a 47 year old year old lady here today for 6 month follow up appointment for review of medical conditions. Off Norvasc the past month after on for month after was in ER. Noted that SBP has been good without the Norvasc. DBP 80 to 90's. No symptoms of elevated BP. Noted med adjustments [facility]. Gets 6 hours of takes Restoril with seroquel. PAST MEDICAL HISTORY Diagnosis Date - Benign heart murmur 09/01/2012 - Benign neoplasm of pituitary gland and craniopharyngeal duct (pouch) ([facility]) Dr. Leilani ventura - Degeneration of intervertebral disc, site unspecified Drs. Wilburn - Depressive disorder, not elsewhere classified - DM (diabetes mellitus) ([facility]) Dr. Duke - H/O blood clots all superficial - Heartburn - High blood pressure - Hypothyroidism - GAGANDEEP (obstructive sleep apnea) - Other and unspecified hyperlipidemia Dr. Leilani ventura - Schizoaffective disorder - Seizures ([facility]) 2012 medication related - Spinal stenosis, unspecified region other than cervical Dr.s Wilburn - Unspecified epilepsy without mention of intractable epilepsy - Viral warts, unspecified Current Outpatient Prescriptions: OXcarbazepine (TRILEPTAL) 300 mg tablet Takes (1) 600 mg tab in AM and (2) 600 mg tabs at bedtime QUEtiapine (SEROQUEL) 400 mg tablet Take 1 tablet by mouth daily at bedtime. with 100 mg pill QUEtiapine (SEROQUEL) 100 mg tablet Take 1 tablet by mouth daily at bedtime. with 400 mg dose pravastatin (PRAVACHOL) 20 mg tablet Take 1 tablet by mouth daily at bedtime. Lisinopril 30 mg tablet Take 1 tablet by mouth once daily. omeprazole (PRILOSEC) 20 mg capsule Take 1 capsule by mouth twice daily. fluocinolone (SYNALAR) 0.025 % ointment Apply 1 application to affected area as directed. BID x 4 weeks then QDAY x 4 weeks then QOD x2 weeks then prn clotrimazole-betamethasone (LOTRISONE) cream Apply 1 application to affected area twice daily. apply for 1-2 weeks, then discontinue busPIRone HCl 30 mg tablet Take 1 tablet by mouth twice daily. DULoxetine (CYMBALTA) 60 mg capsule Take 2 capsules by mouth once daily. In AM temazepam (RESTORIL) 30 mg cap Take 1 capsule by mouth daily at bedtime. No current facility-administered medications for this visit. OBJECTIVE: BP 120/90 (BP Site: Left Arm, BP Position: Sitting, BP Cuff Size: Large Adult) Pulse 80 Resp 16 Wt 116.1 kg (256 lb) LMP 11/30/2012 BMI 39.21 kg/m2 Patient is alert, oriented times 3, no apparent distress, affect is bright, reactive. Last 5 Encounter BP Readings: Date: BP: 09/14/2017 120/90 08/19/2017 134/88 08/10/2017 128/74 07/15/2017 130/87 03/11/2017 126/80 Last 5 Encounter Wt Readings: Date: Wt: 09/14/2017 116.1 kg (256 lb) 08/10/2017 116.1 kg (256 lb) 06/15/2017 114.3 kg (252 lb) 03/11/2017 112.5 kg (248 lb) 02/24/2017 118.8 kg (262 lb) Heart: Regular rate, rhythm, no murmurs, gallops, rubs. Lungs: Clear to auscultation, bilaterally, breathing non labored. Ext: No cyanosis, clubbing, or edema. Component Latest Ref Rng AND Units 04/22/2016 06/30/2016 11/13/2016 02/22/2017 03/11/2017 08/10/2017 09/07/2017 WBC 3.70 - 11.00 k/uL 9.43 11.02 (H) RBC 3.90 - 5.20 m/uL 4.24 4.77 Hemoglobin 11.5 - 15.5 g/dL 12.4 13.6 Hematocrit 36.0 - 46.0 % 38.5 44.6 MCV 80.0 - 100.0 fL 90.8 93.5 MCH 26.0 - 34.0 pG 29.2 28.5 MCHC 30.5 - 36.0 g/dL 32.2 30.5 RDW-CV 11.5 - 15.0 % 14.1 12.8 Platelet Count 150 - 400 k/uL 348 348 MPV 9.0 - 12.7 fL 9.8 10.5 Neut% % 58.5 59.2 Abs Neut (ANC) 1.45 - 7.50 k/uL 5.52 6.52 Lymph% % 31.8 31.6 Abs Lymph 1.00 - 4.00 k/uL 3.00 3.48 [place]% % 6.4 6.0 Abs [place] <0.87 k/uL 0.60 0.66 Eosin% % 3.0 2.7 Abs Eosin <0.46 k/uL 0.28 0.30 Baso% % 0.3 0.5 Abs Baso <0.11 k/uL 0.03 0.06 Nucleated Reds 0 /100 WBC 0.1 (H) Absolute nRBC <0.01 k/uL 0.01 (H) Diff Type Auto Diff Auto Diff Protein, Total 6.3 - 8.0 g/dL 7.4 7.3 7.5 Albumin 3.9 - 4.9 g/dL 4.8 4.3 4.5 Calcium 8.5 - 10.2 mg/dL 9.1 9.0 9.7 Bilirubin, Total 0.2 - 1.3 mg/dL 0.3 0.2 0.2 Alkaline Phosphatase 32 - 117 U/L 115 104 108 AST 13 - 35 U/L 30 27 26 Glucose 74 - 99 mg/dL 99 135 (H) 79 BUN 7 - 21 mg/dL 11 15 12 Creatinine 0.58 - 0.96 mg/dL 0.63 0.61 0.65 Sodium 136 - 144 mmol/L 136 140 138 Potassium 3.7 - 5.1 mmol/L 4.4 4.9 4.4 Chloride 97 - 105 mmol/L 96 (L) 100 96 (L) CO2 22 - 30 mmol/L 21 (L) 27 26 Anion Gap 9 - 18 mmol/L 19 (H) 13 16 ALT 7 - 38 U/L 45 (H) 25 32 eGFR- >60 >60 >60 eGFR-All Other Races . >60 >60 >60 Triglyceride <150 mg/dL 342 (H) 300 (H) Cholesterol, Total <200 mg/dL 220 (H) 197 HDL Cholesterol >39 mg/dL 35 (L) 33 (L) VLDL Cholesterol <30 mg/dL 68 (H) 60 (H) LDL Cholesterol <100 mg/dL 117 104 (H) Fasting Time hrs 12 10 TC:HDL Ratio <5.10 6.29 (H) 5.97 (H) LDL:HDL Ratio <2.54 3.34 3.15 (H) Non HDL Cholesterol <130 mg/dL 185 (H) 164 (H) Hemoglobin A1C 4.3 - 5.6 % 6.0 (H) 6.3 (H) Estimated Average Glucose mg/dL 126 134 TSH 0.400 - 5.500 uU/mL 0.985 0.700 0.812 1.170 1.290 [facility] Specimen originated from [facility] . . . ASSESSMENT AND PLAN: Encounter Diagnosis ICD-10-CM 1. Acquired hypothyroidism E03.9 TSH BLD T4 FREE/FREE THYROX 2. Dysmetabolic syndrome E88.81 HGB A1C COMP METABOLIC PANEL 3. Chronic bilateral low back pain without sciatica M54.5 G89.29 4. Non morbid obesity due to excess calories E66.09 5. Encounter for long-term current use of medication Z79.899 HGB A1C COMP METABOLIC PANEL CBC TSH BLD T4 FREE/FREE THYROX CBC + DIFF 6. Vitamin D deficiency E55.9 VITAMIN D 25 HYDROXY 7. Abnormal CBC R79.89 CBC + DIFF 8. Depression, unspecified depression type F32.9 OXcarbazepine (TRILEPTAL) 300 mg tablet QUEtiapine (SEROQUEL) 400 mg tablet QUEtiapine (SEROQUEL) 100 mg tablet 9. Schizoaffective disorder, unspecified type (HCC) F25.9 OXcarbazepine (TRILEPTAL) 300 mg tablet QUEtiapine (SEROQUEL) 400 mg tablet QUEtiapine (SEROQUEL) 100 mg tablet Still prediabetic, not diabetic though HgA1C up to 6.3 and Lipids with higher TG still high and HDL<40. Continues [facility] and meds being adjusted for depression and anxiety symptoms and history of shcizoaffective disorder. Tolerating very high doses of seroquel. Needs to help her maintain normal sleep pattern. Above issues addressed with patient. Patient involved in shared decision making for management of her medical issues. History and medications reviewed. Epic updated as needed Refills taken care of and meds adjusted as indicated after reviewed history, exam and labs. Health Maintenance reviewed. Updated record and/or ordered tests as recorded. Encouraged on efforts at healthy diet and regular exercise and adequate sleep. Needs to keep working on diet and exercise with lifestyle changes for effective weight loss. Weight still lower than last February though had gained some weight back. Hoping weight loss will help with chronic low back pain. Further evaluation and treatment as indicated. The majority of the visit was spent counseling and/or coordinating care for the patient. [id number] time was at least 25 minutes. 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 Off Norvasc the past month after on for month after was in ER. Noted that SBP has been good without the Norvasc. DBP 80 to 90's. No symptoms of elevated BP. Noted [facility]. Gets 6 hours of takes Restoril with seroquel. PAST MEDICAL HISTORY Diagnosis Date - Benign heart murmur 09/01/2012 - Benign neoplasm of pituitary gland and craniopharyngeal duct (pouch) ([facility]) Dr. Duke following - Degeneration of intervertebral disc, site unspecified Drs. Boyce and Abhilash - Depressive disorder, not elsewhere classified - DM (diabetes mellitus) ([facility]) Dr. Duke - H/O blood clots all superficial - Heartburn - High blood pressure - Hypothyroidism - GAGANDEEP (obstructive sleep apnea) - Other and unspecified hyperlipidemia Dr. Leilani ventura - Schizoaffective disorder - Seizures (HCC) 2012 medication related - Spinal stenosis, unspecified region other than cervical Dr.s Wilburn - Unspecified epilepsy without mention of intractable epilepsy - Viral warts, unspecified Current Outpatient Prescriptions: OXcarbazepine (TRILEPTAL) 300 mg tablet Takes (1) 600 mg tab in AM and (2) 600 mg tabs at bedtime QUEtiapine (SEROQUEL) 400 mg tablet Take 1 tablet by mouth daily at bedtime. with 100 mg pill QUEtiapine (SEROQUEL) 100 mg tablet Take 1 tablet by mouth daily at bedtime. with 400 mg dose pravastatin (PRAVACHOL) 20 mg tablet Take 1 tablet by mouth daily at bedtime. Lisinopril 30 mg tablet Take 1 tablet by mouth once daily. omeprazole (PRILOSEC) 20 mg capsule Take 1 capsule by mouth twice daily. fluocinolone (SYNALAR) 0.025 % ointment Apply 1 application to affected area as directed. BID x 4 weeks then QDAY x 4 weeks then QOD x2 weeks then prn clotrimazole-betamethasone (LOTRISONE) cream Apply 1 application to affected area twice daily. apply for 1-2 weeks, then discontinue busPIRone HCl 30 mg tablet Take 1 tablet by mouth twice daily. DULoxetine (CYMBALTA) 60 mg capsule Take 2 capsules by mouth once daily. In AM temazepam (RESTORIL) 30 mg cap Take 1 capsule by mouth daily at bedtime. No current facility-administered medications for this visit. OBJECTIVE: BP 120/90 (BP Site: Left Arm, BP Position: Sitting, BP Cuff Size: Large Adult) Pulse 80 Resp 16 Wt 116.1 kg (256 lb) LMP 11/30/2012 BMI 39.21 kg/m2 Patient is alert, oriented times 3, no apparent distress, affect is bright, reactive. Last 5 Encounter BP Readings: Date: BP: 09/14/2017 120/90 08/19/2017 134/88 08/10/2017 128/74 07/15/2017 130/87 03/11/2017 126/80 Last 5 Encounter Wt Readings: Date: Wt: 09/14/2017 116.1 kg (256 lb) 08/10/2017 116.1 kg (256 lb) 06/15/2017 114.3 kg (252 lb) 03/11/2017 112.5 kg (248 lb) 02/24/2017 118.8 kg (262 lb) Heart: Regular rate, rhythm, no murmurs, gallops, rubs. Lungs: Clear to auscultation, bilaterally, breathing non labored. Ext: No cyanosis, clubbing, or edema. Component Latest Ref Rng ANDamp; Units 04/22/2016 06/30/2016 11/13/2016 02/22/2017 03/11/2017 08/10/2017 09/07/2017 WBC 3.70 - 11.00 k/uL 9.43 11.02 (H) RBC 3.90 - 5.20 m/uL 4.24 4.77 Hemoglobin 11.5 - 15.5 g/dL 12.4 13.6 Hematocrit 36.0 - 46.0 % 38.5 44.6 MCV 80.0 - 100.0 fL 90.8 93.5 MCH 26.0 - 34.0 pG 29.2 28.5 MCHC 30.5 - 36.0 g/dL 32.2 30.5 RDW-CV 11.5 - 15.0 % 14.1 12.8 Platelet Count 150 - 400 k/uL 348 348 MPV 9.0 - 12.7 fL 9.8 10.5 Neut% % 58.5 59.2 Abs Neut (ANC) 1.45 - 7.50 k/uL 5.52 6.52 Lymph% % 31.8 31.6 Abs Lymph 1.00 - 4.00 k/uL 3.00 3.48 [place]% % 6.4 6.0 Abs [place] ANDlt;0.87 k/uL 0.60 0.66 Eosin% % 3.0 2.7 Abs Eosin ANDlt;0.46 k/uL 0.28 0.30 Baso% % 0.3 0.5 Abs Baso ANDlt;0.11 k/uL 0.03 0.06 Nucleated Reds 0 /100 WBC 0.1 (H) Absolute nRBC ANDlt;0.01 k/uL 0.01 (H) Diff Type Auto Diff Auto Diff Protein, Total 6.3 - 8.0 g/dL 7.4 7.3 7.5 Albumin 3.9 - 4.9 g/dL 4.8 4.3 4.5 Calcium 8.5 - 10.2 mg/dL 9.1 9.0 9.7 Bilirubin, Total 0.2 - 1.3 mg/dL 0.3 0.2 0.2 Alkaline Phosphatase 32 - 117 U/L 115 104 108 AST 13 - 35 U/L 30 27 26 Glucose 74 - 99 mg/dL 99 135 (H) 79 BUN 7 - 21 mg/dL 11 15 12 Creatinine 0.58 - 0.96 mg/dL 0.63 0.61 0.65 Sodium 136 - 144 mmol/L 136 140 138 Potassium 3.7 - 5.1 mmol/L 4.4 4.9 4.4 Chloride 97 - 105 mmol/L 96 (L) 100 96 (L) CO2 22 - 30 mmol/L 21 (L) 27 26 Anion Gap 9 - 18 mmol/L 19 (H) 13 16 ALT 7 - 38 U/L 45 (H) 25 32 eGFR- ANDgt;60 ANDgt;60 ANDgt;60 eGFR-All Other Races . ANDgt;60 ANDgt;60 ANDgt;60 Triglyceride ANDlt;150 mg/dL 342 (H) 300 (H) Cholesterol, Total ANDlt;200 mg/dL 220 (H) 197 HDL Cholesterol ANDgt;39 mg/dL 35 (L) 33 (L) VLDL Cholesterol ANDlt;30 mg/dL 68 (H) 60 (H) LDL Cholesterol ANDlt;100 mg/dL 117 104 (H) Fasting Time hrs 12 10 TC:HDL Ratio ANDlt;5.10 6.29 (H) 5.97 (H) LDL:HDL Ratio ANDlt;2.54 3.34 3.15 (H) Non HDL Cholesterol ANDlt;130 mg/dL 185 (H) 164 (H) Hemoglobin A1C 4.3 - 5.6 % 6.0 (H) 6.3 (H) Estimated Average Glucose mg/dL 126 134 TSH 0.400 - 5.500 uU/mL 0.985 0.700 0.812 1.170 1.290 [facility] Administrator Specimen originated from [facility] . . . ASSESSMENT AND PLAN: Encounter Diagnosis ICD-10-CM 1. Acquired hypothyroidism E03.9 TSH BLD T4 FREE/FREE THYROX 2. Dysmetabolic syndrome E88.81 HGB A1C COMP METABOLIC PANEL 3. Chronic bilateral low back pain without sciatica M54.5 G89.29 4. Non morbid obesity due to excess calories E66.09 5. Encounter for long-term current use of medication Z79.899 HGB A1C COMP METABOLIC PANEL CBC TSH BLD T4 FREE/FREE THYROX CBC + DIFF 6. Vitamin D deficiency E55.9 VITAMIN D 25 HYDROXY 7. Abnormal CBC R79.89 CBC + DIFF 8. Depression, unspecified depression type F32.9 OXcarbazepine (TRILEPTAL) 300 mg tablet QUEtiapine (SEROQUEL) 400 mg tablet QUEtiapine (SEROQUEL) 100 mg tablet 9. Schizoaffective disorder, unspecified type (HCC) F25.9 OXcarbazepine (TRILEPTAL) 300 mg tablet QUEtiapine (SEROQUEL) 400 mg tablet QUEtiapine (SEROQUEL) 100 mg tablet Still prediabetic, not diabetic though HgA1C up to 6.3 and Lipids with higher TG still high and HDLANDlt;40. Continues [facility] with [facility] and meds being adjusted for depression and anxiety symptoms and history of shcizoaffective disorder. Tolerating very high doses of seroquel. Needs to help her maintain normal sleep pattern. Above issues addressed with patient. Patient involved in shared decision making for management of her medical issues. History and medications reviewed. Epic updated as needed Refills taken care of and meds adjusted as indicated after reviewed history, exam and labs. Health Maintenance reviewed. Updated record and/or ordered tests as recorded. Encouraged on efforts at healthy diet and regular exercise and adequate sleep. Needs to keep working on diet and exercise with lifestyle changes for effective weight loss. Weight still lower than last February though had gained some weight back. Hoping weight loss will help with chronic low back pain. Further evaluation and treatment as indicated. The majority of the visit was spent counseling and/or coordinating care for the patient. Qxzr-wt-soxt time was at least 25 minutes. MD Liz Elias MD 09/14/2017 12:44 PM Signed If DBP stays over 90, could resume generic Norvasc at 2.5 mg daily. Just let me know. Referring Provider: LIZ NASCIMENTO [[id number]] Allergies As of Date: 09/14/2017 Noted Allergy Reaction CODEINE 03/07/2010 8 - GI Upset COMPAZINE (PROCHLORPERAZINE EDISY*03/07/2010 DARVOCET A500 (PROPOXYPHENE N-SHERRY*03/07/2010 8 - GI Upset TESSALON (BENZONATATE) 04/16/2015 14 - Other: See Comments Comments: Heart palpitations VICODIN (HYDROCODONE-ACETAMINOPHE*03/07/2010 4 - Hives Comments: Also LORTAB Date Reviewed: 09/14/2017 Reviewed by: Mary Aragon - Fully Assessed Reason for Visit: 6 mo f/up [Other] Primary Visit Diagnosis:Acquired hypothyroidism [E03.9] Other Visit Diagnoses:Dysmetabolic syndrome [E88.81] Chronic bilateral low back pain without sciatica [M54.5, G89.29] Non morbid obesity due to excess calories [E66.09] Encounter for long-term current use of medication [Z79.899] Vitamin D deficiency [E55.9] Abnormal CBC [R79.89] Depression, unspecified depression type [F32.9] Schizoaffective disorder, unspecified type (HCC) [F25.9] Order(s):QUEtiapine (SEROQUEL) 400 mg tabletTake 1 tablet by mouth daily at bedtime. with 100 mg pillDisp: Rfl: QUEtiapine (SEROQUEL) 100 mg tabletTake 1 tablet by mouth daily at bedtime. with 400 mg doseDisp: Rfl: HGB A1C [WUGDP7M] Order #: [id number] FUTURE COMP METABOLIC PANEL [SQCMP] Order #: [id number] FUTURE CBC [SQCBC] Order #: [id number] FUTURE TSH BLD [SQTSH] Order #: [id number] FUTURE T4 FREE/FREE THYROX [SQFT4] Order #: [id number] FUTURE VITAMIN D 25 HYDROXY [SQVITD] Order #: [id number] FUTURE CBC + DIFF [SQCBCDIF] Order #: [id number] FUTURE Prescriptions as of 09/14/2017 Sig: OXCARBAZEPINE 300 MG TABLET Takes (1) 600 mg tab in AM an* QUETIAPINE 400 MG TABLET Take 1 tablet by mouth daily * QUETIAPINE 100 MG TABLET Take 1 tablet by mouth daily * PRAVASTATIN 20 MG TABLET Take 1 tablet by mouth daily * LISINOPRIL 30 MG TABLET Take 1 tablet by mouth once d* OMEPRAZOLE 20 MG CAPSULE,EARL* Take 1 capsule by mouth twice* FLUOCINOLONE 0.025 % TOPICAL * Apply 1 application to affect* CLOTRIMAZOLE-BETAMETHASONE 1 * Apply 1 application to affect* BUSPIRONE 30 MG TABLET Take 1 tablet by mouth twice * DULOXETINE 60 MG CAPSULE,EARL* Take 2 capsules by mouth once* TEMAZEPAM 30 MG CAPSULE Take 1 capsule by mouth daily* Medication notes this encounter AMLODIPINE 5 MG TABLET >> Mary Aragon 09/14/2017 12:09 PM >> MARY ARAGON jodi Sep 14, 2017 12:09 PM Out of med approx 1 month >> Liz Nascimento MD 09/14/2017 12:32 PM >> LIZ NASCIMENTO MD WedSep 14, 2017 12:32 PM Was given by ER doctor in [facility] >> Liz Nascimento MD 09/14/2017 12:39 PM ran out of RX from ER LEVOTHYROXINE 50 MCG TABLET >> Mary Aragon 09/14/2017 12:09 PM >> MARY ARAGON jodi Sep 14, 2017 12:09 PM No longer taking >> Liz Nascimento MD 09/14/2017 12:37 PM >> LIZ NASCIMENTO MD WedSep 14, 2017 12:37 PM TSH checked after off med for 2 months shows normal range (in 1 to 2 range) >> Liz Nascimento MD 09/14/2017 12:38 PM no longer needing QUETIAPINE 300 MG TABLET >> Mary Aragon 09/14/2017 12:10 PM >> MARY ARAGON jodi Sep 14, 2017 12:10 PM Taking 500 mg at bedtime OXCARBAZEPINE 300 MG TABLET >> Mary Aragon 09/14/2017 12:11 PM >> MARY ARAGON Sep 14, 2017 12:11 PM Takes (1) 600 mg tab in am and (2) 600 mg tabs at HS BENZTROPINE 1 MG TABLET >> Mary Aragon 09/14/2017 12:14 PM >> MARY ARAGON Sep 14, 2017 12:14 PM No longer taking. 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] INVALID FOR* Dysmetabolic syndrome [E88.81] INVALID FOR* Depression [F32.9] INVALID FOR* Hypertrophy of breast [N62] INVALID FOR* Benign heart murmur INVALID FOR* Abnormal uterine bleeding [N93.9] INVALID FOR* Chronic RLQ pain [R10.31, G89.29] INVALID FOR* Dysmenorrhea [N94.6] INVALID FOR* Other affections of shoulder region, not elsewh*INVALID FOR* Rotator cuff tear [M75.100] INVALID FOR*02/28/2013 SHEFALI (iron deficiency anemia) [D50.9] INVALID FOR* Myofascial pain [M79.1] INVALID FOR* Neck pain [M54.2] INVALID FOR* Cervical disc displacement [M50.20] INVALID FOR* Pain in joint, shoulder region [M25.519] INVALID FOR* Cervical radiculitis [M54.12] INVALID FOR* Sacroiliac joint pain [M53.3] INVALID FOR* Buttock pain [M79.1] INVALID FOR*01/15/2015 Right buttock pain [M79.1] INVALID FOR* Headache [R51] INVALID FOR* Lower back pain [M54.5] INVALID FOR*09/10/2015 Chronic pain [G89.29] INVALID FOR*11/14/2015 Right-sided low back pain without sciatica [M54*INVALID FOR*11/14/2015 Hypothyroidism [E03.9] Non morbid obesity due to excess calories [E66.*INVALID FOR* Cervical arthritis (HCC) [M46.92] INVALID FOR* Chronic bilateral low back pain without sciatic*INVALID FOR* DDD (degenerative disc disease), cervical [M50.*INVALID FOR* SI (sacroiliac) joint dysfunction [M53.3] INVALID FOR* Schizoaffective disorder (HCC) [F25.9] INVALID FOR* Chronic SI joint pain [M53.3, G89.29] INVALID FOR* Vitamin D deficiency [E55.9] INVALID FOR* Other instructions from your clinician: If DBP stays over 90, could resume generic Norvasc at 2.5 mg daily. Just let me know. Prescriptions ordered this encounter Disp Refills Start End QUETIAPINE 400 MG TABLET 09/14/2017 Class: Med Update Route: ORAL Sig: Take 1 tablet by mouth daily at bedtime. with 100 mg pill QUETIAPINE 100 MG TABLET 09/14/2017 Class: Med Update Route: ORAL Sig: Take 1 tablet by mouth daily at bedtime. with 400 mg dose Medications Discontinued During This Encounter benztropine 1 mg ORAL tablet 0 12/12/2014 09/14/2017 Class: Med Update Route: ORAL Sig: Take 2 mg by mouth twice daily. Disc: Reason for discontinue is not on file. OXcarbazepine (TRILEPTAL) 300 mg tab* 11/06/2014 09/14/2017 Class: Historical Med Sig: Take 2 300 mg tablets in the morning and 2 600 mg tablets at bedtime Disc: Reason for discontinue is not on file. QUEtiapine (SEROQUEL) 300 mg tablet 06/12/2016 09/14/2017 Class: Med Update Route: ORAL Sig: Take 2 tablets by mouth daily at bedtime. Disc: Reason for discontinue is not on file. levothyroxine (SYNTHROID) 50 mcg tab* 90 t* 3 09/24/2016 09/14/2017 Cmt: Maximum Refills Reached Sig: TAKE 1 TABLET BY MOUTH ONCE DAILY. Disc: Clinical Decision amLODIPine (NORVASC) 5 mg tablet 09/14/2017 Class: Historical Med Route: ORAL Sig: Take 5 mg by mouth once daily. Disc: Reason for discontinue is not on file. Disposition: Return in about 6 months (around 03/16/2018) for 6 months follow up, With labs prior. Follow-up and Disposition History Recorded Encounter Status:Closed by LIZ NASCIMENTO MD on 09/16/17 TSH Collected: 09/07/2017 Status: F Source: [place] 7:48 AM [facility] REPOSITORY TYPE CODE TESTS RESULT OUT OF RANGE REFERENCE UNITS LAB TSH 0.400-5.500 uU/mL TSH 1.290 Result Comment: If the patient is , TSH reference range varies by gestational period: First Trimester 0.100-2.500 uU/mL Second Trimester 0.200-3.000 uU/mL Third Trimester 0.300-3.000 uU/mL References: 1. Martinez, Sary M, Reynold EK, et al. Management of Thyroid Dysfunction during and : An Endocrine Society Clinical Practice Guideline. J Clin Endocrinol Metab, 2012:97:8177-9997. 2. Tray ARDON. Overview of thyroid disease in . UpToDate. 2016. Accessed on November 29, 2015. Performed By: #### TSH, HBA1C #### [facility] [address] [place], [place] [address] HEMOGLOBIN A1C Collected: 09/07/2017 Status: F Source: [place] 7:48 AM [facility] REPOSITORY TYPE CODE TESTS RESULT OUT OF REFERENCE UNITS RANGE LAB HGBA1C 4.3-5.6 % High Hemoglobin A1c 6.3 LAB HBA0 mg/dL Est. Average Glucose 134 Result Comment: eAG: (Estimated average glucose) is a calculated value from HgbA1c and is customer response representative of the average blood glucose level in the last 2-3 month period. Performed By: #### TSH, HBA1C #### [facility] [address] [place], [place] [address] LIPID PANEL, BASIC Collected: 09/07/2017 Status: F Source: [place] 7:48 AM [facility] REPOSITORY TYPE CODE TESTS RESULT OUT OF REFERENCE UNITS RANGE LAB CHOL <200 mg/dL Cholesterol 197 Result Comment: <200 mg/dL, Desirable 200-239 mg/dL, Borderline high >239 mg/dL, High LAB TRIGLY <150 mg/dL Triglyceride High 300 Result Comment: <150 mg/dL, Normal 150-199 mg/dL, Borderline high 200-499 mg/dL, High >499 mg/dL, Very high LAB HDL >39 mg/dL HDL-Cholesterol Low 33 Result Comment: 40-59 mg/dL, Acceptable >59 mg/dL, High: Negative risk factor for coronary heart disease <40 mg/dL, Low: Positive risk factor for coronary heart disease LAB LDL <100 mg/dL LDL-Cholesterol High 104 Result Comment: <100 mg/dL, Optimal 100-129 mg/dL, Near optimal/above optimal 130-159 mg/dL, Borderline high 160-189 mg/dL, High >189 mg/dL, Very high Secondary prevention optimal LDL Cholesterol levels are recommended to be < 70 mg/dL LAB NONHDL <130 mg/dL Non HDL High Cholesterol 164 Result Comment: <130 mg/dL, Optimal 130-159 mg/dL, Near optimal/above optimal 160-189 mg/dL, Borderline high 190-219 mg/dL, High >219 mg/dL, Very high Secondary prevention optimal non HDL Cholesterol levels are recommended to be < 100 mg/dL LAB FT hrs Fasting Time 10 LAB VLDL <30 mg/dL High VLDL Cholesterol 60 LAB TCHDL <5.10 High TC:HDL Ratio 5.97 LAB LDLHDL <2.54 High LDL:HDL Ratio 3.15 Result Comment: Reference: 1. National Cholesterol Education Program ATP III Guideline At-A-Glance Quick Desk Reference: National Heart, Lung, and Blood [place]. National Institutes of Health. 2001: NIH Publication No. 01-3305. 2. An International Atherosclerosis Society position paper: global recommendations for the management of dyslipidemia: executive summary, Atherosclerosis. 2014: 232(2):410-413. Performed By: #### LIPB #### [facility] [address] [place] [address] CNPTOUTREACH Observed: 08/31/2017 Status: COMPLETED Source: [place] 12:00 AM [facility] REPOSITORY Patient Outreach (FAMPST) VIKKI BAUMANN ([id number]) 1970 F T Date Time Provider Department 08/31/17 LIZ NASCIMENTO FAMPST During your visit today, we recorded the following information about you: Allergies As of Date: 08/31/2017 Noted Allergy Reaction CODEINE 03/07/2010 8 - GI Upset COMPAZINE (PROCHLORPERAZINE EDISY*03/07/2010 DARVOCET A500 (PROPOXYPHENE N-SHERRY*03/07/2010 8 - GI Upset TESSALON (BENZONATATE) 04/16/2015 14 - Other: See Comments Comments: Heart palpitations VICODIN (HYDROCODONE-ACETAMINOPHE*03/07/2010 4 - Hives Comments: Also LORTAB Date Reviewed: 08/03/2017 Reviewed by: Roscoe (Rn) TOMY Godfrey - Fully Assessed Visit Diagnosis:Medication management [Z79.899] Order(s):LIPID PANEL BASIC [SQLIPB] Order #: [id number] FUTURE Prescriptions as of 08/31/2017 Sig: AMLODIPINE 5 MG TABLET Take 1 tablet by mouth once d* PRAVASTATIN 20 MG TABLET Take 1 tablet by mouth daily * X AMLODIPINE 5 MG TABLET Take 5 mg by mouth once daily. X OXYCODONE-ACETAMINOPHEN 5 MG-* Take 1 tablet by mouth every * X BACLOFEN 10 MG TABLET Take 1 tablet by mouth twice * X LISINOPRIL 30 MG TABLET Take 1 tablet by mouth once d* X OMEPRAZOLE 20 MG CAPSULE,EARL* Take 1 capsule by mouth twice* X FLUOCINOLONE 0.025 % TOPICAL * Apply 1 application to affect* X LEVOTHYROXINE 50 MCG TABLET TAKE 1 TABLET BY MOUTH ONCE D* CLOTRIMAZOLE-BETAMETHASONE 1 * Apply 1 application to affect* X QUETIAPINE 300 MG TABLET Take 2 tablets by mouth daily* X IBUPROFEN 800 MG TABLET Take 1 tablet by mouth every * BUSPIRONE 30 MG TABLET Take 1 tablet by mouth twice * DULOXETINE 60 MG CAPSULE,EARL* Take 2 capsules by mouth once* X OXCARBAZEPINE 300 MG TABLET Take 2 300 mg tablets in the * TEMAZEPAM 30 MG CAPSULE Take 1 capsule by mouth daily* X * BENZTROPINE 1 MG TABLET Take 2 mg by mouth twice errol* Problem List As Of Date 08/31/2017 Noted Resolved 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, 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] INVALID FOR* Dysmetabolic syndrome [E88.81] INVALID FOR* Depression [F32.9] INVALID FOR* Hypertrophy of breast [N62] INVALID FOR* Benign heart murmur INVALID FOR* Abnormal uterine bleeding [N93.9] INVALID FOR* Chronic RLQ pain [R10.31, G89.29] INVALID FOR* Dysmenorrhea [N94.6] INVALID FOR* Other affections of shoulder region, not elsewh*INVALID FOR* Rotator cuff tear [M75.100] INVALID FOR*02/28/2013 SHEFALI (iron deficiency anemia) [D50.9] INVALID FOR* Myofascial pain [M79.18] INVALID FOR* Neck pain [M54.2] INVALID FOR* Cervical disc displacement [M50.20] INVALID FOR* Pain in joint, shoulder region [M25.519] INVALID FOR* Cervical radiculitis [M54.12] INVALID FOR* Sacroiliac joint pain [M53.3] INVALID FOR* Buttock pain [M79.18] INVALID FOR*01/15/2015 Right buttock pain [M79.18] INVALID FOR* Headache [R51] INVALID FOR* Lower back pain [M54.5] INVALID FOR*09/10/2015 Chronic pain [G89.29] INVALID FOR*11/14/2015 Right-sided low back pain without sciatica [M54*INVALID FOR*11/14/2015 Hypothyroidism [E03.9] Non morbid obesity due to excess calories [E66.*INVALID FOR* Cervical arthritis (HCC) [M47.812] INVALID FOR* Chronic bilateral low back pain without sciatic*INVALID FOR* DDD (degenerative disc disease), cervical [M50.*INVALID FOR* SI (sacroiliac) joint dysfunction [M53.3] INVALID FOR* Schizoaffective disorder (HCC) [F25.9] INVALID FOR* Chronic SI joint pain [M53.3, G89.29] INVALID FOR* Encounter Status:Closed by YEFRI GARZA on 03/25/18 CNNURSE Observed: 08/19/2017 Status: COMPLETED Source: [place] 11:15 AM [facility] REPOSITORY Nurse Visit (FAMPWS) VIKKI BAUMANN ([id number]) 1970 F [facility] Date Time Provider Department 08/19/17 11:15 AM [place] NURSE FAMPWS During your visit today, we recorded the following information about you: Pulse Blood pressure 96/minute 134/88 Bethany Baker LPN 08/19/2017 10:00 AM Signed Manual Readin/88 Pulse: 96 Home Cuff: 149/93 P: 94 Reason for blood pressure check - Last BP elevated Patient is: Taking medication as prescribed Yes Took medication today Yes If no, date medication last taken N/A Experiencing side effects No BP was normal at last appt with Rayne Ludwig CNP, on 08/10/17. No BP medication changes were made at that time. Taking all medications as prescribed. Denies any chest pain, shortness of breath, or dizziness. Reports daily headaches (neck issues); will treat with Ibuprofen. Daily caffeine use. Past personal history of tobacco use; no current exposure. Alert and oriented. Pt has been identified by name and birthdate: Yes Allergies reviewed: Yes Latex allergy: no. Medication - prescribed and OTC reviewed and updated: Yes Do you need any prescription refills prior to your next visit: Yes Health Maintenance: Reviewed and not up to date and provider notified Patient advised to continue with current medications and would be contacted with any further instructions after review by PCP. Bethany Baker LPN Referring Provider: RAYNE LUDWIG (SHARONDA) [[id number]] Allergies As of Date: 08/19/2017 Noted Allergy Reaction CODEINE 03/07/2010 8 - GI Upset COMPAZINE (PROCHLORPERAZINE EDISY*03/07/2010 DARVOCET A500 (PROPOXYPHENE N-SHERRY*03/07/2010 8 - GI Upset TESSALON (BENZONATATE) 04/16/2015 14 - Other: See Comments Comments: Heart palpitations VICODIN (HYDROCODONE-ACETAMINOPHE*03/07/2010 4 - Hives Comments: Also LORTAB Date Reviewed: 08/03/2017 Reviewed by: Roscoe Guillaume) TOMY Godfrey - Fully Assessed Reason for Visit: Blood Pressure Check [195] Primary Visit Diagnosis:Hypertension, essential [I10] Prescriptions as of 08/19/2017 Sig: AMLODIPINE 5 MG TABLET Take 5 mg by mouth once daily. FLUOCINOLONE 0.025 % TOPICAL * Apply 1 application to affect* PRAVASTATIN 20 MG TABLET TAKE 1 TABLET AT BEDTIME CLOTRIMAZOLE-BETAMETHASONE 1 * Apply 1 application to affect* QUETIAPINE 300 MG TABLET Take 2 tablets by mouth daily* BUSPIRONE 30 MG TABLET Take 1 tablet by mouth twice * DULOXETINE 60 MG CAPSULE,EARL* Take 2 capsules by mouth once* OXCARBAZEPINE 300 MG TABLET Take 2 300 mg tablets in the * TEMAZEPAM 30 MG CAPSULE Take 1 capsule by mouth daily* LISINOPRIL 30 MG TABLET Take 1 tablet by mouth once d* OMEPRAZOLE 20 MG CAPSULE,EARL* Take 1 capsule by mouth twice* LEVOTHYROXINE 50 MCG TABLET TAKE 1 TABLET BY MOUTH ONCE D* * BENZTROPINE 1 MG TABLET Take 2 mg by mouth twice errol* Problem List As Of Date 08/19/2017 Noted Resolved 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, 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] INVALID FOR* Dysmetabolic syndrome [E88.81] INVALID FOR* Depression [F32.9] INVALID FOR* Hypertrophy of breast [N62] INVALID FOR* Benign heart murmur INVALID FOR* Abnormal uterine bleeding [N93.9] INVALID FOR* Chronic RLQ pain [R10.31, G89.29] INVALID FOR* Dysmenorrhea [N94.6] INVALID FOR* Other affections of shoulder region, not elsewh*INVALID FOR* Rotator cuff tear [M75.100] INVALID FOR*02/28/2013 SHEFALI (iron deficiency anemia) [D50.9] INVALID FOR* Myofascial pain [M79.1] INVALID FOR* Neck pain [M54.2] INVALID FOR* Cervical disc displacement [M50.20] INVALID FOR* Pain in joint, shoulder region [M25.519] INVALID FOR* Cervical radiculitis [M54.12] INVALID FOR* Sacroiliac joint pain [M53.3] INVALID FOR* Buttock pain [M79.1] INVALID FOR*01/15/2015 Right buttock pain [M79.1] INVALID FOR* Headache [R51] INVALID FOR* Lower back pain [M54.5] INVALID FOR*09/10/2015 Chronic pain [G89.29] INVALID FOR*11/14/2015 Right-sided low back pain without sciatica [M54*INVALID FOR*11/14/2015 Hypothyroidism [E03.9] Non morbid obesity due to excess calories [E66.*INVALID FOR* Cervical arthritis (HCC) [M46.92] INVALID FOR* Chronic bilateral low back pain without sciatic*INVALID FOR* DDD (degenerative disc disease), cervical [M50.*INVALID FOR* SI (sacroiliac) joint dysfunction [M53.3] INVALID FOR* Schizoaffective disorder (HCC) [F25.9] INVALID FOR* Chronic SI joint pain [M53.3, G89.29] INVALID FOR* Encounter Status:Closed by BETHANY BAKER LPN on 08/19/17 CNCO Observed: 08/19/2017 Status: COMPLETED Source: [place] 10:51 AM [facility] REPOSITORY HNO ID: [id number] Author: Mammography Coordinator Service: (none) Author Type: Physician Type: Letter Filed: 08/23/2017 11:31 PM Note Text: August 19, 2017 PID: [id number] Vikki Baumann [address] [place] [address] Dear Ms. Baumann, We are pleased to inform you that the results of your recent breast imaging exam on 08/19/2017 are normal. Your mammogram demonstrates that you have dense breast tissue, which could hide abnormalities. Dense breast tissue, in and of itself, is a relatively common condition. Therefore, this information is not provided to cause undue concern; rather, it is to raise your awareness and promote discussion with your health care provider regarding the presence of dense breast tissue in addition to other risk factors. Early detection of cancer is very important. We also understand recommendations regarding breast cancer screening are controversial. Please discuss with your primary care provider which strategy is best for you and whether a mammogram is right for you. Your imaging studies and report will be kept on file at [facility] as part of your permanent medical record and are available for your continuing care. Thank you for allowing us to help in meeting your health care needs. Sincerely, Dr. Crow Interpreting Radiologist [facility] (Normal over 40) PROGRESS Observed: 08/19/2017 Status: COMPLETED Source: [place] 9:49 AM [facility] REPOSITORY HNO ID: [id number] Author: Bethany Baker LPN Service: (none) Author Type: (none) Type: Progress Notes Filed: 08/19/2017 10:00 AM Note Text: Manual Readin/88 Pulse: 96 Home Cuff: 149/93 P: 94 Reason for blood pressure check - Last BP elevated Patient is: Taking medication as prescribed Yes Took medication today Yes If no, date medication last taken N/A Experiencing side effects No BP was normal at last appt with Rayne Ludwig CNP, on 08/10/17. No BP medication changes were made at that time. Taking all medications as prescribed. Denies any chest pain, shortness of breath, or dizziness. Reports daily headaches (neck issues); will treat with Ibuprofen. Daily caffeine use. Past personal history of tobacco use; no current exposure. Alert and oriented. Pt has been identified by name and birthdate: Yes Allergies reviewed: Yes Latex allergy: no. Medication - prescribed and OTC reviewed and updated: Yes Do you need any prescription refills prior to your next visit: Yes Health Maintenance: Reviewed and not up to date and provider notified Patient advised to continue with current medications and would be contacted with any further instructions after review by PCP. Bethany Baker LPN PROGRESS Observed: 08/19/2017 Status: COMPLETED Source: [place] 9:34 AM [facility] REPOSITORY HNO ID: [id number] Author: Macey Kendall Service: (none) Author Type: (none) Type: Progress Notes Filed: 08/19/2017 9:34 AM Note Text: Radiology Service Progress Note PATIENT NAME: Vikki Baumann DATE OF SERVICE: August 19, 2017 TIME: 9:34 AM PATIENT IDENTITY VERIFICATION COMPLETED USING TWO (2) METHODS: Patient confirmed name verbally and Date of . PATIENT GENDER DATA: Female. status: : No status: NO. PATIENT RELEVANT IMPLANT DATA REVIEWED: Not Applicable RAD[facility]OLOG[facility] DEPART[facility] DATA: Not applicable SIGNED BY: Macey Kendall August 19, 2017 9:34 AM [facility] SCREENING Observed: 08/19/2017 Status: F Source: [place] 9:30 AM [facility] REPOSITORY * * *Final Report* * * DATE OF EXAM: Aug 19 2017 9:30AM [facility] - [facility] SCREENING / PROCEDURE REASON: Encounter for screening mammogram for malignant neoplasm of breast * * * * Physician Interpretation * * * * RESULT: #[id number] - LON SCREENING BILATERAL DIGITAL SCREENING MAMMOGRAM WITH CAD: 08/19/2017 HISTORY: Encounter For Screening Mammogram For Malignant Neoplasm Of Breast\ Screening Mammogram - patient reports NO breast symptoms /priors available for comparison. RESULT: TECHNIQUE: The study was acquired using full field digital technology and interpreted from soft copy. Current study was also evaluated with a Computer Aided Detection (CAD). Comparison is made to exams dated: 07/16/2016 mammogram, 10/22/2015 mammogram - [facility], 09/30/2015 mammogram, and 09/28/2012 mammogram - [facility]. The tissue of both breasts is heterogeneously dense. This may lower the sensitivity of mammography. The patient is status post reduction both breasts. There is a reduction scar in both breasts. No significant masses, calcifications, or other findings are seen in either breast. There has been no significant interval change. IMPRESSION: NEGATIVE There is no mammographic evidence of malignancy. A 1 year screening mammogram is recommended. Valerie gauthier/eliz:08/19/2017 10:51:18 Line Service Technician: Macey KENDALL(Patito)([place]), [facility] letter sent: Normal over 40 Mammogram BI-RADS: 1 Negative Director Check: Eliz Transcribe Date/Time: Aug 19 2017 9:31A Dictated by: VALERIE CROW MD This examination was interpreted and the report reviewed and electronically signed by: VALERIE CROW MD on Aug 19 2017 10:51AM EST [id number] CBC AND DIFFERENTIAL Collected: 08/10/2017 Status: F Source: [place] 11:59 AM [facility] REPOSITORY TYPE CODE TESTS RESULT OUT OF REFERENCE UNITS RANGE LAB WBC 3.70-11.00 k/uL WBC High 11.02 LAB RBC 3.90-5.20 m/uL RBC 4.77 LAB HGB 11.5-15.5 g/dL Hemoglobin 13.6 LAB HCT 36.0-46.0 % Hematocrit 44.6 LAB MCV 80.0-100.0 fL MCV 93.5 LAB MCH 26.0-34.0 pG MCH 28.5 LAB MCHC 30.5-36.0 g/dL MCHC 30.5 LAB RDWCV 11.5-15.0 % RDW-CV 12.8 LAB PLTCT 150-400 k/uL Platelet Count 348 LAB MPV 9.0-12.7 fL MPV 10.5 LAB ANEUT % Neut% 59.2 LAB AANEUT 1.45-7.50 k/uL Abs Neut 6.52 LAB ALYMP % Lymph% 31.6 LAB AALYMP 1.00-4.00 k/uL Abs Lymph 3.48 LAB AMONO % [place]% 6.0 LAB AAMONO <0.87 k/uL Abs [place] 0.66 LAB AEOS % Eosin% 2.7 LAB AAEOS <0.46 k/uL Abs Eosin 0.30 LAB ABASO % Baso% 0.5 LAB AABASO <0.11 k/uL Abs Baso 0.06 LAB AUNRBC 0 /100 WBC NRBCs High 0.1 LAB ABNRBC <0.01 k/uL Absolute High nRBC 0.01 LAB DTYP DTYPE Auto Diff Performed By: #### CBCDIF, CMP, TSH #### [facility] [address] [place] [id number] COMP METABOLIC PANEL Collected: 08/10/2017 Status: F Source: [place] 11:59 AM [facility] REPOSITORY TYPE CODE TESTS RESULT OUT OF REFERENCE UNITS RANGE LAB TP 6.3-8.0 g/dL Protein, Total 7.5 LAB ALB 3.9-4.9 g/dL Albumin 4.5 LAB CA 8.5-10.2 mg/dL Calcium, Total 9.7 LAB TBIL 0.2-1.3 mg/dL Bilirubin, Total 0.2 LAB ALKP 32-117 U/L Alkaline Phosphatase 108 LAB AST 13-35 U/L AST 26 LAB GLU 74-99 mg/dL Glucose 79 Result Comment: The [place] Diabetes Association (ADA) provides guidance for cutoff values for fasting glucose and random glucose. The ADA defines fasting as no caloric intake for at least 8 hours. Fas ting plasma glucose results between 100 to 125 mg/dL indicate increased risk for diabetes (prediabetes). Fasting plasma glucose results greater than or equal to 126 mg/dL meet the criteria for diagnosis of diabetes. In the absence of unequivocal hyperglycemia, results should be confirmed by repeat testing. In a patient with classic symptoms of hyperglycemia or hyperglycemic crisis, random plasma glucose results greater than or equal to 200 mg/dL meet the criteria for diagnosis of diabetes. Reference: Standards of Medical Care in Diabetes 2016, [place] Diabetes Association. Diabetes Care. 2016.39(Suppl 1). LAB BUN 7-21 mg/dL BUN 12 LAB CRET 0.58-0.96 mg/dL Creatinine 0.65 LAB NA 136-144 mmol/L Sodium 138 LAB K 3.7-5.1 mmol/L Potassium 4.4 LAB CL 97-105 mmol/L Chloride Low 96 LAB CO2 22-30 mmol/L CO2 26 LAB AGAP 9-18 mmol/L Anion Gap 16 LAB ALT 7-38 U/L ALT 32 LAB GFRAA eGFR- Amer. >60 LAB GFRNAA . eGFR-All Other Races >60 Result Comment: eGFR (Estimated GFR) Units of measure: mL/min/1.73 meters squared eGFR is derived from the reexpressed MDRD Study equation using the following parameters: serum creatinine, age, gender and race. The creatinine assay has been calibrated to be traceable to IDMS. An eGFR <60 mL/min/1.73m2 for >3 months is consistent with chronic kidney disease. Refer to KDOQI guidelines for clinical interpretation. In patients with unstable renal function, e.g. those with acute kidney injury, the eGFR may not accurately reflect actual GFR. Performed By: #### CBCDIF, CMP, TSH #### [facility] [address] [place], [place] [id number] TSH Collected: 08/10/2017 Status: F Source: [place] 11:59 AM [facility] REPOSITORY TYPE CODE TESTS RESULT OUT OF RANGE REFERENCE UNITS LAB TSH 0.400-5.500 uU/mL TSH 1.170 Result Comment: If the patient is , TSH reference range varies by gestational period: First Trimester 0.100-2.500 uU/mL Second Trimester 0.200-3.000 uU/mL Third Trimester 0.300-3.000 uU/mL References: 1. Posey L, Sary M, Reynold EK, et al. Management of Thyroid Dysfunction during and : An Endocrine Society Clinical Practice Guideline. J Clin Endocrinol Metab, 2012:97:4489-3722. 2. Tray ARDON. Overview of thyroid disease in . UpToDate. 2016. Accessed on November 29, 2015. Performed By: #### CBCDIF, CMP, TSH #### [facility] [address] [place], [place] [id number] PROGRESS Observed: 08/10/2017 Status: COMPLETED Source: [place] 11:06 AM [facility] REPOSITORY HNO ID: [id number] Author: Rayne Ludwig Service: (none) Author Type: Nurse Practitioner Type: Progress Notes Filed: 08/10/2017 12:03 PM Note Text: CC: Patient presents with: Recheck: Elevated BP, Seen in ER [facility], over active sweating x 3 months, bowel issues HPI Vikki Baumann is a 47 year old female who presents today for ER follow up. Patient was evaluated at [facility] ER on 07/16/17 for elevated BP. No records available for review at this time. Patient states she was at the [facility] for an appointment where her blood pressure was check and found to be in the 200s/100s. Patient was instructed to the ER for further evaluation. Patient states BP was still elevated upon arrival to the ER and she was started on Norvasc 5mg daily. HTN: Ms. Baumann indicates that she is feeling well and denies any symptoms referable to elevated blood pressure. Reports intermittent headaches and chronic palpitations with previous evaluation with holter monitor. Specifically denies chest pain, dyspnea and peripheral edema. Patient denies any side effects of her medication(s) and is compliant with their regimen. She does check BP's away from this office with average BP's in the 170s-110s/60s-100srange. Vikki gets minimal exercise. She watches her diet for sodium, low fat and low cholesterol some of the time. Making some dietary changes over the past couple of weeks specifically drinking daily smoothies with a protein probiotic booster and acai powder. Last 3 Encounter BP Readings: Date: BP: 08/10/2017 128/74 07/15/2017 130/87 03/11/2017 126/80 Bowel issues: Patient reports experiencing diarrhea over the past 2-3 months. Diarrhea is inconsistent can go days without episode or may have 2-5 episodes of diarrhea in a day. Denies any bloating, significant abdominal pain, nausea, vomiting, black or bloody stools. No correlation with dietary intake per patient, but mostly occurs after eating meat. Patient reports increasing her dietary fiber has relieved symptoms. Denies excessive alcohol or caffeine intake and cut out coffee entirely. Other associated symptoms include overall not feeling well, fatigue and frequent episodes of diaphoresis without dizziness or lightheaded. Patient has history of hypothyroidism, but stopped taking synthroid as she believed the medication was causing her symptoms. Positive surgical history of hysterectomy. REVIEW OF SYSTEMS General: no fevers, no chills, no night sweats, no recurrent infections, no change in appetite and no significant changes in weight HEENT: no changes in hearing, no visual changes, no nose bleeds, no sinus or nasal problems Neck: no lumps, no pain and no swelling Respiratory: no cough, no wheezing, no shortness of breath, no hemoptysis Cardiovascular: no chest pain, no chest pressure and no swelling GI: Negative for abdominal discomfort, blood in stools or black stools, change in bowel habit, heart burn, nausea, vomiting and Positive for diarrhea : No history of dysuria, frequency or incontinence Endocrine: no weight gain, no weight loss, no hair loss, no dry skin, no cold intolerance, no neck pain/pressure, no polyuria, no polyphagia and no polydipsia Neurologic: No weakness, numbness, tingling, neck stiffness, tremor, vertigo, dizziness, memory loss, syncope. PAST MEDICAL HISTORY Diagnosis Date - Benign heart murmur 09/01/2012 - Benign neoplasm of pituitary gland and craniopharyngeal duct (pouch) ([facility]) Dr. Leilani ventura - Degeneration of intervertebral disc, site unspecified Drs. Wilburn - Depressive disorder, not elsewhere classified - DM (diabetes mellitus) ([facility] [facility]) Dr. Duke - H/O blood clots all superficial - Heartburn - High blood pressure - Hypothyroidism - GAGANDEEP (obstructive sleep apnea) - Other and unspecified hyperlipidemia Dr. Leilani ventura - Schizoaffective disorder - Seizures ([facility]) 2012 medication related - Spinal stenosis, unspecified region other than cervical Dr.s Wilburn - Unspecified epilepsy without mention of intractable epilepsy - Viral warts, unspecified PAST SURGICAL HISTORY Procedure Laterality Date - ANKLE LEFT OP SURGERY 06/19/2011 8 screws and metal plate removed left ankle - ARTHRO SHLDR DST CLAVICLECTMY 04/10/2014 Right shoulder arthroscopic rotator cuff repair with debridement - COLONOSCOP W/ OR W/O [facility] SPEC 09/05/13 Colonoscopy [facility] - EGD W/O OR W/BRUSH/WASH 09/05/13 EGD [facility] - EMBOLIZATION UTERINE FIBROID [id number] 1 removed each time - LEG DVT LEONEL UNL J3-5 1982 5 superficial blot clots in left leg - PAST SURGICAL HISTORY OF 12-23- bilateral breast reduction - SHLDR ARTHROSCOP,PART ACROMIOPLAS 01/31/2013 Right shoulder - TONSILLECTOMY HX 1993 - VAGINAL HYSTERECTOMY 01/05/2013 Hysterectomy, vaginal for dysmenorrhea ALLERGIES Codeine; Compazine [Prochlorperazine Edisylate]; Darvocet A500 [Propoxyphene N-Acetaminophen]; Tessalon [Benzonatate]; Vicodin [Hydrocodone-Acetaminophen] MEDICATIONS amLODIPine (NORVASC) 5 mg tablet Take 5 mg by mouth once daily. oxyCODONE-acetaminophen (PERCOCET) 5-325 mg tablet Take 1 tablet by mouth every 4 hours as needed for Pain for up to 7 days. Lisinopril 30 mg tablet Take 1 tablet by mouth once daily. omeprazole (PRILOSEC) 20 mg capsule Take 1 capsule by mouth twice daily. fluocinolone (SYNALAR) 0.025 % ointment Apply 1 application to affected area as directed. BID x 4 weeks then QDAY x 4 weeks then QOD x2 weeks then prn pravastatin (PRAVACHOL) 20 mg tablet TAKE 1 TABLET AT BEDTIME levothyroxine (SYNTHROID) 50 mcg tablet TAKE 1 TABLET BY MOUTH ONCE DAILY. clotrimazole-betamethasone (LOTRISONE) cream Apply 1 application to affected area twice daily. apply for 1-2 weeks, then discontinue QUEtiapine (SEROQUEL) 300 mg tablet Take 2 tablets by mouth daily at bedtime. busPIRone HCl 30 mg tablet Take 1 tablet by mouth twice daily. DULoxetine (CYMBALTA) 60 mg capsule Take 2 capsules by mouth once daily. In AM OXcarbazepine (TRILEPTAL) 300 mg tablet Take 2 300 mg tablets in the morning and 2 600 mg tablets at bedtime temazepam (RESTORIL) 30 mg cap Take 1 capsule by mouth daily at bedtime. benztropine 1 mg ORAL tablet Take 2 mg by mouth twice daily. FAMILY HISTORY Problem Relation Age of Onset - Arthritis Mother - Arthritis Maternal Grandfather - Arthritis Sister - Arthritis Sister - Hypertension Sister - Diabetes Sister - Heart Sister mothers family history Social History Substance Use Topics - Smoking status: Former Smoker Packs/day: 0.50 Years: 20.00 Types: Cigarettes Quit date: 03/15/2014 - Smokeless tobacco: Never Used Comment: 08/17/13 Pt will have an occ cigarette. - Alcohol use Yes Comment: Rarely, 1 drink every few months PHYSICAL EXAM BP 128/74 Pulse 72 Temp 36.2 ?C (97.1 ?F) (Temporal Artery) Resp 16 Wt 116.1 kg (256 lb) LMP 11/30/2012 SpO2 98% BMI 39.21 kg/m2 General Appearance: well appearing, in no acute distress, alert Pysch: mood and affect broad and appropriate Skin: Skin color, texture, turgor normal for age; Head: normocephalic, atraumatic Eyes: conjunctiva pink and moist, no icterus, sclera white, non-injected Lungs: Lungs clear to auscultation. No wheezing, rhonchi, rales Heart: RRR without murmur, gallop, or rubs. No ectopy Abdomen: soft, nondistended, nontender, no hepatosplenomegaly or masses MAMMOGRAM due on 09/29/2016 DIABETES SCREEN due on 03/11/2020 LIPID SCREEN due on 04/22/2021 TETANUS due on 11/27/2024 INFLUENZA Completed ASSESSMENT/PLAN: 1. Essential hypertension - ICD9: 401.9, ICD10: I10 (primary diagnosis) - good control per vitals obtained this visit. Patient's home log reveals elevated BP readings - Continue current medication(s) - Check TSH and CMP - Encouraged dietary sodium restriction/DASH diet - Recommended regular aerobic exercise. - Recommend home blood pressure monitoring, to bring results in on next visit - Recheck in 2 weeks for nurse visit, patient to bring home monitor for validation, sooner should new symptoms or problems arise. - Goal of BP <140/90 - Recommended no refined sugar, low refined starch, healthy oil intake (olive oil), healthy protein (fish) along the lines of the Mediterranean diet. Low fat/cholesterol educational guidelines provided to patient in a handout. 2. Acquired hypothyroidism - ICD9: 244.9, ICD10: E03.9 - check TSH today - Will recheck thyroid levels before restarting patient's self-discontinued synthroid - TSH BLD - Follow up with PCP as previously scheduled, sooner if new or worsening symptoms 3. Fatigue, unspecified type - ICD9: 780.79, ICD10: R53.83 - Plan as above, see #2 - CBC + DIFF - Follow up with PCP as previously scheduled, sooner if new or worsening symptoms 4. Diaphoresis - ICD9: 780.8, ICD10: R61 - Plan as above, see #2 - TSH BLD - Cannot exclude possibility of perimenopause d/t patients age and hx of hysterectomy - Discussed symptom management with dressing in layers, keeping the temperature low at a comfortable setting, avoid spicy foods and stressful situations. Patient has significant hx of anxiety - Follow up with PCP as previously scheduled, sooner if new or worsening symptoms 5. Diarrhea, unspecified type - ICD9: 787.91, ICD10: R19.7 - Encouraged increased fiber intake and decrease use of probiotic protein for possible symptom relief - Discussed use of metamucil and imodium if lab work is normal - CBC + DIFF - COMP METABOLIC PANEL - Follow up with PCP as previously scheduled, sooner if new or worsening symptoms 6. Screening mammogram, encounter for - ICD9: V76.12, ICD10: Z12.31 - Encouraged monthly BSE - LON SCREENING Prescription instructions reviewed with patient as applicable. Potential red flag symptoms discussed with the patient. Reviewed appropriate action plan to take if red flag symptoms occur. Patient agreeable to treatment plan. Rayne Ludwig CNP PT ED Observed: 08/03/2017 Status: COMPLETED Source: [place] 8:46 AM [facility] REPOSITORY HNO ID: [id number] Author: Roscoe PaniaguaRn) TOMY Godfrey Service: Nursing Author Type: Registered Nurse Type: Patient Education Filed: 08/03/2017 8:46 AM Note Text: POST OP LEARNING RESPONSE INSTRUCTION PROVIDED TO: Patient METHOD OF INSTRUCTION: Individual instruction Written instruction - handouts Verbal instruction PATIENT / FAMILY RESPONSE: Verbalizes understanding of: POST-PROCEDURE INSTRUCTIONS-Correct actions to take to reduce post procedure complications FOLLOW-UP PLAN: Patient instructed to call with any further issues SUPPLEMENTAL MATERIAL: None REFERRAL (RECOMMENDATION): None Electronically Signed By: Roscoe Godfrey RN In Department: [facility] SURGERY OPERATIVE NO Observed: 08/03/2017 Status: COMPLETED Source: [place] 8:27 AM [facility] REPOSITORY HNO ID: [id number] Author: Camden Boyce Service: Pain Management Author Type: Physician Type: Operative Report Filed: 08/03/2017 8:27 AM Note Text: PATIENT NAME: Vikki Baumann SERVICE DATE: 08/03/2017 PROCEDURE NOTE PREOPERATIVE DIAGNOSIS(ES) Cervical DDD Cervical spondylosis Cervical disc displacement Cervical radiculopathy POSTOPERATIVE DIAGNOSIS(ES): SAME OPERATION: C6-7 interlaminar cervical epidural steroid injection under fluoroscopy. ANESTHESIA: Versed 4 mg IV INDICATIONS: The patient presents for cervical epidural steroid injection. Since the last visit, the patient denies any new pain complaints and denies any focal neurologic deficits. The plan is to proceed with cervical intralaminar epidural steroid injection. The risks and benefits of the procedure were discussed. Specifically, the risks of bleeding, infection, inadvertent dural puncture, spinal heaches, vasovagal reaction, epidural hematoma, partial or permanent nerve injury were covered. The potential side effects of medications used in procedures including increase in pain, headaches, facial redness or warmth (flushing), anxiety or mood swings, sleeplessness, fever, high blood sugar, brief reduction in immunity were discussed. The patient expressed understanding of potential risks and wishes to proceed with the procedure. OPERATIVE PROCEDURE: The patient was brought to the operating room. The patient was placed in a sitting position with routine noninvasive hemodynamic monitors were placed. The patient was started on nasal canula oxygen. The posterior cervical area was prepped in sterile fashion. Upon Lateral projection under fluoroscopy, C6-7 level was identified. Entry point was marked and anesthetized with 0.5% Lidocaine. This was followed by insertion of an 18-gauge epidural Tuohy needle, which was inserted and advanced using a loss of resistance technique. Once the epidural space was encountered, aspiration was performed which was negative for blood or CSF. This was followed by injection of Omnipaque 300, a total of 0.25 cc, which revealed a spread along the posterior epidural space. There was no evidence of intravascular or intrathecal flow. This was then followed by a total injection of 3 mL of 0.5% Xylocaine with 40 mg of Depomerol. The patient tolerated the procedure well. The needle was removed intact. Dry dressing was placed over the injection site. The patient was taken to the recovery room in stable condition. EBL: nil Start time: 8:17 AM End time: 8:24 AM I was present the entire time and personally performed the procedure. SIGNATURE: Camden Boyce MD DATE: August 03, 2017 TIME: 8:27 AM XR FLUOROSCOPY Observed: 08/03/2017 Status: F Source: [place] 8:27 AM [facility] OTHER CAMPUS REPOSITORY * * *Final Report* * * DATE OF EXAM: Aug 03 2017 8:27AM MDR [id number] - XR FLUOROSCOPY / PROCEDURE REASON: PAIN - CERVICAL ARTHRITIS * * * * Physician Interpretation * * * * INDICATION: Pain management TECHNIQUE: A single lateral fluoroscopic spot image of the cervical spine was submitted. FLUOROSCOPY TIME: 0:13 FINDINGS/ IMPRESSION: A single lateral fluoroscopic spot image of the cervical spine demonstrates a presumed needle overlying the lower cervical spine. Refer to the procedure note for details regarding this procedure. Director Check: PSCB Transcribe Date/Time: Aug 03 2017 11:44A Dictated by : DENNIS CHAIDEZ MD This examination was interpreted and the report reviewed and electronically signed by: DENNIS CHAIDEZ MD on Aug 03 2017 11:44AM EST [id number] [id number] PHYSICAL Observed: 08/03/2017 Status: COMPLETED Source: [place] 7:47 AM CLINIC OTHER CAMPUS REPOSITORY HNO ID: [id number] Author: Camden Boyce Service: Pain Management Author Type: Physician Type: HANDP Filed: 08/03/2017 7:48 AM Note Text: HISTORY AND PHYSICAL EXAMINATION PATIENT NAME: Vikki Baumann DATE of SERVICE: 08/03/2017 Vikki Baumann is here for the pain mangement procedure. The patient presents with persistent pain complaints. Vikki Baumann denies any interval changes or new pain complaints or focal neurologic deficits. PAST MEDICAL HISTORY Diagnosis Date - Benign heart murmur 09/01/2012 - Benign neoplasm of pituitary gland and craniopharyngeal duct (pouch) ([facility]) Dr. Duke following - Degeneration of intervertebral disc, site unspecified Drs. Wilburn - Depressive disorder, not elsewhere classified - DM (diabetes mellitus) ([facility]) Dr. Duke - H/O blood clots all superficial - Heartburn - High blood pressure - Hypothyroidism - GAGANDEEP (obstructive sleep apnea) - Other and unspecified hyperlipidemia Dr. Leilani ventura - Schizoaffective disorder - Seizures ([facility]) 2012 medication related - Spinal stenosis, unspecified region other than cervical Dr.s Wilburn - Unspecified epilepsy without mention of intractable epilepsy - Viral warts, unspecified PAST SURGICAL HISTORY Procedure Laterality Date - ANKLE LEFT OP SURGERY 06/19/2011 8 screws and metal plate removed left ankle - ARTHRO SHLDR DST CLAVICLECTMY 04/10/2014 Right shoulder arthroscopic rotator cuff repair with debridement - COLONOSCOP W/ OR W/O [facility] SPEC 09/05/13 [facility] - EGD W/O OR W/BRUSH/WASH 09/05/13 EGD [facility] - EMBOLIZATION UTERINE FIBROID [id number] 1 removed each time - LEG DVT LEONEL UNL J3-5 1982 5 superficial blot clots in left leg - PAST SURGICAL HISTORY OF 12-24-11 bilateral breast reduction - SHLDR ARTHROSCOP,PART ACROMIOPLAS 01/31/2013 Right shoulder - TONSILLECTOMY HX 1992 - VAGINAL HYSTERECTOMY 01/05/2013 Hysterectomy, vaginal for dysmenorrhea Social History Marital status: Single Spouse name: Years of education: Number of children: 0 Occupational History Occupation Employer Comment DISABLED Social History Main Topics Smoking status: Former Smoker Packs/day: 0.50 Years: 20.00 Types: Cigarettes Quit date: 03/15/2014 Smokeless status: Never Used Comment: 08/17/13 Pt will have an occ cigarette. Alcohol use: Yes Comment: Rarely, 1 drink every few months Drug use: No Sexual activity: Yes Partners with: Female FAMILY HISTORY Problem Relation Age of Onset - Arthritis Mother - Arthritis Maternal Grandfather - Arthritis Sister - Arthritis Sister - Hypertension Sister - Diabetes Sister - Heart Sister mothers family history ALLERGIES Allergen Reactions - Codeine GI Upset - Compazine [Prochlor* - Darvocet A500 [Prop* GI Upset - Tessalon [Benzonata* Other: See Comments Heart palpitations - Vicodin [Hydrocodon* Hives Also LORTAB Current Facility-Administered Medications: NaCl 0.9% iv infusion 30 mL/hr INTRAVENOUS CONTINUOUS Physical Exam: Performed in conjunction with observation. The patient is alert and oriented x3. The patient is in no acute distress. Neck: Supple. The range of motion is intact. Lungs: clear CVR: RRR. Extremities: no reported edema or erythema. Examination indicates no changes Impression: Cervicalgia Cervical DDD Plan: The informed consent has been obtained. The plan is to proceed with the procedure as planned. SIGNATURE: Camden Boyce MD DATE: August 03, 2017 TIME: 7:47 AM PT ED Observed: 08/03/2017 Status: COMPLETED Source: [place] 7:10 AM CLINIC OTHER CAMPUS REPOSITORY HNO ID: [id number] Author: Costa (Rn) Hengst, RN Service: Nursing Author Type: Registered Nurse Type: Patient Education Filed: 08/03/2017 7:10 AM Note Text: PRE OP LEARNING ASSESSMENT PROCEDURE/SURGERY: SURGERY: pain block READINESS TO LEARN COGNITIVE ABILITY: Alert and oriented MOTIVATION TO LEARN: Eager FAMILY SUPPORT: High - Very involved in pt care PATIENT LEARNS BEST BY: Individual Instruction Verbal Instruction FACTORS AFFECTING LEARNING: None PHYSICAL LIMITATIONS AFFECTING LEARNING: None Electronically Signed By: Costa Mosqueda RN In Department: [facility] SURGERY CT ABDOMEN/PELVIS WITHOUT Observed: 07/28/2017 Status: F Source: [employer] CONTRAST 3:08 PM SYSTEM ([place]) REPOSITORY PROCEDURE: CT OF THE ABDOMEN AND PELVIS WITHOUT IV CONTRAST HISTORY: 47-year-old female with left flank pain for 3-4 days. No known malignancy. TECHNIQUE: Routine CT imaging of the abdomen and pelvis was performed without intravenous or enteric contrast. Coronal and sagittal reformatted images were obtained. Dose reduction techniques were achieved by using: automated exposure control and/or adjustment of mA and /or kV according to patient size and/or use of iterative reconstruction technique. COMPARISON: None. FINDINGS: KIDNEYS/URETERS: There is no hydroureteronephrosis. No abnormal perinephric or periureteral stranding. No renal or ureteral calculi are identified. UROGENITAL STRUCTURES: Urinary bladder is mildly distended and otherwise unremarkable. No urinary bladder calculus. Tiny bilateral pelvic phleboliths. Uterus is absent. No adnexal mass. LUNG BASES: Lung bases are clear except for very minimal right lower lobe linear subpleural scarring versus atelectasis. Cardiac size is normal. LIVER: Liver is enlarged measuring up to 27 cm in the anterior midclavicular line. There is severe diffuse hepatic steatosis. No focal hepatic lesion within the constraints of this unenhanced exam. Hepatic contour is smooth. SPLEEN: Normal in size. BILIARY TREE: Gallbladder is present. No biliary ductal dilatation. PANCREAS: Unremarkable. ADRENAL GLANDS: Unremarkable. LYMPH NODES: No abdominal or pelvic lymphadenopathy. Scattered subcentimeter short axis retroperitoneal and pelvic lymph nodes are not pathologically enlarged by size criteria and may be reactive. This includes a 0.8 cm short axis left external iliac chain node (series 2, image 98). VASCULATURE: Abdominal aorta and iliac arteries are normal in caliber. PERITONEUM/MESENTERY/OMENTUM: No free fluid, fluid collection, or extraluminal gas. GI TRACT: No bowel obstruction. No bowel inflammatory changes. At least moderate retained stool within the predominantly right and transverse colon. BODY WALL: No aggressive osseous lesion. IMPRESSION: 1. No acute findings within the abdomen or pelvis on this unenhanced examination. Etiology of this patient's left flank pain is not forthcoming from this study. 2. No urolithiasis or hydroureteronephrosis. 3. No bowel obstruction or bowel inflammatory changes. 4. Hepatomegaly and severe diffuse hepatic steatosis. 5. Status post hysterectomy. SR-CT ABDOMEN/PELVIS Observed: 07/28/2017 Status: F Source: [place] WITHOUT CONTRAST IMPORT 12:00 AM [facility] REPOSITORY Images were obtained outside of [facility] [id number] Observed: 07/15/2017 Status: COMPLETED Source: [place] 12:00 AM [facility] OTHER CAMPUS REPOSITORY Patient:Vikki Baumann MRN: <[id number]> Height:5' 7.75(1.721 m) Weight:No patient weight recorded within the last 30 days. Outpatient Medications as of 08/03/17: amLODIPine (NORVASC) 5 mg tablet Lisinopril 30 mg tablet omeprazole (PRILOSEC) 20 mg capsule fluocinolone (SYNALAR) 0.025 % ointment pravastatin (PRAVACHOL) 20 mg tablet levothyroxine (SYNTHROID) 50 mcg tablet clotrimazole-betamethasone (LOTRISONE) cream QUEtiapine (SEROQUEL) 300 mg tablet busPIRone HCl 30 mg tablet DULoxetine (CYMBALTA) 60 mg capsule OXcarbazepine (TRILEPTAL) 300 mg tablet temazepam (RESTORIL) 30 mg cap benztropine 1 mg ORAL tablet Admission/Clinic Administered Medications as of 08/03/17: NaCl 0.9% iv infusion Problem List: 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, D35.3] Dysmetabolic syndrome [E88.81] Depression [F32.9] Hypertrophy of breast [N62] Benign heart murmur [] Abnormal uterine bleeding [N93.9] Chronic RLQ pain [R10.31, G89.29] Dysmenorrhea [N94.6] Other affections of shoulder region, not elsewhere classified [M75.80] SHEFALI (iron deficiency anemia) [D50.9] Myofascial pain [M79.1] Neck pain [M54.2] Cervical disc displacement [M50.20] Pain in joint, shoulder region [M25.519] Cervical radiculitis [M54.12] Sacroiliac joint pain [M53.3] Right buttock pain [M79.1] Headache [R51] Hypothyroidism [E03.9] Non morbid obesity due to excess calories [E66.09] Cervical arthritis (HCC) [M46.92] Chronic bilateral low back pain without sciatica [M54.5, G89.29] DDD (degenerative disc disease), cervical [M50.30] SI (sacroiliac) joint dysfunction [M53.3] Schizoaffective disorder (HCC) [F25.9] Chronic SI joint pain [M53.3, G89.29] Allergies: Codeine Compazine [Prochlorperazine Edisylate] Darvocet A500 [Propoxyphene N-Acetaminophen] Tessalon [Benzonatate] Vicodin [Hydrocodone-Acetaminophen] Date Verified: 08/03/17 Lab Values No results within the last 30 days for the following basenames: K,HCT Progress Notes ([facility]): Mima Cotto, FLOOR SUPERVISOR, FLOOR SUPERVISOR 07/14/2017 1:[address] PM [address] Spoke to Dr. Boyce. The cervical xray shows minor disc bulge at C5-6. He recommends a C6-7 ASHANTI Order placed and please call patient to schedule injection Becky Elias Ma 07/15/2017 12:02 PM Signed Called the patient left voicemail message, awaiting on a call back from the patient. Arelis Mai, RN, RN 07/15/2017 12:36 PM Signed Notified patient of providers message below, patient verbalized understanding. Please call patient to schedule a ASHANTI. Patient also has an appointment with Dr. Boyce on 07/28 as SI joint is starting to bother her as well. Becky Elias Ma 07/15/2017 12:48 PM Signed Called the patient and scheduled injection. Becky Elias Ma 07/15/2017 12:48 PM Signed Addended by: BECKY ELIAS MA on: 07/15/2017 12:48 PM Modules accepted: Orders Progress Notes (RADIO MRI [facility]): Bharati Maloney Rt 07/12/2017 2:56 PM Signed Radiology Service Progress Note PATIENT NAME: Vikki Baumann DATE OF SERVICE: July 12, 2017 TIME: 2:56 PM PATIENT IDENTITY VERIFICATION COMPLETED USING TWO (2) METHODS: Patient confirmed name verbally and Date of . PATIENT GENDER DATA: Female. status: : No status: NO. PATIENT RELEVANT IMPLANT DATA REVIEWED: Yes RADIOLOGY DEPARTMENT: MR; Exam(s) Completed: Spine: Cervical spine PERIPHERAL IV DATA: Not applicable SIGNED BY: Bharati Maloney Rt July 12, 2017 2:56 PM CNPN Observed: 07/14/2017 Status: COMPLETED Source: [place] 12:00 AM [facility] REPOSITORY Telephone (PNMDNA) VIKKI BAUMANN ([id number]) 1970 F T Date Time Provider Department 07/14/17 MIMA COTTO ([facility]) [facility] During your visit today, we recorded the following information about you: Mima Cotto CNP, [facility] 07/14/2017 1:20 PM Signed Spoke to Dr. Boyce. The cervical xray shows minor disc bulge at C5-6. He recommends a C6-7 ASHANTI Order placed and please call patient to schedule injection Becky Elias Ma 07/15/2017 12:02 PM Signed Called the patient left voicemail message, awaiting on a call back from the patient. Arelis Mai, RN, RN 07/15/2017 12:36 PM Signed Notified patient of providers message below, patient verbalized understanding. Please call patient to schedule a ASHANTI. Patient also has an appointment with Dr. Boyce on 07/28 as SI joint is starting to bother her as well. Becky Elias Ma 07/15/2017 12:48 PM Signed Called the patient and scheduled injection. Becky Elias Ma 07/15/2017 12:48 PM Signed Addended by: BECKY ELIAS MA on: 07/15/2017 12:48 PM Modules accepted: Orders Allergies As of Date: 07/14/2017 Noted Allergy Reaction CODEINE 03/07/2010 8 - GI Upset COMPAZINE (PROCHLORPERAZINE EDISY*03/07/2010 DARVOCET A500 (PROPOXYPHENE N-SHERRY*03/07/2010 8 - GI Upset TESSALON (BENZONATATE) 04/16/2015 14 - Other: See Comments Comments: Heart palpitations VICODIN (HYDROCODONE-ACETAMINOPHE*03/07/2010 4 - Hives Comments: Also LORTAB Date Reviewed: 06/15/2017 Reviewed by: Edith Bazzi Washcoat Wiper - Fully Assessed Reason for Visit: Results [95] Primary Visit Diagnosis:Cervical disc displacement [M50.20] Other Visit Diagnoses:Cervical radiculitis [M54.12] Cervical arthritis (HCC) [M46.92] DDD (degenerative disc disease), cervical [M50.30] Order(s):EPI CERV OR THORC W/IMAGING [[id number]] Order #: [id number] SURGICAL REQUEST - ELECTIVE [[id number]] Order #: [id number]: 1 Prescriptions as of 07/14/2017 Sig: BACLOFEN 10 MG TABLET Take 1 tablet by mouth twice * LISINOPRIL 30 MG TABLET Take 1 tablet by mouth once d* OMEPRAZOLE 20 MG CAPSULE,EARL* Take 1 capsule by mouth twice* FLUOCINOLONE 0.025 % TOPICAL * Apply 1 application to affect* PRAVASTATIN 20 MG TABLET TAKE 1 TABLET AT BEDTIME LEVOTHYROXINE 50 MCG TABLET TAKE 1 TABLET BY MOUTH ONCE D* CLOTRIMAZOLE-BETAMETHASONE 1 * Apply 1 application to affect* QUETIAPINE 300 MG TABLET Take 2 tablets by mouth daily* BUSPIRONE 30 MG TABLET Take 1 tablet by mouth twice * DULOXETINE 60 MG CAPSULE,EARL* Take 2 capsules by mouth once* OXCARBAZEPINE 300 MG TABLET Take 2 300 mg tablets in the * TEMAZEPAM 30 MG CAPSULE Take 1 capsule by mouth daily* * BENZTROPINE 1 MG TABLET Take 2 mg by mouth twice errol* Problem List As Of Date 07/14/2017 Noted Resolved 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, D35.3] INVALID FOR* Dysmetabolic syndrome [E88.81] INVALID FOR* Depression [F32.9] INVALID FOR* Hypertrophy of breast [N62] INVALID FOR* Benign heart murmur INVALID FOR* Abnormal uterine bleeding [N93.9] INVALID FOR* Chronic RLQ pain [R10.31, G89.29] INVALID FOR* Dysmenorrhea [N94.6] INVALID FOR* Other affections of shoulder region, not elsewh*INVALID FOR* Rotator cuff tear [M75.100] INVALID FOR*02/28/2013 SHEFALI (iron deficiency anemia) [D50.9] INVALID FOR* Myofascial pain [M79.1] INVALID FOR* Neck pain [M54.2] INVALID FOR* Cervical disc displacement [M50.20] INVALID FOR* Pain in joint, shoulder region [M25.519] INVALID FOR* Cervical radiculitis [M54.12] INVALID FOR* Sacroiliac joint pain [M53.3] INVALID FOR* Buttock pain [M79.1] INVALID FOR*01/15/2015 Right buttock pain [M79.1] INVALID FOR* Headache [R51] INVALID FOR* Lower back pain [M54.5] INVALID FOR*09/10/2015 Chronic pain [G89.29] INVALID FOR*11/14/2015 Right-sided low back pain without sciatica [M54*INVALID FOR*11/14/2015 Hypothyroidism [E03.9] Non morbid obesity due to excess calories [E66.*INVALID FOR* Cervical arthritis (HCC) [M46.92] INVALID FOR* Chronic bilateral low back pain without sciatic*INVALID FOR* DDD (degenerative disc disease), cervical [M50.*INVALID FOR* SI (sacroiliac) joint dysfunction [M53.3] INVALID FOR* Schizoaffective disorder (HCC) [F25.9] INVALID FOR* Chronic SI joint pain [M53.3, G89.29] INVALID FOR* Encounter Status:Closed by MIMA COTTO on 07/14/17 MRI CERVICAL SPINE WO Observed: 07/12/2017 Status: F Source: TERESA CUNHA 3:00 PM [facility] REPOSITORY * * *Final Report* * * DATE OF EXAM: Jul 12 2017 3:00PM SHANTAL 0297 - MRI CERVICAL SPINE WO IVCON / PROCEDURE REASON: multiple diagnoses * * * * Physician Interpretation * * * * EXAMINATION: MRI CERVICAL SPINE WO IVCON CLINICAL HISTORY: Neck pain into left shoulder. Cervical radiculopathy. TECHNIQUE: Routine cervical spine MR protocol without gadolinium. COMPARISON: MRI cervical spine 11/22/2015 RESULT: Counting reference: Craniocervical junction. Alignment: Alignment is anatomic. Craniocervical junction: Craniocervical junction is normal. Cord: The visualized cord is within normal limits of signal intensity but is flattened as outlined below. Bone marrow signal/fracture: No evidence of pathologic marrow infiltration. No evidence of prior fracture. Cervical soft tissues: The paraspinal soft tissues are within normal limits. C2-C3: Canal and foramina are patent. Mild facet arthropathy on the right. C3-C4: Canal and foramina are patent. Uncovertebral spurring and facet arthropathy noted. C4-C5: There is disc degeneration with disc osteophyte complex, uncovertebral spurring, and facet arthropathy causing mild canal narrowing and mild bilateral foraminal stenosis. C5-C6: There is disc degeneration with disc osteophyte complex eccentric to the right, uncovertebral spurring, and facet arthropathy causing moderate canal narrowing with mild ventral cord flattening, and moderate left foraminal stenosis. C6-C7: There is disc degeneration with disc osteophyte complex, uncovertebral spurring, and facet arthropathy causing mild to moderate left foraminal stenosis without significant canal narrowing. C7-T1: Canal and foramina are patent. IMPRESSION: Multilevel cervical spondylosis as described, worst at C5- C6 with moderate canal narrowing with mild cord flattening eccentric to the right unchanged from the prior examination. No abnormal cord signal. Director Check: PSCB Transcribe Date/Time: Jul 12 2017 4:19P Dictated by : HAILEY CHILDERS MD This examination was interpreted and the report reviewed and electronically signed by: HAILEY CHILDERS MD on Jul 12 2017 4:23PM EST [id number] PROGRESS Observed: 07/12/2017 Status: COMPLETED Source: [place] 2:56 PM [facility] [place] REPOSITORY HNO ID: [id number] Author: Bharati Maloney Rt Service: (none) Author Type: (none) Type: Progress Notes Filed: 07/12/2017 2:56 PM Note Text: Radiology Service Progress Note PATIENT NAME: Vikki Baumann DATE OF SERVICE: July 12, 2017 TIME: 2:56 PM PATIENT IDENTITY VERIFICATION COMPLETED USING TWO (2) METHODS: Patient confirmed name verbally and Date of . PATIENT GENDER DATA: Female. status: : No status: NO. PATIENT RELEVANT IMPLANT DATA REVIEWED: Yes RADIOLOGY DEPARTMENT: MR; Exam(s) Completed: Spine: Cervical spine PERIPHERAL IV DATA: Not applicable SIGNED BY: Bharati Maloney Rt July 12, 2017 2:56 PM ALLERGIES ALLERGIES DATE TYPE / NAME / CODE REACTION SEVERITY SOURCE CODE 05/30/2018 Drug prochlorperazine ANXIETY [place] Allergy/41 edisylate/[id number](R Community 0719837( XNORM) [facility]) Repository 05/30/2018 Drug prochlorperazine ANXIETY MO [place] Allergy/41 maleate/I711501881(RXN Community 2460482( ORM) [facility]) Repository 05/30/2018 Drug hydrocodone Itching [place] Allergy/41 bitartrate/T228326740( Community 1029905( RXNORM) [facility]) Repository 05/30/2018 Drug codeine/[id number](RXN VOMITS [place] Allergy/41 [facility] 75152[facility] Repository 05/30/2018 Drug benzonatate/[id number] Other Unknown [place] Allergy/41 (RXNORM) [facility] 5081730[facility]) Repository 04/16/2015 DRUG BENZONATATE OTHER: SEE C [place] INGREDI/41 Clinic Other 4924776([facility]) Repository 03/07/2010 DRUG CODEINE GI UPSET [place] INGREDI/41 Clinic Other 2051988([facility]) Repository 03/07/2010 DRUG PROCHLORPERAZINE [place] INGREDI/41 EDISYLATE Clinic Other 7657229([facility]) Repository 03/07/2010 DRUG/54522 PROPOXYPHENE GI UPSET [place] 1003([facility] N-ACETAMINOPHEN Clinic Other D CT) [place] Repository 03/07/2010 DRUG/12936 HYDROCODONE-ACETAMINOP HIVES [place] 1003([facility] HEN Clinic Other D CT) [place] Repository ENCOUNTERS ENCOUNTERS ADMIT/DISCHARGE ACCOUNT NUMBER ADMITTING ENCOUNTER LOCATION SOURCE CLASS 06/13/2018/06/16/19 [id number] Ambulatory [address] Main [place] Repository 05/30/2018/05/30/20 [id number] Ambulatory [address] ding:SDCRoom Repository : AC14 05/30/2018 [id number] Ambulatory BMSBuilding: [facility] Repository 05/12/2018/05/16/20 [id number] Ambulatory [address] Repository 05/03/2018/05/03/20 [id number] ROSINA QUINN Ambulatory [address] Repository 04/26/2018/04/26/20 [id number] [place] BOYCE Ambulatory [address] Repository 04/20/2018/04/20/20 [id number] Ambulatory [address] Repository 04/20/2018/04/26/20 [id number] Ambulatory [address] Repository 03/31/2018 [id number] Huy ISLAS, Ambulatory [facility] Repository 03/28/2018/03/28/[id number] [place] [address] Melania S lding:[address] DeptRoom: [facility] A1E K0MQTuk: Repository A1E [id number] 03/23/2018/03/23/20 [id number] Ambulatory [address] Repository 03/22/2018/04/04/20 [id number] Ambulatory [address] Main [place] Repository 03/21/2018/03/24/20 [id number] Ambulatory [address] Main [place] Repository 03/16/2018/03/16/20 [id number] Ambulatory [address] Main [place] Repository 01/06/2018/01/07/20 [id number] [place] BOYCE Ambulatory [address] Other [place] Repository 11/29/2017/11/30/19 [id number] Ambulatory [address] Repository 11/16/2017/11/18/19 [id number] Ambulatory [address] Main [place] Repository 11/10/2017/11/12/19 [id number] Ambulatory [address] Repository 11/02/2017/11/03/19 [id number] [facility] [place] [address] DRoom: System ([place] J909Zee: Repository E011 11/01/2017/11/02/19 [id number] [facility] [place] [address] DRoom[place] V010Txz: Repository E014 10/14/2017/10/15/19 [id number] [place] BOYCE Ambulatory [address] Other [place] Repository 10/08/2017 [id number] Ambulatory [facility] Main [place] Repository 09/29/2017/09/30/19 [id number] Ambulatory [address] Main [place] Repository 09/14/2017/09/15/19 [id number] Ambulatory [address] Main [place] Repository 09/07/2017/09/08/19 [id number] Ambulatory [address] Main [place] Repository 08/19/2017/08/24/19 [id number] Ambulatory [address] Main [place] Repository 08/19/2017/08/20/19 [id number] Ambulatory [address] Main [place] Repository 08/10/2017 [id number] Ambulatory [facility] Main [place] Repository 08/10/2017/08/13/19 [id number] Ambulatory [address] Main [place] Repository 08/03/2017/08/03/19 [id number] [place] BOYCE [address] Other [place] Repository 07/28/2017/07/28/19 [id number] [place] [address] DRoom[place] E474Nbe: Repository E002 07/16/2017/07/16/19 [id number] [place] [address] DRoom[place] A091Hqv: Repository E010 07/12/2017/07/12/[id number] Repository PAYERS PAYERS ENCOUNTER GUARANTOR PAYER SUBSCRIBER SOURCE 05/30/2018 VIKKI INGRAM Primary VIKKI WOOD Insurance:MEDICARE DRAKEDOB: [place] PART A BPolicy [id number] Hospital [id number]: (330) Number: Repository [phone] () [id number] Date:2018-05-19 05/30/2018 Secondary VIKKI M [place] Insurance:MEDICAIDPol DRAKEDOB: Community icy Number: [id number] Hospital [id number] Repository Date:2018-05-19 05/30/2018 Tertiary NOT GIVENUNK [place] Insurance:SELF PAY [facility] Number: Effective Repository Date:2018-05-19 05/30/2018 VIKKI M [id number] Primary VIKKI M [place] Insurance:MEDICARE DRAKEDOB: [place] PART A BPolic [id number] Hospital [id number]: (829) Number: Repository () [id number] Date:2018-05-19 05/30/2018 Secondary VIKKI M [place] Insurance:MEDICAIDPol [facility]RAKEDOB: [facility] icy Number: [id number] Hospital [id number] Repository Date:2018-05-19 05/30/2018 Tertiary NOT GIVENUNK [place] Insurance:SELF PAY [facility] Number: Effective Repository Date:2018-05-30 03/31/2018 Primary VIKKI M [facility] Insurance:MedicarePol DRAKEDOB: [place] and icy Number: [id number] [facility] [id number] ALEIDA Rep[facility] [place] [address]Bfb: (HP) 03/31/2018 Secondary VIKKI M [facility] Insurance:MedicarePol DRAKEDOB: [place] and icy Number: [id number] [facility] [id number] ALEIDA Repository Date:[facility] [place] [address]Ghf: (HP) 03/31/2018 Tertiary VIKKI M [facility] Insurance:MedicaidPol DRAKEDOB: [place] and icy Number: [id number] [facility] [id number] ALEIDA Repository Date:Plan Name:[place], [place] [address]Zbr: (HP) 03/28/2018 Primary VIKKI M [facility] Insurance:MedicarePol DRAKEDOB: [place] and icy Number: [id number] [facility] [id number] LAEIDA Repository Date:Plan Name:[place] [address]Wvr: () 03/28/2018 Secondary [facility] Insurance:MedicarePol DRAKEDOB: [place] and icy Number: [id number] [facility] [id number] ALEIDA Repository Date:Plan Name:[place] [address]Lum: () 03/28/2018 Tertiary [facility] Insurance:MedicaidPol DRAKEDOB: [place] and icy Number: [id number] [facility] [id number] ALEIDA Repository Date:Plan Name:[facility] [place] [address]Ikr: ()
== END 2018-05-30 17:24 | disposition home or self-care (01) ==
LOC: SDC 11:52 → AC 11:55
PROVIDERS: Anesthesiology; Family Provider Internal Medicine; PCP Internal Medicine; Referring Provider Surgery; Visit Provider Surgery
PROC: (CPT 47610; principal; 2018-05-30 13:10)
DX: K81.1 Chronic cholecystitis (principal); F32.9 Major depressive disorder, single episode, unspecified; I10 Essential (primary) hypertension; G47.33 Obstructive sleep apnea (adult) (pediatric); E78.5 Hyperlipidemia, unspecified; G40.909 Epilepsy, unspecified, not intractable, without status epilepticus; F25.9 Schizoaffective disorder, unspecified; K21.9 Gastro-esophageal reflux disease without esophagitis; F41.9 Anxiety disorder, unspecified; Z79.891 Long term (current) use of opiate analgesic; Z79.899 Other long term (current) drug therapy; Z87.891 Personal history of nicotine dependence
CPT/HCPCS: 00790; 47563; 36415; 74300; 76000; 84443; 85027; 88304; 93005; J7050; J7120; J2405

== ENCOUNTER 2021-07-10 11:21 | Day surgery (SDC) | payer MEDICARE, MEDICAID, SELFPAY ==
[2021-07-10] VITALS (7 sets, daily range): BP systolic 97–133; BP diastolic 51–82; PULSE 61–72; RESP 16–18; TEMP 36.1–36.4; O2SAT 96–99; BMI 34.5
[2021-07-10] MEDS: Lactated Ringers 1,000 ML 15 ML IV (12:01)
--- NOTE | 2021-07-10 12:18 | PCM.HP.BLA ---
History and Physical Date of Admission: 07/10/21 REASON FOR VISIT Lucita Baumann is a 50 year old female who is scheduled at the request of Jenny Son for No chief complaint on file.. My final recommendations will be communicated back to the requesting physician by the way of the shared medical record, fax, or via US Mail ? The patient was seen by on 09/04/2013?for colonoscopy and upper endoscopy for symptoms of Epigastric pain. ?The procedures were performed with MAC sedation. The procedure report has been reviewed and findings as follows: ? Impression: Esophagus proximal negative, mid negative, distal negative. Ileus 40cm. Stomach cardia negative. Fundus, body negative. Antrum negative. Biopsy for histology and H. pylori. Pylorus was negative duodenal bulb negative second portion unremarkable. Normal upper gastrointestinal endoscopy. ? Impression: Colonoscopy and fairly prepped colon to the cecum revealed proximal ascending polyp and 3 small polyps at 20 cm removed. A. Gastric mucosa biopsy, gastritis. Negative H. pylori B.proximal ascending colon polyp, biopsy, fragments of hyperplastic polyp and fecal debris C.colonic polyp at 20 cm biopsy, fragments of hyperplastic polyp ? ? HISTORY OF PRESENT ILLNESS Lucita Baumann is a 50 year old female with a past medical history heartburn, ischemic colitis 2009, HTN, schizoaffective disorder, DM, seizures (d/t stopping medication) benign heart murmur, superficial blood clots, depression, benign neoplasm of the pituitary gland, hyperlipidemia, hypothyroidism. ? Who presents today for an evaluation of colon cancer screening. ? The patient denies change in bowel habits, black stool, rectal bleeding or abdominal pain. Having a bowel movement either daily or every 2 days max. Denies constipation or diarrhea ? Taking omeprazole 20mg twice daily controlling symptoms. Denies upper Gi complaints ? Patient smokes 1/2 ppd - quit smoking for 6 year and restarted 1 year ? PAST MEDICAL HISTORY PAST MEDICAL HISTORY Diagnosis Date ? Benign heart murmur 09/01/2012 ? Benign neoplasm of pituitary gland and craniopharyngeal duct (pouch) (HCC) ? ? Dr. Duke following ? Degeneration of intervertebral disc, site unspecified ? ? Drs. Hansen and Abhilash ? Depressive disorder, not elsewhere classified ? ? DM (diabetes mellitus) (HCC) ? ? Dr. Duke ? H/O blood clots ? ? all superficial ? Heartburn ? ? High blood pressure ? ? Hypothyroidism ? ? GAGANDEEP (obstructive sleep apnea) ? ? Other and unspecified hyperlipidemia ? ? Dr. Duke following ? Schizoaffective disorder ? ? Seizures (HCC) 2012 ? medication related ? Spinal stenosis, unspecified region other than cervical ? ? Dr.s Wilburn ? Unspecified epilepsy without mention of intractable epilepsy ? ? Viral warts, unspecified ? ? PAST SURGICAL HISTORY PAST SURGICAL HISTORY Procedure Laterality Date ? ANKLE LEFT OP SURGERY ? 06/19/2011 ? 8 screws and metal plate removed left ankle ? ARTHRO SHLDR DST CLAVICLECTMY ? 04/10/2014 ? Right shoulder arthroscopic rotator cuff repair with debridement ? COLONOSCOP W/ OR W/O BRSH SPEC ? 09/05/13 ? Colonoscopy [facility] ? EGD W/O OR W/BRUSH/WASH ? 09/05/13 ? EGD [facility] ? EGD W/O OR W/BRUSH/WASH ? 05/03/2018 ? EGD ? EMBOLIZATION UTERINE FIBROID ? 3300-4093 ? 1 removed each time ? LAP CHOLECYSTECT/CHOLANGIOGRAPHY ? 05/27/2018 ? LEG DVT LEONEL UNL J3-5 ? 1982 ? 5 superficial blot clots in left leg ? PAST SURGICAL HISTORY OF ? 12-24-11 ? bilateral breast reduction ? SHLDR ARTHROSCOP,PART ACROMIOPLAS ? 01/31/2013 ? Right shoulder ? TONSILLECTOMY HX ? 1992 ? VAGINAL HYSTERECTOMY ? 01/05/2013 ? Hysterectomy, vaginal for dysmenorrhea ? CURRENT MEDICATIONS Current Outpatient Medications Medication Sig Dispense Refill ? tiZANidine (ZANAFLEX) 4 mg tablet Take 1 tablet by mouth every 8 hours as needed. 90 tablet 3 ? ALPRAZolam (XANAX) 0.5 mg tablet Take 0.25 mg by mouth three times daily as needed. ? ? ? carBAMazepine, mood stabiliz, 200 mg CM12 Take 200 mg by mouth twice daily. ? ? ? zolpidem (AMBIEN) 10 mg Take 1 tablet by mouth daily at bedtime for 180 days. 30 tablet 5 ? cholecalciferol, Vitamin D3, (VITAMIN D3) 1,250 mcg (50,000 unit) cap capsule Take 1 capsule by mouth one time a week. 4 capsule 11 ? rosuvastatin (CRESTOR) 5 mg tablet Take 1 tablet by mouth daily at bedtime. 30 tablet 11 ? omeprazole (PRILOSEC) 20 mg capsule Take 1 capsule by mouth twice daily. 56 capsule 11 ? lisinopril (ZESTRIL, PRINIVIL) 5 mg tablet Take 1 tablet by mouth once daily. 30 tablet 11 ? metoprolol tartrate, short acting, (LOPRESSOR) 25 mg tablet Take 1 tablet by mouth twice daily. 60 tablet 11 ? amLODIPine (NORVASC) 10 mg tablet Take 1 tablet by mouth once daily. 30 tablet 11 ? ibuprofen (MOTRIN) 800 mg tablet Take 1 tablet by mouth every 8 hours as needed for pain. FOR PAIN. 90 tablet 3 ? gabapentin (NEURONTIN) 100 mg capsule Take 1 capsule by mouth twice daily for 90 days. As directed 60 capsule 2 ? sertraline (ZOLOFT) 100 mg tablet Take 1.5 tablets by mouth once daily. ? ? ? QUEtiapine (SEROQUEL) 200 mg tablet Take 1 tablet by mouth three times daily. (Patient taking differently: Take 400 mg by mouth twice daily. Pt reported Am, PM. ) ? ? ? cloZAPine (CLOZARIL) 200 mg tablet Take 600 mg by mouth daily at bedtime. ? ? ? busPIRone HCl 30 mg tablet Take 1 tablet by mouth twice daily. (Patient taking differently: Take 30 mg by mouth three times daily. ) ? ? ? peg 3350-Electrolytes (GOLYTELY) 236-22.74-6.74 -5.86 gram suspension Take 4,000 mL by mouth one time only for 1 dose. Refer to printed prep instructions from your provider. 1 Bottle 0 ? clonazePAM (KLONOPIN) 2 mg tablet Take 2 mg by mouth three times daily. (Patient not taking: Reported on 03/13/2021) ? ? ? No current facility-administered medications for this visit. ? ? ALLERGIES ALLERGIES Allergen Reactions ? Codeine GI Upset ? Compazine [Prochlor* ? ? Darvocet A500 [Prop* GI Upset ? Tessalon [Benzonata* Other: See Comments ? ? Heart palpitations ? ? Vicodin [Hydrocodon* Hives ? ? Also LORTAB ? ? SOCIAL HISTORY Social History ? Tobacco Use ? Smoking status: Current Every Day Smoker ? ? Packs/day: 0.50 ? ? Years: 20.00 ? ? Pack years: 10.00 ? ? Types: Cigarettes ? ? Last attempt to quit: 03/15/2014 ? ? Years since quittin.0 ? Smokeless tobacco: Never Used ? Tobacco comment: 08/17/13 Pt will have an occ cigarette. Sometimes less than half PPD. Almost quit Substance Use Topics ? Alcohol use: Yes ? ? Comment: Rarely, 1 drink every few months ? Drug use: Not Currently ? ? Types: Marijuana ? ? FAMILY HISTORY (grandparents, parents, brothers, sisters, aunts, or uncles) Ulcerative Colitis: No Crohn's Disease: Yes Sister Colon Cancer: No Colon Polyps: Yes personal history and sister IBS: Yes - sister Celiac disease: No ? PHYSICAL EXAMINATION BP 98/66 Pulse 79 Ht 5' 7.323 (1.71m) Wt 206 lb (93.4kg) SpO2 98% LMP 11/30/2012 BMI 31.96 kg/(m^2). ? General Appearance: Well appearing, alert, in no acute distress, well-hydrated, well nourished. Eyes: PERRLA, conjunctiva and sclera normal Lungs:breath sounds clear to auscultation bilaterally, no crackles, rhonchi, or wheezes Heart: regular rate and rhythm, no murmurs or gallops. Abdomen: not distended, normal bowel sounds, soft and depressible, no guarding or rebound, no palpable mass, no organomegaly Rectal exam: Deferred. Extremities: no cyanosis or edema Skin: no jaundice, no spider angiomas, no palmar erythema Neuro:alert, oriented x 3, pleasant and in no acute distress ? ? IMPRESSION (Z12.11) Screening for colon cancer (primary encounter diagnosis) (Z86.010) History of colon polyps (K21.9) Gastroesophageal reflux disease without esophagitis ? ? PLAN ASSESSMENT/PLAN: 1. Screening for colon cancer - ICD9: V76.51, ICD10: Z12.11 (primary diagnosis) - EGD GEN ANES - COLONOSCOPY GEN ANES -Patient will require MAC sedation due to medical history and medications ? 2. History of colon polyps - ICD9: V12.72, ICD10: Z86.010 - EGD GEN ANES - COLONOSCOPY GEN ANES ? 3. Gastroesophageal reflux disease without esophagitis - ICD9: 530.81, ICD10: K21.9 - EGD GEN ANES - chronic use of PPI ? ? ? Plan is to follow up after test(s) and as needed (prn). ? The patient will be scheduled for an upper endoscopy as well as a colonoscopy. Preparation for the procedures, using GoLytely as the laxative, have been explained in detail. The risks, benefits, anticipated outcomes and possible complications were mentioned, including including failure to complete the endoscopy and perforation. I explained the procedure in understandable terms and the patient was given printed material concerning the planned procedure. The patient had the opportunity to ask questions concerning the planned procedure. The patient freely consents to the planned procedure. ? The patient is instructed to contact PCP for instructions regarding diabetic medication, which may require adjustment during bowel preparation and/or day of procedure. ? The patient is scheduled for a procedure at the [facility] I have explained that his/her health and safety, as well as that of our staff is important. The risk of exposure to, or potential harm posed by the COVID-19 virus with having a procedure at this time is as minimal as possible. Measures are being taken to minimize any potential risk of infection. I have explained that he/she will see that the staff will be wearing masks and gloves. The patient's temperature will be taken on arrival, they will be asked a series of questions to reassess current wellness, and asked to use hand fusing machine feeder foam. The bed areas are cleaned and the procedure rooms are thoroughly disinfected between patients. Procedure rooms will be alternated to give the disinfection more than enough time to ensure adequate protection for all involved. ? The patient is encouraged to call with any questions or concerns, or should there be any change in health status between now and the scheduled procedure. ? I have personally interviewed and examined this patient. I have read the information that the nurse documented in this encounter. I spent 30 minutes in the visit, with more than 50% of the total [id number] time of the visit in counseling / coordination of care. ? Trudy Chua, RELEASE OF INFORMATION CLERK.COIL ASSEMBLER I have re-examined the patient. There are no clinical changes since date of exam.
--- NOTE | 2021-07-10 12:30 | IMM_PTH ---
PATIENT: VIKKI LESLIE LOC: EN U#:[id number] AGE/SX: 50/F ROOM: RE07/10/[address]: Dr. Romeo Teresa MD : 1970 BED: DIS: 07/10/2021 SPEC #: [id number] RECD: 07/10/21 13:50 STATUS: DAINA REQ #: [id number] GABRIELA: 07/10/21 12:[address]: Romeo Teresa DEPT: IMMUNOHISTOCHEMISTRY RECD BY: Swati Holden ENTERED: 07/10/21 13:50 SP TYPE: IMMUNO OTHR DR: Dr. Jenny Son MD Tissues: A - Stomach, NOS Procedures: H Pylori (initial) PHYSICIAN & INSTITUTION [place] [address] SPECIMEN INFORMATION: Tissue Source: A ? Antrum Clinical Info: Screening, history colon polyps, GERD Specimen Number: [id number] CPT code: 80761 METHODOLOGY: Deparaffinized sections of prefer/formalin-fixed tissue or PAP/DQ stained slides are incubated with monoclonal/polyclonal antibodies/oligonucleotide probes. Localization is made via biotin free immunoperoxidase method. Appropriate controls are performed and reacted as expected. Results on target cell population are indicated in the following table: RESULTS: ANTIBODY / CLONE RESULT Block A H Pylori (polyclonal) negative These tests were developed and their performance characteristics determined by [facility]. They may not have been cleared or approved by the U.S. Food and Drug Administration. The FDA has determined that such clearance or approval is not necessary. INTERPRETATION: A. Antrum biopsy: Negative for Helicobacter pylori organisms. AM:melissa 07/11/2021
--- NOTE | 2021-07-10 12:30 | EGD_PTH ---
PATIENT: VIKKI LESLIE LOC: EN U#:[id number] AGE/SX: 50/F ROOM: RE07/10/[address]: Dr. Romeo Teresa MD : 1970 BED: DIS: 07/10/2021 SPEC #: [id number] RECD: 07/10/21 13:33 STATUS: DAINA SANDY #: [id number] GABRIELA: 07/10/21 12:[address]: Romeo Teresa DEPT: SURGICAL PATHOLOGY RECD BY: Felicitas Monsalve ENTERED: 07/10/21 13:43 SP TYPE: EGD BIOPSY OT DR: Dr. Jenny Son MD Tissues: A - Gastric mucous membrane B - Sigmoid colon biopsy Procedures: Surgery Specimen Level IV HEADER OPERATION: Colonoscopy, EGD ([facility] [place]) with biopsy PRE-OP DIAGNOSIS: Screening, history colon polyps, GERD TISSUE SUBMITTED: A ? Antrum biopsy for H. pylori and pathology, B ? Polyp sigmoid colon MICROSCOPIC DIAGNOSIS A. Gastric antrum, biopsy: Chronic gastritis. See comment. B. Sigmoid colon polyp, biopsy: Tubular adenoma. AM:melissa 07/11/2021 COMMENT A. The results of immunohistochemistry for Helicobacter pylori will be reported separately ([id number]). MICROSCOPIC DESCRIPTION Slides are reviewed. GROSS DESCRIPTION A - Received in fixative is one container labeled with the patient's name and designated antrum biopsy. The specimen consists of one irregular fragment of light moreno soft tissue that measures 0.5 x 0.2 x 0.1 cm. The specimen is totally submitted in one cassette. B - Received in fixative is one container labeled with the patient's name and designated polyp at sigmoid colon. The specimen consists of a moreno-pink polyp measuring 0.6 x 0.6 x 0.4 cm. The specimen is totally submitted in one cassette. / SJ:melissa 07/10/2021 TC:5 CPT: 42260 x2
--- NOTE | 2021-07-10 13:05 | OP.EGD_ITS ---
Patient Name: Lucita Baumann Procedure Date: 07/10/2021 12:27 PM Date of : 1970 Age: 50 Procedure: Upper GI endoscopy Indications: Esophageal reflux symptoms that persist despite appropriate therapy Providers: Romeo Teresa MD Medicines: See the Anesthesia note for documentation of the administered medications Patient Profile: This is a 50 year old female. Refer to note in patient chart for documentation of history and physical. Complications: No immediate complications. Estimated blood loss: Minimal. Procedure: Pre-Anesthesia Assessment: - Prior to the procedure, a History and Physical was performed, and patient medications and allergies were reviewed. The patient's tolerance of previous anesthesia was also reviewed. The risks and benefits of the procedure and the sedation options and risks were discussed with the patient. All questions were answered, and informed consent was obtained. Prior Anticoagulants: The patient has taken no previous anticoagulant or antiplatelet agents. ASA Grade Assessment: III - A patient with severe systemic disease. After reviewing the risks and benefits, the patient was deemed in satisfactory condition to undergo the procedure. After obtaining informed consent, the endoscope was passed under direct vision. Throughout the procedure, the patient's blood pressure, pulse, and oxygen saturations were monitored continuously. The gastroscope was introduced through the mouth, and advanced to the second part of duodenum. The upper GI endoscopy was accomplished without difficulty. The patient tolerated the procedure well. Scope In: 12:31:52 PM Scope Out: 12:42:32 PM Total Procedure Duration Time 0 hours 10 minutes 40 seconds Findings: The Z-line was regular and was found 40 cm from the incisors. Localized mild inflammation characterized by erythema and granularity was found in the prepyloric region of the stomach. Biopsies were taken with a cold forceps for Helicobacter pylori testing. The examined duodenum was normal. No biopsies or other specimens were collected for this exam. Impression: - Z-line regular, 40 cm from the incisors. - Gastritis. Biopsied. - Normal examined duodenum. No specimens collected. Recommendation: - Patient has a contact number available for emergencies. The signs and symptoms of potential delayed complications were discussed with the patient. Return to normal activities tomorrow. Written discharge instructions were provided to the patient. - Resume previous diet. - Continue present medications. - Await pathology results. - Repeat upper endoscopy in 3 years for surveillance. - Return to nurse practitioner in 1 week. Procedure Code(s): --- Professional --- 76611, Esophagogastroduodenoscopy, flexible, transoral; with biopsy, single or multiple Diagnosis Code(s): --- Professional --- K29.70, Gastritis, unspecified, without bleeding K21.9, Gastro-esophageal reflux disease without esophagitis CPT copyright 2017 [employer]. All rights reserved. The codes documented in this report are preliminary and upon manager pest review may be revised to meet current compliance requirements. MD Romeo Barry MD 07/10/2021 1:04:12 PM This report has been signed electronically. Number of Addenda: 0 Note Initiated On: 07/10/2021 12:27 PM
--- NOTE | 2021-07-10 13:06 | OP.CCLET_ITS ---
07/10/2021 Jenny Son [address] [place] [address] Re : Upper GI endoscopy procedure for Lucita Baumann Dear Dr. Son This procedure was performed on June. My impressions and recommendations are as follows: Impressions : - Z-line regular, 40 cm from the incisors. - Gastritis. Biopsied. - Normal examined duodenum. No specimens collected. Recommendations : - Patient has a contact number available for emergencies. The signs and symptoms of potential delayed complications were discussed with the patient. Return to normal activities tomorrow. Written discharge instructions were provided to the patient. - Resume previous diet. - Continue present medications. - Await pathology results. - Repeat upper endoscopy in 3 years for surveillance. - Return to nurse practitioner in 1 week. My findings are described in the full procedure note, which is enclosed. If I can be of further assistance, please feel free to contact me at Doctor phone number(s): , Work: . Sincerely, MD Romeo Barry MD 07/10/2021 1:04:12 PM This report has been signed electronically.
--- NOTE | 2021-07-10 13:09 | OP.COLON_ITS ---
Patient Name: Lucita Baumann Procedure Date: 07/10/2021 12:42 PM Date of : 1970 Age: 50 Procedure: Colonoscopy Indications: High risk colon cancer surveillance: Personal history of colonic polyps Providers: Romeo Teresa MD Medicines: See the Anesthesia note for documentation of the administered medications Patient Profile: This is a 50 year old female. Refer to note in patient chart for documentation of history and physical. Last Colonoscopy: 2013. Complications: No immediate complications. Estimated blood loss: None. Procedure: Pre-Anesthesia Assessment: - Prior to the procedure, a History and Physical was performed, and patient medications and allergies were reviewed. The patient's tolerance of previous anesthesia was also reviewed. The risks and benefits of the procedure and the sedation options and risks were discussed with the patient. All questions were answered, and informed consent was obtained. Prior Anticoagulants: The patient has taken no previous anticoagulant or antiplatelet agents. ASA Grade Assessment: III - A patient with severe systemic disease. After reviewing the risks and benefits, the patient was deemed in satisfactory condition to undergo the procedure. After I obtained informed consent, the scope was passed under direct vision. Throughout the procedure, the patient's blood pressure, pulse, and oxygen saturations were monitored continuously. The colonoscope was introduced through the anus and advanced to the cecum, identified by appendiceal orifice and ileocecal valve. The colonoscopy was performed without difficulty. The patient tolerated the procedure well. The quality of the bowel preparation was inadequate. The ileocecal valve, appendiceal orifice, and rectum were photographed. Scope In: 12:44:03 PM Scope Withdrawal Time 0 hours 8 minutes 44 seconds Scope Out: 12:59:31 PM Total Procedure Duration Time 0 hours 15 minutes 28 seconds Findings: A 5 mm polyp was found in the sigmoid colon. The polyp was sessile. The polyp was removed with a hot snare. Resection and retrieval were complete. The exam was otherwise without abnormality. Impression: - Preparation of the colon was inadequate. Patient will need to have a repeat colonoscopy in 1 year. She will need to be on 2 days of clear liquids. - One 5 mm polyp in the sigmoid colon, removed with a hot snare. Resected and retrieved. - The examination was otherwise normal. Recommendation: - Discharge patient to home. - Resume previous diet. - Continue present medications. - Await pathology results. - Repeat colonoscopy in 1 year because the bowel preparation was suboptimal. - Return to nurse practitioner in 1 week. Procedure Code(s): --- Professional --- 37586, Colonoscopy, flexible; with removal of tumor(s), polyp(s), or other lesion(s) by snare technique Diagnosis Code(s): --- Professional --- Z86.010, Personal history of colonic polyps D12.5, Benign neoplasm of sigmoid colon CPT copyright 2017 [employer]. All rights reserved. The codes documented in this report are preliminary and upon baster hand review may be revised to meet current compliance requirements. MD Romeo Barry MD 07/10/2021 1:08:17 PM This report has been signed electronically. Number of Addenda: 0 Note Initiated On: 07/10/2021 12:42 PM
--- NOTE | 2021-07-10 13:10 | OP.CCLET_ITS ---
07/10/2021 Jenny Son [address] [place] [address] Re : Colonoscopy procedure for Lucita Pastor Dear Dr. Son This procedure was performed on June. My impressions and recommendations are as follows: Impressions : - Preparation of the colon was inadequate. Patient will need to have a repeat colonoscopy in 1 year. She will need to be on 2 days of clear liquids. - One 5 mm polyp in the sigmoid colon, removed with a hot snare. Resected and retrieved. - The examination was otherwise normal. Recommendations : - Discharge patient to home. - Resume previous diet. - Continue present medications. - Await pathology results. - Repeat colonoscopy in 1 year because the bowel preparation was suboptimal. - Return to nurse practitioner in 1 week. My findings are described in the full procedure note, which is enclosed. If I can be of further assistance, please feel free to contact me at Doctor phone number(s): , Work: . Sincerely, MD Romeo Barry MD 07/10/2021 1:08:17 PM This report has been signed electronically.
== END 2021-07-10 23:59 | disposition home or self-care (01) ==
LOC: EN 11:26 → AC 11:27
PROVIDERS: PCP Internal Medicine; Referring Provider Internal Medicine; Visit Provider Surgery
PROC: 0DJD8ZZ Inspection of Lower Intestinal Tract, Via Natural or Artificial Opening Endoscopic (ICD-10-PCS; CPT 45378; principal; 2021-07-10 12:25)
DX: Z12.11 Encounter for screening for malignant neoplasm of colon (principal); F25.9 Schizoaffective disorder, unspecified; F31.9 Bipolar disorder, unspecified; G40.909 Epilepsy, unspecified, not intractable, without status epilepticus; E11.9 Type 2 diabetes mellitus without complications; K29.50 Unspecified chronic gastritis without bleeding; D12.5 Benign neoplasm of sigmoid colon; K21.9 Gastro-esophageal reflux disease without esophagitis; E78.5 Hyperlipidemia, unspecified; Z86.010 Personal history of colon polyps; F17.210 Nicotine dependence, cigarettes, uncomplicated; E03.9 Hypothyroidism, unspecified; I10 Essential (primary) hypertension; Z20.822 Contact with and (suspected) exposure to COVID-19; Z87.19 Personal history of other diseases of the digestive system; F41.9 Anxiety disorder, unspecified; E78.00 Pure hypercholesterolemia, unspecified; Z79.899 Other long term (current) drug therapy; Z90.49 Acquired absence of other specified parts of digestive tract
CPT/HCPCS: 45385; 43239; 88305; 88342; J7120; J2405